=== PATIENT | female | born 1980 | race Two or more races ===

== ENCOUNTER 2017-07-02 20:14 | Emergency (ER) | payer MEDICARE, OTHER ==
[~2017-07-02] VITALS: Ht 157.5 cm; Wt 100.0 kg
[~2017-07-02 20:14] MED LIST: ALBU8.5H8 INH; ALPR1TAB7 PO; ASPI-1265 PO; DOCU100C40 PO; DULO60CA64 PO; FERR325T39 PO; FURO40TA4 PO; GABA-338 PO; HYDR200T PO; IPRA3AMP9 NEB; LIDO700A32 TOP; ONDA4TAB9 SL; OXYC-150 PO; PANT40TA4 PO; POLY17PO2 PO; TEMA15CA5 PO; VALP250C44 PO
[2017-07-02 21:41] VITALS: BP 165/102
== END 2017-07-02 21:43 | disposition home or self-care (01) ==
LOC: ER 20:15
DX: G89.29 Other chronic pain (principal); M06.9 Rheumatoid arthritis, unspecified; M81.0 Age-related osteoporosis without current pathological fracture; I13.0 Hypertensive heart and chronic kidney disease with heart failure and stage 1 through stage 4 chronic kidney disease, or unspecified chronic kidney disease; N18.9 Chronic kidney disease, unspecified; I50.9 Heart failure, unspecified; E78.00 Pure hypercholesterolemia, unspecified; F12.10 Cannabis abuse, uncomplicated; Z86.711 Personal history of pulmonary embolism; Z86.718 Personal history of other venous thrombosis and embolism; Z95.1 Presence of aortocoronary bypass graft; Z79.82 Long term (current) use of aspirin; Z79.899 Other long term (current) drug therapy; Z88.1 Allergy status to other antibiotic agents
CPT/HCPCS: 99284

== ENCOUNTER 2017-08-27 21:44 | Emergency (ER) | payer MEDICARE, MEDICAID ==
[~2017-08-27] VITALS: Ht 157.5 cm; Wt 100.0 kg
[2017-08-28] MEDS ORDERED: aspirin 81mg tab.chew PO ONE (02:35)
[2017-08-28 02:54] LABS: BASOPHILS # (AUTO) 0.1 X10'3 (0-0.2); BASOPHILS % (AUTO) 0.7 % (0-1); EOSINOPHILS # (AUTO) 0.4 X10'3 (0-0.9); EOSINOPHILS % (AUTO) 3.2 % (0-6); HEMATOCRIT 41.9 % (35.0-45.0); HEMOGLOBIN 14.1 g/dl (12.0-16.0); LYMPHOCYTES # (AUTO) 3.2 X10'3 (1.1-4.8); LYMPHOCYTES % (AUTO) 26.9 % (21-51); MEAN CORPUSCULAR HEMOGLOBIN 30.3 PG (27.0-31.0); MEAN CORPUSCULAR HGB CONC 33.7 % (33.0-36.5); MEAN PLATELET VOLUME 8.1 FL (7.4-10.4); MONOCYTES % (AUTO) 8.5 % (2-12); NEUTROPHILS # (AUTO) 7.3 X10'3 (1.8-7.7); NEUTROPHILS % (AUTO) 60.7 % (42-75); PLATELET COUNT 264 X10'3 (140-440); RED BLOOD COUNT 4.65 X10'6 (4.20-5.60); WHITE BLOOD COUNT 12.1 X10'3 (4.5-11.0)
[2017-08-28 03:07] LABS: ALANINE AMINOTRANSFERASE 21 U/L (12-78); ALBUMIN 3.1 G/DL (3.4-5.0); ALBUMIN/GLOBULIN RATIO 0.7 (1.1-1.5); ALKALINE PHOSPHATASE 80 IU/L (46-116); ANION GAP 10 (8-16); BILIRUBIN,TOTAL 0.4 MG/DL (0.1-1.0); BLOOD UREA NITROGEN 39 MG/DL (7-18); BUN/CREATININE RATIO 12.2 (6.6-38.0); CHLORIDE 102 MMOL/L (99-107); CREATININE 3.19 MG/DL (0.40-0.90); GLUCOSE 84 MG/DL (70-104); MAGNESIUM 2.1 MG/DL (1.5-2.4); SODIUM 141 MMOL/L (135-145); TOTAL CARBON DIOXIDE 28.9 MMOL/L (24-32); TOTAL PROTEIN 7.4 G/DL (6.4-8.2); eGFR 16 ML/MIN
[2017-08-28 03:08] LABS: POTASSIUM 4.6 MMOL/L (3.5-5.1)
[2017-08-28 03:22] LABS: ASPARTATE AMINO TRANSFERASE 30 U/L (10-37)
[2017-08-28] MEDS ORDERED: acetaminophen 325mg tablet PO STA (03:28)
[2017-08-28 04:36] VITALS: BP 118/57
== END 2017-08-28 04:39 | disposition home or self-care (01) ==
LOC: ER 21:45
DX: R07.89 Other chest pain (principal); I13.2 Hypertensive heart and chronic kidney disease with heart failure and with stage 5 chronic kidney disease, or end stage renal disease; I50.9 Heart failure, unspecified; N18.6 End stage renal disease; F12.10 Cannabis abuse, uncomplicated; G89.29 Other chronic pain; E78.00 Pure hypercholesterolemia, unspecified; M06.9 Rheumatoid arthritis, unspecified; M81.0 Age-related osteoporosis without current pathological fracture; Z86.711 Personal history of pulmonary embolism; Z86.718 Personal history of other venous thrombosis and embolism; Z95.1 Presence of aortocoronary bypass graft; Z88.1 Allergy status to other antibiotic agents; Z79.82 Long term (current) use of aspirin; Z79.899 Other long term (current) drug therapy; Z56.0 Unemployment, unspecified; Z99.2 Dependence on renal dialysis
CPT/HCPCS: 36415; 71046; 80053; 83735; 84484; 85025; 93005; 99285

== ENCOUNTER 2017-11-03 12:21 | Emergency (ER) | payer MEDICARE, MEDICAID ==
[~2017-11-03] VITALS: Ht 157.5 cm; Wt 95.5 kg
[~2017-11-03 12:21] MED LIST changes: +DIPH1TAB PO; -HYDR200T PO; +HYDR200T80 PO
[2017-11-03] MEDS ORDERED: normal saline 1000ML IV soln IVB ONE (12:40)
[2017-11-03] MEDS ORDERED: ondansetron/PF 4mg/2ml inj IV ONE (12:40)
[2017-11-03 13:30] LABS: BASOPHILS % (AUTO) 0.2 % (0-1); EOSINOPHILS % (AUTO) 0 % (0-6); HEMATOCRIT 46.7 % (35.0-45.0); HEMOGLOBIN 15.5 g/dl (12.0-16.0); LYMPHOCYTES # (AUTO) 1.9 X10'3 (1.1-4.8); LYMPHOCYTES % (AUTO) 12.5 % (21-51); MEAN CORPUSCULAR HEMOGLOBIN 29.7 PG (27.0-31.0); MEAN CORPUSCULAR HGB CONC 33.1 % (33.0-36.5); MEAN CORPUSCULAR VOLUME 89.6 FL (78-98); MEAN PLATELET VOLUME 8.5 FL (7.4-10.4); MONOCYTES # (AUTO) 1.3 X10'3 (0-0.9); MONOCYTES % (AUTO) 8.3 % (2-12); NEUTROPHILS # (AUTO) 12.3 X10'3 (1.8-7.7); PLATELET COUNT 263 X10'3 (140-440); RED BLOOD COUNT 5.21 X10'6 (4.20-5.60); RED CELL DISTRIBUTION WIDTH 14.8 % (11.5-14.5); WHITE BLOOD COUNT 15.5 X10'3 (4.5-11.0)
[2017-11-03 13:48] LABS: ALANINE AMINOTRANSFERASE 48 U/L (12-78); ALBUMIN/GLOBULIN RATIO 0.9 (1.1-1.5); ALKALINE PHOSPHATASE 313 IU/L (46-116); ANION GAP 13 (8-16); ASPARTATE AMINO TRANSFERASE 58 U/L (10-37); BILIRUBIN,TOTAL 0.4 MG/DL (0.1-1.0); BLOOD UREA NITROGEN 42 MG/DL (7-18); BUN/CREATININE RATIO 13.6 (6.6-38.0); CALCIUM 10.1 MG/DL (8.5-10.1); CHLORIDE 97 MMOL/L (99-107); CREATININE 3.09 MG/DL (0.40-0.90); GLUCOSE 114 MG/DL (70-104); LIPASE 108 U/L (73-393); POTASSIUM 4.2 MMOL/L (3.5-5.1); SODIUM 138 MMOL/L (135-145); TOTAL CARBON DIOXIDE 27.9 MMOL/L (24-32); TOTAL PROTEIN 8.6 G/DL (6.4-8.2); eGFR 17 ML/MIN
[2017-11-03 13:54] LABS: VALPROATE 42 UG/ML (50-100)
[2017-11-03] MEDS ORDERED: ONDA8TAB9 PO (14:46)
[2017-11-03] MEDS ORDERED: morphine 4 MG/ML inj SYRINge IV ONE (15:00)
[2017-11-03 15:01] LABS: CLARITY,URINE CLEAR (Clear); COLOR,URINE YELLOW (Yellow); GLUCOSE, URINE NEGATIVE (Neg); KETONES,URINE NEGATIVE (Neg); LEUKOCYTE ESTERASE ,URINE NEGATIVE (Neg); NITRITES, URINE NEGATIVE (Neg); OCCULT BLOOD,URINE NEGATIVE (Neg); PROTEIN,URINE 100 mg/dl (Neg); UROBILINOGEN,URINE 0.2 E.U/dL (0.2-1.0)
[2017-11-03 15:03] LABS: UA COLLECTION TYPE STRAIGHT CATH
[2017-11-03 15:08] LABS: BACTERIA,URINE NONE SEEN /HPF (Neg); HYALINE CASTS 0-3 /LPF (NEGATIVE); MUCUS STRANDS FEW /LPF (Neg); RBC,URINE 0-2 /HPF (0-2); SQUAMOUS EPITHELIAL CELL,UR FEW /LPF (FEW); TRANSITIONAL EPI CELLS,URINE FEW /HPF; WBC,URINE 0-4 /HPF (0-4)
[2017-11-03 15:32] VITALS: BP 139/106
== END 2017-11-03 15:35 | disposition home or self-care (01) ==
LOC: ER 12:22
DX: G40.909 Epilepsy, unspecified, not intractable, without status epilepticus (principal); D72.829 Elevated white blood cell count, unspecified; I13.0 Hypertensive heart and chronic kidney disease with heart failure and stage 1 through stage 4 chronic kidney disease, or unspecified chronic kidney disease; I50.9 Heart failure, unspecified; N18.9 Chronic kidney disease, unspecified; E78.00 Pure hypercholesterolemia, unspecified; M81.0 Age-related osteoporosis without current pathological fracture; M19.90 Unspecified osteoarthritis, unspecified site; F12.10 Cannabis abuse, uncomplicated; G89.29 Other chronic pain; Z56.0 Unemployment, unspecified; Z86.19 Personal history of other infectious and parasitic diseases; Z95.1 Presence of aortocoronary bypass graft; Z86.711 Personal history of pulmonary embolism; Z86.718 Personal history of other venous thrombosis and embolism; Z88.8 Allergy status to other drugs, medicaments and biological substances; Z79.899 Other long term (current) drug therapy; Z79.82 Long term (current) use of aspirin
CPT/HCPCS: 36415; 71045; 80053; 80164; 81001; 83690; 85025; 96361; 96374; 96375; 99285; J2270; J2405; J7030

== ENCOUNTER 2018-02-11 10:40 | Inpatient (IN) | payer MEDICARE, MEDICAID ==
[~2018-02-11] VITALS: Ht 157.5 cm; Wt 86.4 kg
[~2018-02-11 10:40] MED LIST changes: +ONDA8TAB9 PO
[2018-02-11] MEDS ORDERED: ondansetron/PF 4mg/2ml inj IV ONE (12:10)
[2018-02-11] MEDS ORDERED: cloNIDine 0.1 mg tablet PO ONE (12:10)
[2018-02-11] MEDS ORDERED: normal saline 1000ML IV soln IV ONE (12:10)
[2018-02-11 12:35] LABS: BASOPHILS # (AUTO) 0.1 X10'3 (0-0.2); EOSINOPHILS # (AUTO) 0.2 X10'3 (0-0.9); EOSINOPHILS % (AUTO) 1.3 % (0-6); HEMATOCRIT 47.4 % (35.0-45.0); HEMOGLOBIN 14.9 g/dl (12.0-16.0); LYMPHOCYTES # (AUTO) 2.8 X10'3 (1.1-4.8); LYMPHOCYTES % (AUTO) 20.9 % (21-51); MEAN CORPUSCULAR HEMOGLOBIN 29.3 PG (27.0-31.0); MEAN CORPUSCULAR HGB CONC 31.5 % (33.0-36.5); MONOCYTES % (AUTO) 7.3 % (2-12); NEUTROPHILS # (AUTO) 9.1 X10'3 (1.8-7.7); NEUTROPHILS % (AUTO) 69.5 % (42-75); PLATELET COUNT 326 X10'3 (140-440); WHITE BLOOD COUNT 13.2 X10'3 (4.5-11.0)
[2018-02-11] MEDS ORDERED: normal saline 1000ml 1,000 ML IV ONE (12:35)
[2018-02-11] MEDS ORDERED: diphenhydrAMINE 25mg capsule PO ONE (12:45)
[2018-02-11] MEDS ORDERED: proCHLORperazine 10 MG/2 ml inj IM ONE (12:45)
[2018-02-11] MEDS ORDERED: ketorolac trometh inj. 60 MG/2 ML VIAL IM ONE (12:45)
[2018-02-11 12:50] LABS: ALANINE AMINOTRANSFERASE 18 U/L (12-78); ALBUMIN 3.3 G/DL (3.4-5.0); ALBUMIN/GLOBULIN RATIO 0.8 (1.1-1.5); ALKALINE PHOSPHATASE 85 IU/L (46-116); ANION GAP 6 (8-16); ASPARTATE AMINO TRANSFERASE 14 U/L (10-37); BILIRUBIN,TOTAL 0.3 MG/DL (0.1-1.0); BLOOD UREA NITROGEN 43 MG/DL (7-18); BUN/CREATININE RATIO 20.5 (6.6-38.0); CALCIUM 9.9 MG/DL (8.5-10.1); CHLORIDE 106 MMOL/L (99-107); GLUCOSE 85 MG/DL (70-104); MAGNESIUM 2.1 MG/DL (1.5-2.4); SODIUM 138 MMOL/L (135-145); TOTAL CARBON DIOXIDE 26.3 MMOL/L (24-32); TOTAL PROTEIN 7.6 G/DL (6.4-8.2); eGFR 26 ML/MIN
[2018-02-11 12:51] LABS: INR 0.9 INR; PARTIAL THROMBOPLASTIN TIME 27 SECONDS (22-32); PROTHROMBIN TIME 9.8 SECONDS (9.0-12.0)
[2018-02-11 12:54] LABS: POTASSIUM 6.4 MMOL/L (3.5-5.1)
[2018-02-11] MEDS ORDERED: calcium chloride 100 MG/1 ML inj IV ONE (13:05)
[2018-02-11] MEDS ORDERED: sodium polystyrene sulfonate 15gm/60ml oral suspension PO ONE (13:05)
[2018-02-11] MEDS ORDERED: normal saline 1000ML IV soln IVB ONE (13:20)
[2018-02-11] MEDS ORDERED: FENT-93 TOP (13:32)
[2018-02-11 13:41] LABS: COLOR,URINE YELLOW (Yellow); GLUCOSE, URINE NEGATIVE (Neg); KETONES,URINE NEGATIVE (Neg); LEUKOCYTE ESTERASE ,URINE NEGATIVE (Neg); NITRITES, URINE NEGATIVE (Neg); OCCULT BLOOD,URINE NEGATIVE (Neg); PH,URINE 5.5 (4.8-8.0); PROTEIN,URINE TRACE mg/dl (Neg); UROBILINOGEN,URINE 0.2 E.U/dL (0.2-1.0)
[2018-02-11 13:42] LABS: CLARITY,URINE SLIGHTLY CLOUDY (Clear); UA COLLECTION TYPE STRAIGHT CATH
[2018-02-11 13:47] LABS: BACTERIA,URINE NONE SEEN /HPF (Neg); RBC,URINE NONE SEEN /HPF (0-2); SQUAMOUS EPITHELIAL CELL,UR MODERATE /LPF (FEW); WBC,URINE 0-4 /HPF (0-4)
[2018-02-11 13:48] LABS: MUCUS STRANDS FEW /LPF (Neg)
[2018-02-11 13:51] LABS: URINE HCG NEGATIVE (NEG)
[2018-02-11 13:57] LABS: URINE AMPHETAMINE SCREEN NEGATIVE (Neg); URINE BARBITUATE SCREEN NEGATIVE (Neg); URINE BENZODIAZEPINES SCREEN POSITIVE (Neg); URINE CANNABINOID SCREEN POSITIVE (Neg); URINE COCAINE SCREEN NEGATIVE (Neg); URINE METHADONE SCREEN NEGATIVE (Neg); URINE OPIATE SCREEN NEGATIVE (Neg); URINE PHENCYCLIDINE SCREEN NEGATIVE (Neg)
[2018-02-11] MEDS ORDERED: calcium chloride inj. 1,000 MG in normal saline 100ml IV soln 100 ML IV ONE (14:10)
[2018-02-11] MEDS ORDERED: non-formulary drug (Albuterol Sulfate (Proair Hfa) 2 PUFFS) INH SCH (14:35)
[2018-02-11] MEDS ORDERED: polyethylene glycol 3350 17gm powd pack PO PRN (14:35)
[2018-02-11] MEDS ORDERED: non-formulary drug (Fentanyl Patch 100 MCG* (Duragesic 100 MCG*) 1 PATCH) TOP SCH (14:35)
[2018-02-11] MEDS ORDERED: non-formulary drug (Alprazolam 1 TAB) PO PRN (14:35)
[2018-02-11] MEDS ORDERED: HYDROcodone/acetaminophen 10/325mg tab PO PRN (14:45)
[2018-02-11] MEDS ORDERED: acetaminophen 325mg tablet PO PRN ×2 (14:45)
[2018-02-11] MEDS ORDERED: magnesium Cl slow-release 64mg tablet PO PRN (14:45)
[2018-02-11] MEDS ORDERED: ondansetron/PF 4mg/2ml inj IV PRN (14:45)
[2018-02-11] MEDS: K and/or MAG REPLACEMENT MC SCH (14:45)
[2018-02-11] MEDS ORDERED: potassium Cl 20 mEq SR tablet PO PRN ×2 (14:45)
[2018-02-11] MEDS ORDERED: magnesium hydroxide 30ml (MOM) UD suspension PO PRN (14:45)
[2018-02-11] MEDS ORDERED: HYDROmorphone 1 mg/ml syringe IV PRN ×2 (14:45)
[2018-02-11] MEDS ORDERED: diphenhydrAMINE 25mg capsule PO PRN (14:45)
[2018-02-11] MEDS ORDERED: bisacodyl 10mg suppository rectal RC PRN (14:45)
[2018-02-11] MEDS ORDERED: potassium Cl 40MEQ/NS 500ml 500 ML IV PRN ×2 (14:45)
[2018-02-11] MEDS ORDERED: magnesium 4gm in 100ml NS 100 ML IV PRN (14:45)
[2018-02-11] MEDS ORDERED: morphine 4 MG/ML inj SYRINge IV PRN (14:45)
[2018-02-11] MEDS ORDERED: magnesium 1gm/100ml D5W IVPB 100 ML IV PRN (14:45)
[2018-02-11] MEDS ORDERED: HYDROcodone/acetaminophen 5mg/325mg tablet PO PRN (14:45)
[2018-02-11] MEDS ORDERED: mag hydrox/Alum hydrox/simeth 30ml oral suspension PO PRN (14:45)
[2018-02-11] MEDS: fentaNYL 100MCG/hour patch.TD72 TD SCH (15:52)
[2018-02-11] MEDS: diphenoxylate/atropine tablet (Lomotil) PO SCH (16:00)
[2018-02-11] MEDS ORDERED: non-formulary drug (Ondansetron (Zofran Odt) 1 TAB) PO SCH (16:00)
[2018-02-11] MEDS: morphine 4 MG/ML inj SYRINge IV PRN ×2 (16:19→22:04)
[2018-02-11] MEDS ORDERED: diphenhydrAMINE 50 mg/ml inj IV PRN (16:34)
[2018-02-11 17:30] VITALS: BP 163/102
[2018-02-11] MEDS: normal saline 1000ml 1,000 ML IV SCH ×2 (17:49→22:45)
[2018-02-11] MEDS: oxyCODONE/APAP 10/325mg tablet PO PRN (17:55)
[2018-02-11 19:00] VITALS: BP 134/87
[2018-02-11] MEDS: ipratropium/albuterol 3ml nebule NEB PRN (19:31)
[2018-02-11] MEDS: docusate sod 100mg capsule PO SCH (20:00)
[2018-02-11] MEDS ORDERED: non-formulary drug (Duloxetine HCl 1 CAP) PO SCH (20:00)
[2018-02-11] MEDS ORDERED: temazepam 15mg capsule PO PRN (21:00)
[2018-02-11] MEDS: gabapentin 300mg capsule PO SCH (21:32)
[2018-02-11] MEDS: duloxetine 30mg CAPSULE.DR PO SCH (21:34)
[2018-02-11] MEDS: ferrous sulfate 325mg tablet PO SCH (21:34)
[2018-02-11] MEDS: heparin, porcine 5000 units/ml vial SQ SCH (21:37)
[2018-02-11] MEDS: valproic acid 250mg capsule PO SCH (21:38)
[2018-02-11] MEDS: furosemide 40mg tablet PO SCH (21:44)
[2018-02-11] MEDS: ALPRAZolam 0.5mg tablet PO PRN (22:18)
[2018-02-12] VITALS: BP 135/90
[2018-02-12] MEDS: oxyCODONE/APAP 10/325mg tablet PO PRN ×3 (00:38→19:16)
[2018-02-12] MEDS: temazepam 15mg capsule PO PRN (00:38)
[2018-02-12] MEDS: morphine 4 MG/ML inj SYRINge IV PRN ×2 (02:14→08:00)
[2018-02-12] MEDS: ipratropium/albuterol 3ml nebule NEB PRN ×3 (02:48→20:10)
[2018-02-12 05:18] LABS: BASOPHILS # (AUTO) 0.1 X10'3 (0-0.2); BASOPHILS % (AUTO) 0.8 % (0-1); EOSINOPHILS # (AUTO) 0.2 X10'3 (0-0.9); EOSINOPHILS % (AUTO) 1.3 % (0-6); HEMATOCRIT 40.4 % (35.0-45.0); HEMOGLOBIN 13.1 g/dl (12.0-16.0); LYMPHOCYTES # (AUTO) 4.9 X10'3 (1.1-4.8); LYMPHOCYTES % (AUTO) 35.5 % (21-51); MEAN CORPUSCULAR HEMOGLOBIN 30.5 PG (27.0-31.0); MEAN CORPUSCULAR HGB CONC 32.5 % (33.0-36.5); MEAN CORPUSCULAR VOLUME 93.9 FL (78-98); MEAN PLATELET VOLUME 9.3 FL (7.4-10.4); MONOCYTES # (AUTO) 0.9 X10'3 (0-0.9); MONOCYTES % (AUTO) 6.2 % (2-12); NEUTROPHILS # (AUTO) 7.7 X10'3 (1.8-7.7); NEUTROPHILS % (AUTO) 56.2 % (42-75); PLATELET COUNT 264 X10'3 (140-440); RED BLOOD COUNT 4.31 X10'6 (4.20-5.60); RED CELL DISTRIBUTION WIDTH 14.6 % (11.5-14.5); WHITE BLOOD COUNT 13.8 X10'3 (4.5-11.0)
[2018-02-12] MEDS: normal saline 1000ml 1,000 ML IV SCH ×3 (05:26→22:45)
[2018-02-12] MEDS: ALPRAZolam 0.5mg tablet PO PRN (05:31)
[2018-02-12 05:45] LABS: ALANINE AMINOTRANSFERASE 13 U/L (12-78); ALBUMIN 2.7 G/DL (3.4-5.0); ALBUMIN/GLOBULIN RATIO 0.8 (1.1-1.5); ALKALINE PHOSPHATASE 88 IU/L (46-116); ANION GAP 6 (8-16); ASPARTATE AMINO TRANSFERASE 12 U/L (10-37); BILIRUBIN,TOTAL 0.2 MG/DL (0.1-1.0); BLOOD UREA NITROGEN 42 MG/DL (7-18); BUN/CREATININE RATIO 20.3 (6.6-38.0); CHLORIDE 105 MMOL/L (99-107); CREATININE 2.07 MG/DL (0.40-0.90); GLUCOSE 113 MG/DL (70-104); MAGNESIUM 1.5 MG/DL (1.5-2.4); PHOSPHORUS 4.7 MG/DL (2.3-4.5); POTASSIUM 3.8 MMOL/L (3.5-5.1); SODIUM 137 MMOL/L (135-145); TOTAL CARBON DIOXIDE 26.5 MMOL/L (24-32); TOTAL PROTEIN 6.2 G/DL (6.4-8.2); eGFR 27 ML/MIN
[2018-02-12 07:00] VITALS: BP 101/62
[2018-02-12] MEDS: valproic acid 250mg capsule PO SCH ×2 (07:59→21:16)
[2018-02-12] MEDS: diphenoxylate/atropine tablet (Lomotil) PO SCH ×3 (07:59→16:00)
[2018-02-12] MEDS: ferrous sulfate 325mg tablet PO SCH ×3 (07:59→21:17)
[2018-02-12] MEDS: gabapentin 300mg capsule PO SCH ×3 (07:59→21:17)
[2018-02-12] MEDS: pantoprazole 40mg Tablet.DR PO SCH (07:59)
[2018-02-12] MEDS: furosemide 40mg tablet PO SCH ×2 (07:59→21:16)
[2018-02-12] MEDS: K and/or MAG REPLACEMENT MC SCH (08:00)
[2018-02-12] MEDS: aspirin 325mg tablet PO SCH (08:00)
[2018-02-12] MEDS: predniSONE 5mg tablet PO SCH (08:00)
[2018-02-12] MEDS: duloxetine 30mg CAPSULE.DR PO SCH ×2 (08:00→21:16)
[2018-02-12] MEDS: docusate sod 100mg capsule PO SCH ×2 (08:00→21:17)
[2018-02-12] MEDS: heparin, porcine 5000 units/ml vial SQ SCH ×2 (08:01→21:17)
[2018-02-12] MEDS: hydroxychloroquine 200mg tablet PO SCH (08:01)
[2018-02-12] MEDS: LIDOcaine 5% patch TP SCH (08:07)
[2018-02-12 10:27] LABS: VALPROATE 71 UG/ML (50-100)
[2018-02-12] MEDS ORDERED: morphine 4 MG/ML inj SYRINge IV PRN ×2 (10:30)
[2018-02-12 11:30] VITALS: BP 112/78
[2018-02-12] MEDS: ondansetron 4mg rapidly disintigrating tab PO PRN ×2 (13:53→21:32)
[2018-02-12 20:00] VITALS: BP 106/83
[2018-02-13] VITALS: BP 106/76
[2018-02-13] MEDS: oxyCODONE/APAP 10/325mg tablet PO PRN ×3 (03:26→17:39)
[2018-02-13] MEDS: ipratropium/albuterol 3ml nebule NEB PRN ×2 (03:43→08:10)
[2018-02-13 05:50] LABS: BASOPHILS # (AUTO) 0.1 X10'3 (0-0.2); BASOPHILS % (AUTO) 1.2 % (0-1); EOSINOPHILS # (AUTO) 0.2 X10'3 (0-0.9); EOSINOPHILS % (AUTO) 1.6 % (0-6); HEMATOCRIT 36.6 % (35.0-45.0); HEMOGLOBIN 11.9 g/dl (12.0-16.0); LYMPHOCYTES # (AUTO) 2.8 X10'3 (1.1-4.8); LYMPHOCYTES % (AUTO) 26.1 % (21-51); MEAN CORPUSCULAR HEMOGLOBIN 30.4 PG (27.0-31.0); MEAN CORPUSCULAR HGB CONC 32.4 % (33.0-36.5); MEAN PLATELET VOLUME 9.2 FL (7.4-10.4); MONOCYTES # (AUTO) 0.8 X10'3 (0-0.9); MONOCYTES % (AUTO) 7.6 % (2-12); NEUTROPHILS # (AUTO) 6.8 X10'3 (1.8-7.7); NEUTROPHILS % (AUTO) 63.5 % (42-75); PLATELET COUNT 237 X10'3 (140-440); RED CELL DISTRIBUTION WIDTH 15.7 % (11.5-14.5); WHITE BLOOD COUNT 10.6 X10'3 (4.5-11.0)
[2018-02-13 06:23] LABS: ALANINE AMINOTRANSFERASE 20 U/L (12-78); ALBUMIN 2.8 G/DL (3.4-5.0); ALBUMIN/GLOBULIN RATIO 0.9 (1.1-1.5); ALKALINE PHOSPHATASE 77 IU/L (46-116); ANION GAP 10 (8-16); ASPARTATE AMINO TRANSFERASE 15 U/L (10-37); BILIRUBIN,TOTAL 0.1 MG/DL (0.1-1.0); BLOOD UREA NITROGEN 43 MG/DL (7-18); BUN/CREATININE RATIO 16.8 (6.6-38.0); CALCIUM 7.3 MG/DL (8.5-10.1); CHLORIDE 103 MMOL/L (99-107); CREATININE 2.56 MG/DL (0.40-0.90); GLUCOSE 88 MG/DL (70-104); MAGNESIUM 1.6 MG/DL (1.5-2.4); PHOSPHORUS 4.3 MG/DL (2.3-4.5); POTASSIUM 4.3 MMOL/L (3.5-5.1); SODIUM 138 MMOL/L (135-145); TOTAL CARBON DIOXIDE 25.2 MMOL/L (24-32); eGFR 21 ML/MIN
[2018-02-13] MEDS: normal saline 1000ml 1,000 ML IV SCH ×3 (06:45→18:38)
[2018-02-13 07:31] VITALS: BP 88/44
[2018-02-13] MEDS: K and/or MAG REPLACEMENT MC SCH (07:39)
[2018-02-13] MEDS: diphenoxylate/atropine tablet (Lomotil) PO SCH ×3 (07:40→15:45)
[2018-02-13] MEDS: furosemide 40mg tablet PO SCH ×2 (07:41→19:58)
[2018-02-13] MEDS: pantoprazole 40mg Tablet.DR PO SCH (08:50)
[2018-02-13] MEDS: hydroxychloroquine 200mg tablet PO SCH (08:50)
[2018-02-13] MEDS: docusate sod 100mg capsule PO SCH ×2 (08:50→19:58)
[2018-02-13] MEDS: valproic acid 250mg capsule PO SCH ×2 (08:50→19:59)
[2018-02-13] MEDS: predniSONE 5mg tablet PO SCH (08:50)
[2018-02-13] MEDS: aspirin 325mg tablet PO SCH (08:50)
[2018-02-13] MEDS: ferrous sulfate 325mg tablet PO SCH ×3 (08:50→20:33)
[2018-02-13] MEDS: duloxetine 30mg CAPSULE.DR PO SCH ×2 (08:50→19:59)
[2018-02-13] MEDS: gabapentin 300mg capsule PO SCH ×3 (08:50→20:33)
[2018-02-13] MEDS: LIDOcaine 5% patch TP SCH (08:51)
[2018-02-13] MEDS: heparin, porcine 5000 units/ml vial SQ SCH ×2 (08:51→19:58)
[2018-02-13] MEDS ORDERED: normal saline 1000ml 1,000 ML IV ONE (09:10)
[2018-02-13 11:03] VITALS: BP 96/60
[2018-02-13 12:11] VITALS: BP 113/73
[2018-02-13 18:00] VITALS: BP 122/59
[2018-02-13] MEDS: albuterol 2.5 MG/3 ML nebule NEB PRN (19:47)
[2018-02-13] MEDS: ALPRAZolam 0.5mg tablet PO PRN (19:59)
[2018-02-14] VITALS: BP 98/60
[2018-02-14] MEDS: normal saline 1000ml 1,000 ML IV SCH ×3 (02:45→23:47)
[2018-02-14] MEDS: oxyCODONE/APAP 10/325mg tablet PO PRN ×2 (04:24→14:20)
[2018-02-14 07:30] VITALS: BP 101/42
[2018-02-14] MEDS: furosemide 40mg tablet PO SCH ×2 (08:00→19:47)
[2018-02-14] MEDS: diphenoxylate/atropine tablet (Lomotil) PO SCH ×4 (08:00→23:48)
[2018-02-14] MEDS: K and/or MAG REPLACEMENT MC SCH (08:00)
[2018-02-14] MEDS: duloxetine 30mg CAPSULE.DR PO SCH ×2 (09:17→19:48)
[2018-02-14] MEDS: LIDOcaine 5% patch TP SCH (09:17)
[2018-02-14] MEDS: heparin, porcine 5000 units/ml vial SQ SCH ×2 (09:17→19:49)
[2018-02-14] MEDS: docusate sod 100mg capsule PO SCH ×2 (09:18→19:47)
[2018-02-14] MEDS: pantoprazole 40mg Tablet.DR PO SCH (09:18)
[2018-02-14] MEDS: valproic acid 250mg capsule PO SCH ×2 (09:18→19:48)
[2018-02-14] MEDS: gabapentin 300mg capsule PO SCH ×3 (09:18→19:47)
[2018-02-14] MEDS: aspirin 325mg tablet PO SCH (09:18)
[2018-02-14] MEDS: predniSONE 5mg tablet PO SCH (09:18)
[2018-02-14] MEDS: ferrous sulfate 325mg tablet PO SCH ×3 (09:18→20:58)
[2018-02-14] MEDS: hydroxychloroquine 200mg tablet PO SCH (09:19)
[2018-02-14 11:19] VITALS: BP 100/48
[2018-02-14] MEDS: ALPRAZolam 0.5mg tablet PO PRN (12:18)
[2018-02-14] MEDS: fentaNYL 100MCG/hour patch.TD72 TD SCH (16:29)
[2018-02-14 18:00] VITALS: BP 115/61
[2018-02-14] MEDS: temazepam 15mg capsule PO PRN (20:58)
[2018-02-15 00:02] VITALS: BP 128/76
[2018-02-15] MEDS: normal saline 1000ml 1,000 ML IV SCH ×3 (05:11→21:09)
[2018-02-15] MEDS: albuterol 2.5 MG/3 ML nebule NEB PRN (05:15)
[2018-02-15 07:00] VITALS: BP 94/52
[2018-02-15] MEDS: diphenoxylate/atropine tablet (Lomotil) PO SCH ×3 (08:00→23:25)
[2018-02-15] MEDS: furosemide 40mg tablet PO SCH ×2 (08:00→20:07)
[2018-02-15] MEDS: K and/or MAG REPLACEMENT MC SCH (08:00)
[2018-02-15] MEDS: heparin, porcine 5000 units/ml vial SQ SCH ×2 (08:14→20:07)
[2018-02-15] MEDS: hydroxychloroquine 200mg tablet PO SCH (08:15)
[2018-02-15] MEDS: aspirin 325mg tablet PO SCH (08:15)
[2018-02-15] MEDS: duloxetine 30mg CAPSULE.DR PO SCH ×2 (08:15→20:07)
[2018-02-15] MEDS: docusate sod 100mg capsule PO SCH ×2 (08:16→20:07)
[2018-02-15] MEDS: pantoprazole 40mg Tablet.DR PO SCH (08:16)
[2018-02-15] MEDS: gabapentin 300mg capsule PO SCH ×2 (08:16→20:07)
[2018-02-15] MEDS: ferrous sulfate 325mg tablet PO SCH ×3 (08:16→20:06)
[2018-02-15] MEDS: predniSONE 5mg tablet PO SCH (08:16)
[2018-02-15] MEDS: valproic acid 250mg capsule PO SCH ×2 (08:16→20:06)
[2018-02-15] MEDS: LIDOcaine 5% patch TP SCH (08:17)
[2018-02-15 11:00] VITALS: BP 105/65
[2018-02-15 20:00] VITALS: BP 105/76
[2018-02-15] MEDS: ALPRAZolam 0.5mg tablet PO PRN (23:25)
[2018-02-16] VITALS: BP 132/78
[2018-02-16] MEDS ORDERED: bisacodyl 10mg suppository rectal RC PRN (05:35)
[2018-02-16] MEDS: normal saline 1000ml 1,000 ML IV SCH ×2 (05:46→14:34)
[2018-02-16 07:00] VITALS: BP 132/87
[2018-02-16] MEDS: hydroxychloroquine 200mg tablet PO SCH (07:51)
[2018-02-16] MEDS: LIDOcaine 5% patch TP SCH (07:51)
[2018-02-16] MEDS: heparin, porcine 5000 units/ml vial SQ SCH (07:51)
[2018-02-16] MEDS: pantoprazole 40mg Tablet.DR PO SCH (07:52)
[2018-02-16] MEDS: duloxetine 30mg CAPSULE.DR PO SCH (07:52)
[2018-02-16] MEDS: ferrous sulfate 325mg tablet PO SCH ×2 (07:52→13:20)
[2018-02-16] MEDS: gabapentin 300mg capsule PO SCH (07:52)
[2018-02-16] MEDS: furosemide 40mg tablet PO SCH (07:52)
[2018-02-16] MEDS: predniSONE 5mg tablet PO SCH (07:52)
[2018-02-16] MEDS: docusate sod 100mg capsule PO SCH (07:52)
[2018-02-16] MEDS: valproic acid 250mg capsule PO SCH (07:52)
[2018-02-16] MEDS: aspirin 325mg tablet PO SCH (07:52)
[2018-02-16] MEDS: diphenoxylate/atropine tablet (Lomotil) PO SCH ×2 (08:00→14:18)
[2018-02-16] MEDS: K and/or MAG REPLACEMENT MC SCH (08:00)
[2018-02-16 11:00] VITALS: BP 133/80
== END 2018-02-16 17:15 | DRG 641 ==
LOC: ER 10:41 → ED HOLD 14:45 → SUR 3N 17:28 → UNDODISIN 02-16 17:15
PROVIDERS: ADMIT Family Medicine; ATTEND Family Medicine
DX: E87.5 Hyperkalemia (principal); F11.20 Opioid dependence, uncomplicated; I13.0 Hypertensive heart and chronic kidney disease with heart failure and stage 1 through stage 4 chronic kidney disease, or unspecified chronic kidney disease; E86.0 Dehydration; M32.9 Systemic lupus erythematosus, unspecified; M81.0 Age-related osteoporosis without current pathological fracture; E78.00 Pure hypercholesterolemia, unspecified; E78.5 Hyperlipidemia, unspecified; F12.90 Cannabis use, unspecified, uncomplicated; G89.4 Chronic pain syndrome; N18.3 Chronic kidney disease, stage 3 (moderate); D72.829 Elevated white blood cell count, unspecified; G40.909 Epilepsy, unspecified, not intractable, without status epilepticus; I50.9 Heart failure, unspecified; M06.9 Rheumatoid arthritis, unspecified; M79.7 Fibromyalgia; Z75.1 Person awaiting admission to adequate facility elsewhere; Z95.1 Presence of aortocoronary bypass graft; Z95.2 Presence of prosthetic heart valve; Z74.01 Bed confinement status; Z88.1 Allergy status to other antibiotic agents; Z79.899 Other long term (current) drug therapy; Z79.82 Long term (current) use of aspirin; Z86.14 Personal history of Methicillin resistant Staphylococcus aureus infection; Z87.01 Personal history of pneumonia (recurrent); Z86.718 Personal history of other venous thrombosis and embolism; Z86.711 Personal history of pulmonary embolism; Z87.891 Personal history of nicotine dependence; Z82.49 Family history of ischemic heart disease and other diseases of the circulatory system
CPT/HCPCS: 36415; 71045; 80053; 80164; 80305; 81001; 81025; 82948; 83605; 83735; 84100; 84132; 85025; 85610; 85730; 87040; 87070; 93005; 94640; 94760; 96361; 96365; 96375; 97110; 97116; 97161; 97530; 99285; A4315; A6257; A6258; J1200; J1644; J2270; J2405; J7030; J7512

== ENCOUNTER 2018-04-14 13:50 | Emergency (ER) | payer MEDICARE, MEDICAID ==
[~2018-04-14] VITALS: Ht 157.5 cm; Wt 93.2 kg
[~2018-04-14 13:50] MED LIST changes: +FENT1PAT13 TOP; -ONDA4TAB9 SL
[2018-04-14] MEDS ORDERED: HYDROmorphone 1 mg/ml syringe IM ONE (14:05)
[2018-04-14] MEDS ORDERED: oxyCODONE/APAP 5-325mg tablet PO ONE (16:25)
[2018-04-14 16:35] VITALS: BP 128/67
== END 2018-04-14 16:40 | disposition home or self-care (01) ==
LOC: ER 13:51
DX: S82.851A Displaced trimalleolar fracture of right lower leg, initial encounter for closed fracture (principal); I13.0 Hypertensive heart and chronic kidney disease with heart failure and stage 1 through stage 4 chronic kidney disease, or unspecified chronic kidney disease; N18.9 Chronic kidney disease, unspecified; I50.9 Heart failure, unspecified; E78.00 Pure hypercholesterolemia, unspecified; M19.90 Unspecified osteoarthritis, unspecified site; G89.29 Other chronic pain; F12.90 Cannabis use, unspecified, uncomplicated; Z86.69 Personal history of other diseases of the nervous system and sense organs; Z86.14 Personal history of Methicillin resistant Staphylococcus aureus infection; Z95.1 Presence of aortocoronary bypass graft; Z98.890 Other specified postprocedural states; Z56.0 Unemployment, unspecified; Z86.711 Personal history of pulmonary embolism; Z86.718 Personal history of other venous thrombosis and embolism; Z88.8 Allergy status to other drugs, medicaments and biological substances; Z79.82 Long term (current) use of aspirin; Z79.899 Other long term (current) drug therapy; X37.1XXA Tornado, initial encounter; Y93.89 Activity, other specified; Y92.89 Other specified places as the place of occurrence of the external cause; Y99.8 Other external cause status
CPT/HCPCS: 29515; 73610; 96372; 99284; J1170

== ENCOUNTER → 2018-04-15 | Emergency (ER) | payer MEDICARE, MEDICAID ==
[~2018-04-15] VITALS: Ht 157.5 cm; Wt 93.2 kg
[~2018-04-15] MED LIST changes: +HYDROmorphone 1 mg/ml syringe IM ONE; +LORazepam 1 MG tablet PO ONE
[2018-04-15 20:40] VITALS: BP 161/119
== END | disposition home or self-care (01) ==
LOC: ER 20:38
DX: S82.851D Displaced trimalleolar fracture of right lower leg, subsequent encounter for closed fracture with routine healing (principal); E78.00 Pure hypercholesterolemia, unspecified; I11.0 Hypertensive heart disease with heart failure; I50.9 Heart failure, unspecified; I12.9 Hypertensive chronic kidney disease with stage 1 through stage 4 chronic kidney disease, or unspecified chronic kidney disease; N18.9 Chronic kidney disease, unspecified; M79.7 Fibromyalgia; G89.29 Other chronic pain; F12.90 Cannabis use, unspecified, uncomplicated; Z95.1 Presence of aortocoronary bypass graft; Z56.0 Unemployment, unspecified; Z86.718 Personal history of other venous thrombosis and embolism; Z86.711 Personal history of pulmonary embolism; Z99.2 Dependence on renal dialysis; Z88.8 Allergy status to other drugs, medicaments and biological substances; Z79.82 Long term (current) use of aspirin; Z79.899 Other long term (current) drug therapy; X37 Cataclysmic storm
CPT/HCPCS: 29515; 96372; 99283; J1170

== ENCOUNTER 2018-05-07 11:35 | Outpatient (CLI) | payer MEDICARE, MEDICAID ==
[2018-05-07 11:23] VITALS: BP 136/104
[~2018-05-07 11:35] MED LIST changes: -HYDROmorphone 1 mg/ml syringe IM ONE; -LORazepam 1 MG tablet PO ONE
== END 2018-05-07 12:17 | disposition home or self-care (01) ==
LOC: ORTHO 11:35
PROVIDERS: ATTEND Nurse Practitioner Family
DX: S82.851G Displaced trimalleolar fracture of right lower leg, subsequent encounter for closed fracture with delayed healing (principal); M25.471 Effusion, right ankle; E78.00 Pure hypercholesterolemia, unspecified; I13.0 Hypertensive heart and chronic kidney disease with heart failure and stage 1 through stage 4 chronic kidney disease, or unspecified chronic kidney disease; N18.9 Chronic kidney disease, unspecified; I50.9 Heart failure, unspecified; G89.29 Other chronic pain; M81.0 Age-related osteoporosis without current pathological fracture; M06.9 Rheumatoid arthritis, unspecified; Z86.718 Personal history of other venous thrombosis and embolism; Z88.1 Allergy status to other antibiotic agents; Z79.899 Other long term (current) drug therapy; Z87.891 Personal history of nicotine dependence; Z56.0 Unemployment, unspecified; W19.XXXD Unspecified fall, subsequent encounter
CPT/HCPCS: 73610; 99213; A4590

== ENCOUNTER → 2018-05-20 | Outpatient (CLI) | payer MEDICARE, MEDICAID ==
[2018-05-20 11:43] VITALS: BP 178/117
== END | disposition home or self-care (01) ==
LOC: ORTHO 11:45
PROVIDERS: ATTEND Nurse Practitioner Family
DX: S82.851G Displaced trimalleolar fracture of right lower leg, subsequent encounter for closed fracture with delayed healing (principal); E78.00 Pure hypercholesterolemia, unspecified; M81.0 Age-related osteoporosis without current pathological fracture; G40.89 Other seizures; I13.0 Hypertensive heart and chronic kidney disease with heart failure and stage 1 through stage 4 chronic kidney disease, or unspecified chronic kidney disease; N18.9 Chronic kidney disease, unspecified; I50.9 Heart failure, unspecified; M79.7 Fibromyalgia; M06.9 Rheumatoid arthritis, unspecified; Z79.899 Other long term (current) drug therapy; Z98.890 Other specified postprocedural states; Z86.718 Personal history of other venous thrombosis and embolism; Z87.891 Personal history of nicotine dependence; Z88.1 Allergy status to other antibiotic agents; Z56.0 Unemployment, unspecified; W19.XXXD Unspecified fall, subsequent encounter
CPT/HCPCS: 73610; 99213; A4590

== ENCOUNTER 2018-06-10 10:43 | Outpatient (CLI) | payer MEDICARE, MEDICAID ==
[2018-06-10 10:42] VITALS: BP 146/97
[~2018-06-10 10:43] MED LIST changes: -POLY17PO2 PO; +POLY17PO36 PO
== END 2018-06-10 11:39 | disposition home or self-care (01) ==
LOC: ORTHO 10:43
PROVIDERS: ATTEND Nurse Practitioner Family
DX: S82.841G Displaced bimalleolar fracture of right lower leg, subsequent encounter for closed fracture with delayed healing (principal); E78.00 Pure hypercholesterolemia, unspecified; M81.0 Age-related osteoporosis without current pathological fracture; G40.89 Other seizures; I13.0 Hypertensive heart and chronic kidney disease with heart failure and stage 1 through stage 4 chronic kidney disease, or unspecified chronic kidney disease; N18.9 Chronic kidney disease, unspecified; I50.9 Heart failure, unspecified; M79.7 Fibromyalgia; M06.9 Rheumatoid arthritis, unspecified; Z79.899 Other long term (current) drug therapy; Z98.890 Other specified postprocedural states; Z87.891 Personal history of nicotine dependence; Z88.1 Allergy status to other antibiotic agents; Z56.0 Unemployment, unspecified; X58.XXXD Exposure to other specified factors, subsequent encounter
CPT/HCPCS: 73610; 99213; A4590

== ENCOUNTER 2018-06-16 13:24 | Emergency (ER) | payer MEDICARE, MEDICAID ==
[~2018-06-16] VITALS: Ht 157.5 cm; Wt 100.0 kg
[2018-06-16] MEDS ORDERED: AMOX-422 PO (14:26)
[2018-06-16 14:59] VITALS: BP 134/94
== END 2018-06-16 15:03 | disposition home or self-care (01) ==
LOC: ER 13:25
DX: J32.0 Chronic maxillary sinusitis (principal); R05 Cough; I13.0 Hypertensive heart and chronic kidney disease with heart failure and stage 1 through stage 4 chronic kidney disease, or unspecified chronic kidney disease; N18.9 Chronic kidney disease, unspecified; I50.9 Heart failure, unspecified; E78.00 Pure hypercholesterolemia, unspecified; M19.90 Unspecified osteoarthritis, unspecified site; G89.29 Other chronic pain; M79.7 Fibromyalgia; M06.9 Rheumatoid arthritis, unspecified; Z86.718 Personal history of other venous thrombosis and embolism; Z86.711 Personal history of pulmonary embolism; Z56.0 Unemployment, unspecified; Z95.1 Presence of aortocoronary bypass graft; Z98.890 Other specified postprocedural states; Z88.1 Allergy status to other antibiotic agents; Z88.8 Allergy status to other drugs, medicaments and biological substances; Z79.82 Long term (current) use of aspirin; Z79.899 Other long term (current) drug therapy
CPT/HCPCS: 71046; 99283; 99284

== ENCOUNTER 2018-07-13 13:03 | Outpatient (CLI) | payer MEDICARE, MEDICAID | END 2018-07-13 14:36 | disposition home or self-care (01) | LOC: ORTHO 13:03 | PROVIDERS: ATTEND Nurse Practitioner Family | DX: S82.841K Displaced bimalleolar fracture of right lower leg, subsequent encounter for closed fracture with nonunion (principal); S82.54XK Nondisplaced fracture of medial malleolus of right tibia, subsequent encounter for closed fracture with nonunion; S82.831K Other fracture of upper and lower end of right fibula, subsequent encounter for closed fracture with nonunion; M19.071 Primary osteoarthritis, right ankle and foot; I50.9 Heart failure, unspecified; I11.0 Hypertensive heart disease with heart failure; Z88.8 Allergy status to other drugs, medicaments and biological substances; Z79.899 Other long term (current) drug therapy; Z56.0 Unemployment, unspecified; X58.XXXD Exposure to other specified factors, subsequent encounter | CPT/HCPCS: 73610; G0463 ==

== ENCOUNTER 2018-07-28 16:04 | Outpatient (CLI) | payer MEDICARE, MEDICAID ==
[2018-07-28 16:03] VITALS: BP 132/96
== END 2018-07-28 16:18 | disposition home or self-care (01) ==
LOC: ORTHO 16:04
PROVIDERS: ATTEND Nurse Practitioner Family
DX: S82.851K Displaced trimalleolar fracture of right lower leg, subsequent encounter for closed fracture with nonunion (principal); I13.0 Hypertensive heart and chronic kidney disease with heart failure and stage 1 through stage 4 chronic kidney disease, or unspecified chronic kidney disease; N18.9 Chronic kidney disease, unspecified; I50.9 Heart failure, unspecified; E78.00 Pure hypercholesterolemia, unspecified; Z79.899 Other long term (current) drug therapy; Z98.890 Other specified postprocedural states; Z88.8 Allergy status to other drugs, medicaments and biological substances; Z88.1 Allergy status to other antibiotic agents; X37 Cataclysmic storm
CPT/HCPCS: 99213; A4590

== ENCOUNTER 2018-08-10 10:16 | Emergency (ER) | payer MEDICARE, MEDICAID ==
[~2018-08-10] VITALS: Ht 157.5 cm; Wt 93.6 kg
--- NOTE | 2018-08-10 10:41 | NUR ---
Patient has pre-exsisting cast to right lower leg/foot.
[2018-08-10 10:50] LABS: BASOPHILS # (AUTO) 0.1 X10'3 (0-0.2); BASOPHILS % (AUTO) 0.9 % (0-1); EOSINOPHILS % (AUTO) 0.3 % (0-6); HEMATOCRIT 43.5 % (35.0-45.0); HEMOGLOBIN 14.6 g/dl (12.0-16.0); LYMPHOCYTES # (AUTO) 2.1 X10'3 (1.1-4.8); LYMPHOCYTES % (AUTO) 14.9 % (21-51); MEAN CORPUSCULAR HEMOGLOBIN 31.1 PG (27.0-31.0); MEAN CORPUSCULAR HGB CONC 33.6 g/dL (33.0-36.5); MEAN CORPUSCULAR VOLUME 92.6 FL (78-98); MEAN PLATELET VOLUME 8.6 FL (7.4-10.4); MONOCYTES % (AUTO) 7.4 % (2-12); NEUTROPHILS % (AUTO) 76.5 % (42-75); PLATELET COUNT 272 X10'3 (140-440); RED CELL DISTRIBUTION WIDTH 14.7 % (11.5-14.5); WHITE BLOOD COUNT 14.2 X10'3 (4.5-11.0)
[2018-08-10 11:01] LABS: ALANINE AMINOTRANSFERASE 22 U/L (12-78); ALBUMIN 3.3 G/DL (3.4-5.0); ALBUMIN/GLOBULIN RATIO 0.8 (1.1-1.5); ALKALINE PHOSPHATASE 140 IU/L (46-116); ANION GAP 12 (8-16); ASPARTATE AMINO TRANSFERASE 19 U/L (10-37); BILIRUBIN,TOTAL 0.5 MG/DL (0.1-1.0); BLOOD UREA NITROGEN 37 MG/DL (7-18); BUN/CREATININE RATIO 14.8 (6.6-38.0); CALCIUM 9.5 MG/DL (8.5-10.1); CHLORIDE 100 MMOL/L (99-107); GLUCOSE 101 MG/DL (70-104); SODIUM 136 MMOL/L (135-145); TOTAL CARBON DIOXIDE 23.8 MMOL/L (24-32); TOTAL PROTEIN 7.7 G/DL (6.4-8.2); eGFR 21 ML/MIN
[2018-08-10 11:11] LABS: ETHANOL < 0.010 GM/DL (0.0-0.010)
--- NOTE | 2018-08-10 12:01 | NUR ---
Patient lying in bed, awake and alert. Deneis any need at this time.
[2018-08-10] MEDS ORDERED: POLY17PO10 PO (12:13)
[2018-08-10] MEDS ORDERED: LIDO700A32 TOP (12:13)
[2018-08-10] MEDS ORDERED: DIPH1TAB PO (12:13)
[2018-08-10] MEDS ORDERED: VALP250C PO (12:13)
[2018-08-10] MEDS ORDERED: PANT-47 PO (12:13)
[2018-08-10] MEDS ORDERED: IPRA3AMP31 IH (12:13)
[2018-08-10] MEDS ORDERED: DOCU-20 PO (12:13)
[2018-08-10] MEDS ORDERED: ONDA8TAB6 PO (12:13)
[2018-08-10] MEDS ORDERED: FURO40TA4 PO (12:13)
--- NOTE | 2018-08-10 12:14 | NUR ---
Patient moved to room 27 from room 9. report given to BERNA Paniagua.
[2018-08-10] MEDS ORDERED: albuterol 2.5 MG/3 ML nebule NEB PRN (12:50)
[2018-08-10] MEDS: ALPRAZolam 0.5mg tablet PO PRN ×2 (13:16→20:45)
[2018-08-10] MEDS: gabapentin 300mg capsule PO SCH ×2 (13:16→21:17)
[2018-08-10] MEDS ORDERED: FENT1PAT10 TOP (13:18)
[2018-08-10] MEDS ORDERED: FENTANYL TOP SCH (13:25)
[2018-08-10] MEDS ORDERED: fentaNYL 75 MCG/hour patch.TD72 TD SCH (14:00)
[2018-08-10 14:16] LABS: URINE HCG NEGATIVE (NEG)
[2018-08-10 14:26] LABS: CLARITY,URINE SLIGHTLY CLOUDY (Clear); COLOR,URINE YELLOW (Yellow); GLUCOSE, URINE NEGATIVE (Neg); KETONES,URINE NEGATIVE (Neg); LEUKOCYTE ESTERASE ,URINE NEGATIVE (Neg); NITRITES, URINE NEGATIVE (Neg); OCCULT BLOOD,URINE NEGATIVE (Neg); PH,URINE 5.5 (4.8-8.0); PROTEIN,URINE >=300 mg/dl (Neg); UROBILINOGEN,URINE 0.2 E.U/dL (0.2-1.0)
[2018-08-10 14:30] LABS: UA COLLECTION TYPE VOIDED; URINE AMPHETAMINE SCREEN NEGATIVE (Neg); URINE BARBITUATE SCREEN NEGATIVE (Neg); URINE BENZODIAZEPINES SCREEN POSITIVE (Neg); URINE CANNABINOID SCREEN POSITIVE (Neg); URINE COCAINE SCREEN NEGATIVE (Neg); URINE METHADONE SCREEN NEGATIVE (Neg); URINE OPIATE SCREEN NEGATIVE (Neg); URINE PHENCYCLIDINE SCREEN NEGATIVE (Neg)
[2018-08-10 14:33] LABS: MUCUS STRANDS MANY /LPF (Neg); SQUAMOUS EPITHELIAL CELL,UR MANY /LPF (FEW)
[2018-08-10 14:34] LABS: BACTERIA,URINE FEW /HPF (Neg); RBC,URINE 0-2 /HPF (0-2); TRANSITIONAL EPI CELLS,URINE FEW /HPF; WBC,URINE 0-4 /HPF (0-4)
[2018-08-10] MEDS ORDERED: diphenhydrAMINE 50 mg/ml inj IM ONE (18:00)
[2018-08-10] MEDS: ferrous sulfate 325mg tablet PO SCH (18:02)
--- NOTE | 2018-08-10 18:58 | NUR ---
Ordered Renal diet @ 1759
[2018-08-10] MEDS: duloxetine 30mg CAPSULE.DR PO SCH (20:44)
[2018-08-10] MEDS: oxyCODONE/APAP 10/325mg tablet PO PRN (20:46)
[2018-08-10] MEDS: temazepam 15mg capsule PO PRN (20:47)
[2018-08-11] MEDS ORDERED: naproxen 500mg tablet PO ONE (00:20)
--- NOTE | 2018-08-11 00:22 | NUR ---
DR. MONROY REQUESTING A CURES REPORT, DOJ REPORT. CALLED HERBER IN PHARMACY AND WILL RUN REPORT.
--- NOTE | 2018-08-11 00:45 | NUR ---
pt resting comfortably on her right hip. no signs of distress noted. will continue to monitor.
--- NOTE | 2018-08-11 03:52 | NUR ---
The patient asked for a sandwich and juice (Patient is on a full renal diet). Explained she could not have the items asked for. The nurse agreed that broth and crackers were ok. Patient ate this and then went back to sleep.
[2018-08-11] MEDS: duloxetine 30mg CAPSULE.DR PO SCH ×2 (08:04→20:48)
[2018-08-11] MEDS: aspirin 325mg tablet PO SCH (08:04)
[2018-08-11] MEDS: gabapentin 300mg capsule PO SCH ×3 (08:04→20:47)
[2018-08-11] MEDS: ferrous sulfate 325mg tablet PO SCH ×3 (08:04→17:42)
[2018-08-11] MEDS: oxyCODONE/APAP 10/325mg tablet PO PRN ×3 (08:05→20:50)
[2018-08-11] MEDS: hydroxychloroquine 200mg tablet PO SCH (08:13)
[2018-08-11] MEDS: ondansetron 4mg rapidly disintigrating tab PO PRN (09:40)
[2018-08-11] MEDS: ALPRAZolam 0.5mg tablet PO PRN ×3 (09:43→20:47)
--- NOTE | 2018-08-11 10:48 | NUR ---
TALKED WITH ORTHO CLINIC RE: CAST ON RIGHT ANKLE. THEY WILL COME DOWN AND LOOK AT IT. THEY REQUEST BRING BONE STIMULATOR THAT SHE WAS USING AT HOME. PT EVAL IN PER DOCTOR, PER ORTHO CLINIC NON-WT BEARING ON RIGHT LEG.
[2018-08-11] MEDS: fentaNYL 100MCG/hour patch.TD72 TD SCH (11:28)
--- NOTE | 2018-08-11 13:40 | NUR ---
Pts R dueñas with unopened sore area from rubbing of cast. Loose Emmy drsg wrapped around sore to prevent breakdown.
--- NOTE | 2018-08-11 14:09 | NUR ---
Pt 75mcg Fentanyl patch taken off by Katelynn CORONEL at 1127. Verified disposal by 2nd RN (myself) There was not a co-sign option for medication disposial on eMAR
[2018-08-11] MEDS: divalproex sodium 500mg tablet.DR PO SCH (17:35)
[2018-08-11] MEDS: calcium carbonate 500mg tablet PO SCH (17:35)
--- NOTE | 2018-08-11 19:00 | NUR ---
PATIENT FINISHING DINNER SITTING AT BEDSIDE WITH AT SIDE. PATIENT APPEARS WITHDRAWN, "SICK OF BEING SICK". DISCUSSED THINGS SHE IS GRATEFUL FOR : HER AND CHILDREN. DISCUSSED TRYING TO LIVE IN THE MOMENT AND APPRECIATE THE SMALL THINGS IN LIFE.
--- NOTE | 2018-08-11 20:15 | NUR ---
SPOKE TO LIZZETTE AT [facility] IN [place] [phone]. REQUESTED 7 DAY SUPPLY OF FENTANYL PATCHES IF ACCEPTED; I TOLD HER THAT OUR PHARMACY IS A NON DISPENSING PHARMACY. UPDATED ON PATIENT STATUS
[2018-08-11] MEDS: polyethylene glycol 3350 17gm powd pack PO SCH (20:45)
[2018-08-11] MEDS: metoprolol tartrate 25mg tablet PO SCH (20:46)
[2018-08-11] MEDS: temazepam 15mg capsule PO PRN (20:47)
--- NOTE | 2018-08-11 21:00 | NUR ---
PATIENT TRANSFERED SELF TO WITH STANDBY ASSIST TO GO TO BATHROOM: VOIDED ON TOILET, BRUSHED OWN TEETH, WASHED OWN FACE AND HANDS, AND I DID BED BATH WITH WIPES, NO SKIN BREAKDOWN NOTED. NEW DIAPER, NEW SHIRT, NEW PANTS, NEW SOCK, DEODARANT APPLIED
--- NOTE | 2018-08-11 23:14 | NUR ---
100 MCG/HR FENTANYL PATCH ON RIGHT POSTERIOR SHOULDER: 2 SMALL TEGADERMS APPLIED OVER PATCH TO SECURE IT
--- NOTE | 2018-08-11 23:15 | NUR ---
PATIENT DENIES PAIN AT THIS TIME; SHE WAS SLEEPING, AWAKENED EASILY, PATIENT ON PULSE OX: STATED SHE HAD SLEEP APNEA AND "O2 LEVELS WENT DOWN AT NIGHT". SPO2 ABOVE 93% THRUOUT THE EVENING; PATIENT SLEEPING ON RIGHT SIDE
--- NOTE | 2018-08-12 01:15 | NUR ---
PATIENT APPEARS TO BE SLEEPING ON HER LEFT SIDE; RR EVEN UNLABORED SPO2 95%
--- NOTE | 2018-08-12 02:24 | NUR ---
Put the nerve stimulator on over her cast, gave her a sandwich.
[2018-08-12] MEDS: ALPRAZolam 0.5mg tablet PO PRN ×4 (02:29→22:29)
--- NOTE | 2018-08-12 02:29 | NUR ---
she asked for a pain med, not due yet, so then she asked for her xanax, gave her that.
--- NOTE | 2018-08-12 04:00 | NUR ---
PATIENT APPEARS TO BE SLEEPING, RR EVN UNLABORED, ON HER BACK SPO2 95
--- NOTE | 2018-08-12 06:30 | NUR ---
Asleep upon change of shift observation.
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
[2018-08-12] MEDS: metoprolol tartrate 25mg tablet PO SCH ×2 (08:35→20:23)
[2018-08-12] MEDS: ferrous sulfate 325mg tablet PO SCH ×3 (08:36→16:33)
[2018-08-12] MEDS: duloxetine 30mg CAPSULE.DR PO SCH ×2 (08:36→20:23)
[2018-08-12] MEDS: predniSONE 5mg tablet PO SCH (08:36)
[2018-08-12] MEDS: gabapentin 300mg capsule PO SCH ×3 (08:36→20:23)
[2018-08-12] MEDS: oxyCODONE/APAP 10/325mg tablet PO PRN ×2 (08:39→17:17)
[2018-08-12] MEDS: divalproex sodium 500mg tablet.DR PO SCH ×2 (08:39→16:33)
[2018-08-12] MEDS: calcium carbonate 500mg tablet PO SCH (08:39)
[2018-08-12] MEDS: hydroxychloroquine 200mg tablet PO SCH (08:39)
[2018-08-12] MEDS: aspirin 325mg tablet PO SCH (08:39)
--- NOTE | 2018-08-12 10:00 | NUR ---
Up on the commide. Stating she cannot void. Wants to be cathererized. Bladder scan performed. Patient has 176 mls in bladder. Encouraged to drink more fluids.
--- NOTE | 2018-08-12 12:30 | NUR ---
Served lunch. Ate well. Up on the commode once again. Voided large amount.
[2018-08-12] MEDS: ondansetron 4mg rapidly disintigrating tab PO PRN (13:57)
--- NOTE | 2018-08-12 14:30 | NUR ---
Awake during this time. Speaking to staff about her many somatic issues and how she is dealing with end stage renal disease. Has resigned herself to a life of suffering. States "I'm not well enough to go home. I feel like I could hang myself if you let me out of here. I'm also claustrophobic and I have social anxiety. I need my Xana to calm my nerves." Medicated with Xanax.
[2018-08-12] MEDS ORDERED: mag hydrox/Alum hydrox/simeth 30ml oral suspension PO ONE (14:55)
--- NOTE | 2018-08-12 17:23 | NUR ---
at bedside comforting patient. Patient remains in a hopeless/helpless state of mind. Asked for and received Percocet 10 for pain "all over my body."
[2018-08-12] MEDS: temazepam 15mg capsule PO PRN (20:22)
[2018-08-12] MEDS: polyethylene glycol 3350 17gm powd pack PO SCH (20:23)
[2018-08-13] MEDS: fentaNYL 100MCG/hour patch.TD72 TD SCH (00:48)
[2018-08-13] MEDS: oxyCODONE/APAP 10/325mg tablet PO PRN ×3 (01:19→17:08)
--- NOTE | 2018-08-13 06:15 | NUR ---
PT ASKING FOR HER PAIN MEDS UPON MY ARRIVAL TO THE UNIT WILL ADMINISTER WHEN PRN TIME IS AVAILABLE , PT WANTING COFFEE AND IS MILDLY ANXIOUS
[2018-08-13] MEDS: ALPRAZolam 0.5mg tablet PO PRN ×3 (07:11→20:30)
[2018-08-13] MEDS: metoprolol tartrate 25mg tablet PO SCH ×2 (07:11→20:29)
[2018-08-13] MEDS: duloxetine 30mg CAPSULE.DR PO SCH ×2 (07:11→20:35)
[2018-08-13] MEDS: gabapentin 300mg capsule PO SCH ×3 (07:11→20:29)
[2018-08-13] MEDS: calcium carbonate 500mg tablet PO SCH (07:11)
[2018-08-13] MEDS: divalproex sodium 500mg tablet.DR PO SCH ×2 (07:14→17:08)
[2018-08-13] MEDS: hydroxychloroquine 200mg tablet PO SCH (07:14)
[2018-08-13] MEDS: aspirin 325mg tablet PO SCH (07:14)
[2018-08-13] MEDS: ferrous sulfate 325mg tablet PO SCH ×3 (07:16→17:08)
[2018-08-13] MEDS: predniSONE 5mg tablet PO SCH (07:21)
--- NOTE | 2018-08-13 07:55 | NUR ---
PRN XANEX ADMINISTERED PER PT REQUEST
--- NOTE | 2018-08-13 08:30 | NUR ---
PT HAD A WHOLE BED CHANGE SHE WAS INCONTINENT X1 AND FELL ASLEEP WHILE EATING BREAKFAST AND SPILLED IT ALL OVER HER BED.
--- NOTE | 2018-08-13 09:00 | NUR ---
PT GIVEN PRN PAIN MEDS
--- NOTE | 2018-08-13 12:32 | NUR ---
pt got up to bedside commode again to pee with assistance, pt is using a walker to transfer
--- NOTE | 2018-08-13 13:27 | NUR ---
PT STAFF WILL BE DOWN SHORTLY TO [facility], BERNA AWARE
--- NOTE | 2018-08-13 13:30 | NUR ---
[facility] to work with pt order was placed two days ago
--- NOTE | 2018-08-13 13:46 | NUR ---
pt has been evaluated by [facility] and 5150 was continued, waiting for placement. Florencia, emergency medical technician/driver with the ortho clinic came to evamberly pt, said activity is nonweight bearing on rt leg, needs to use bone stimulator for 3 hours at night, pt wants a new cast, Florencia to talk with podiatrist orthopedic about placing a light cast for pt. Michael, PT, at bedside to nancy pt as well
--- NOTE | 2018-08-13 14:00 | NUR ---
Ortho came to talk with pt she expressed she wanted her cast changed they arent going to change it today ortho is aware of abrasion above the cast they were not concerned, covered with optifoam and padded other moises places where cast may rub, pt has good cap refill in R lower extremetie and no numbness or tingling
--- NOTE | 2018-08-13 14:24 | NUR ---
pts own personal shoe for physical therapy is in drawer at nurses station
--- NOTE | 2018-08-13 16:30 | NUR ---
pt drawing with colors and a coloring book at the bedside
--- NOTE | 2018-08-13 18:00 | NUR ---
Report given to BERNA Guadarrama
--- NOTE | 2018-08-13 18:23 | NUR ---
Assumed care of pt. Pt sitting up in bed eating dinner, no signs of distress. Pt has no complaints at this time. Will cont to monitor.
[2018-08-13] MEDS: polyethylene glycol 3350 17gm powd pack PO SCH (20:29)
[2018-08-13] MEDS: temazepam 15mg capsule PO PRN (20:29)
--- NOTE | 2018-08-13 20:45 | NUR ---
Pt sitting on the edge of the bed. No apparent distress, NOC meds given as ordered. Will cont to monitor.
--- NOTE | 2018-08-14 00:01 | NUR ---
Pt sleeping no apparent distress. Will cont to monitor
[2018-08-14] MEDS: oxyCODONE/APAP 10/325mg tablet PO PRN ×2 (02:03→08:24)
--- NOTE | 2018-08-14 02:18 | NUR ---
Tech helped pt to the comoade. Pt was medicated for pain as requested. Will cont to monitor.
[2018-08-14] MEDS: ALPRAZolam 0.5mg tablet PO PRN ×2 (04:02→10:29)
--- NOTE | 2018-08-14 04:11 | NUR ---
Pt resting in bed. Provided reasurance and comfort when she was speaking of her struggles. Xanax given as ordered. Will cont to monitor.
[2018-08-14] MEDS: metoprolol tartrate 25mg tablet PO SCH (08:00)
[2018-08-14] MEDS: hydroxychloroquine 200mg tablet PO SCH (08:00)
[2018-08-14 08:03] VITALS: BP 120/79
[2018-08-14] MEDS: aspirin 325mg tablet PO SCH (08:15)
[2018-08-14] MEDS: calcium carbonate 500mg tablet PO SCH (08:15)
[2018-08-14] MEDS: gabapentin 300mg capsule PO SCH ×2 (08:15→12:33)
[2018-08-14] MEDS: predniSONE 5mg tablet PO SCH (08:15)
[2018-08-14] MEDS: divalproex sodium 500mg tablet.DR PO SCH (08:15)
[2018-08-14] MEDS: duloxetine 30mg CAPSULE.DR PO SCH (08:16)
[2018-08-14] MEDS: ferrous sulfate 325mg tablet PO SCH ×2 (08:16→12:33)
--- NOTE | 2018-08-14 09:11 | NUR ---
PT SITTING UP IN BED DRINKING COFFEE. NO DISTRESS NOTED. WILL CONTINUE TO MONITOR.
--- NOTE | 2018-08-14 10:10 | NUR ---
PT AT BEDSIDE STATED HE IS 24HOUR CAREGIVER FOR PATIENT. PT STATED SHE IS NO LONGER SUICIDAL OR HOMICIDAL. HAS A PLAN TO MEET WITH PSYCOLOGIST. HOLLIE FROM [facility] NOTIFIED AND STATED WILL ASSESS PATIENT NEXT.
--- NOTE | 2018-08-14 11:31 | NUR ---
PT SITTING ON SIDE OF BED TALKING WITH . NO DISTRESS NOTED. WILL CONTINUE TO MONITOR.
--- NOTE | 2018-08-14 12:18 | NUR ---
DC ORDERS EXPLAINED TO PT. VERBALIZED UNDERSTANDING. SI HOTLINE AND MENTAL HEALTH INFORMATION GIVEN TO PT. PT VERBALIZED NOT HOMICIDAL OR SUICIDAL AND CLEARED BY HOLLIE FROM MENTAL HEALTH. PLAN TO LEAVE WITH TODAY BACK HOME TO [place]. STATED WILL CALL OWN CAB RIDE HOME.
== END 2018-08-14 13:35 | disposition home or self-care (01) ==
LOC: ER 10:16
DX: I13.0 Hypertensive heart and chronic kidney disease with heart failure and stage 1 through stage 4 chronic kidney disease, or unspecified chronic kidney disease (principal); N18.4 Chronic kidney disease, stage 4 (severe); I50.9 Heart failure, unspecified; Z99.2 Dependence on renal dialysis; R45.851 Suicidal ideations; F32.9 Major depressive disorder, single episode, unspecified; E78.00 Pure hypercholesterolemia, unspecified; Z86.718 Personal history of other venous thrombosis and embolism; G89.29 Other chronic pain; M19.90 Unspecified osteoarthritis, unspecified site; F12.90 Cannabis use, unspecified, uncomplicated; Z88.1 Allergy status to other antibiotic agents; Z79.82 Long term (current) use of aspirin; Z79.899 Other long term (current) drug therapy; Z56.0 Unemployment, unspecified
CPT/HCPCS: 36415; 80053; 80164; 80305; 80320; 81001; 81025; 84443; 85025; 94760; 96372; 99285; J1200; J7512

== ENCOUNTER 2018-08-26 09:50 | Outpatient (CLI) | payer MEDICARE, MEDICAID ==
[2018-08-26 09:50] VITALS: BP 155/88
[~2018-08-26 09:50] MED LIST changes: +DOCU-20 PO; -DOCU100C40 PO; +FENT1PAT10 TOP; -FENT1PAT13 TOP; +IPRA3AMP31 IH; -IPRA3AMP9 NEB; +ONDA8TAB6 PO; -ONDA8TAB9 PO; +PANT-47 PO; -PANT40TA4 PO; +POLY17PO10 PO; -POLY17PO36 PO; +VALP250C PO; -VALP250C44 PO
== END 2018-08-26 10:55 | disposition home or self-care (01) ==
LOC: ORTHO 09:50
PROVIDERS: ATTEND Nurse Practitioner Family
DX: S82.851G Displaced trimalleolar fracture of right lower leg, subsequent encounter for closed fracture with delayed healing (principal); I13.0 Hypertensive heart and chronic kidney disease with heart failure and stage 1 through stage 4 chronic kidney disease, or unspecified chronic kidney disease; I50.9 Heart failure, unspecified; N18.9 Chronic kidney disease, unspecified; E78.00 Pure hypercholesterolemia, unspecified; Z98.890 Other specified postprocedural states; Z88.1 Allergy status to other antibiotic agents; X50.1XXD Overexertion from prolonged static or awkward postures, subsequent encounter
CPT/HCPCS: 73610; 99213; A4590

== ENCOUNTER 2018-09-16 10:46 | Outpatient (CLI) | payer MEDICARE, MEDICAID ==
[2018-09-16 10:56] VITALS: BP 135/92
== END 2018-09-16 11:25 | disposition home or self-care (01) ==
LOC: ORTHO 10:46
PROVIDERS: ATTEND Nurse Practitioner Family
DX: S82.851G Displaced trimalleolar fracture of right lower leg, subsequent encounter for closed fracture with delayed healing (principal); I13.0 Hypertensive heart and chronic kidney disease with heart failure and stage 1 through stage 4 chronic kidney disease, or unspecified chronic kidney disease; N18.9 Chronic kidney disease, unspecified; I50.9 Heart failure, unspecified; E78.00 Pure hypercholesterolemia, unspecified; M81.0 Age-related osteoporosis without current pathological fracture; M06.9 Rheumatoid arthritis, unspecified; F14.90 Cocaine use, unspecified, uncomplicated; Z99.2 Dependence on renal dialysis; Z88.1 Allergy status to other antibiotic agents; Z98.890 Other specified postprocedural states; X50.1XXD Overexertion from prolonged static or awkward postures, subsequent encounter
CPT/HCPCS: 73610; 99213

== ENCOUNTER 2018-10-04 18:23 | Emergency (ER) | payer MEDICARE, MEDICAID ==
[~2018-10-04] VITALS: Ht 157.5 cm; Wt 93.0 kg
[2018-10-04] MEDS ORDERED: ondansetron/PF 4mg/2ml inj IV STA (18:51)
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
[2018-10-04 19:01] LABS: BASOPHILS # (AUTO) 0.1 X10'3 (0-0.2); BASOPHILS % (AUTO) 0.6 % (0-1); EOSINOPHILS # (AUTO) 0.1 X10'3 (0-0.9); EOSINOPHILS % (AUTO) 0.5 % (0-6); HEMATOCRIT 42.9 % (35.0-45.0); HEMOGLOBIN 14.3 g/dl (12.0-16.0); LYMPHOCYTES # (AUTO) 1.4 X10'3 (1.1-4.8); LYMPHOCYTES % (AUTO) 12.4 % (21-51); MEAN CORPUSCULAR HEMOGLOBIN 30.4 PG (27.0-31.0); MEAN CORPUSCULAR HGB CONC 33.3 g/dL (33.0-36.5); MEAN CORPUSCULAR VOLUME 91.2 FL (78-98); MEAN PLATELET VOLUME 8.5 FL (7.4-10.4); MONOCYTES # (AUTO) 1.1 X10'3 (0-0.9); NEUTROPHILS # (AUTO) 8.7 X10'3 (1.8-7.7); NEUTROPHILS % (AUTO) 76.5 % (42-75); PLATELET COUNT 270 X10'3 (140-440); RED BLOOD COUNT 4.71 X10'6 (4.20-5.60); RED CELL DISTRIBUTION WIDTH 13.7 % (11.5-14.5); WHITE BLOOD COUNT 11.4 X10'3 (4.5-11.0)
[2018-10-04 19:15] LABS: ANION GAP 14 (8-16); BILIRUBIN,TOTAL 0.3 MG/DL (0.1-1.0); BLOOD UREA NITROGEN 29 MG/DL (7-18); BUN/CREATININE RATIO 12.2 (6.6-38.0); CALCIUM 10.6 MG/DL (8.5-10.1); CHLORIDE 99 MMOL/L (99-107); CREATININE 2.38 MG/DL (0.40-0.90); GLUCOSE 103 MG/DL (70-104); INR 0.9 INR; POTASSIUM 4.3 MMOL/L (3.5-5.1); PROTHROMBIN TIME 9.4 SECONDS (9.0-12.0); SODIUM 138 MMOL/L (135-145); TOTAL CARBON DIOXIDE 25.5 MMOL/L (24-32); TOTAL PROTEIN 8.4 G/DL (6.4-8.2); eGFR 23 ML/MIN
[2018-10-04 19:16] LABS: ALANINE AMINOTRANSFERASE 14 U/L (12-78); ALBUMIN 3.5 G/DL (3.4-5.0); ALBUMIN/GLOBULIN RATIO 0.7 (1.1-1.5); ALKALINE PHOSPHATASE 130 IU/L (46-116); ASPARTATE AMINO TRANSFERASE 16 U/L (10-37)
[2018-10-04] MEDS ORDERED: pantoprazole 40 MG vial IV ONE (19:50)
[2018-10-04] MEDS ORDERED: proCHLORperazine 10 MG/2 ml inj IV ONE (19:50)
[2018-10-04] MEDS ORDERED: LORazepam 2 mg/ml vial IV ONE (19:50)
[2018-10-04] MEDS ORDERED: diphenhydrAMINE 50 mg/ml inj IV ONE (19:50)
[2018-10-04] MEDS ORDERED: normal saline 1000ml 1,000 ML IV ONE (19:50)
[2018-10-04] MEDS ORDERED: levetiracetam inj 1,000 MG in normal saline 100ml IV soln 90 ML IV ONE (19:55)
[2018-10-04 20:11] LABS: LIPASE 86 U/L (73-393)
[2018-10-04] MEDS ORDERED: morphine 4 MG/ML inj SYRINge IV ONE (21:35)
[2018-10-04] MEDS ORDERED: divalproex sodium 500mg tablet.DR PO ONE (21:35)
[2018-10-04] MEDS ORDERED: PHE25R PR (22:15)
[2018-10-04] MEDS ORDERED: ONDA4TAB12 PO (22:15)
--- NOTE | 2018-10-04 22:20 | NUR ---
pt says that if we cab her home her is home to get her into the house.
[2018-10-04] MEDS ORDERED: labetalol 20mg/4ml (5mg/ml) syringe IV STA (22:24)
--- NOTE | 2018-10-04 22:24 | NUR ---
MD made aware of the BP, received IV order for labetolol.
[2018-10-04 23:01] VITALS: BP 156/111
== END 2018-10-04 23:03 | disposition home or self-care (01) ==
LOC: ER 18:23
DX: R11.2 Nausea with vomiting, unspecified (principal); R10.9 Unspecified abdominal pain; I13.2 Hypertensive heart and chronic kidney disease with heart failure and with stage 5 chronic kidney disease, or end stage renal disease; N18.6 End stage renal disease; I50.9 Heart failure, unspecified; E78.00 Pure hypercholesterolemia, unspecified; Z86.718 Personal history of other venous thrombosis and embolism; M19.90 Unspecified osteoarthritis, unspecified site; M06.9 Rheumatoid arthritis, unspecified; G89.29 Other chronic pain; Z86.14 Personal history of Methicillin resistant Staphylococcus aureus infection; M81.0 Age-related osteoporosis without current pathological fracture; F12.90 Cannabis use, unspecified, uncomplicated; Z99.2 Dependence on renal dialysis; Z88.1 Allergy status to other antibiotic agents; Z79.82 Long term (current) use of aspirin; Z79.899 Other long term (current) drug therapy; Z56.0 Unemployment, unspecified
CPT/HCPCS: 36415; 80053; 83690; 85025; 85610; 96361; 96365; 96375; 99284; C9113; J0780; J1200; J1953; J2060; J2270; J2405; J7030; J3490

== ENCOUNTER 2018-10-06 17:07 | Emergency (ER) | payer MEDICARE, MEDICAID ==
[~2018-10-06] VITALS: Ht 157.5 cm; Wt 90.9 kg
[~2018-10-06 17:07] MED LIST changes: +ONDA4TAB12 PO; +PHE25R PR
[2018-10-06 17:50] LABS: BASOPHILS # (AUTO) 0.1 X10'3 (0-0.2); BASOPHILS % (AUTO) 0.9 % (0-1); EOSINOPHILS # (AUTO) 0.1 X10'3 (0-0.9); EOSINOPHILS % (AUTO) 0.6 % (0-6); HEMATOCRIT 41.2 % (35.0-45.0); HEMOGLOBIN 13.7 g/dl (12.0-16.0); LYMPHOCYTES # (AUTO) 1.8 X10'3 (1.1-4.8); LYMPHOCYTES % (AUTO) 14.8 % (21-51); MEAN CORPUSCULAR HGB CONC 33.3 g/dL (33.0-36.5); MEAN CORPUSCULAR VOLUME 93.1 FL (78-98); MEAN PLATELET VOLUME 8.4 FL (7.4-10.4); MONOCYTES # (AUTO) 0.8 X10'3 (0-0.9); NEUTROPHILS # (AUTO) 9.1 X10'3 (1.8-7.7); NEUTROPHILS % (AUTO) 76.7 % (42-75); PLATELET COUNT 284 X10'3 (140-440); RED BLOOD COUNT 4.42 X10'6 (4.20-5.60); RED CELL DISTRIBUTION WIDTH 14.1 % (11.5-14.5); WHITE BLOOD COUNT 11.9 X10'3 (4.5-11.0)
[2018-10-06 17:57] LABS: ALANINE AMINOTRANSFERASE 13 U/L (12-78); ALBUMIN 3.1 G/DL (3.4-5.0); ALBUMIN/GLOBULIN RATIO 0.7 (1.1-1.5); ALKALINE PHOSPHATASE 114 IU/L (46-116); ANION GAP 11 (8-16); ASPARTATE AMINO TRANSFERASE 12 U/L (10-37); BILIRUBIN,TOTAL 0.2 MG/DL (0.1-1.0); BLOOD UREA NITROGEN 39 MG/DL (7-18); BUN/CREATININE RATIO 14.2 (6.6-38.0); CALCIUM 8.9 MG/DL (8.5-10.1); CHLORIDE 103 MMOL/L (99-107); CREATININE 2.75 MG/DL (0.40-0.90); GLUCOSE 106 MG/DL (70-104); INR 0.9 INR; POTASSIUM 4.3 MMOL/L (3.5-5.1); PROTHROMBIN TIME 9.6 SECONDS (9.0-12.0); SODIUM 137 MMOL/L (135-145); TOTAL CARBON DIOXIDE 23.2 MMOL/L (24-32); TOTAL PROTEIN 7.5 G/DL (6.4-8.2); eGFR 19 ML/MIN
--- NOTE | 2018-10-06 21:22 | NUR ---
pt's daughter to leave her number for pt to call in the am. [phone]
--- NOTE | 2018-10-06 22:35 | NUR ---
pt brought back from ed with co nausea/ vomiting, but denial of SI. pt reports that she isn't happy with her multiple health issues and although it makes life difficult, pt denies past or current SI.
[2018-10-06 22:37] LABS: URINE HCG NEGATIVE (NEG)
[2018-10-06 22:39] LABS: CLARITY,URINE SLIGHTLY CLOUDY (Clear); COLOR,URINE STRAW (Yellow); GLUCOSE, URINE NEGATIVE (Neg); KETONES,URINE NEGATIVE (Neg); LEUKOCYTE ESTERASE ,URINE NEGATIVE (Neg); NITRITES, URINE NEGATIVE (Neg); OCCULT BLOOD,URINE TRACE-INTACT (Neg); PROTEIN,URINE 100 mg/dl (Neg); UROBILINOGEN,URINE 0.2 E.U/dL (0.2-1.0)
[2018-10-06 22:44] LABS: UA COLLECTION TYPE STRAIGHT CATH
--- NOTE | 2018-10-06 22:49 | NUR ---
pt's bp was elevated when in triage, after recheck bp is now 128/88
[2018-10-06 22:50] LABS: AMORPHOUS URATES 1+; BACTERIA,URINE FEW /HPF (Neg); RBC,URINE 0-2 /HPF (0-2); SQUAMOUS EPITHELIAL CELL,UR MANY /LPF (FEW); WBC,URINE 0-4 /HPF (0-4)
[2018-10-06 22:59] LABS: URINE AMPHETAMINE SCREEN NEGATIVE (Neg); URINE BARBITUATE SCREEN NEGATIVE (Neg); URINE BENZODIAZEPINES SCREEN POSITIVE (Neg); URINE CANNABINOID SCREEN POSITIVE (Neg); URINE COCAINE SCREEN NEGATIVE (Neg); URINE METHADONE SCREEN NEGATIVE (Neg); URINE OPIATE SCREEN NEGATIVE (Neg); URINE PHENCYCLIDINE SCREEN NEGATIVE (Neg)
--- NOTE | 2018-10-06 23:18 | NUR ---
pt has been placed in que for telepsych consult.
[2018-10-06] MEDS ORDERED: albuterol 2.5 MG/3 ML nebule NEB PRN (23:35)
[2018-10-06] MEDS ORDERED: oxyCODONE/APAP 10/325mg tablet PO PRN (23:40)
--- NOTE | 2018-10-06 23:49 | NUR ---
pharmacist called to verify dosage of fentanyl patch. pt reports that she takes 87.5 mcg of fentanyl every 48 hours. last patch ended 1600 on 10/06. pharmacy does not carry correct dosage patches, so pt will need to have her patches brought from home.
--- NOTE | 2018-10-06 23:59 | NUR ---
pt is sleeping, no s/s distress, rr wnl. will continue to monitor.
[2018-10-07] MEDS: ALPRAZolam 0.5mg tablet PO PRN ×2 (00:14→11:04)
[2018-10-07] MEDS: temazepam 15mg capsule PO PRN ×2 (00:16→22:36)
--- NOTE | 2018-10-07 00:18 | NUR ---
pt reported having pain in back and legs 7/10 and difficulty sleeping. reports that she takes restoril for sleep. pt given prn percocet and restoril.
[2018-10-07] MEDS ORDERED: oxyCODONE/APAP 10/325mg tablet PO PRN (00:30)
[2018-10-07] MEDS ORDERED: non-formulary drug (Alprazolam 1 TAB) PO PRN (00:30)
[2018-10-07] MEDS ORDERED: temazepam 15mg capsule PO PRN (00:30)
[2018-10-07] MEDS ORDERED: non-formulary drug (Albuterol Sulfate (Proair Hfa) 2 PUFFS) INH SCH (00:30)
[2018-10-07] MEDS ORDERED: FENTANYL TOP SCH (00:30)
[2018-10-07] MEDS ORDERED: ipratropium/albuterol 3ml nebule IH PRN (00:30)
--- NOTE | 2018-10-07 01:00 | NUR ---
PT DEFECATED IN BED. PT CLEANED UP BY RN AND ROBIN, APPLIED ADULT DIAPER, CHANGED LINENS. PT TOLERATED MOVEMENT WELL, NO COMPLAINTS OF PAIN.
--- NOTE | 2018-10-07 01:53 | NUR ---
pt originally said that will bring fentanyl patches in the am. pt is now saying that will not be able to bring fentanyl patches to ED. attempted to call pharmacy twice, but no answer. will try again later.
--- NOTE | 2018-10-07 02:08 | NUR ---
dr bullard and pharmacist to consult regarding proper dosage of fentanyl patch.
--- NOTE | 2018-10-07 02:26 | NUR ---
pharmacist consulting with pt regarding pain medication dosage.
[2018-10-07] MEDS ORDERED: valproic acid 250mg capsule PO ONE (02:35)
[2018-10-07] MEDS ORDERED: morphine IR (immed. release) 30mg tablet PO SCH (03:00)
[2018-10-07] MEDS: fentaNYL 100MCG/hour patch.TD72 TD SCH (03:19)
--- NOTE | 2018-10-07 04:55 | NUR ---
TELEPSYCH CONSULT RECEIVED. RECOMMENDING INPATIENT ADMISSION, 1;1 SITTER WHILE IN ED.
--- NOTE | 2018-10-07 04:58 | NUR ---
PT IS SLEEPING, NO S/S OF DISTRESS NOTED.
[2018-10-07] MEDS: aspirin 325mg tablet PO SCH (07:46)
[2018-10-07] MEDS: pantoprazole 40mg Tablet.DR PO SCH (07:46)
[2018-10-07] MEDS: hydroxychloroquine 200mg tablet PO SCH (07:47)
[2018-10-07] MEDS: valproic acid 250mg capsule PO SCH ×2 (07:47→20:20)
[2018-10-07] MEDS: duloxetine 30mg CAPSULE.DR PO SCH ×2 (07:47→20:20)
[2018-10-07] MEDS: ferrous sulfate 325mg tablet PO SCH ×3 (07:48→17:22)
[2018-10-07] MEDS: furosemide 40mg tablet PO SCH ×2 (07:48→20:20)
[2018-10-07] MEDS: gabapentin 300mg capsule PO SCH ×3 (07:49→20:20)
[2018-10-07] MEDS ORDERED: furosemide 40mg tablet PO SCH (08:00)
[2018-10-07] MEDS ORDERED: aspirin 81mg tab.chew PO SCH (08:00)
[2018-10-07] MEDS ORDERED: gabapentin 300mg capsule PO SCH (08:00)
[2018-10-07] MEDS ORDERED: hydroxychloroquine 200mg tablet PO SCH (08:00)
[2018-10-07] MEDS ORDERED: non-formulary drug (Duloxetine HCl 1 CAP) PO SCH (08:00)
[2018-10-07] MEDS ORDERED: valproic acid 250mg capsule PO SCH ×2 (08:00)
[2018-10-07] MEDS ORDERED: ferrous sulfate 325mg tablet PO SCH (08:00)
[2018-10-07] MEDS ORDERED: pantoprazole 40mg Tablet.DR PO SCH (08:00)
[2018-10-07] MEDS: oxyCODONE/APAP 10/325mg tablet PO PRN ×3 (11:06→23:37)
--- NOTE | 2018-10-07 12:38 | NUR ---
PT C/O URINARY RETENTION, NOTIFIED, ORDER TAKEN FOR PARIKH CATH TO BE PLACED. PARIKH INSERTED WITH RETURN OF APPROX 450 CC OF YELLOW SLIGHTLY CLOUDY URINE
--- NOTE | 2018-10-07 15:13 | NUR ---
pt's back at bedside
[2018-10-07] MEDS: LORazepam 1 MG tablet PO PRN ×2 (17:24→23:36)
[2018-10-07] MEDS ORDERED: succinylcholine 20mg/ml inj IV ONE (18:29)
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
--- NOTE | 2018-10-07 22:30 | NUR ---
Patient was sleeping comfortably, awoke, then requests her ativan and percocet. Patient informed it was not quite due. Patient then requests to know the exact timing of her medication. She states, "if I'm sleeping, just wake me up and give them to me." I will give the patient her meds if she is awake and in pain. I will not be waking just to her to give her pain medication.
--- NOTE | 2018-10-07 23:39 | NUR ---
Patient is awake and tearful requesting her percocet, ativan, a sandwich, juice, ice chips, and a warm blanket.
--- NOTE | 2018-10-07 23:45 | NUR ---
Patient requests that I get her fentanyl patch dose increased.
--- NOTE | 2018-10-08 01:33 | NUR ---
Patient requesting to stand up to have absorbant pads changed. Patient had originally told me she had a daniel catheter placed while here because she was, "totally immobile." Patient encouraged to have daniel catheter removed because if she can stand, she can pivot to a bedside commode. Patient agrees and daniel catheter removed. Patient was able to stand with moderate assistance.
--- NOTE | 2018-10-08 01:36 | NUR ---
Patient now complains that the tape used to keep her fentanyl patch in place has been, "hurting me all day."
[2018-10-08] MEDS: ALPRAZolam 0.5mg tablet PO PRN (01:57)
--- NOTE | 2018-10-08 03:03 | NUR ---
Patient is sleeping in a supine position.
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
--- NOTE | 2018-10-08 04:39 | NUR ---
Patient transferred self back to bed from [facility]. She required assistance standing to pull up scrub bottoms but was then able to sit back and bring her legs into bed on her own.
--- NOTE | 2018-10-08 05:45 | NUR ---
Patient is awake and requesting pain medication. She requests to know when it is due and what time it is now so she can know how long she will have to wait.
[2018-10-08] MEDS ORDERED: FENTANYL TD SCH (08:00)
[2018-10-08] MEDS: aspirin 325mg tablet PO SCH (08:38)
[2018-10-08] MEDS: ferrous sulfate 325mg tablet PO SCH ×3 (08:38→17:55)
[2018-10-08] MEDS: furosemide 40mg tablet PO SCH ×2 (08:38→20:11)
[2018-10-08] MEDS: valproic acid 250mg capsule PO SCH ×2 (08:38→20:11)
[2018-10-08] MEDS: pantoprazole 40mg Tablet.DR PO SCH (08:38)
[2018-10-08] MEDS: oxyCODONE/APAP 10/325mg tablet PO PRN ×3 (08:38→19:17)
[2018-10-08] MEDS: hydroxychloroquine 200mg tablet PO SCH (08:39)
[2018-10-08] MEDS: duloxetine 30mg CAPSULE.DR PO SCH ×2 (08:39→20:12)
[2018-10-08] MEDS: gabapentin 300mg capsule PO SCH ×3 (08:39→20:11)
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
--- NOTE | 2018-10-08 13:30 | NUR ---
had a long discussion with patient: DISCUSSED HER OVERSEDATION AT TIMES, BALANCING PAIN CONTROL AND MAINTAINING THE ABIL;ITY TO PARTICIPATE IN HER OWN CARE. THE PATIENT STATES THAT SHE IS JUST DONE WITH ALL HER ILLNESSES. SINCE SHE IS HERE, WE DISCUSSED THE FACT THAT SHE IS HERE THAT SHE IS ASKING FOR HELP. SHE AGREED. WE DISCUSSED HER ACTIVE PARTICIPATION IN CARE.
[2018-10-08] MEDS: LORazepam 1 MG tablet PO PRN ×2 (15:22→20:11)
--- NOTE | 2018-10-08 15:30 | NUR ---
DISCUSSED WITH DR VIDAL THE THREE BENZODIAZEPINES THAT THE PATIENT IS RECEIVING. ORDERS TO DC XANAX; AND CHANGE ATIVAN TO Q 8 HR
--- NOTE | 2018-10-08 16:12 | NUR ---
AND 2 DAUGHTERS 10 & 17 ALLOWED AT BEDSIDE. I EXPLAINED TO PATIENT THAT WE NORMALLY DO NOT ALLOW CHILDREN UNDER 16 AND WE ALSO DO NOT NORMALLY ALLOW MORE THAN TWO VISITORS AT A TIME
--- NOTE | 2018-10-08 16:20 | NUR ---
AT BEDSIDE, PROVIDED BATH WIPES SO HE COULD HELP BATHE HER
--- NOTE | 2018-10-08 17:31 | NUR ---
REMAINS AT BEDSIDE ASSISTING PATIENT WITH ORAL CARE AT THIS TIME
--- NOTE | 2018-10-08 18:30 | NUR ---
Assumed care of patient, pt. sitting up in bed eating dinner at this time, calm and visiting with her and daughter. brought in pt's bone stimulator for right ankle in a black backpack, along with a svp research and strategic analysis. Items labeled with pt. information, and bone stimulator being charged at this time. Pt. reports she wears bone stimulator at night.
--- NOTE | 2018-10-08 18:46 | NUR ---
OSMANI STATES THAT SHE IS NOT ALLERGIC TO MORPHINE BUT SHE GETS ITCHY WITH DILAUDID
--- NOTE | 2018-10-08 18:46 | NUR ---
PATIENT STATES THAS
[2018-10-08] MEDS: temazepam 15mg capsule PO PRN (20:12)
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
--- NOTE | 2018-10-08 22:03 | NUR ---
Pt. helped to use the commode by staff. Boot and Bone Stimulator applied to right ankle. Pt. resting comfortably, will monitor.
--- NOTE | 2018-10-08 22:31 | NUR ---
Pt. laying in bed unable to sleep at this time, asks this rfp writer what time it is and when she can get her new Fentanyl patch. Educated pt. that patch is not due until 299 inocencio, pt. voiced understanding. RR remain even and unlabored and Bone Stimulator remains in place. Addendum: 10/09/18 at 0030 by JUNIOR Current Fentanyl patch came unstuck from pt's back, replaced to upper left back and covered with Tegederm.
--- NOTE | 2018-10-09 00:29 | NUR ---
Pt. currently sleeping on her rt. side, HOB elevated, rr even and unlabored. Will continue to monitor.
[2018-10-09] MEDS: oxyCODONE/APAP 10/325mg tablet PO PRN ×4 (01:53→20:02)
--- NOTE | 2018-10-09 02:06 | NUR ---
Pt. awoke and requested PRN Perocet for chronic pain, also requesting PRN Ativan, however not due at this time. Pt. voiced understanding and returned to sleep.
--- NOTE | 2018-10-09 02:26 | NUR ---
Pt. asleep on her left side, rr even and unlabored, will continue to monitor.
[2018-10-09] MEDS: fentaNYL 100MCG/hour patch.TD72 TD SCH (03:28)
--- NOTE | 2018-10-09 03:30 | NUR ---
Pt's old Fentanyl 100mcg duragesuc patch removed from left upper back and wasted with Jordan Olson RN per pharmacist (no place to document in e-mar). New Fentanyl patch placed on rt. shoulder.
[2018-10-09] MEDS: LORazepam 1 MG tablet PO PRN ×2 (04:01→12:22)
--- NOTE | 2018-10-09 04:29 | NUR ---
Pt. sleeping on her back following administration of PRN Ativan for increased anxiety with effectiveness.
--- NOTE | 2018-10-09 05:48 | NUR ---
Pt. sleeping on rt. side at this time, appears to be resting comfortably
[2018-10-09] MEDS: pantoprazole 40mg Tablet.DR PO SCH (07:36)
[2018-10-09] MEDS: valproic acid 250mg capsule PO SCH ×2 (08:15→20:01)
[2018-10-09] MEDS: duloxetine 30mg CAPSULE.DR PO SCH ×2 (08:16→20:01)
[2018-10-09] MEDS: gabapentin 300mg capsule PO SCH ×3 (08:16→21:09)
[2018-10-09] MEDS: furosemide 40mg tablet PO SCH ×2 (08:16→20:01)
[2018-10-09] MEDS: hydroxychloroquine 200mg tablet PO SCH (08:17)
[2018-10-09] MEDS: aspirin 325mg tablet PO SCH (08:36)
[2018-10-09] MEDS: ferrous sulfate 325mg tablet PO SCH ×3 (08:37→16:26)
--- NOTE | 2018-10-09 08:52 | NUR ---
received call from and they are seeking placement for the pt but not found a place yet.
--- NOTE | 2018-10-09 09:35 | NUR ---
pt sleeping in no obvious distress.
--- NOTE | 2018-10-09 09:50 | NUR ---
pt on the phone with her
--- NOTE | 2018-10-09 10:29 | NUR ---
pt has a fistula in her left arm for dialysis when needed for emergencies. pt states she is not supposed to be putting any weight on her right foot. Aircraft Air Conditioning Mechanic from [facility] called and states they will be declining the pt because they do not have a medical hospital attached and will call [facility] back and recommend a facility that has a medical side to it.
--- NOTE | 2018-10-09 10:51 | NUR ---
Pawel aware of pt's medical condition and is going to have her paperwork sent upstairs to [facility].
[2018-10-09] MEDS ORDERED: ondansetron 4mg rapidly disintigrating tab PO ONE (13:10)
--- NOTE | 2018-10-09 14:53 | NUR ---
talked with Pawel about pt's plan of care. he states that [facility] has declined her and [facility] and have also declined her. he has her in que from [facility] but they have a long waiting list. I informed him I would pass this information on to the night nurse especially since the pt's 5150 expires in the morning tomorrow.
--- NOTE | 2018-10-09 16:30 | NUR ---
NURSING NOTE: WHEN I ADMINISTERED THE PT'S PERCOCET INITIALLY I ONLY PULLED ON DOSE OUT OF THE OMNICELL IN OVERFLOW, I RETURNED THE ONE PERCOCET SO THAT I COULD PULL OUT THE CORRECT DOSE OF 2. I THEN WENT TO THE MAIN ED OMNICELL TO PULL OUT THE CORRECT DOSE OF 2 PERCOCET.
[2018-10-09] MEDS: temazepam 15mg capsule PO PRN (20:02)
--- NOTE | 2018-10-09 21:10 | NUR ---
YARI wrap placed on pt's lower right extremity to provide skin integrity before applying boot. Boot was placed with bone stimulator placed on top as per MD orders.
--- NOTE | 2018-10-09 21:12 | NUR ---
Pt dozing after right foot boot & bone density device placed by Stacy. She did not wake when called by name for 2100 meds, but did wake with bar code scanner noise. Pt requested Ativan, becoming upset when told it was not needed at this time give she was just aroused from sleep. Explained Ativan is a PRN medication to be given as needed and not a standard give medication. Pt then requested a sandwich, which was also denied with affirmation that addition medication and food would be provided later in the shift as needed. Pt verbalized unhappiness at not getting what she requested say, "None of the other nurses had a problem giving me what I want when I want it." Again, director of safety r/t to PRN use was reiterated at which time pt agreed to allow HS medications to take effect.
[2018-10-09] MEDS: ipratropium/albuterol 3ml nebule IH PRN (21:21)
--- NOTE | 2018-10-09 21:35 | NUR ---
Pt requested she be awaken for pain medication and PRN Ativan. Reiterated PRN definition and indicated pt would not be awake for any medications as sleep in an indication the body is not in distress or overly burdened by pain. Pt verbalized disagreement and continued to insist she be waken for medications. Pt medication will be give based on actual observed symptoms (facial grimacing, guarding, increased BP & HR, increased restlessness/anxiety, etc).
[2018-10-10] MEDS: LORazepam 1 MG tablet PO PRN ×3 (00:09→22:50)
[2018-10-10] MEDS: aspirin 325mg tablet PO SCH (08:03)
[2018-10-10] MEDS: gabapentin 300mg capsule PO SCH ×3 (08:03→21:06)
[2018-10-10] MEDS: ferrous sulfate 325mg tablet PO SCH ×3 (08:03→17:29)
[2018-10-10] MEDS: furosemide 40mg tablet PO SCH ×2 (08:03→21:06)
[2018-10-10] MEDS: duloxetine 30mg CAPSULE.DR PO SCH ×2 (08:04→08:10)
[2018-10-10] MEDS: pantoprazole 40mg Tablet.DR PO SCH (08:11)
[2018-10-10] MEDS: oxyCODONE/APAP 10/325mg tablet PO PRN ×3 (08:12→21:07)
[2018-10-10] MEDS: hydroxychloroquine 200mg tablet PO SCH (08:20)
[2018-10-10] MEDS: valproic acid 250mg capsule PO SCH ×2 (08:20→21:06)
--- NOTE | 2018-10-10 09:37 | NUR ---
Nursing Note: Pt sitting up in bed, no S&S of distress, respirations even and unlabored, will continue to monitor.
--- NOTE | 2018-10-10 11:00 | NUR ---
Pt has been requesting benzo's, no S&S of anxiety. Pt. requested as soon as she woke up with her [place]. Pt. was sleeping on and off and no signs of anxiety noted.
--- NOTE | 2018-10-10 11:22 | NUR ---
Pt. sleeping, no S&S of distress noted.
--- NOTE | 2018-10-10 12:45 | NUR ---
PT FELL ASLEEP HOLDING HER WATER CUP AND SPILLED IT ALL OVER HERSELF. SALES ASSISTANT INSTITUTIONAL SALES CHANGED PT BEDDING AND GAVE PT NEW GREEN'S TO CHANGE IN TO.
--- NOTE | 2018-10-10 14:46 | NUR ---
came in for visit. Pt. tearful and crying. Ativan given for anxiety.
--- NOTE | 2018-10-10 16:00 | NUR ---
Pt. requested Percocet for 8/10 pain, administered.
--- NOTE | 2018-10-10 16:58 | NUR ---
Patient sleeping on her right side, respirations are even and unlabored.
--- NOTE | 2018-10-10 17:39 | NUR ---
Spoke with at visit. He states that patient takes two pain pills q6h, and one xanax a day. Currently she is scheduled q4h prn. Patient has been educated that when patient is barely awake, spilling drinks on herself r/t drowsiness, and there are no S&S of anxiety that it is the nurses discretion to not sedate any already sleeping/drowsy patient, patient verbalizes understanding.
--- NOTE | 2018-10-10 18:20 | NUR ---
Patient awake with light on and reclining in bed. No distress observed. Continue to monitor.
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
[2018-10-10] MEDS: ipratropium/albuterol 3ml nebule IH PRN (19:47)
--- NOTE | 2018-10-10 20:23 | NUR ---
Patient received lying in bed in no apparent distress. Respirations even and non labored, no needs identified.
[2018-10-10] MEDS: temazepam 15mg capsule PO PRN (21:06)
[2018-10-10] MEDS ORDERED: duloxetine 20mg capsule.DR PO ONE (21:15)
[2018-10-10] MEDS ORDERED: duloxetine 30mg CAPSULE.DR PO ONE (21:30)
--- NOTE | 2018-10-10 22:23 | NUR ---
Sarbjit thomas in [facility] - 10/10/18 at 2223 by [id number] Patient making verbal threatsm to
--- NOTE | 2018-10-10 22:24 | NUR ---
Patient making verbal threats to leave after being denied a snack. Patient was standing up OOB to leave. Assisted patient back in to bed. Patient advised [address] still in [address]. Patient provided snack. Patient stated "nobody is doing anything to help me." Patient reminded [facility] still working on finding placement.
--- NOTE | 2018-10-10 22:45 | NUR ---
Patient assisted up to BSC to void and assisted back to bed.
[2018-10-11] MEDS: ipratropium/albuterol 3ml nebule IH PRN (00:54)
[2018-10-11] MEDS: fentaNYL 100MCG/hour patch.TD72 TD SCH (02:53)
--- NOTE | 2018-10-11 02:57 | NUR ---
WITNESSED YONATHAN CORONEL WASTE 100 MCG FENATYL PATCH
[2018-10-11] MEDS: oxyCODONE/APAP 10/325mg tablet PO PRN ×2 (03:00→07:01)
[2018-10-11] MEDS: LORazepam 1 MG tablet PO PRN (07:00)
[2018-10-11] MEDS: pantoprazole 40mg Tablet.DR PO SCH (07:01)
--- NOTE | 2018-10-11 08:30 | NUR ---
Patient is resting on gurney with at the bedside. Patient verbalizing desire to be discharged and states she does not feel suicidal at this time. [facility] worker will be in later this morning to assess patient. Tolerated regular diet breakfast well and retained.
[2018-10-11] MEDS: duloxetine 30mg CAPSULE.DR PO SCH (08:34)
[2018-10-11] MEDS: gabapentin 300mg capsule PO SCH (08:35)
[2018-10-11] MEDS: aspirin 325mg tablet PO SCH (08:35)
[2018-10-11] MEDS: valproic acid 250mg capsule PO SCH (08:35)
[2018-10-11] MEDS: furosemide 40mg tablet PO SCH (08:36)
[2018-10-11] MEDS: ferrous sulfate 325mg tablet PO SCH (08:36)
[2018-10-11] MEDS: hydroxychloroquine 200mg tablet PO SCH (08:37)
--- NOTE | 2018-10-11 09:20 | NUR ---
Remains on [facility] with visiting. Condition unchanged.
[2018-10-11] MEDS ORDERED: ondansetron 4mg rapidly disintigrating tab PO ONE (09:35)
--- NOTE | 2018-10-11 09:40 | NUR ---
C/O NAUSEA AND "URGENTLY NEEDS ZOFRAN [address] WHITFIELD INFORMED OF PATIENT C/O NAUSEA AND ORDER RECEIVED.
--- NOTE | 2018-10-11 12:07 | NUR ---
HAD LONG DISCUSSION WITH RULA. RULA DENIES HI/SI AT THIS TIME AND WANTS TO GO HOME. AT HOME HER IS HER 24 HOUR CAREGIVER. RULA AND HER HAVE BEEN TOGETHER 22 YEARS AND HAVE 2 DAUGHTERS: 10 AND 17. RULA STATED THAT SHE MISSED HER COUSELING APPOINTMENT WITH RON AT [facility] WHILE HERE IN THE HOSPITAL. RULA STATES THAT SHE WILL CONTINUE HER COUNSELING AND ATTEMPT TO GO MORE FREQUENTLY. HER AND HER CHILDREN ARE ACTIVE PARTICIPANTS IN HER CARE AND WHEN PRESENT HAVE POSITIVE ENGAGING INTERACTIONS WITH THE PATIENT. IS AT BEDSIDE. PRESENT AND AWARE OF PATIENT'S PLAN FOR MORE COUNSELING AND TO ADDRESS PAIN MANAGEMENT. THEY ARE WATCHING VIDEOS TOGETHER ON HIS PHONE AT THIS TIME. RULA ADMITS TO BEING FRUSTRATED AT TIMES WITH HER PAIN MANAGEMENT SHE HAS BEEN RECENTLY WEANED DOWN PREHOSPITAL TO 100MCG/HR FENTANYL PATCH FROM 150. SHE DOES RECEIVE PERCOCET FOR BREAKTHROUGH PAIN. RULA STATES THAT SHE HAS AN APPT IN OCTOBER WITH HER PMD AND WILL DISCUSS HER PAIN MANAGEMENT WITH PMD.
--- NOTE | 2018-10-11 12:49 | NUR ---
CALLED [facility] AT [phone] AND SPOKE WITH WINNIE ADVANCE AGENT. WINNIE "FINDS IT HARD TO BELIEVE THAT IN 24 HOURS SHE HAS DONE A 180" DISCUSSED PATIENTS PLAN FOR SAFETY. DISCUSSED THE FACT THAT THERE IS AN ORDER FROM THE ER MD WHITFIELD TO HAVE THE PATIENT REEVALUTED TODAY. WINNIE SAID THAT SHE WILL INFORM HER BULL CHAIN OPERATOR OCTOBER OF OUR CONVERSATION.
--- NOTE | 2018-10-11 13:53 | NUR ---
SPOKE WITH DARBY, SIGNAL OPERATOR TECHNICAL AT [facility] [phone] UPDATED ON PATIENT'S SITUATION PATIENT HAS A VERY CARING, EVEN DOTING AT TIMES, AND TWO DAUGHTERS THAT ACTIVELY PROFESS THEIR CARING FOR THEIR MOTHER. HER FAMILY INTERACTIONS ARE POSITIVE. RULA HAS ALL THE EQUIPMENT AT TO MEET HER MEDICAL NEEDS AT HOME. I HAVE CARED FOR THE PATIENT INTERMITENTLY FOR THE LAST TWO YEARS. IN ADDITION TO HER MULTIPLE ONGOING MEDICAL PROBLEMS,THE PATIENT BROKE HER RIGHT ANKLE ABOUT SIX MONTHS AGO AND IT HAS NOT HEALED PROPERLY LEADING TO HER WEARING A BOOT WHEN OOB AND USING A BONE STIMULATOR FOR AT LEAST 3 HOURS DAILY. THE PATIENT ALSO HAD HER FENTANYL REDUCED DURING THIS PERIOD OF TIME. INFORMED DARBY THAT THE PATIENT HAS A COUSELOR WITH WHOM SHE MISSED AN APPOINTMENT
--- NOTE | 2018-10-11 14:18 | NUR ---
CONTD FROM PHONE CALL WITH OCTOBER [facility] RESEARCH PHLEBOTOMIST PATIENT IS IN COUSELING AND WILL CONTINUE AND MAKE MORE FREQUENT VISITS NEEDED PATIENT WILL FOLLOW UP WITH PMD FOR PAIN MANAGEMENT: SHE HAS AN APPT WITH PMD IN OCTOBER. PATIENT HAS A SUPPORTIVE, CARING FAMILY. PATIENT HAS ACKNOWLEDGED THAT HER INCREASED PAIN AND DECREASED MOBILITY HAVE CONTRIBUTED TO HER DEPRESSION. PATIENT PLANS TO INCREASE COUNSELING FREQUENCY AND DISCUSS A PAIN MANAGEMENT WITH HER PMD AND FAMILY.
--- NOTE | 2018-10-11 14:26 | NUR ---
PER DARBY PRINT MACHINE OPERATOR AT [facility] SIAD THAT A NURSE FROM [facility] WILL REEVALUATE THE PATIENT TODAY PER DR MILLS ORDER
--- NOTE | 2018-10-11 16:58 | NUR ---
PATIENT TRANSFERED FROM BED 8 TO BED 23
--- NOTE | 2018-10-11 17:02 | NUR ---
DISCUSSED POC WITH DR HANSEN: TELEPHYSCH PATIENT
--- NOTE | 2018-10-11 17:03 | NUR ---
[facility] TELEPHYSCH CALL INITIATED
--- NOTE | 2018-10-11 17:19 | NUR ---
PATIENT SLEEPING WITH AT BEDSIDE
--- NOTE | 2018-10-11 17:19 | NUR ---
TELE [employer] MACHINE NUMBER ONE IN ROOM 23
--- NOTE | 2018-10-11 17:30 | NUR ---
BERNA MARK HANDED ME THE PATIENT'S 1300 NUERONTIN 300 MG AND IRON 325 MG THAT WERE NOT GIVEN
--- NOTE | 2018-10-11 18:55 | NUR ---
PER DR OCTAVIA MENA MD FROM [facility]: PATIENT IS OK FOR DISCHARGE HOME
--- NOTE | 2018-10-11 19:31 | NUR ---
Jv, [facility] contact ([phone]), notified of [facility] Psychiatrist recommendation to release [phone] as pt has a safe dc including family support and Clay Burner. Per Jv, he will text Stefan who will head to ED to formally release hold for dc.
--- NOTE | 2018-10-11 20:10 | NUR ---
michela perkins from [facility] spoke to dr skaggs regarding patient discharge
--- NOTE | 2018-10-11 20:35 | NUR ---
PATIENT'S NEURONTIN 300 MG AND IRON 325 MG WASTED, GIULIA RN WITNESSED PATIENT DID NOT WANT TO TAKE THE MEDICATION BECAUSE SHE WAS FEELING DROWSY
[2018-10-11 20:42] VITALS: BP 115/70
== END 2018-10-11 20:31 | disposition home or self-care (01) ==
LOC: ER 17:40
DX: R45.851 Suicidal ideations (principal); R19.7 Diarrhea, unspecified; R11.10 Vomiting, unspecified; R53.1 Weakness; I13.2 Hypertensive heart and chronic kidney disease with heart failure and with stage 5 chronic kidney disease, or end stage renal disease; N18.6 End stage renal disease; I50.9 Heart failure, unspecified; Z99.2 Dependence on renal dialysis; E78.00 Pure hypercholesterolemia, unspecified; Z86.718 Personal history of other venous thrombosis and embolism; M19.90 Unspecified osteoarthritis, unspecified site; G89.29 Other chronic pain; M06.9 Rheumatoid arthritis, unspecified; Z86.14 Personal history of Methicillin resistant Staphylococcus aureus infection; F32.9 Major depressive disorder, single episode, unspecified; F12.90 Cannabis use, unspecified, uncomplicated; Z88.1 Allergy status to other antibiotic agents; Z79.82 Long term (current) use of aspirin; Z79.899 Other long term (current) drug therapy; Z56.0 Unemployment, unspecified
CPT/HCPCS: 36415; 80053; 80305; 80320; 81001; 81025; 85025; 85610; 99285; J0330; P9612; 94640; 94760

== ENCOUNTER 2018-10-30 19:35 | Emergency (ER) | payer MEDICARE, MEDICAID ==
[~2018-10-30] VITALS: Ht 157.5 cm; Wt 95.0 kg
[~2018-10-30 19:35] MED LIST changes: -DIPH1TAB PO; -DOCU-20 PO; -LIDO700A32 TOP; -ONDA4TAB12 PO; -ONDA8TAB6 PO; -PHE25R PR; -POLY17PO10 PO; +fentaNYL 75 MCG/hour patch.TD72 TD SCH
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
[2018-10-30 21:27] LABS: CLARITY,URINE CLEAR (Clear); COLOR,URINE YELLOW (Yellow); GLUCOSE, URINE NEGATIVE (Neg); KETONES,URINE NEGATIVE (Neg); LEUKOCYTE ESTERASE ,URINE NEGATIVE (Neg); NITRITES, URINE NEGATIVE (Neg); OCCULT BLOOD,URINE NEGATIVE (Neg); PH,URINE 5.5 (4.8-8.0); PROTEIN,URINE 30 mg/dl (Neg); UROBILINOGEN,URINE 0.2 E.U/dL (0.2-1.0)
[2018-10-30 21:37] LABS: UA COLLECTION TYPE STRAIGHT CATH
[2018-10-30 21:38] LABS: BACTERIA,URINE FEW /HPF (Neg); RBC,URINE 0-2 /HPF (0-2); SQUAMOUS EPITHELIAL CELL,UR FEW /LPF (FEW); WBC,URINE NONE SEEN /HPF (0-4)
[2018-10-30 21:44] LABS: BASOPHILS % (AUTO) 0.6 % (0-1); EOSINOPHILS # (AUTO) 0.1 X10'3 (0-0.9); HEMATOCRIT 41.5 % (35.0-45.0); HEMOGLOBIN 13.7 g/dl (12.0-16.0); LYMPHOCYTES # (AUTO) 0.9 X10'3 (1.1-4.8); LYMPHOCYTES % (AUTO) 14.3 % (21-51); MEAN CORPUSCULAR HEMOGLOBIN 30.1 PG (27.0-31.0); MEAN CORPUSCULAR HGB CONC 32.9 g/dL (33.0-36.5); MEAN CORPUSCULAR VOLUME 91.5 FL (78-98); MEAN PLATELET VOLUME 8.7 FL (7.4-10.4); MONOCYTES # (AUTO) 0.9 X10'3 (0-0.9); MONOCYTES % (AUTO) 13.2 % (2-12); NEUTROPHILS # (AUTO) 4.6 X10'3 (1.8-7.7); NEUTROPHILS % (AUTO) 69.9 % (42-75); PLATELET COUNT 194 X10'3 (140-440); RED BLOOD COUNT 4.54 X10'6 (4.20-5.60); WHITE BLOOD COUNT 6.6 X10'3 (4.5-11.0)
[2018-10-30 22:05] LABS: ALANINE AMINOTRANSFERASE 17 U/L (12-78); ALBUMIN 3.2 G/DL (3.4-5.0); ALBUMIN/GLOBULIN RATIO 0.8 (1.1-1.5); ALKALINE PHOSPHATASE 80 IU/L (46-116); ANION GAP 8 (8-16); ASPARTATE AMINO TRANSFERASE 16 U/L (10-37); BILIRUBIN,TOTAL 0.2 MG/DL (0.1-1.0); BLOOD UREA NITROGEN 45 MG/DL (7-18); BUN/CREATININE RATIO 17.4 (6.6-38.0); CHLORIDE 103 MMOL/L (99-107); CREATININE 2.58 MG/DL (0.40-0.90); GLUCOSE 97 MG/DL (70-104); POTASSIUM 4.8 MMOL/L (3.5-5.1); SODIUM 136 MMOL/L (135-145); TOTAL CARBON DIOXIDE 25.1 MMOL/L (24-32); TOTAL PROTEIN 7.2 G/DL (6.4-8.2); eGFR 21 ML/MIN
[2018-10-30 22:08] LABS: ETHANOL < 0.010 GM/DL (0.0-0.010)
[2018-10-30] MEDS ORDERED: non-formulary drug (Albuterol Sulfate (Proair Hfa) 2 PUFFS) INH SCH (22:25)
[2018-10-30 22:31] LABS: URINE HCG NEGATIVE (NEG)
[2018-10-30 22:43] LABS: URINE AMPHETAMINE SCREEN NEGATIVE (Neg); URINE BARBITUATE SCREEN NEGATIVE (Neg); URINE BENZODIAZEPINES SCREEN POSITIVE (Neg); URINE CANNABINOID SCREEN POSITIVE (Neg); URINE COCAINE SCREEN NEGATIVE (Neg); URINE METHADONE SCREEN NEGATIVE (Neg); URINE OPIATE SCREEN NEGATIVE (Neg); URINE PHENCYCLIDINE SCREEN NEGATIVE (Neg)
[2018-10-30] MEDS: oxyCODONE/APAP 10/325mg tablet PO PRN (23:46)
[2018-10-30] MEDS: ALPRAZolam 0.5mg tablet PO PRN (23:46)
[2018-10-31] MEDS: ipratropium/albuterol 3ml nebule IH PRN ×3 (01:27→16:18)
--- NOTE | 2018-10-31 01:27 | NUR ---
During a respiratory treatment, pt states that she needs oxygen to sleep. SpO2 94% on room air at rest. Will continue to monitor.
--- NOTE | 2018-10-31 02:15 | NUR ---
Packet send to [facility]. Unable to confirm receipt as out of business hours.
--- NOTE | 2018-10-31 02:31 | NUR ---
pt requesting a "transdermal patch" to put over her fentyl patch. tried to get clarification regarding this, pt means a covering for her fentyl patch so it does not lift off.
--- NOTE | 2018-10-31 04:48 | NUR ---
PT respirations normal, no s/s of respiratory distress.
[2018-10-31] MEDS: oxyCODONE/APAP 10/325mg tablet PO PRN ×2 (04:54→10:47)
--- NOTE | 2018-10-31 07:07 | NUR ---
Pt is awake and asking for her xanax. She is starting to have some agitation
[2018-10-31] MEDS: duloxetine 30mg CAPSULE.DR PO SCH ×2 (07:23→20:31)
[2018-10-31] MEDS: ALPRAZolam 0.5mg tablet PO PRN ×3 (07:23→23:34)
[2018-10-31] MEDS: ferrous sulfate 325mg tablet PO SCH ×3 (07:23→20:31)
[2018-10-31] MEDS: valproic acid 250mg capsule PO SCH ×2 (07:24→20:31)
[2018-10-31] MEDS: furosemide 40mg tablet PO SCH ×2 (07:24→20:31)
[2018-10-31] MEDS: pantoprazole 40mg Tablet.DR PO SCH (07:24)
[2018-10-31] MEDS: aspirin 325mg tablet PO SCH (07:24)
[2018-10-31] MEDS: gabapentin 300mg capsule PO SCH ×3 (07:25→20:31)
--- NOTE | 2018-10-31 07:51 | NUR ---
Pt eating breakfast
--- NOTE | 2018-10-31 08:14 | NUR ---
Paged respiratory for PRN respiratory treatment as pt states she is feeling SOB. No distress observed. Continue to monitor.
[2018-10-31] MEDS: hydroxychloroquine 200mg tablet PO SCH (08:40)
--- NOTE | 2018-10-31 08:42 | NUR ---
Pt currently sleeping on her right side in no apparent distress. Her respirations are even and unlabored.
--- NOTE | 2018-10-31 09:29 | NUR ---
Pt awake and talking to provider Aubrey SLAUGHTER. Speech is clear and rapid
--- NOTE | 2018-10-31 11:11 | NUR ---
Pt up to go to the bathroom
--- NOTE | 2018-10-31 11:47 | NUR ---
Pt is asleep on her right side and in no distress. Patients respirations are even and unlabored.
--- NOTE | 2018-10-31 12:31 | NUR ---
Pt is sleeping on her back. She does not appear to be in pain. Her respirations are even and unlabored
--- NOTE | 2018-10-31 13:37 | NUR ---
Pt finished lunch and is asleep on her back. She has not stated that she is in pain. She is on her left side and her breating is unlabored and even.
--- NOTE | 2018-10-31 14:00 | NUR ---
ROSA Kessler evaluating patient.
--- NOTE | 2018-10-31 15:12 | NUR ---
Pt asleep on right side in no distress. Respirations are even and unlabored.
--- NOTE | 2018-10-31 16:46 | NUR ---
Pt asking to speak to psychiatrist to discuss her pain medication. Will let him know.
--- NOTE | 2018-10-31 17:35 | NUR ---
Pt anxious and tearful as evidenced by shaking and crying
--- NOTE | 2018-10-31 19:00 | NUR ---
The patient began asking this staff member to come and talk with her as soon as shift change occured. She immediately began reviewing all of her chronic illnesses and complaining that she was taken off her pain meds and stated, "I'm crying all day. My said that we need a second opionion and that they shouldn't have taken me off all of those medications" She was shaking her legs and talking in a pitched whiney voice. She stated that she was having pain 10/10. She was reminded that opiods cause depression and that she was getting those medications at home and she was now here in the ER. SHe was also reminded that she has a fentynl patch on and she stated "but it's only a 75 mcg" She is dramatic and clearly is trying to manipulate new staff into getting more opiod pain meds. Within a few minutes she was sound a sleep and does not appear to be in pain.
--- NOTE | 2018-10-31 20:51 | NUR ---
The patient is upset and wanting to go home. She continues to be unhappy about not getting her routine pain medications. She stated that she wanted a 2nd opinion and Dr. Henriquez was made aware of the patient request. She has a po temp of 100.7 and was asked if she would like an order for tylenol but she is declining at this time. Ej recheck temp at 2114
--- NOTE | 2018-10-31 21:48 | NUR ---
The patient's vital signs are 101.9, 98,18, 149/106. 98% on room air. Vital signs revied with Dr. Henriquez and CXR ordered and they are at the bedside currently.
--- NOTE | 2018-10-31 22:28 | NUR ---
Vital signs discussed with Dr. Feliciano and he reviewed CXR and stated the CXR appeared normal. Will recheck vital signs when patient up to the bathroom after 2-3 hours.
--- NOTE | 2018-10-31 23:20 | NUR ---
The patient is sitting up at the side of the bed.
[2018-10-31] MEDS ORDERED: acetaminophen 325mg tablet PO ONE (23:30)
--- NOTE | 2018-11-01 02:00 | NUR ---
The patient is sleeping off and on. She continues to be unhappy that she is here and is wanting to go home where she stated she has her pain medications. She stated that her is going to come in and talk with the doctor about her pain medications being reduced.
[2018-11-01] MEDS: ipratropium/albuterol 3ml nebule IH PRN ×3 (03:33→17:32)
--- NOTE | 2018-11-01 04:49 | NUR ---
The patient is resting on her bed. She is polite. She is sleeping off and on.
--- NOTE | 2018-11-01 06:30 | NUR ---
Awake upon change of shift. Moaning while sitting up in her bed. States "I'm in pain." Asking for additional pain medication. Informed she had received all the pain medication ordered for her at this time. Wearing a fentanyl patch at this time.
[2018-11-01] MEDS: aspirin 325mg tablet PO SCH (07:00)
[2018-11-01] MEDS: duloxetine 30mg CAPSULE.DR PO SCH ×2 (07:00→20:32)
[2018-11-01] MEDS: ferrous sulfate 325mg tablet PO SCH ×3 (07:00→20:32)
[2018-11-01] MEDS: furosemide 40mg tablet PO SCH ×2 (07:00→20:32)
[2018-11-01] MEDS: gabapentin 300mg capsule PO SCH ×3 (07:00→20:32)
[2018-11-01] MEDS: ALPRAZolam 0.5mg tablet PO PRN ×3 (07:00→20:32)
[2018-11-01] MEDS: pantoprazole 40mg Tablet.DR PO SCH (07:00)
[2018-11-01] MEDS: valproic acid 250mg capsule PO SCH ×2 (07:01→20:31)
[2018-11-01] MEDS: hydroxychloroquine 200mg tablet PO SCH (07:01)
--- NOTE | 2018-11-01 11:40 | NUR ---
RT AT BEDSIDE
--- NOTE | 2018-11-01 15:25 | NUR ---
Requested breathing treatment. Respiratory paged. Breathing treatment given at this time.
--- NOTE | 2018-11-01 16:00 | NUR ---
Patient asking again for Percocet. Crying while at bedside. States "I want to go home." Stefan from [facility] notified of patient's comment.
--- NOTE | 2018-11-01 16:25 | NUR ---
I just spoke to the patient and her about me speaking to Eryn, RN/Charge about asking Dr. Beard possibly adding pt's Percocet Rx back on to her med rec. Pt continued to say, "I am in constant pain, I need my meds". I said to her that Dr. Beard already explained to her what his intensions were when he decided to stop the Percocets. His reasonings for stoping the meds was due to the fact that he noticed that her PCP was titrating her doses down and he was not going to continue on with weaning her off as long as she was in the hospital/
--- NOTE | 2018-11-01 19:30 | NUR ---
Pt visiting at the bedside.
--- NOTE | 2018-11-01 22:35 | NUR ---
FENTANYL PATCH 75 MCG ON LEFT CHEST REMOVED. NEW PATCH PLACED ON BACK OF RIGHT SHOULDER.
--- NOTE | 2018-11-01 22:37 | NUR ---
WITNESSED DISPOSAL OF FENTANYL PATCH, CUT INTO 4 PIECES
[2018-11-01] MEDS ORDERED: fentaNYL 75 MCG/hour patch.TD72 TD SCH ×2 (23:00)
[2018-11-02] MEDS: ipratropium/albuterol 3ml nebule IH PRN ×2 (01:41→10:16)
--- NOTE | 2018-11-02 04:18 | NUR ---
PT STATED SHE DID NOT URINATE ALL DAY. PT HAS NOT URINATED THIS SHIFT. BLADDER SCAN REVEALS 659 ML URINE. SYSTOLIC BY 96.
--- NOTE | 2018-11-02 04:35 | NUR ---
MD AWARE OF PT LACK OF URINATION. NO NEW ORDERS AT THIS TIME
[2018-11-02] MEDS: ALPRAZolam 0.5mg tablet PO PRN ×2 (04:59→13:18)
[2018-11-02 05:30] VITALS: BP 96/81
--- NOTE | 2018-11-02 05:59 | NUR ---
Pt requested and was adminstered antianxiety medication. Pt transferred to bedside commode and voided with encouragement. 800 ml output. Pt now appears to be resting comfortably.
--- NOTE | 2018-11-02 06:28 | NUR ---
Pt given fresh grown and fresh bedlinen placed on bed.
[2018-11-02] MEDS: ferrous sulfate 325mg tablet PO SCH ×2 (08:01→13:15)
[2018-11-02] MEDS: valproic acid 250mg capsule PO SCH (08:01)
[2018-11-02] MEDS: duloxetine 30mg CAPSULE.DR PO SCH (08:01)
[2018-11-02] MEDS: aspirin 325mg tablet PO SCH (08:01)
[2018-11-02] MEDS: gabapentin 300mg capsule PO SCH ×2 (08:01→13:15)
[2018-11-02] MEDS: furosemide 40mg tablet PO SCH (08:01)
[2018-11-02] MEDS: pantoprazole 40mg Tablet.DR PO SCH (08:01)
[2018-11-02] MEDS: hydroxychloroquine 200mg tablet PO SCH (08:40)
--- NOTE | 2018-11-02 09:13 | NUR ---
Pt. woke up for breakfast and meds. Daughter called twice. currently visiting with pt. stated he wants pt. to be discharged home today. RN reassured that that is always the goal and a mental health woker will speak with pt. today.
--- NOTE | 2018-11-02 10:23 | NUR ---
RT treatment administered to pt.
--- NOTE | 2018-11-02 11:06 | NUR ---
Pt's daughter and mother at bedside. Staff asked to wait since visitors are limited to two at at time.
--- NOTE | 2018-11-02 12:09 | NUR ---
Pt. requested Xanax twice in the last 20 minutes. Pt. and pt's reminded that her Xanax can be administered at 1300.
--- NOTE | 2018-11-02 13:29 | NUR ---
Trinity from [facility] talking with patient and her .
== END 2018-11-02 13:58 | disposition home or self-care (01) ==
LOC: ER 19:36
DX: R45.851 Suicidal ideations (principal); E78.00 Pure hypercholesterolemia, unspecified; I13.2 Hypertensive heart and chronic kidney disease with heart failure and with stage 5 chronic kidney disease, or end stage renal disease; N18.6 End stage renal disease; I50.9 Heart failure, unspecified; M19.90 Unspecified osteoarthritis, unspecified site; G89.29 Other chronic pain; F32.9 Major depressive disorder, single episode, unspecified; F12.90 Cannabis use, unspecified, uncomplicated; Z86.14 Personal history of Methicillin resistant Staphylococcus aureus infection; Z98.890 Other specified postprocedural states; Z88.1 Allergy status to other antibiotic agents; Z86.718 Personal history of other venous thrombosis and embolism; Z88.6 Allergy status to analgesic agent; Z79.899 Other long term (current) drug therapy; Z99.2 Dependence on renal dialysis; Z56.0 Unemployment, unspecified
CPT/HCPCS: 36415; 80053; 80305; 80320; 81001; 81025; 85025; 94640; 94760; 99285; P9612

== ENCOUNTER 2018-12-02 21:02 | Emergency (ER) | payer MEDICARE, MEDICAID ==
[~2018-12-02] VITALS: Ht 157.5 cm; Wt 90.0 kg
[~2018-12-02 21:02] MED LIST changes: +LORazepam 2 mg/ml vial ONE; -fentaNYL 75 MCG/hour patch.TD72 TD SCH
[2018-12-02] MEDS ORDERED: LORazepam 2 mg/ml vial IV ONE ×3 (21:05→21:35)
[2018-12-02 21:21] LABS: BASOPHILS # (AUTO) 0.2 X10'3 (0-0.2); BASOPHILS % (AUTO) 0.8 % (0-1); EOSINOPHILS # (AUTO) 0.1 X10'3 (0-0.9); EOSINOPHILS % (AUTO) 0.5 % (0-6); HEMATOCRIT 43.6 % (35.0-45.0); HEMOGLOBIN 13.8 g/dl (12.0-16.0); LYMPHOCYTES # (AUTO) 5.8 X10'3 (1.1-4.8); LYMPHOCYTES % (AUTO) 32.1 % (21-51); MEAN CORPUSCULAR HEMOGLOBIN 30.7 PG (27.0-31.0); MEAN CORPUSCULAR HGB CONC 31.6 g/dL (33.0-36.5); MEAN CORPUSCULAR VOLUME 96.9 FL (78-98); MONOCYTES # (AUTO) 2.8 X10'3 (0-0.9); MONOCYTES % (AUTO) 15.7 % (2-12); NEUTROPHILS # (AUTO) 9.2 X10'3 (1.8-7.7); NEUTROPHILS % (AUTO) 50.9 % (42-75); PLATELET COUNT 320 X10'3 (140-440); RED CELL DISTRIBUTION WIDTH 16.4 % (11.5-14.5); WHITE BLOOD COUNT 18.2 X10'3 (4.5-11.0)
[2018-12-02 21:36] LABS: ALANINE AMINOTRANSFERASE 24 U/L (12-78); ALBUMIN 3.5 G/DL (3.4-5.0); ALBUMIN/GLOBULIN RATIO 0.7 (1.1-1.5); ALKALINE PHOSPHATASE 139 IU/L (46-116); ANION GAP 23 (8-16); ASPARTATE AMINO TRANSFERASE 23 U/L (10-37); BILIRUBIN,TOTAL 0.2 MG/DL (0.1-1.0); BLOOD UREA NITROGEN 51 MG/DL (7-18); BUN/CREATININE RATIO 16.2 (6.6-38.0); CALCIUM 8.9 MG/DL (8.5-10.1); CHLORIDE 101 MMOL/L (99-107); CREATININE 3.14 MG/DL (0.40-0.90); GLUCOSE 97 MG/DL (70-104); POTASSIUM 3.5 MMOL/L (3.5-5.1); SODIUM 139 MMOL/L (135-145); TOTAL CARBON DIOXIDE 15.3 MMOL/L (24-32); TOTAL PROTEIN 8.3 G/DL (6.4-8.2); eGFR 16 ML/MIN
[2018-12-02 21:41] LABS: ETHANOL < 0.010 GM/DL (0.0-0.010)
[2018-12-02 22:06] LABS: VALPROATE 43.5 UG/ML (50-100)
[2018-12-02 22:10] LABS: TOTAL CELLS COUNTED 100
[2018-12-02 22:10] LABS: URINE HCG NEGATIVE (NEG)
[2018-12-02 22:12] LABS: ANISOCYTOSIS 1+; PLATELET ESTIMATE NORMAL; POLYCHROMASIA 1+
[2018-12-02 22:20] LABS: CLARITY,URINE SLIGHTLY CLOUDY (Clear); COLOR,URINE YELLOW (Yellow); GLUCOSE, URINE NEGATIVE (Neg); KETONES,URINE NEGATIVE (Neg); LEUKOCYTE ESTERASE ,URINE NEGATIVE (Neg); NITRITES, URINE NEGATIVE (Neg); OCCULT BLOOD,URINE NEGATIVE (Neg); PROTEIN,URINE 100 mg/dl (Neg); UROBILINOGEN,URINE 0.2 E.U/dL (0.2-1.0)
[2018-12-02 22:30] LABS: URINE AMPHETAMINE SCREEN NEGATIVE (Neg); URINE BARBITUATE SCREEN NEGATIVE (Neg); URINE BENZODIAZEPINES SCREEN POSITIVE (Neg); URINE CANNABINOID SCREEN POSITIVE (Neg); URINE COCAINE SCREEN NEGATIVE (Neg); URINE METHADONE SCREEN NEGATIVE (Neg); URINE OPIATE SCREEN POSITIVE (Neg); URINE PHENCYCLIDINE SCREEN NEGATIVE (Neg)
[2018-12-02 22:31] LABS: SQUAMOUS EPITHELIAL CELL,UR FEW /LPF (FEW); UA COLLECTION TYPE STRAIGHT CATH
[2018-12-02 22:32] LABS: RBC,URINE 0-2 /HPF (0-2); WBC,URINE 0-4 /HPF (0-4)
[2018-12-02 22:33] LABS: BACTERIA,URINE NONE SEEN /HPF (Neg)
--- NOTE | 2018-12-02 23:03 | NUR ---
PT AWAKE TALKING BUT TALKING. ANSWERING QUESTIONS APPROPRIATELY. AT BEDSIDE.
[2018-12-02] MEDS ORDERED: normal saline 1000ML IV soln IVB ONE (23:10)
[2018-12-02] MEDS ORDERED: DIVA500T2 PO (23:17)
[2018-12-02] MEDS ORDERED: DULO60CA45 PO (23:17)
[2018-12-02] MEDS ORDERED: FERR-119 PO (23:24)
[2018-12-02] MEDS ORDERED: HYDR200T80 PO (23:24)
[2018-12-02] MEDS ORDERED: HYDR-4070 PO (23:29)
[2018-12-02] MEDS ORDERED: ASPI-10 PO (23:29)
[2018-12-02] MEDS ORDERED: METO-467 PO (23:29)
[2018-12-02] MEDS ORDERED: FENT1PAT13 TD (23:38)
[2018-12-02] MEDS ORDERED: ALPR1TAB2 PO (23:38)
[2018-12-02] MEDS ORDERED: OXYC-150 PO (23:38)
[2018-12-02] MEDS ORDERED: ONDA4TAB6 PO (23:40)
[2018-12-02] MEDS ORDERED: TEMA15CA5 PO (23:47)
[2018-12-02] MEDS ORDERED: GABA-532 PO (23:47)
[2018-12-03] MEDS ORDERED: divalproex sodium 250mg tablet PO ONE (00:55)
[2018-12-03] MEDS ORDERED: morphine 4 MG/ML inj SYRINge IV ONE (01:00)
[2018-12-03] MEDS ORDERED: ondansetron/PF 4mg/2ml inj IV ONE (01:15)
[2018-12-03 01:20] VITALS: BP 155/100
== END 2018-12-03 02:48 | disposition home or self-care (01) ==
LOC: MERGE 21:02 → ER 21:02
DX: R56.9 Unspecified convulsions (principal); G89.29 Other chronic pain; R41.82 Altered mental status, unspecified; Z79.82 Long term (current) use of aspirin; Z79.899 Other long term (current) drug therapy
CPT/HCPCS: 36415; 71045; 80053; 80164; 80305; 80320; 81001; 81025; 85025; 96361; 96374; 96375; 96376; 99284; J2060; J2270; J2405; J7030; P9612

== ENCOUNTER 2018-12-07 12:27 | Emergency (ER) | payer MEDICARE, MEDICAID ==
[~2018-12-07] VITALS: Ht 157.5 cm; Wt 100.0 kg
[~2018-12-07 12:27] MED LIST changes: +ALPR1TAB2 PO; +ASPI-10 PO; +DIVA500T2 PO; +DULO60CA45 PO; +FENT1PAT13 TD; +FERR-119 PO; +GABA-532 PO; +HYDR-4070 PO; -LORazepam 2 mg/ml vial ONE; +METO-467 PO; +ONDA4TAB6 PO
[2018-12-07 12:41] VITALS: BP 198/131
[2018-12-07] MEDS ORDERED: gabapentin 300mg capsule PO ONE (14:10)
--- NOTE | 2018-12-07 14:13 | NUR ---
PATIENT STATES SHE WANTS TO SEE ER MD BECAUSE SHE WOULD LIKE STRONGER MEDICATION THAN WHAT THE PA SUGGESTED TO GIVE. PATIENT STATES SHE IS GOING TO "TELL OFF THE PROVIDER".
[2018-12-07] MEDS ORDERED: gabapentin 100mg capsule PO ONE (14:15)
== END 2018-12-07 21:51 | disposition home or self-care (01) ==
LOC: MERGE 12:27 → ER 12:27
DX: M25.50 Pain in unspecified joint (principal); Z88.8 Allergy status to other drugs, medicaments and biological substances
CPT/HCPCS: 99284

== ENCOUNTER 2019-02-18 01:32 | Emergency (ER) | payer MEDICARE, MEDICAID ==
[~2019-02-18] VITALS: Ht 157.5 cm; Wt 91.8 kg
[~2019-02-18 01:32] MED LIST changes: -DULO60CA64 PO; +DULO60CA65 PO
[2019-02-18] MEDS ORDERED: ondansetron/PF 4mg/2ml inj IM ONE (02:40)
[2019-02-18] MEDS ORDERED: morphine 4 MG/ML inj SYRINge IM ONE (02:40)
[2019-02-18 03:31] VITALS: BP 104/70
== END 2019-02-18 03:33 | disposition home or self-care (01) ==
LOC: ER 01:33
DX: S81.812A Laceration without foreign body, left lower leg, initial encounter (principal); S80.12XA Contusion of left lower leg, initial encounter; I13.0 Hypertensive heart and chronic kidney disease with heart failure and stage 1 through stage 4 chronic kidney disease, or unspecified chronic kidney disease; N18.9 Chronic kidney disease, unspecified; I50.9 Heart failure, unspecified; G89.29 Other chronic pain; M79.7 Fibromyalgia; M06.9 Rheumatoid arthritis, unspecified; F12.90 Cannabis use, unspecified, uncomplicated; Z95.1 Presence of aortocoronary bypass graft; Z98.890 Other specified postprocedural states; Z56.0 Unemployment, unspecified; Z86.718 Personal history of other venous thrombosis and embolism; Z86.711 Personal history of pulmonary embolism; Z88.1 Allergy status to other antibiotic agents; Z88.5 Allergy status to narcotic agent; Z79.82 Long term (current) use of aspirin; Z79.899 Other long term (current) drug therapy; W18.49XA Other slipping, tripping and stumbling without falling, initial encounter; Y93.02 Activity, running; Y92.89 Other specified places as the place of occurrence of the external cause; Y99.9 Unspecified external cause status
CPT/HCPCS: 73590; 73610; 73630; 96372; 99284; J2270; J2405

== ENCOUNTER 2019-03-09 15:42 | Outpatient (CLI) | payer MEDICARE, MEDICAID | END 2019-03-09 16:15 | disposition home or self-care (01) | LOC: ORTHO 15:42 | PROVIDERS: ATTEND Orthopaedic Surgery | DX: S82.61XD Displaced fracture of lateral malleolus of right fibula, subsequent encounter for closed fracture with routine healing (principal) | CPT/HCPCS: 73610; G0463 ==

== ENCOUNTER 2019-03-12 12:19 | Observation (INO) | payer MEDICARE, MEDICAID ==
[~2019-03-12] VITALS: Ht 167.6 cm; Wt 90.0 kg
--- NOTE | 2019-03-12 12:41 | NUR ---
Pt. transferred to CT with RN on tele.
[2019-03-12 12:55] LABS: BASOPHILS # (AUTO) 0.1 X10'3 (0-0.2); EOSINOPHILS # (AUTO) 0.1 X10'3 (0-0.9); EOSINOPHILS % (AUTO) 1.1 % (0-6); HEMATOCRIT 38.6 % (35.0-45.0); HEMOGLOBIN 12.7 g/dl (12.0-16.0); LYMPHOCYTES # (AUTO) 2.3 X10'3 (1.1-4.8); LYMPHOCYTES % (AUTO) 23.2 % (21-51); MEAN CORPUSCULAR HEMOGLOBIN 30.6 PG (27.0-31.0); MEAN CORPUSCULAR HGB CONC 32.9 g/dL (33.0-36.5); MEAN CORPUSCULAR VOLUME 93.2 FL (78-98); MEAN PLATELET VOLUME 9.6 FL (7.4-10.4); MONOCYTES # (AUTO) 1.1 X10'3 (0-0.9); NEUTROPHILS # (AUTO) 6.2 X10'3 (1.8-7.7); NEUTROPHILS % (AUTO) 63.7 % (42-75); PLATELET COUNT 221 X10'3 (140-440); RED BLOOD COUNT 4.14 X10'6 (4.20-5.60); RED CELL DISTRIBUTION WIDTH 14.3 % (11.5-14.5); WHITE BLOOD COUNT 9.7 X10'3 (4.5-11.0)
--- NOTE | 2019-03-12 12:57 | NUR ---
Pt. returned to room 2 at this time.
[2019-03-12 13:03] LABS: PARTIAL THROMBOPLASTIN TIME 27 SECONDS (22-32)
[2019-03-12 13:06] LABS: ALANINE AMINOTRANSFERASE 11 U/L (12-78); ALBUMIN/GLOBULIN RATIO 0.7 (1.1-1.5); ALKALINE PHOSPHATASE 62 IU/L (46-116); ANION GAP 8 (8-16); ASPARTATE AMINO TRANSFERASE 13 U/L (10-37); BILIRUBIN,TOTAL 0.2 MG/DL (0.1-1.0); BLOOD UREA NITROGEN 54 MG/DL (7-18); BUN/CREATININE RATIO 18.9 (6.6-38.0); CALCIUM 8.5 MG/DL (8.5-10.1); CHLORIDE 104 MMOL/L (99-107); CREATININE 2.85 MG/DL (0.40-0.90); ETHANOL < 0.010 GM/DL (0.0-0.010); GLUCOSE 91 MG/DL (70-104); POTASSIUM 4.6 MMOL/L (3.5-5.1); SODIUM 138 MMOL/L (135-145); TOTAL CARBON DIOXIDE 25.6 MMOL/L (24-32); TOTAL PROTEIN 7.1 G/DL (6.4-8.2); eGFR 18 ML/MIN
--- NOTE | 2019-03-12 13:18 | NUR ---
stroke alert cleared by dr bullard [place] [address] scan
[2019-03-12 14:22] LABS: CLARITY,URINE SLIGHTLY CLOUDY (Clear); COLOR,URINE YELLOW (Yellow); GLUCOSE, URINE NEGATIVE (Neg); KETONES,URINE NEGATIVE (Neg); LEUKOCYTE ESTERASE ,URINE NEGATIVE (Neg); NITRITES, URINE NEGATIVE (Neg); OCCULT BLOOD,URINE NEGATIVE (Neg); PROTEIN,URINE 100 mg/dl (Neg); UROBILINOGEN,URINE 0.2 E.U/dL (0.2-1.0)
[2019-03-12 14:24] LABS: UA COLLECTION TYPE STRAIGHT CATH
[2019-03-12 14:28] LABS: URINE AMPHETAMINE SCREEN NEGATIVE (Neg); URINE BARBITUATE SCREEN NEGATIVE (Neg); URINE BENZODIAZEPINES SCREEN POSITIVE (Neg); URINE CANNABINOID SCREEN POSITIVE (Neg); URINE COCAINE SCREEN NEGATIVE (Neg); URINE METHADONE SCREEN NEGATIVE (Neg); URINE OPIATE SCREEN POSITIVE (Neg); URINE PHENCYCLIDINE SCREEN NEGATIVE (Neg)
[2019-03-12 14:37] LABS: SQUAMOUS EPITHELIAL CELL,UR MANY /LPF (FEW)
[2019-03-12 14:38] LABS: MUCUS STRANDS FEW /LPF (Neg)
[2019-03-12 14:40] LABS: RBC,URINE 0-2 /HPF (0-2)
[2019-03-12] MEDS ORDERED: lactulose 20gm/30ml cup PO ONE (14:40)
[2019-03-12 14:42] LABS: BACTERIA,URINE 1+ /HPF (Neg)
[2019-03-12] MEDS ORDERED: LACT10SO PO (14:43)
[2019-03-12 14:44] LABS: WBC CLUMPS,URINE FEW /HPF (NEGATIVE)
[2019-03-12 14:45] LABS: SPERM FEW /HPF; TRANSITIONAL EPI CELLS,URINE FEW /HPF
--- NOTE | 2019-03-12 14:51 | NUR ---
assisting RN with pt care, pt able to chelly PO med well, resting quietly on gurney, resp even and unlabored
[2019-03-12] MEDS ORDERED: ondansetron/PF 4mg/2ml inj IV PRN (15:15)
[2019-03-12] MEDS ORDERED: magnesium 2GM in 50ml NS 50 ML IV PRN (15:15)
[2019-03-12] MEDS ORDERED: acetaminophen 325mg tablet PO PRN ×2 (15:15)
[2019-03-12] MEDS ORDERED: magnesium Cl slow-release 64mg tablet PO PRN (15:15)
[2019-03-12] MEDS ORDERED: magnesium hydroxide 30ml (MOM) UD suspension PO PRN (15:15)
[2019-03-12] MEDS ORDERED: potassium Cl 20 mEq SR tablet PO PRN ×2 (15:15)
[2019-03-12] MEDS ORDERED: normal saline 1000ml 1,000 ML IV ONE (15:15)
[2019-03-12] MEDS ORDERED: potassium CL 10mEq/100ml bag 100 ML IV PRN ×2 (15:15)
[2019-03-12] MEDS ORDERED: mag hydrox/Alum hydrox/simeth 30ml oral suspension PO PRN (15:15)
[2019-03-12] MEDS ORDERED: magnesium 4gm in 100ml NS 100 ML IV PRN (15:15)
[2019-03-12] MEDS ORDERED: FURO20TA4 PO (15:28)
[2019-03-12] MEDS ORDERED: METO25TA6 PO (15:28)
[2019-03-12] MEDS ORDERED: [UNRECOGNIZED DRUG - CODE] PO (15:28)
[2019-03-12] MEDS ORDERED: [UNRECOGNIZED DRUG - CODE] TOP (15:28)
[2019-03-12] MEDS ORDERED: TRAZ150T78 PO (15:30)
[2019-03-12] MEDS ORDERED: DOCU250C86 PO (15:31)
[2019-03-12 18:00] VITALS: BP 136/73
--- NOTE | 2019-03-12 18:43 | NUR ---
Problems reprioritized. Patient report given, questions answered & plan of care reviewed with Angeli Griffith RN.
[2019-03-12] MEDS ORDERED: non-formulary drug (Ondansetron Hcl (Zofran) 1 TAB) PO PRN (18:50)
[2019-03-12] MEDS ORDERED: ALPRAZolam 0.5mg tablet PO PRN (18:50)
[2019-03-12] MEDS ORDERED: temazepam 15mg capsule PO PRN (18:50)
[2019-03-12] MEDS ORDERED: oxyCODONE/APAP 10/325mg tablet PO PRN (18:50)
[2019-03-12] MEDS ORDERED: docusate sod 250mg capsule PO PRN (18:50)
[2019-03-12] MEDS ORDERED: ipratropium/albuterol 3ml nebule IH PRN (18:50)
[2019-03-12] MEDS ORDERED: heparin, porcine 5000 units/ml vial SQ SCH (20:00)
[2019-03-12] MEDS: metoprolol tartrate 25mg tablet PO SCH ×2 (20:00→20:22)
[2019-03-12] MEDS ORDERED: duloxetine 30mg CAPSULE.DR PO SCH (20:00)
[2019-03-12] MEDS ORDERED: gabapentin 300mg capsule PO SCH (21:00)
[2019-03-12] MEDS ORDERED: ferrous sulfate 325mg tablet PO SCH (21:00)
[2019-03-12] MEDS ORDERED: divalproex sodium 250mg tablet PO SCH (21:00)
[2019-03-12] MEDS ORDERED: traZODone 150mg tablet PO SCH (21:00)
--- NOTE | 2019-03-12 21:44 | NUR ---
I called Dr. Bray to inform her that patient is wanting to leave AMA due to not getting her home night time medications. The pt's nurse Angeli RN explained risks of patient going home AMA and then taking her home medications along with the Fentanyl patch to the patient prior to me calling Dr. Bray to notify the doctor of pt's request to go AMA. As long as two nurses explain the risks to patient and that patient is alert and appropriate then patient can sign herself out AMA.
--- NOTE | 2019-03-12 21:45 | NUR ---
PATIENT UNHAPPY ABOUT MEDICATION ORDERS. SAYS SHE USUALLY TAKES 2 PERCOCET AT HOME AND WANTS HER FENTANYL PATCH. CALLED MD Hunter MAYO DC'D HOME FENTANYL ORDER. PATIENT AGAIN ASKING TO GO AMA. INFORMED/EDUCATED HER THAT HER KIDNEY FUNCTION IS NOT CLEARING THE OPIOIDS APPROPRIATELY AND THAT SHE CAN END UP IN A COMA AND POSSIBLY . ALSO EDUCATED HER THAT THE LACTULOSE IS HELPING TO CLEAR HER AMONIA LEVEL. SHE STATED THAT SHE FEELS SHE COULD GET HELPED MORE AT HOME WITH HER HOME MEDS. AGAIN INFORMED HER THAT SHE SHOULD STAY OVERNIGHT JUST TO HAVE LABS DRAWN IN THE AM TO MAKE SURE SHE IS DOING BETTER. SHE REFUSED. SHE IS ALERT AND ORIENTED X 4.
--- NOTE | 2019-03-12 22:15 | NUR ---
PATIENT OUT TO TAXI VIA WHEELCHAIR.
[2019-03-13] MEDS ORDERED: aspirin 325mg tablet PO SCH (08:00)
[2019-03-13] MEDS ORDERED: hydroxychloroquine 200mg tablet PO SCH (08:00)
[2019-03-13] MEDS ORDERED: K and/or MAG REPLACEMENT MC SCH (08:00)
[2019-03-13] MEDS ORDERED: furosemide 20MG tablet PO SCH (08:00)
[2019-03-13] MEDS ORDERED: lactulose 20gm/30ml cup PO SCH (08:00)
[2019-03-14] MEDS ORDERED: FENTANYL TOP SCH (08:00)
== END 2019-03-12 22:23 | disposition left against medical advice (07) ==
LOC: ER 12:19 → ORTHO 4S 16:49 → INTOOBSV 16:49
PROVIDERS: ADMIT Hospitalist; ATTEND Hospitalist
DX: K72.00 Acute and subacute hepatic failure without coma (principal); R41.0 Disorientation, unspecified; M32.9 Systemic lupus erythematosus, unspecified; I13.0 Hypertensive heart and chronic kidney disease with heart failure and stage 1 through stage 4 chronic kidney disease, or unspecified chronic kidney disease; N18.9 Chronic kidney disease, unspecified; I50.9 Heart failure, unspecified; E78.00 Pure hypercholesterolemia, unspecified; M06.9 Rheumatoid arthritis, unspecified; M79.7 Fibromyalgia; M81.0 Age-related osteoporosis without current pathological fracture; E66.01 Morbid (severe) obesity due to excess calories; G89.4 Chronic pain syndrome; F12.90 Cannabis use, unspecified, uncomplicated; R07.89 Other chest pain; M19.90 Unspecified osteoarthritis, unspecified site; F32.9 Major depressive disorder, single episode, unspecified; Z87.891 Personal history of nicotine dependence; Z86.711 Personal history of pulmonary embolism; Z95.1 Presence of aortocoronary bypass graft; Z79.891 Long term (current) use of opiate analgesic; Z79.51 Long term (current) use of inhaled steroids; Z79.82 Long term (current) use of aspirin; Z79.899 Other long term (current) drug therapy; Z88.8 Allergy status to other drugs, medicaments and biological substances; Z68.32 Body mass index [BMI] 32.0-32.9, adult
CPT/HCPCS: 36415; 70450; 71045; 80053; 80305; 80320; 81001; 82140; 82948; 85025; 85610; 85730; 87077; 87088; 87186; 94760; 96360; 96361; 96372; 99284; G0378; J1644; 93005; 99285

== ENCOUNTER 2019-03-13 13:01 | Emergency (ER) | payer MEDICARE, MEDICAID ==
[~2019-03-13] VITALS: Ht 157.5 cm; Wt 93.2 kg
[~2019-03-13 13:01] MED LIST changes: -ALBU8.5H8 INH; -ALPR1TAB2 PO; -ASPI-1265 PO; -DIVA500T2 PO; +DOCU250C86 PO; -DULO60CA45 PO; -FENT1PAT10 TOP; -FENT1PAT13 TD; -FERR-119 PO; +FURO20TA4 PO; -FURO40TA4 PO; -GABA-532 PO; -HYDR-4070 PO; -METO-467 PO; +METO25TA6 PO; -PANT-47 PO; +TRAZ150T78 PO; -VALP250C PO; +[UNRECOGNIZED DRUG - CODE] PO; +[UNRECOGNIZED DRUG - CODE] TOP
[2019-03-13 14:30] VITALS: BP 155/95
== END 2019-03-13 14:36 | disposition home or self-care (01) ==
LOC: ER 13:02
DX: S93.491A Sprain of other ligament of right ankle, initial encounter (principal); E78.00 Pure hypercholesterolemia, unspecified; I13.2 Hypertensive heart and chronic kidney disease with heart failure and with stage 5 chronic kidney disease, or end stage renal disease; N18.6 End stage renal disease; M19.90 Unspecified osteoarthritis, unspecified site; G89.29 Other chronic pain; M79.7 Fibromyalgia; F32.9 Major depressive disorder, single episode, unspecified; M81.0 Age-related osteoporosis without current pathological fracture; F12.90 Cannabis use, unspecified, uncomplicated; Z86.718 Personal history of other venous thrombosis and embolism; Z86.14 Personal history of Methicillin resistant Staphylococcus aureus infection; Z86.69 Personal history of other diseases of the nervous system and sense organs; Z99.2 Dependence on renal dialysis; Z86.711 Personal history of pulmonary embolism; Z95.1 Presence of aortocoronary bypass graft; Z98.890 Other specified postprocedural states; Z56.0 Unemployment, unspecified; Z88.1 Allergy status to other antibiotic agents; Z88.5 Allergy status to narcotic agent; Z88.8 Allergy status to other drugs, medicaments and biological substances; Z79.82 Long term (current) use of aspirin; Z79.899 Other long term (current) drug therapy; X50.1XXA Overexertion from prolonged static or awkward postures, initial encounter; Y93.89 Activity, other specified; Y92.89 Other specified places as the place of occurrence of the external cause; Y99.8 Other external cause status
CPT/HCPCS: 73610; 73630; 99284

== ENCOUNTER 2019-03-14 21:41 | Emergency (ER) | payer MEDICARE, MEDICAID ==
[~2019-03-14] VITALS: Ht 157.5 cm; Wt 100.0 kg
[~2019-03-14 21:41] MED LIST changes: +ALBU8.5H8 INH; +ALPR1TAB2 PO; +ASPI-1265 PO; +DIVA500T2 PO; +DULO60CA45 PO; +FENT1PAT10 TOP; +FENT1PAT13 TD; +FERR-119 PO; +FURO40TA4 PO; +GABA-532 PO; +HYDR-4070 PO; +LACT10SO PO; +METO-467 PO; +PANT-47 PO; +VALP250C PO
--- NOTE | 2019-03-14 22:18 | NUR ---
just returned from knee xray
[2019-03-14 22:35] VITALS: BP 116/86
[2019-03-14] MEDS ORDERED: traMADol 50MG tablet PO ONE (23:00)
== END 2019-03-14 23:25 | disposition home or self-care (01) ==
LOC: ER 21:46
DX: S80.01XA Contusion of right knee, initial encounter (principal); I13.2 Hypertensive heart and chronic kidney disease with heart failure and with stage 5 chronic kidney disease, or end stage renal disease; N18.6 End stage renal disease; I50.9 Heart failure, unspecified; E78.00 Pure hypercholesterolemia, unspecified; Z95.4 Presence of other heart-valve replacement; M19.90 Unspecified osteoarthritis, unspecified site; G89.29 Other chronic pain; F12.90 Cannabis use, unspecified, uncomplicated; F32.9 Major depressive disorder, single episode, unspecified; M81.0 Age-related osteoporosis without current pathological fracture; M06.9 Rheumatoid arthritis, unspecified; Z86.14 Personal history of Methicillin resistant Staphylococcus aureus infection; Z95.1 Presence of aortocoronary bypass graft; Z86.711 Personal history of pulmonary embolism; Z86.718 Personal history of other venous thrombosis and embolism; Z99.2 Dependence on renal dialysis; Z98.890 Other specified postprocedural states; Z56.0 Unemployment, unspecified; Z88.1 Allergy status to other antibiotic agents; Z88.6 Allergy status to analgesic agent; Z79.82 Long term (current) use of aspirin; Z79.899 Other long term (current) drug therapy; W18.39XA Other fall on same level, initial encounter; Y93.89 Activity, other specified; Y92.89 Other specified places as the place of occurrence of the external cause; Y99.8 Other external cause status
CPT/HCPCS: 73564; 99284

== ENCOUNTER 2019-04-30 11:43 | Emergency (ER) | payer MEDICARE, MEDICAID ==
[~2019-04-30] VITALS: Ht 157.5 cm; Wt 100.0 kg
[~2019-04-30 11:43] MED LIST changes: -ALBU8.5H8 INH; -ALPR1TAB2 PO; -ASPI-1265 PO; -DIVA500T2 PO; -DULO60CA45 PO; -FENT1PAT10 TOP; -FENT1PAT13 TD; -FERR-119 PO; -FURO40TA4 PO; -GABA-532 PO; -HYDR-4070 PO; -LACT10SO PO; -METO-467 PO; -PANT-47 PO; -VALP250C PO
[2019-04-30 12:51] LABS: BASOPHILS # (AUTO) 0.1 X10'3 (0-0.2); BASOPHILS % (AUTO) 0.8 % (0-1); EOSINOPHILS # (AUTO) 0.1 X10'3 (0-0.9); EOSINOPHILS % (AUTO) 1.6 % (0-6); HEMATOCRIT 36.7 % (35.0-45.0); HEMOGLOBIN 12.1 g/dl (12.0-16.0); LYMPHOCYTES # (AUTO) 1.7 X10'3 (1.1-4.8); MEAN CORPUSCULAR HEMOGLOBIN 30.7 PG (27.0-31.0); MEAN CORPUSCULAR VOLUME 93.1 FL (78-98); MEAN PLATELET VOLUME 8.5 FL (7.4-10.4); MONOCYTES # (AUTO) 0.8 X10'3 (0-0.9); MONOCYTES % (AUTO) 8.1 % (2-12); NEUTROPHILS # (AUTO) 6.8 X10'3 (1.8-7.7); NEUTROPHILS % (AUTO) 71.5 % (42-75); PLATELET COUNT 228 X10'3 (140-440); RED BLOOD COUNT 3.94 X10'6 (4.20-5.60); RED CELL DISTRIBUTION WIDTH 16.7 % (11.5-14.5); WHITE BLOOD COUNT 9.5 X10'3 (4.5-11.0)
[2019-04-30] MEDS ORDERED: DIVA-76 PO (12:57)
[2019-04-30] MEDS ORDERED: ALBU17AE26 (12:57)
[2019-04-30 13:03] LABS: ALANINE AMINOTRANSFERASE 14 U/L (12-78); ALBUMIN 3.1 G/DL (3.4-5.0); ALBUMIN/GLOBULIN RATIO 0.7 (1.1-1.5); ALKALINE PHOSPHATASE 122 IU/L (46-116); ANION GAP 5 (8-16); ASPARTATE AMINO TRANSFERASE 17 U/L (10-37); BILIRUBIN,TOTAL 0.3 MG/DL (0.1-1.0); BLOOD UREA NITROGEN 36 MG/DL (7-18); BUN/CREATININE RATIO 13.4 (6.6-38.0); CALCIUM 9.8 MG/DL (8.5-10.1); CHLORIDE 103 MMOL/L (99-107); CREATININE 2.69 MG/DL (0.40-0.90); GLUCOSE 95 MG/DL (70-104); POTASSIUM 3.9 MMOL/L (3.5-5.1); SODIUM 139 MMOL/L (135-145); TOTAL CARBON DIOXIDE 30.7 MMOL/L (24-32); TOTAL PROTEIN 7.4 G/DL (6.4-8.2); eGFR 20 ML/MIN
[2019-04-30 13:07] LABS: ETHANOL < 0.010 GM/DL (0.0-0.010)
--- NOTE | 2019-04-30 13:12 | NUR ---
Admission Note: Pt admitted straight back from triage. Pt came in for chronic pain and suicidal thoughts, "I'm just tired and don't want to go on anymore. . . I will jump in the river" Pt cooperative with admission assessment. Pt c/o chronic pain from Lupus, fibromyalgia and recent left LE surgery (3 weeks ago). Pt also states h/o 2 heart surgeries with valve replacement. Pt lives with who was present at admission, but went home after pt got into bed.
--- NOTE | 2019-04-30 13:16 | NUR ---
husbands phone number: Freddy: [phone]
[2019-04-30] MEDS ORDERED: POLY17PO10 PO (14:09)
[2019-04-30 14:24] LABS: URINE HCG NEGATIVE (NEG)
[2019-04-30 14:27] LABS: URINE AMPHETAMINE SCREEN NEGATIVE (Neg); URINE BARBITUATE SCREEN NEGATIVE (Neg); URINE BENZODIAZEPINES SCREEN POSITIVE (Neg); URINE CANNABINOID SCREEN POSITIVE (Neg); URINE COCAINE SCREEN NEGATIVE (Neg); URINE METHADONE SCREEN NEGATIVE (Neg); URINE OPIATE SCREEN NEGATIVE (Neg); URINE PHENCYCLIDINE SCREEN NEGATIVE (Neg)
--- NOTE | 2019-04-30 15:00 | NUR ---
Pt lying in bed without complaints. Pt used bedside commode to urinate and give UA. Pt required minimal assitance, pretty much transferring on her own with staff at her side ready to offer assistance which was not needed. Pt instructed to always call for help when needing to use commode.
[2019-04-30] MEDS ORDERED: ipratropium/albuterol 3ml nebule IH PRN (15:15)
[2019-04-30] MEDS ORDERED: temazepam 15mg capsule PO PRN (15:15)
[2019-04-30] MEDS ORDERED: docusate sod 250mg capsule PO PRN (15:15)
[2019-04-30] MEDS ORDERED: oxyCODONE/APAP 10/325mg tablet PO PRN (15:15)
--- NOTE | 2019-04-30 15:38 | NUR ---
PACKET FAXED TO [facility]
[2019-04-30] MEDS ORDERED: ondansetron 4mg rapidly disintigrating tab PO PRN (15:40)
--- NOTE | 2019-04-30 17:00 | NUR ---
Pt awake in bed. Got up x 1 to the commode. Pt had no requests or complaints.
[2019-04-30] MEDS ORDERED: cloNIDine 0.1 mg tablet PO ONE (17:45)
[2019-04-30] MEDS ORDERED: ALPRAZolam 0.5mg tablet PO PRN (18:00)
[2019-04-30] MEDS ORDERED: fentaNYL 75 MCG/hour patch.TD72 TD SCH (20:30)
[2019-04-30] MEDS ORDERED: traZODone 150mg tablet PO SCH (21:00)
[2019-04-30] MEDS: metoprolol tartrate 25mg tablet PO SCH (21:07)
[2019-04-30] MEDS: gabapentin 300mg capsule PO SCH (21:08)
[2019-04-30] MEDS: ferrous sulfate 325mg tablet PO SCH (21:08)
[2019-04-30] MEDS: divalproex sodium 500mg tablet.DR PO SCH (21:08)
--- NOTE | 2019-05-01 00:05 | NUR ---
relieving RN for lunch, pt is resting quietly on gurney, gave pt apple juice, crackers, and pitcher of ice water, chelly well, no n/v, pt is calm and cooperative
[2019-05-01 05:30] VITALS: BP_DIAS 64
--- NOTE | 2019-05-01 06:30 | NUR ---
Assumed care of client from BERNA Alanis
--- NOTE | 2019-05-01 07:05 | NUR ---
Dr solis here assessing client and medications
[2019-05-01 07:46] VITALS: BP_SYST 117
[2019-05-01] MEDS: metoprolol tartrate 25mg tablet PO SCH (07:46)
[2019-05-01] MEDS: gabapentin 300mg capsule PO SCH ×2 (07:46→13:12)
[2019-05-01] MEDS: ferrous sulfate 325mg tablet PO SCH ×2 (07:47→13:12)
[2019-05-01] MEDS: divalproex sodium 500mg tablet.DR PO SCH (07:47)
[2019-05-01] MEDS ORDERED: hydroxychloroquine 200mg tablet PO SCH (08:00)
[2019-05-01] MEDS ORDERED: divalproex sodium 250mg tablet PO SCH (08:00)
[2019-05-01] MEDS ORDERED: duloxetine 30mg CAPSULE.DR PO SCH (08:00)
[2019-05-01] MEDS ORDERED: polyethylene glycol 3350 17gm powd pack PO SCH (08:00)
[2019-05-01] MEDS ORDERED: furosemide 20MG tablet PO SCH (08:00)
--- NOTE | 2019-05-01 08:05 | NUR ---
Client is sleeping
[2019-05-01] MEDS ORDERED: aspirin 325mg tablet PO SCH (08:30)
[2019-05-01] MEDS ORDERED: ALPRAZolam 0.5mg tablet PO PRN (09:40)
--- NOTE | 2019-05-01 09:45 | NUR ---
helped pt to commode and had liquid bowel movement then put a diaper and new scrub bottoms on
--- NOTE | 2019-05-01 10:16 | NUR ---
pt is awake and laying on back
--- NOTE | 2019-05-01 10:23 | NUR ---
Client asleep on her back in no apparent distress. Respirations are even and unlabored.
--- NOTE | 2019-05-01 11:24 | NUR ---
Client asleep on her back in no apparent distress. Respirations are even and unlabored.
--- NOTE | 2019-05-01 12:26 | NUR ---
Pt's family at bedside
--- NOTE | 2019-05-01 14:01 | NUR ---
Pt speaking with [facility] revolving inventory clerk.
--- NOTE | 2019-05-01 14:29 | NUR ---
Pt calling to pick her up. Pt denies SI or HI
[2019-05-02] MEDS ORDERED: FENTANYL TRANSDERMAL TOP SCH (08:00)
== END 2019-05-01 14:45 | disposition home or self-care (01) ==
LOC: ER 11:44
DX: R45.851 Suicidal ideations (principal); F32.9 Major depressive disorder, single episode, unspecified; F12.90 Cannabis use, unspecified, uncomplicated; E78.00 Pure hypercholesterolemia, unspecified; M19.90 Unspecified osteoarthritis, unspecified site; G89.29 Other chronic pain; M79.7 Fibromyalgia; M81.0 Age-related osteoporosis without current pathological fracture; M06.9 Rheumatoid arthritis, unspecified; I13.0 Hypertensive heart and chronic kidney disease with heart failure and stage 1 through stage 4 chronic kidney disease, or unspecified chronic kidney disease; N18.9 Chronic kidney disease, unspecified; Z88.1 Allergy status to other antibiotic agents; Z88.6 Allergy status to analgesic agent; Z79.899 Other long term (current) drug therapy; Z79.82 Long term (current) use of aspirin; Z56.0 Unemployment, unspecified; Z86.718 Personal history of other venous thrombosis and embolism; Z86.14 Personal history of Methicillin resistant Staphylococcus aureus infection; Z99.2 Dependence on renal dialysis; Z98.890 Other specified postprocedural states; Z95.1 Presence of aortocoronary bypass graft
CPT/HCPCS: 36415; 80053; 80305; 80320; 81025; 85025; 94760; 99284

== ENCOUNTER 2019-06-12 10:19 | Emergency (ER) | payer MEDICARE, MEDICAID ==
[~2019-06-12] VITALS: Ht 157.5 cm; Wt 100.0 kg
[~2019-06-12 10:19] MED LIST changes: +ALBU17AE26; -ALPR1TAB7 PO; +DIVA-76 PO; -OXYC-150 PO; +POLY17PO10 PO
[2019-06-12 11:44] LABS: BASOPHILS # (AUTO) 0.1 X10'3 (0-0.2); BASOPHILS % (AUTO) 1.2 % (0-1); EOSINOPHILS # (AUTO) 0.3 X10'3 (0-0.9); EOSINOPHILS % (AUTO) 2.9 % (0-6); HEMOGLOBIN 11.8 g/dl (12.0-16.0); LYMPHOCYTES # (AUTO) 2.8 X10'3 (1.1-4.8); LYMPHOCYTES % (AUTO) 28.6 % (21-51); MEAN CORPUSCULAR HEMOGLOBIN 31.3 PG (27.0-31.0); MEAN CORPUSCULAR HGB CONC 33.8 g/dL (33.0-36.5); MEAN CORPUSCULAR VOLUME 92.5 FL (78-98); MEAN PLATELET VOLUME 8.5 FL (7.4-10.4); MONOCYTES # (AUTO) 0.8 X10'3 (0-0.9); MONOCYTES % (AUTO) 8.1 % (2-12); NEUTROPHILS # (AUTO) 5.8 X10'3 (1.8-7.7); NEUTROPHILS % (AUTO) 59.2 % (42-75); PLATELET COUNT 275 X10'3 (140-440); RED BLOOD COUNT 3.78 X10'6 (4.20-5.60); RED CELL DISTRIBUTION WIDTH 15.2 % (11.5-14.5); WHITE BLOOD COUNT 9.7 X10'3 (4.5-11.0)
[2019-06-12 11:56] LABS: ALANINE AMINOTRANSFERASE 14 U/L (12-78); ALBUMIN 2.7 G/DL (3.4-5.0); ALBUMIN/GLOBULIN RATIO 0.7 (1.1-1.5); ALKALINE PHOSPHATASE 90 IU/L (46-116); ANION GAP 6 (8-16); ASPARTATE AMINO TRANSFERASE 11 U/L (10-37); BILIRUBIN,TOTAL 0.2 MG/DL (0.1-1.0); BLOOD UREA NITROGEN 36 MG/DL (7-18); BUN/CREATININE RATIO 14.6 (6.6-38.0); CALCIUM 8.6 MG/DL (8.5-10.1); CHLORIDE 104 MMOL/L (99-107); CREATININE 2.46 MG/DL (0.40-0.90); GLUCOSE 123 MG/DL (70-104); POTASSIUM 4.3 MMOL/L (3.5-5.1); SODIUM 138 MMOL/L (135-145); TOTAL CARBON DIOXIDE 27.6 MMOL/L (24-32); TOTAL PROTEIN 6.8 G/DL (6.4-8.2); eGFR 22 ML/MIN
[2019-06-12] MEDS ORDERED: fentaNYL 50MCG/HOUR patch.TD72 TD ONE (12:22)
[2019-06-12] MEDS ORDERED: fentaNYL 25MCG/hour patch.TD72 TD ONE (12:23)
[2019-06-12] MEDS ORDERED: fentaNYL 12 MCG/hour patch.TD72 TD ONE (12:24)
[2019-06-12 12:58] VITALS: BP 116/86
--- NOTE | 2019-06-12 13:00 | NUR ---
IN TO PLACE FENTNYL PATCHES ON PT. PT WOULD NOT WAKE UP TO VOICE OR SLIGHT SHAKING. PT HAD TO AGRESSIVLY SHAKE PT AND CONTINUOUSLY SAY "BABE, BABE, HEY BABE WAKE UP" PT ROUSED VERY DISORIENTED. NOTIFIED DR PATEL OF PTS SOMULANCE. BACK IN TO SEE PT SHE IS SITTING ON THE SIDE OF THE BED BARRLY ABLE TO OPEN HER EYES ASKING "HAS THE DR EVEN BEEN IN TO SEE ME YET" EXPLAINED TO PT HE HAD SEEN HER AND HAD REVIEWED HIS PLAN WITH HER. HER STATES "BABE DONT YOU REMEMBER HE SAID HE WAS GONG TO GIVE YOU YOUR PATCH?" PT STATES I DONT REMEMBER AND I WANT TO TALK TO THE DR ABOUT PAIN MGMT" NOTIFIED DR PATEL. DR PATEL INTO SEE PT INQUIRED WHAT PT WAS ON AND WHY SO DROUSY? PT STATES SHE TOOK A XANAX PRIOR TO COMING IN. PTS EXTERNAL MED REC PULLED UP AND DR PATEL REVIEWED WITH PT AND . D/T PTS SOMULANCE DR PATEL IS NOT COMFORTABLE GIVING PT 87 MCG OF FENTANYL PATCHES AND DISCHARGING HER BEING SOMULENT SHE IS. PT AND BECAME ANGRY AND BEGAN ARGUING ABOUT THEY CANT GET THE MEDS FROM [facility]. PT STATES SHE WANTS TO BE ADMITTED FOR "A FEW DAYS" DR PATEL INFORMED PT SHE DOES NOT MEET CRITERIA FOR ADMISSION AND ALL HER TESTS CAME BACK OK, HE STATES HE WILL GIVE HER THE 12MCG PATCH AND SHE WILL NEED TO GET IN TOUCH WITH THE MD THAT IS GIVING HER THE MEDS. AGAIN BOTH THE PT AND HER BEGAN ARGUING. DR PATEL STATED I AM NOT COMFORTABLE GIVING YOU MORE THAN 12 MCG BECAUSE YOU ARE ALSO ON BENZOS AND ARE VERY DROUSY IM GOING TO DC YOU. DR PATEL LEFT THE ROOM. PT AND AGAIN STARTED ARGUING ABOUT THE MEDS. PT STATES "I WANT TO SPEAK WITH A HOSPITALIST AND GET ADMITTED." INFORMED PT SHE DID NOT MEET ADMISSION CRITERIA DR PATEL JUST STATED TO HER, THERE FORE SHE IS NOT ABLE TO SPEAK TO A HOSPITALIST. PT AND CONTINUED TO ARGUE ABOUT "ONLY GETTING 12 MCG OF FENT" "THIS IS FUCKING BS" "THIS AINT GOING TO DO SHIT FOR ME" INSTRUTED PT TO CALL HER PAIN MGMT DR AND ASK THEM TO ASSIST WITH GETTING RX TO A NEW PHARM. PT AND CONTINUED TO ARGUE ABOUT NOT GETTING THE MEDS SHE WANTS. RUTH CN AT DOOR AND INFORMED THEM THEY ARE DISCHARGED AND HAVE RECEIVED TREATMENT FOR HER PAIN. PT AND REFUSED TO SIGN DC PAPERWORK.
== END 2019-06-12 13:10 | disposition home or self-care (01) ==
LOC: ER 10:21
DX: G89.29 Other chronic pain (principal); R11.2 Nausea with vomiting, unspecified; E78.00 Pure hypercholesterolemia, unspecified; M79.7 Fibromyalgia; M06.9 Rheumatoid arthritis, unspecified; F12.90 Cannabis use, unspecified, uncomplicated; I13.0 Hypertensive heart and chronic kidney disease with heart failure and stage 1 through stage 4 chronic kidney disease, or unspecified chronic kidney disease; N18.9 Chronic kidney disease, unspecified; I50.9 Heart failure, unspecified; Z86.718 Personal history of other venous thrombosis and embolism; Z86.14 Personal history of Methicillin resistant Staphylococcus aureus infection; Z95.1 Presence of aortocoronary bypass graft; Z98.890 Other specified postprocedural states; Z56.0 Unemployment, unspecified; Z88.1 Allergy status to other antibiotic agents; Z88.5 Allergy status to narcotic agent; Z79.82 Long term (current) use of aspirin; Z79.899 Other long term (current) drug therapy
CPT/HCPCS: 36415; 71045; 80053; 84484; 85025; 93005; 99284

== ENCOUNTER 2019-06-14 08:31 | Emergency (ER) | payer MEDICARE, MEDICAID ==
[~2019-06-14] VITALS: Ht 157.5 cm; Wt 100.0 kg
[2019-06-14 09:10] LABS: BASOPHILS # (AUTO) 0.1 X10'3 (0-0.2); EOSINOPHILS # (AUTO) 0.4 X10'3 (0-0.9); EOSINOPHILS % (AUTO) 3.8 % (0-6); HEMOGLOBIN 12.4 g/dl (12.0-16.0); LYMPHOCYTES # (AUTO) 2.1 X10'3 (1.1-4.8); LYMPHOCYTES % (AUTO) 18.6 % (21-51); MEAN CORPUSCULAR HEMOGLOBIN 30.9 PG (27.0-31.0); MEAN CORPUSCULAR HGB CONC 33.6 g/dL (33.0-36.5); MEAN CORPUSCULAR VOLUME 92.1 FL (78-98); MONOCYTES % (AUTO) 8.7 % (2-12); NEUTROPHILS # (AUTO) 7.8 X10'3 (1.8-7.7); NEUTROPHILS % (AUTO) 67.9 % (42-75); PLATELET COUNT 319 X10'3 (140-440); RED BLOOD COUNT 4.02 X10'6 (4.20-5.60); RED CELL DISTRIBUTION WIDTH 15.4 % (11.5-14.5); WHITE BLOOD COUNT 11.5 X10'3 (4.5-11.0)
[2019-06-14 09:22] LABS: ALANINE AMINOTRANSFERASE 15 U/L (12-78); ALBUMIN 3.1 G/DL (3.4-5.0); ALBUMIN/GLOBULIN RATIO 0.7 (1.1-1.5); ALKALINE PHOSPHATASE 98 IU/L (46-116); ANION GAP 11 (8-16); ASPARTATE AMINO TRANSFERASE 14 U/L (10-37); BILIRUBIN,TOTAL 0.3 MG/DL (0.1-1.0); BLOOD UREA NITROGEN 39 MG/DL (7-18); BUN/CREATININE RATIO 12.6 (6.6-38.0); CHLORIDE 106 MMOL/L (99-107); GLUCOSE 80 MG/DL (70-104); POTASSIUM 4.5 MMOL/L (3.5-5.1); SODIUM 140 MMOL/L (135-145); TOTAL CARBON DIOXIDE 23.5 MMOL/L (24-32); TOTAL PROTEIN 7.5 G/DL (6.4-8.2); eGFR 17 ML/MIN
[2019-06-14 09:31] LABS: ETHANOL < 0.010 GM/DL (0.0-0.010)
[2019-06-14 10:18] LABS: URINE HCG NEGATIVE (NEG)
[2019-06-14 10:27] LABS: URINE AMPHETAMINE SCREEN NEGATIVE (Neg); URINE BARBITUATE SCREEN NEGATIVE (Neg); URINE BENZODIAZEPINES SCREEN POSITIVE (Neg); URINE CANNABINOID SCREEN POSITIVE (Neg); URINE COCAINE SCREEN NEGATIVE (Neg); URINE METHADONE SCREEN NEGATIVE (Neg); URINE OPIATE SCREEN NEGATIVE (Neg); URINE PHENCYCLIDINE SCREEN NEGATIVE (Neg)
[2019-06-14 10:37] LABS: CLARITY,URINE CLEAR (Clear); COLOR,URINE YELLOW (Yellow); GLUCOSE, URINE NEGATIVE (Neg); KETONES,URINE NEGATIVE (Neg); LEUKOCYTE ESTERASE ,URINE NEGATIVE (Neg); NITRITES, URINE NEGATIVE (Neg); OCCULT BLOOD,URINE NEGATIVE (Neg); PROTEIN,URINE TRACE mg/dl (Neg); UROBILINOGEN,URINE 0.2 E.U/dL (0.2-1.0)
[2019-06-14 10:39] LABS: UA COLLECTION TYPE STRAIGHT CATH
[2019-06-14 10:57] LABS: SQUAMOUS EPITHELIAL CELL,UR MODERATE /LPF (FEW)
[2019-06-14 10:58] LABS: HYALINE CASTS 0-3 /LPF (NEGATIVE); MUCUS STRANDS FEW /LPF (Neg)
[2019-06-14 11:00] LABS: RBC,URINE 0-2 /HPF (0-2); TRANSITIONAL EPI CELLS,URINE FEW /HPF; WBC,URINE 0-4 /HPF (0-4)
[2019-06-14 11:13] LABS: BACTERIA,URINE 1+ /HPF (Neg)
[2019-06-14] MEDS ORDERED: diphenhydrAMINE 50 mg/ml inj IM ONE (11:40)
[2019-06-14] MEDS ORDERED: haloperidol lactate 5mg/ml inj IM ONE (11:40)
[2019-06-14] MEDS ORDERED: LORazepam 2 mg/ml vial IM ONE (11:40)
--- NOTE | 2019-06-14 13:12 | NUR ---
NO FENTANYL PATCH NOTED ON BODY AFTER GOWN CHANGED
[2019-06-14] MEDS: chloestyramine/aspartame 4gm packet PO SCH ×2 (13:50→16:47)
[2019-06-14] MEDS ORDERED: HYDROcodone/acetaminophen 10/325mg tab PO ONE (14:35)
[2019-06-14] MEDS ORDERED: LORazepam 1 MG tablet PO ONE (14:35)
--- NOTE | 2019-06-14 15:04 | NUR ---
SENT PACKET [facility]
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
--- NOTE | 2019-06-14 16:53 | NUR ---
Pt's dose of Cholesteryramine given PO mixed with cranberry juice. Pt requested pain medication. Explained to the patient the provider wants to have her Mental health exam completed prior to additional mood/mind altering medication to not inhibit with the evaluation. Pt reports "I understand." Pt reports "I shit myself in my diaper." Pt informed she needs to be able to walk to the restroom to void or have bowel movements instead of laying in the bed and expecting staff to clean her up. Pt states "I am disabled and unable to walk." Explained to the patient that multiple staff members witnessed her walking without assistance and she stated "it was because I was majorly pissed off so unless you want to get me majorly pissed off again then I am not going to walk."
[2019-06-14] MEDS ORDERED: GABA-532 PO (17:20)
[2019-06-14] MEDS ORDERED: ONDA4TAB12 PO (17:20)
[2019-06-14] MEDS ORDERED: PRE5T PO (17:20)
[2019-06-14] MEDS ORDERED: CHOL400C8 PO (17:20)
[2019-06-14] MEDS ORDERED: ALPR1TAB7 PO (17:20)
[2019-06-14] MEDS ORDERED: TEMA15CA PO (17:20)
[2019-06-14] MEDS ORDERED: OXYC-511 PO (17:24)
[2019-06-14] MEDS ORDERED: ipratropium/albuterol 3ml nebule IH PRN (18:05)
[2019-06-14] MEDS ORDERED: docusate sod 250mg capsule PO PRN (18:05)
[2019-06-14] MEDS ORDERED: oxyCODONE/APAP 10/325mg tablet PO PRN (18:05)
[2019-06-14] MEDS ORDERED: ALPRAZolam 0.5mg tablet PO PRN (18:05)
[2019-06-14] MEDS ORDERED: ondansetron 4mg rapidly disintigrating tab PO PRN (18:05)
--- NOTE | 2019-06-14 18:12 | NUR ---
Pt requested assistance to clean up due to incontinence of stool. Pt given flushable wipes and a dry depends to change her diaper. Pt assisted with minimal assistance back to bed.
[2019-06-14 18:28] LABS: VALPROATE 7 UG/ML (50-100)
[2019-06-14 19:13] VITALS: BP 130/75
[2019-06-14] MEDS ORDERED: metoprolol tartrate 25mg tablet PO SCH (20:00)
[2019-06-14] MEDS ORDERED: duloxetine 30mg CAPSULE.DR PO SCH (20:00)
[2019-06-14] MEDS ORDERED: divalproex sodium 250mg tablet PO SCH (20:00)
[2019-06-14] MEDS ORDERED: divalproex sod 250mg ER (24-hour) tablet PO SCH (20:00)
[2019-06-14] MEDS ORDERED: ferrous sulfate 325mg tablet PO SCH (21:00)
[2019-06-14] MEDS ORDERED: temazepam 15mg capsule PO SCH (21:00)
[2019-06-14] MEDS ORDERED: gabapentin 300mg capsule PO SCH (21:00)
[2019-06-15] MEDS ORDERED: furosemide 20MG tablet PO SCH (08:00)
[2019-06-15] MEDS ORDERED: polyethylene glycol 3350 17gm powd pack PO SCH (08:00)
[2019-06-15] MEDS ORDERED: cholecalciferol (vitamin D) 400 unit tablet PO SCH (08:00)
[2019-06-15] MEDS ORDERED: predniSONE 5mg tablet PO SCH (08:00)
[2019-06-15] MEDS ORDERED: hydroxychloroquine 200mg tablet PO SCH (08:00)
[2019-06-15] MEDS ORDERED: aspirin 325mg tablet PO SCH (08:00)
== END 2019-06-14 19:16 | disposition home or self-care (01) ==
LOC: ER 08:32
DX: F32.9 Major depressive disorder, single episode, unspecified (principal); R45.851 Suicidal ideations; E78.00 Pure hypercholesterolemia, unspecified; M19.90 Unspecified osteoarthritis, unspecified site; G89.29 Other chronic pain; M79.7 Fibromyalgia; F12.90 Cannabis use, unspecified, uncomplicated; I13.0 Hypertensive heart and chronic kidney disease with heart failure and stage 1 through stage 4 chronic kidney disease, or unspecified chronic kidney disease; N18.9 Chronic kidney disease, unspecified; I50.9 Heart failure, unspecified; Z99.2 Dependence on renal dialysis; Z86.718 Personal history of other venous thrombosis and embolism; Z86.711 Personal history of pulmonary embolism; Z56.0 Unemployment, unspecified; Z95.1 Presence of aortocoronary bypass graft; Z98.890 Other specified postprocedural states; Z87.01 Personal history of pneumonia (recurrent); Z79.82 Long term (current) use of aspirin; Z79.899 Other long term (current) drug therapy; Z88.1 Allergy status to other antibiotic agents; Z88.5 Allergy status to narcotic agent
CPT/HCPCS: 36415; 80053; 80164; 80305; 80320; 81001; 81025; 84443; 85025; 96372; 99285; J1200; J1630; J2060; 94760

== ENCOUNTER 2019-08-04 17:52 | Emergency (ER) | payer MEDICARE, MEDICAID ==
[~2019-08-04] VITALS: Ht 157.5 cm; Wt 100.0 kg
[~2019-08-04 17:52] MED LIST changes: +ALPR1TAB7 PO; +CHOL400C8 PO; -GABA-338 PO; +GABA-532 PO; +ONDA4TAB12 PO; -ONDA4TAB6 PO; +OXYC-511 PO; +PRE5T PO; +TEMA15CA PO; -TEMA15CA5 PO
[2019-08-04] MEDS ORDERED: ondansetron 4mg/5ml UD cup PO ONE (21:00)
[2019-08-04] MEDS ORDERED: HYDROmorphone 2mg tablet PO ONE (21:00)
[2019-08-04] MEDS ORDERED: fentaNYL 12 MCG/hour patch.TD72 TD ONE (21:10)
[2019-08-04 21:54] VITALS: BP 131/86
== END 2019-08-04 21:55 | disposition home or self-care (01) ==
LOC: ER 17:54
DX: G89.29 Other chronic pain (principal); E78.00 Pure hypercholesterolemia, unspecified; M79.7 Fibromyalgia; M06.9 Rheumatoid arthritis, unspecified; F12.90 Cannabis use, unspecified, uncomplicated; I13.0 Hypertensive heart and chronic kidney disease with heart failure and stage 1 through stage 4 chronic kidney disease, or unspecified chronic kidney disease; N18.9 Chronic kidney disease, unspecified; I50.9 Heart failure, unspecified; Z56.0 Unemployment, unspecified; Z87.891 Personal history of nicotine dependence; Z95.1 Presence of aortocoronary bypass graft; Z98.890 Other specified postprocedural states; Z99.2 Dependence on renal dialysis; Z87.01 Personal history of pneumonia (recurrent); Z86.718 Personal history of other venous thrombosis and embolism; Z86.711 Personal history of pulmonary embolism; Z86.14 Personal history of Methicillin resistant Staphylococcus aureus infection
CPT/HCPCS: 99283

== ENCOUNTER 2019-08-08 03:21 | Emergency (ER) | payer MEDICARE, MEDICAID ==
[~2019-08-08] VITALS: Ht 157.5 cm; Wt 80.0 kg
[~2019-08-08 03:21] MED LIST changes: -HYDROcodone/acetaminophen 10/325mg tab PO ONE
[2019-08-08 03:23] VITALS: BP 126/80
--- NOTE | 2019-08-08 03:31 | NUR ---
DR. MONROY IN TRIAGE DOING MEDICAL ASSESSMENT/ WILL ORDER PAIN MEDICINE AND DISCHARGE PATIENT
[2019-08-08] MEDS ORDERED: acetaminophen 325mg tablet PO ONE (03:40)
== END 2019-08-08 03:51 | disposition home or self-care (01) ==
LOC: ER 03:21
DX: G89.29 Other chronic pain (principal); E78.00 Pure hypercholesterolemia, unspecified; M79.7 Fibromyalgia; M06.9 Rheumatoid arthritis, unspecified; F12.90 Cannabis use, unspecified, uncomplicated; I13.0 Hypertensive heart and chronic kidney disease with heart failure and stage 1 through stage 4 chronic kidney disease, or unspecified chronic kidney disease; N18.9 Chronic kidney disease, unspecified; I50.9 Heart failure, unspecified; Z99.2 Dependence on renal dialysis; Z56.0 Unemployment, unspecified; Z95.1 Presence of aortocoronary bypass graft; Z98.890 Other specified postprocedural states; Z86.718 Personal history of other venous thrombosis and embolism; Z87.01 Personal history of pneumonia (recurrent); Z88.1 Allergy status to other antibiotic agents; Z88.5 Allergy status to narcotic agent; Z79.899 Other long term (current) drug therapy
CPT/HCPCS: 99284

== ENCOUNTER → 2019-08-08 | Emergency (ER) | payer MEDICARE, MEDICAID ==
[~2019-08-08] VITALS: Ht 157.5 cm; Wt 100.0 kg
[~2019-08-08] MED LIST changes: +HYDROcodone/acetaminophen 10/325mg tab PO ONE
[2019-08-08 11:20] VITALS: BP 173/70
== END | disposition home or self-care (01) ==
LOC: ER 11:18
DX: G89.29 Other chronic pain (principal); R53.1 Weakness; M79.10 Myalgia, unspecified site; I50.9 Heart failure, unspecified; E78.00 Pure hypercholesterolemia, unspecified; I13.0 Hypertensive heart and chronic kidney disease with heart failure and stage 1 through stage 4 chronic kidney disease, or unspecified chronic kidney disease; N18.9 Chronic kidney disease, unspecified; M19.90 Unspecified osteoarthritis, unspecified site; M81.0 Age-related osteoporosis without current pathological fracture; M06.9 Rheumatoid arthritis, unspecified; F32.9 Major depressive disorder, single episode, unspecified; F12.90 Cannabis use, unspecified, uncomplicated; Z86.69 Personal history of other diseases of the nervous system and sense organs; Z86.718 Personal history of other venous thrombosis and embolism; Z86.14 Personal history of Methicillin resistant Staphylococcus aureus infection; Z95.1 Presence of aortocoronary bypass graft; Z98.890 Other specified postprocedural states; Z56.0 Unemployment, unspecified; Z88.5 Allergy status to narcotic agent; Z88.1 Allergy status to other antibiotic agents; Z79.82 Long term (current) use of aspirin; Z79.899 Other long term (current) drug therapy
CPT/HCPCS: 99284

== ENCOUNTER 2019-09-03 18:40 | Emergency (ER) | payer MEDICARE, MEDICAID ==
[~2019-09-03] VITALS: Ht 157.5 cm; Wt 81.8 kg
[2019-09-03 19:36] LABS: BASOPHILS # (AUTO) 0.1 X10'3 (0-0.2); EOSINOPHILS # (AUTO) 0.1 X10'3 (0-0.9); HEMATOCRIT 34.9 % (35.0-45.0); HEMOGLOBIN 11.7 g/dl (12.0-16.0); MEAN CORPUSCULAR HEMOGLOBIN 31.6 PG (27.0-31.0); MONOCYTES # (AUTO) 0.6 X10'3 (0-0.9); NEUTROPHILS # (AUTO) 6.2 X10'3 (1.8-7.7); PLATELET COUNT 218 X10'3 (140-440)
[2019-09-03 19:38] LABS: BASOPHILS % (AUTO) 1.1 % (0-1); LYMPHOCYTES # (AUTO) 1.2 X10'3 (1.1-4.8); MEAN CORPUSCULAR HGB CONC 33.4 g/dL (33.0-36.5); MEAN CORPUSCULAR VOLUME 94.6 FL (78-98); MEAN PLATELET VOLUME 8.1 FL (7.4-10.4); NEUTROPHILS % (AUTO) 75.9 % (42-75); RED BLOOD COUNT 3.69 X10'6 (4.20-5.60); WHITE BLOOD COUNT 8.1 X10'3 (4.5-11.0)
[2019-09-03 19:49] LABS: ALANINE AMINOTRANSFERASE 11 U/L (12-78); ALBUMIN 2.7 G/DL (3.4-5.0); ALBUMIN/GLOBULIN RATIO 0.7 (1.1-1.5); ALKALINE PHOSPHATASE 79 IU/L (46-116); ANION GAP 6 (8-16); ASPARTATE AMINO TRANSFERASE 14 U/L (10-37); BILIRUBIN,TOTAL 0.2 MG/DL (0.1-1.0); BLOOD UREA NITROGEN 41 MG/DL (7-18); BUN/CREATININE RATIO 16.9 (6.6-38.0); CALCIUM 8.9 MG/DL (8.5-10.1); CHLORIDE 104 MMOL/L (99-107); CREATININE 2.43 MG/DL (0.40-0.90); GLUCOSE 112 MG/DL (70-104); POTASSIUM 4.9 MMOL/L (3.5-5.1); SODIUM 138 MMOL/L (135-145); TOTAL PROTEIN 6.6 G/DL (6.4-8.2); eGFR 22 ML/MIN
[2019-09-03 22:39] VITALS: BP 160/100
== END 2019-09-03 22:44 | disposition home or self-care (01) ==
LOC: ER 18:40
DX: R53.1 Weakness (principal); G89.29 Other chronic pain; I13.2 Hypertensive heart and chronic kidney disease with heart failure and with stage 5 chronic kidney disease, or end stage renal disease; E11.22 Type 2 diabetes mellitus with diabetic chronic kidney disease; N18.6 End stage renal disease; I50.9 Heart failure, unspecified; F32.9 Major depressive disorder, single episode, unspecified; E78.00 Pure hypercholesterolemia, unspecified; M19.90 Unspecified osteoarthritis, unspecified site; M06.9 Rheumatoid arthritis, unspecified; F12.90 Cannabis use, unspecified, uncomplicated; Z99.2 Dependence on renal dialysis; Z86.69 Personal history of other diseases of the nervous system and sense organs; Z86.711 Personal history of pulmonary embolism; Z86.718 Personal history of other venous thrombosis and embolism; Z86.14 Personal history of Methicillin resistant Staphylococcus aureus infection; Z95.1 Presence of aortocoronary bypass graft; Z98.890 Other specified postprocedural states; Z56.0 Unemployment, unspecified; Z88.1 Allergy status to other antibiotic agents; Z88.5 Allergy status to narcotic agent; Z79.82 Long term (current) use of aspirin; Z79.899 Other long term (current) drug therapy
CPT/HCPCS: 36415; 71045; 80053; 84484; 85025; 93005; 99285

== ENCOUNTER 2019-10-10 21:53 | Emergency (ER) | payer MEDICARE, MEDICAID ==
[~2019-10-10] VITALS: Ht 157.5 cm; Wt 100.0 kg
--- NOTE | 2019-10-10 23:23 | NUR ---
assisted Dr Saab with rectal examine, pt chelly well
[2019-10-10] MEDS: diatr meglu/diatrizoate 30ml oral sol.-(3 dose) bottle PO SCH (23:33)
[2019-10-10] MEDS ORDERED: diatr meglu/diatrizoate 30ml oral sol.-(3 dose) bottle ONE ×2 (23:39)
[2019-10-10] MEDS ORDERED: diatrozoate meglu/diatrozoate sod (37% iodine) 120ML oral solution ONE (23:45)
[2019-10-10] MEDS ORDERED: PRED5TAB49 PO (23:48)
[2019-10-10] MEDS ORDERED: DIVA-74 PO (23:48)
[2019-10-10] MEDS ORDERED: HYDROcodone/acetaminophen 10/325mg tab PO ONE (23:55)
[2019-10-11] MEDS: diatr meglu/diatrizoate 30ml oral sol.-(3 dose) bottle PO SCH ×2 (00:05→00:50)
[2019-10-11 00:16] LABS: MEAN PLATELET VOLUME 8.8 FL (7.4-10.4); WHITE BLOOD COUNT 9.5 X10'3 (4.5-11.0)
[2019-10-11 00:18] LABS: BASOPHILS # (AUTO) 0.1 X10'3 (0-0.2); BASOPHILS % (AUTO) 1.1 % (0-1); EOSINOPHILS # (AUTO) 0.2 X10'3 (0-0.9); EOSINOPHILS % (AUTO) 2.2 % (0-6); HEMATOCRIT 40.2 % (35.0-45.0); LYMPHOCYTES # (AUTO) 2.3 X10'3 (1.1-4.8); LYMPHOCYTES % (AUTO) 24.3 % (21-51); MEAN CORPUSCULAR HEMOGLOBIN 32.1 PG (27.0-31.0); MEAN CORPUSCULAR HGB CONC 32.5 g/dL (33.0-36.5); MEAN CORPUSCULAR VOLUME 98.8 FL (78-98); MONOCYTES # (AUTO) 0.9 X10'3 (0-0.9); MONOCYTES % (AUTO) 9.9 % (2-12); NEUTROPHILS # (AUTO) 5.9 X10'3 (1.8-7.7); NEUTROPHILS % (AUTO) 62.5 % (42-75); PLATELET COUNT 224 X10'3 (140-440); RED BLOOD COUNT 4.07 X10'6 (4.20-5.60); RED CELL DISTRIBUTION WIDTH 15.7 % (11.5-14.5)
[2019-10-11 00:23] VITALS: BP 146/68
[2019-10-11 00:31] LABS: ALANINE AMINOTRANSFERASE 10 U/L (12-78); ALBUMIN 2.9 G/DL (3.4-5.0); ALBUMIN/GLOBULIN RATIO 0.7 (1.1-1.5); ALKALINE PHOSPHATASE 73 IU/L (46-116); ANION GAP 7 (8-16); ASPARTATE AMINO TRANSFERASE 11 U/L (10-37); BILIRUBIN,TOTAL 0.2 MG/DL (0.1-1.0); BLOOD UREA NITROGEN 56 MG/DL (7-18); BUN/CREATININE RATIO 20.4 (6.6-38.0); CALCIUM 9.1 MG/DL (8.5-10.1); CHLORIDE 109 MMOL/L (99-107); CREATININE 2.75 MG/DL (0.40-0.90); GLUCOSE 67 MG/DL (70-104); MAGNESIUM 2.7 MG/DL (1.5-2.4); POTASSIUM 5.3 MMOL/L (3.5-5.1); SODIUM 139 MMOL/L (135-145); TOTAL CARBON DIOXIDE 22.9 MMOL/L (24-32); TOTAL PROTEIN 6.8 G/DL (6.4-8.2); eGFR 19 ML/MIN
[2019-10-11 00:47] LABS: PARTIAL THROMBOPLASTIN TIME 31 SECONDS (22-32)
[2019-10-11] MEDS ORDERED: diatr meglu/diatrizoate 30ml oral sol.-(3 dose) bottle PO SCH (01:15)
== END 2019-10-11 02:08 | disposition home or self-care (01) ==
LOC: ER 21:54
DX: N82.3 Fistula of vagina to large intestine (principal); G89.29 Other chronic pain; R50.9 Fever, unspecified; R10.84 Generalized abdominal pain; I13.2 Hypertensive heart and chronic kidney disease with heart failure and with stage 5 chronic kidney disease, or end stage renal disease; N18.6 End stage renal disease; E78.00 Pure hypercholesterolemia, unspecified; I50.9 Heart failure, unspecified; F32.9 Major depressive disorder, single episode, unspecified; M19.90 Unspecified osteoarthritis, unspecified site; F12.90 Cannabis use, unspecified, uncomplicated; Z87.01 Personal history of pneumonia (recurrent); Z99.2 Dependence on renal dialysis; Z86.69 Personal history of other diseases of the nervous system and sense organs; Z86.711 Personal history of pulmonary embolism; Z86.14 Personal history of Methicillin resistant Staphylococcus aureus infection; Z98.890 Other specified postprocedural states; Z56.0 Unemployment, unspecified; Z88.1 Allergy status to other antibiotic agents; Z88.8 Allergy status to other drugs, medicaments and biological substances; Z79.82 Long term (current) use of aspirin; Z79.899 Other long term (current) drug therapy
CPT/HCPCS: 36415; 71045; 74176; 80053; 83605; 83735; 84145; 85025; 85610; 85730; 87040; 99285; Q9963; 99284

== ENCOUNTER 2019-10-30 17:45 | Emergency (ER) | payer MEDICARE, MEDICAID ==
[~2019-10-30] VITALS: Ht 157.5 cm; Wt 90.0 kg
[~2019-10-30 17:45] MED LIST changes: +DIVA-74 PO; -DIVA-76 PO; -PRE5T PO; +PRED5TAB49 PO; -[UNRECOGNIZED DRUG - CODE] PO
--- NOTE | 2019-10-30 18:19 | NUR ---
pt states she takes 87mcg fentanyl and 2 tabs of percocet and xanax 1mg daily for pain management for lupus. states she took both of these medications around 10am today
[2019-10-30] MEDS ORDERED: aspirin 81mg tab.chew PO ONE (18:30)
--- NOTE | 2019-10-30 19:09 | NUR ---
SPOKE WITH OPEZZO-URINE NOT NECESSARY PT WOULD NEED TO BE STRAIGHT CATHED.
[2019-10-30 19:10] LABS: BASOPHILS # (AUTO) 0.1 X10'3 (0-0.2); BASOPHILS % (AUTO) 0.8 % (0-1); EOSINOPHILS # (AUTO) 0.3 X10'3 (0-0.9); EOSINOPHILS % (AUTO) 2.7 % (0-6); HEMATOCRIT 36.3 % (35.0-45.0); HEMOGLOBIN 11.8 g/dl (12.0-16.0); LYMPHOCYTES # (AUTO) 3.5 X10'3 (1.1-4.8); MEAN CORPUSCULAR HGB CONC 32.6 g/dL (33.0-36.5); MEAN PLATELET VOLUME 7.7 FL (7.4-10.4); MONOCYTES # (AUTO) 0.7 X10'3 (0-0.9); MONOCYTES % (AUTO) 7.3 % (2-12); NEUTROPHILS # (AUTO) 5.4 X10'3 (1.8-7.7); NEUTROPHILS % (AUTO) 54.2 % (42-75); PLATELET COUNT 244 X10'3 (140-440); RED CELL DISTRIBUTION WIDTH 14.9 % (11.5-14.5)
[2019-10-30 19:24] LABS: ALANINE AMINOTRANSFERASE 6 U/L (12-78); ALBUMIN 2.8 G/DL (3.4-5.0); ALBUMIN/GLOBULIN RATIO 0.8 (1.1-1.5); ALKALINE PHOSPHATASE 70 IU/L (46-116); ANION GAP 0 (8-16); ASPARTATE AMINO TRANSFERASE 21 U/L (10-37); BILIRUBIN,TOTAL 0.2 MG/DL (0.1-1.0); BLOOD UREA NITROGEN 38 MG/DL (7-18); BUN/CREATININE RATIO 14.8 (6.6-38.0); CALCIUM 9.3 MG/DL (8.5-10.1); CHLORIDE 105 MMOL/L (99-107); CREATININE 2.57 MG/DL (0.40-0.90); GLUCOSE 76 MG/DL (70-104); MAGNESIUM 2.6 MG/DL (1.5-2.4); POTASSIUM 3.4 MMOL/L (3.5-5.1); SODIUM 136 MMOL/L (135-145); TOTAL CARBON DIOXIDE 31.3 MMOL/L (24-32); TOTAL PROTEIN 6.2 G/DL (6.4-8.2); eGFR 21 ML/MIN
[2019-10-30 20:07] VITALS: BP 119/83
== END 2019-10-30 19:40 | disposition home or self-care (01) ==
LOC: ER 17:46
DX: R07.89 Other chest pain (principal); M25.561 Pain in right knee; M25.562 Pain in left knee; M25.521 Pain in right elbow; M25.522 Pain in left elbow; M32.9 Systemic lupus erythematosus, unspecified; E78.00 Pure hypercholesterolemia, unspecified; M79.7 Fibromyalgia; M06.9 Rheumatoid arthritis, unspecified; F12.90 Cannabis use, unspecified, uncomplicated; I13.0 Hypertensive heart and chronic kidney disease with heart failure and stage 1 through stage 4 chronic kidney disease, or unspecified chronic kidney disease; N18.9 Chronic kidney disease, unspecified; I50.9 Heart failure, unspecified; Z99.2 Dependence on renal dialysis; Z56.0 Unemployment, unspecified; Z95.1 Presence of aortocoronary bypass graft; Z98.890 Other specified postprocedural states; Z86.718 Personal history of other venous thrombosis and embolism; Z86.711 Personal history of pulmonary embolism; Z87.01 Personal history of pneumonia (recurrent); Z88.1 Allergy status to other antibiotic agents; Z88.5 Allergy status to narcotic agent; Z79.82 Long term (current) use of aspirin; Z79.899 Other long term (current) drug therapy
CPT/HCPCS: 36415; 71045; 80053; 83735; 84484; 85025; 93005; 99284; 99285

== ENCOUNTER 2021-03-29 06:50 | Day surgery (SDC) | payer MEDICARE, MEDICAID ==
[~2021-03-29] VITALS: Ht 157.5 cm; Wt 52.0 kg
[~2021-03-29 06:50] MED LIST changes: +DOCU-361 PO; -DOCU250C86 PO; +LOP25T PO; -METO25TA6 PO; -OXYC-511 PO; +OXYC1TAB17 PO
[2021-03-29] MEDS ORDERED: normal saline 1000ml 1,000 ML IV SCH (07:20)
[2021-03-29] MEDS ORDERED: Fentanyl Patch (07:23)
[2021-03-29] MEDS ORDERED: BUSP10TA11 PO (07:23)
[2021-03-29 07:42] VITALS: BP 135/85
[2021-03-29] MEDS ORDERED: midazolam 1 mg/ML 2ml injection ONE (08:50)
[2021-03-29] MEDS ORDERED: heparin 1,000unit/ml 10ml vial 10 ML ONE (08:50)
[2021-03-29] MEDS ORDERED: LIDOcaine 1%/PF 5ML 10 MG/ML VIAL ONE (08:50)
[2021-03-29] MEDS ORDERED: fentaNYL/PF 50MCG/1 ML 2ML syringe ONE (08:51)
[2021-03-29 09:43] VITALS: BP 120/85
[2021-03-29 10:01] VITALS: BP 89/49
[2021-03-29 10:17] VITALS: BP 125/54
[2021-03-29 10:30] VITALS: BP 137/93
[2021-03-29 10:46] VITALS: BP 149/70
== END 2021-03-29 11:00 | disposition home or self-care (01) ==
LOC: SSTAY O 06:50
PROVIDERS: ATTEND Radiology Vascular & Interventional Radiology
DX: I13.2 Hypertensive heart and chronic kidney disease with heart failure and with stage 5 chronic kidney disease, or end stage renal disease (principal); N18.6 End stage renal disease; I50.9 Heart failure, unspecified; E78.00 Pure hypercholesterolemia, unspecified; G89.29 Other chronic pain; Z95.1 Presence of aortocoronary bypass graft; F32.9 Major depressive disorder, single episode, unspecified; Z87.01 Personal history of pneumonia (recurrent); Z86.711 Personal history of pulmonary embolism; Z86.718 Personal history of other venous thrombosis and embolism; Z86.14 Personal history of Methicillin resistant Staphylococcus aureus infection; Z87.891 Personal history of nicotine dependence; F12.90 Cannabis use, unspecified, uncomplicated; Z88.5 Allergy status to narcotic agent; Z88.8 Allergy status to other drugs, medicaments and biological substances
CPT/HCPCS: 36558; 76937; 77001; 99152; C1750; C1769; C1894; J1644; J2250; J3010; 99153; A9270

== ENCOUNTER 2022-12-13 12:00 | Day surgery (SDC) | payer MEDICARE, MEDICAID ==
[~2022-12-13] VITALS: Ht 157.5 cm; Wt 55.9 kg
[~2022-12-13 12:00] MED LIST changes: -ALBU17AE26; -ALPR1TAB7 PO; -ASPI-10 PO; +BUSP10TA11 PO; -CHOL400C8 PO; -DULO60CA65 PO; -FERR325T39 PO; +Fentanyl Patch; -GABA-532 PO; -LOP25T PO; -ONDA4TAB12 PO; -OXYC1TAB17 PO; -TEMA15CA PO; -TRAZ150T78 PO; -[UNRECOGNIZED DRUG - CODE] TOP
[2022-12-13] MEDS ORDERED: CLINDAMYCIN 600mg IN NS 50ML 50 ML IV ONE (12:25)
[2022-12-13] MEDS ORDERED: normal saline 1000ml 1,000 ML IV PRN (12:25)
[2022-12-13] MEDS ORDERED: OXYC1TAB17 (12:43)
[2022-12-13] MEDS ORDERED: METO-384 PO (12:43)
[2022-12-13] MEDS ORDERED: GABA600T13 (12:43)
[2022-12-13] MEDS ORDERED: LACO100T4 (12:43)
[2022-12-13] MEDS ORDERED: LEVO100T9 PO (12:43)
[2022-12-13] MEDS ORDERED: ONDA4TAB12 PO (12:43)
[2022-12-13] MEDS ORDERED: CLON0.1T2 PO (12:43)
[2022-12-13] MEDS ORDERED: OMEP40CA21 PO (12:43)
[2022-12-13] MEDS ORDERED: PROP10TA10 PO (12:43)
[2022-12-13] MEDS ORDERED: SODI10PO (12:43)
[2022-12-13] MEDS ORDERED: SERT-434 PO (12:43)
[2022-12-13] MEDS ORDERED: LOSA25TA41 PO (12:46)
[2022-12-13 12:54] VITALS: BP 132/83
[2022-12-13] MEDS ORDERED: heparin 1,000unit/ml 10ml vial 10 ML ONE (14:28)
[2022-12-13 14:55] VITALS: BP 155/92
[2022-12-13 15:10] VITALS: BP 179/115
[2022-12-13 15:25] VITALS: BP 176/103
== END 2022-12-13 15:50 | disposition home or self-care (01) ==
LOC: SSTAY O 12:00
PROVIDERS: ATTEND Radiology Vascular & Interventional Radiology
DX: T82.49XA Other complication of vascular dialysis catheter, initial encounter (principal); I13.2 Hypertensive heart and chronic kidney disease with heart failure and with stage 5 chronic kidney disease, or end stage renal disease; N18.5 Chronic kidney disease, stage 5; I50.9 Heart failure, unspecified; E78.00 Pure hypercholesterolemia, unspecified; M81.0 Age-related osteoporosis without current pathological fracture; F32.A Depression, unspecified; G89.29 Other chronic pain; Z88.1 Allergy status to other antibiotic agents; Z88.5 Allergy status to narcotic agent; Z79.899 Other long term (current) drug therapy; Z86.718 Personal history of other venous thrombosis and embolism; Z86.14 Personal history of Methicillin resistant Staphylococcus aureus infection; Z86.711 Personal history of pulmonary embolism; Z87.01 Personal history of pneumonia (recurrent); Z87.891 Personal history of nicotine dependence; F12.90 Cannabis use, unspecified, uncomplicated; Y83.8 Other surgical procedures as the cause of abnormal reaction of the patient, or of later complication, without mention of misadventure at the time of the procedure; Y92.89 Other specified places as the place of occurrence of the external cause
CPT/HCPCS: 36581; 77001; C1750; C1769; J1644; J7030; A4615; A4620; A9270

== ENCOUNTER 2023-01-31 16:31 | Emergency (ER) | payer MEDICARE, MEDICAID ==
[~2023-01-31] VITALS: Ht 157.5 cm; Wt 54.5 kg
[~2023-01-31 16:31] MED LIST changes: -BUSP10TA11 PO; +CLON0.1T2 PO; +DICL100G59 TOP; +GABA300C PO; +HYDR-4069 PO; +LACO100T4 PO; +LEVO100T9 PO; +LOSA25TA41 PO; +METO-384 PO; +OMEP40CA21 PO; +ONDA4TAB12 PO; +OXYC1TAB17; +SERT-434 PO; +SODI10PO
[2023-01-31 16:46] VITALS: BP 121/85; PULSE 60; RESP 15; O2SAT 99
== END 2023-01-31 19:15 | disposition home or self-care (01) ==
LOC: ER 16:32
DX: S00.11XA Contusion of right eyelid and periocular area, initial encounter (principal); H11.31 Conjunctival hemorrhage, right eye; I11.0 Hypertensive heart disease with heart failure; I50.9 Heart failure, unspecified; E78.00 Pure hypercholesterolemia, unspecified; M19.90 Unspecified osteoarthritis, unspecified site; F17.200 Nicotine dependence, unspecified, uncomplicated; F12.90 Cannabis use, unspecified, uncomplicated; Z88.1 Allergy status to other antibiotic agents; Z88.5 Allergy status to narcotic agent; Z79.1 Long term (current) use of non-steroidal anti-inflammatories (NSAID); Z79.899 Other long term (current) drug therapy; X58.XXXA Exposure to other specified factors, initial encounter; Y93.89 Activity, other specified; Y92.89 Other specified places as the place of occurrence of the external cause; Y99.8 Other external cause status
CPT/HCPCS: 99282

== ENCOUNTER 2023-03-04 20:01 | Emergency (ER) | payer MEDICARE, MEDICAID ==
[~2023-03-04] VITALS: Ht 157.5 cm; Wt 51.4 kg
[2023-03-04 20:13] VITALS: BP 147/93; PULSE 64; RESP 17; TEMP 99.2; O2SAT 99
--- NOTE | 2023-03-04 20:24 | NUR ---
pt son stated to distribution clerk that the patietn has changed her mind about being seen so he is taking her home. pt left lobby in home wheelchair with son.
== END 2023-03-04 21:03 | disposition left against medical advice (07) ==
LOC: ER 20:02
DX: H92.09 Otalgia, unspecified ear (principal); Z53.21 Procedure and treatment not carried out due to patient leaving prior to being seen by health care provider
CPT/HCPCS: 99281

== ENCOUNTER 2024-10-08 18:11 | Inpatient (IN) | payer MEDICARE, MEDICAID ==
[~2024-10-08] VITALS: Ht 157.5 cm; Wt 61.7 kg
[~2024-10-08 18:11] MED LIST changes: -HYDR-4069 PO; +HYDR25TA90 PO; +ONDA-243 PO; -ONDA4TAB12 PO
[2024-10-08 19:10] LABS: ALANINE AMINOTRANSFERASE 26 U/L (12-78); ALBUMIN 3.3 G/DL (3.4-5.0); ALBUMIN/GLOBULIN RATIO 0.9 (1.1-1.5); ALKALINE PHOSPHATASE 226 IU/L (46-116); ANION GAP 9 (8-16); ASPARTATE AMINO TRANSFERASE 22 U/L (10-37); BILIRUBIN,TOTAL 0.7 MG/DL (0.1-1.0); BLOOD UREA NITROGEN 32 MG/DL (7-18); BUN/CREATININE RATIO 8.5 (10.0-20.0); CALCIUM 7.4 MG/DL (8.5-10.1); CHLORIDE 102 MMOL/L (99-107); CREATININE 3.77 MG/DL (0.40-0.90); GLUCOSE 120 MG/DL (70-104); POTASSIUM 4.5 MMOL/L (3.5-5.1); SODIUM 138 MMOL/L (135-145); TOTAL CARBON DIOXIDE 26.9 MMOL/L (24-32); TOTAL PROTEIN 7.1 G/DL (6.4-8.2); eCRCL 15 ML/MIN; eGFR 13 ML/MIN
[2024-10-08 19:18] LABS: BASOPHILS # (AUTO) 0.1 X10'3 (0-0.2); EOSINOPHILS # (AUTO) 0.6 X10'3 (0-0.9); MONOCYTES # (AUTO) 1.2 X10'3 (0-0.9)
[2024-10-08 19:20] LABS: EOSINOPHILS % (AUTO) 4.4 % (0-6); HEMATOCRIT 31.6 % (35.0-45.0); HEMOGLOBIN 10.1 g/dl (12.0-16.0); LYMPHOCYTES # (AUTO) 1.3 X10'3 (1.1-4.8); LYMPHOCYTES % (AUTO) 8.7 % (21-51); MEAN CORPUSCULAR HEMOGLOBIN 27.7 PG (27.0-31.0); MEAN CORPUSCULAR HGB CONC 31.9 g/dL (33.0-36.5); MEAN CORPUSCULAR VOLUME 86.9 FL (78-98); MEAN PLATELET VOLUME 8.5 FL (7.4-10.4); MONOCYTES % (AUTO) 8.1 % (2-12); NEUTROPHILS # (AUTO) 11.2 X10'3 (1.8-7.7); NEUTROPHILS % (AUTO) 77.8 % (42-75); PLATELET COUNT 188 X10'3 (140-440); RED BLOOD COUNT 3.63 X10'6 (4.20-5.60); RED CELL DISTRIBUTION WIDTH 21.4 % (11.5-14.5); WHITE BLOOD COUNT 14.4 X10'3 (4.5-11.0)
[2024-10-08] MEDS: fentaNYL/PF 50MCG/1 ML 2ML syringe IV ONE (19:27)
[2024-10-08] MEDS: furosemide 40mg/4ml inj IV ONE (19:27)
[2024-10-08 19:36] LABS: ANISOCYTOSIS 2+; PLATELET ESTIMATE NORMAL
[2024-10-08 19:49] LABS: PRO BRAIN NATRIURETIC PEPTIDE > 30000 PG/ML (0-125)
[2024-10-08] MEDS ORDERED: HYDROcodone/acetaminophen 10/325mg tab PO PRN (20:50)
[2024-10-08] MEDS ORDERED: HYDROmorphone inj. 0.5 MG/0.5 ML DISP.SYRIN IV PRN (20:50)
[2024-10-08] MEDS ORDERED: magnesium sulf-water 2g/50mL 50 ML IV PRN (20:50)
[2024-10-08] MEDS ORDERED: magnesium sulf-water 4G/100mL 100 ML IV PRN (20:50)
[2024-10-08] MEDS ORDERED: potassium Cl 40MEQ/1/2NS 520ml 520 ML IV PRN (20:50)
[2024-10-08] MEDS ORDERED: ondansetron/PF 4mg/2ml inj IV PRN (20:50)
[2024-10-08] MEDS ORDERED: acetaminophen 325mg tablet PO PRN ×2 (20:50)
[2024-10-08] MEDS ORDERED: potassium Cl 20 mEq SR tablet PO PRN ×2 (20:50)
[2024-10-08] MEDS ORDERED: mag hydrox/Alum hydrox/simeth 30ml oral suspension PO PRN (20:50)
[2024-10-08] MEDS ORDERED: HYDROcodone/acetaminophen 5mg/325mg tablet PO PRN (20:50)
[2024-10-08] MEDS ORDERED: magnesium Cl slow-release 64mg tablet PO PRN (20:50)
[2024-10-08 21:18] LABS: HEMOGLOBIN A1C 5.6 % (4.5-6.2)
[2024-10-08] MEDS: furosemide 10 MG/1 ML 10ml inj IV ONE (21:31)
[2024-10-08] MEDS ORDERED: PRED20TA PO (21:54)
[2024-10-08] MEDS ORDERED: LEVE500T PO (21:55)
[2024-10-08] MEDS ORDERED: NIFE-34 PO (21:56)
[2024-10-08 22:10] VITALS: BP 92/78; PULSE 100; RESP 22; TEMP 99.5; O2SAT 96
[2024-10-08] MEDS ORDERED: ipratropium/albuterol 3ml nebule IH PRN (22:25)
[2024-10-08] MEDS ORDERED: pantoprazole 40mg Tablet.DR PO PRN (22:25)
[2024-10-08] MEDS: oxyCODONE/APAP 10/325mg tablet PO PRN (22:43)
[2024-10-08 22:44] VITALS: PULSE 97; RESP 22; O2SAT 94
[2024-10-08] MEDS ORDERED: fentaNYL 25MCG/hour patch.TD72 TD SCH ×2 (23:00)
[2024-10-08] MEDS: morphine 2 MG/ML inj. syringe IV PRN (23:50)
[2024-10-09] MEDS: fentaNYL 25MCG/hour patch.TD72 TD SCH (01:45)
[2024-10-09] MEDS ORDERED: naloxone 0.4 mg/ml inj IV PRN (01:50)
[2024-10-09 02:00] VITALS: BP 145/83; PULSE 97; RESP 20; TEMP 97.8; O2SAT 95
[2024-10-09] MEDS ORDERED: morphine 2 MG/ML inj. syringe IV PRN ×2 (03:40→08:00)
[2024-10-09] MEDS ORDERED: fentaNYL 25MCG/hour patch.TD72 TD SCH (03:46)
[2024-10-09 03:51] LABS: BASOPHILS # (AUTO) 0.1 X10'3 (0-0.2); BASOPHILS % (AUTO) 0.7 % (0-1); EOSINOPHILS # (AUTO) 0.4 X10'3 (0-0.9); EOSINOPHILS % (AUTO) 2.7 % (0-6); HEMATOCRIT 30.8 % (35.0-45.0); HEMOGLOBIN 9.8 g/dl (12.0-16.0); LYMPHOCYTES # (AUTO) 1.4 X10'3 (1.1-4.8); LYMPHOCYTES % (AUTO) 9.6 % (21-51); MEAN CORPUSCULAR HEMOGLOBIN 27.5 PG (27.0-31.0); MEAN CORPUSCULAR HGB CONC 31.7 g/dL (33.0-36.5); MEAN CORPUSCULAR VOLUME 86.8 FL (78-98); MEAN PLATELET VOLUME 8.4 FL (7.4-10.4); MONOCYTES # (AUTO) 1.3 X10'3 (0-0.9); PLATELET COUNT 198 X10'3 (140-440); RED BLOOD COUNT 3.55 X10'6 (4.20-5.60); RED CELL DISTRIBUTION WIDTH 21.3 % (11.5-14.5); WHITE BLOOD COUNT 14.2 X10'3 (4.5-11.0)
[2024-10-09] MEDS: morphine 2 MG/ML inj. syringe IV ONE (03:53)
[2024-10-09 04:02] LABS: INR 1.2 INR; PROTHROMBIN TIME 11.9 SECONDS (9.0-12.0)
[2024-10-09 04:14] LABS: ALANINE AMINOTRANSFERASE 25 U/L (12-78); ALBUMIN 3.1 G/DL (3.4-5.0); ALBUMIN/GLOBULIN RATIO 0.9 (1.1-1.5); ALKALINE PHOSPHATASE 207 IU/L (46-116); ANION GAP 10 (8-16); ASPARTATE AMINO TRANSFERASE 22 U/L (10-37); BILIRUBIN,TOTAL 0.8 MG/DL (0.1-1.0); BLOOD UREA NITROGEN 38 MG/DL (7-18); BUN/CREATININE RATIO 9.3 (10.0-20.0); CALCIUM 7.1 MG/DL (8.5-10.1); CHLORIDE 102 MMOL/L (99-107); CREATININE 4.07 MG/DL (0.40-0.90); GLUCOSE 113 MG/DL (70-104); MAGNESIUM 2.6 MG/DL (1.5-2.4); PHOSPHORUS 4.9 MG/DL (2.3-4.5); SODIUM 137 MMOL/L (135-145); TOTAL CARBON DIOXIDE 24.6 MMOL/L (24-32); TOTAL PROTEIN 6.7 G/DL (6.4-8.2); eCRCL 14 ML/MIN; eGFR 12 ML/MIN
[2024-10-09 05:30] VITALS: BP 150/83; PULSE 92; RESP 19; TEMP 97.8; O2SAT 94
[2024-10-09] MEDS ORDERED: levoTHYROXINE 100mcg tablet PO SCH (07:00)
[2024-10-09] MEDS ORDERED: normal saline 1000ml 100 ML IV PRN (07:15)
[2024-10-09] MEDS ORDERED: EPOETIN ALFA-EPBX 20,000 UNIT/ML 1 ML MDV IV ONE (07:15)
[2024-10-09] MEDS ORDERED: heparin 1,000 units/ml 10ml inj HE ONE ×2 (07:20)
[2024-10-09] MEDS ORDERED: cloNIDine 0.1 mg tablet PO SCH (08:00)
[2024-10-09] MEDS ORDERED: heparin, porcine 5000 units/ml vial SQ SCH (08:00)
[2024-10-09] MEDS ORDERED: predniSONE 20 mg tablet PO SCH (08:00)
[2024-10-09] MEDS ORDERED: gabapentin 300mg capsule PO SCH (08:00)
[2024-10-09] MEDS ORDERED: LACOSAMIDE 50 MG TABLET PO SCH (08:00)
[2024-10-09] MEDS ORDERED: NIFEdipine XL 30mg tablet PO SCH (08:00)
[2024-10-09] MEDS ORDERED: levetiracetam 250mg tablet PO SCH (08:00)
[2024-10-09] MEDS ORDERED: hydroxychloroquine 200mg tablet PO SCH (08:00)
[2024-10-09] MEDS ORDERED: K and/or MAG REPLACEMENT MC SCH (08:00)
[2024-10-09] MEDS ORDERED: sertraline 50mg tablet PO SCH (08:00)
[2024-10-10] MEDS ORDERED: FENTANYL 25 MCG SCH (08:00)
== END 2024-10-09 08:49 | disposition left against medical advice (07) | DRG 291 ==
LOC: ER 18:12 → ED HOLD 19:32 → EDBEDREQ 20:46 → PCU 3S 22:00
PROVIDERS: ADMIT Internal Medicine; ATTEND Internal Medicine
DX: I13.2 Hypertensive heart and chronic kidney disease with heart failure and with stage 5 chronic kidney disease, or end stage renal disease (principal); N18.6 End stage renal disease; E78.00 Pure hypercholesterolemia, unspecified; M06.9 Rheumatoid arthritis, unspecified; F32.A Depression, unspecified; G40.909 Epilepsy, unspecified, not intractable, without status epilepticus; Z53.21 Procedure and treatment not carried out due to patient leaving prior to being seen by health care provider; M79.7 Fibromyalgia; M32.8 Other forms of systemic lupus erythematosus; F17.210 Nicotine dependence, cigarettes, uncomplicated; N18.9 Chronic kidney disease, unspecified; D72.829 Elevated white blood cell count, unspecified; T38.0X5A Adverse effect of glucocorticoids and synthetic analogues, initial encounter; I50.9 Heart failure, unspecified; Y92.89 Other specified places as the place of occurrence of the external cause; Z88.8 Allergy status to other drugs, medicaments and biological substances; Z88.1 Allergy status to other antibiotic agents; Z86.711 Personal history of pulmonary embolism; Z79.899 Other long term (current) drug therapy; Z95.1 Presence of aortocoronary bypass graft; Z98.891 History of uterine scar from previous surgery
CPT/HCPCS: 36415; 71045; 80053; 83036; 83605; 83735; 83880; 84100; 84145; 84484; 85008; 85025; 85610; 87040; 87081; 93005; 94760; 96374; 96375; 96376; 99285; A4615; G0378; J1938; J1940; J2270; J3010

== ENCOUNTER 2024-10-31 10:43 | Emergency (ER) | payer MEDICARE, MEDICAID ==
[~2024-10-31] VITALS: Ht 157.5 cm; Wt 43.2 kg
[~2024-10-31 10:43] MED LIST changes: -DIVA-74 PO; -DOCU-361 PO; -HYDR25TA90 PO; +LEVE500T PO; -LOSA25TA41 PO; -METO-384 PO; +NIFE-34 PO; +PRED20TA PO; -PRED5TAB49 PO
[2024-10-31 10:45] VITALS: BP 189/108; PULSE 80; O2SAT 96
--- NOTE | 2024-10-31 10:54 | Physician Documentation ---
History of Present Illness ~ General Chief Complaint: Pain Stated Complaint: ALL OVER BODY PAIN Time Seen by MD: 10:54 Primary Medical Doctor: Qi Mcdonnell History of Present Illness Initial Comments This is a 44-year-old female with multiple complex chronic health conditions including systemic lupus, end-stage renal disease on thrice weekly dialysis, and chronic pain syndrome. She reports that her pain management doctor typically prescribes her oxycodone 10/325 x 105 tablets per month along with fentanyl patches 25 mics to be changed every two days. She was last filled on 10/11/2024. However, she notes that she is completely out. She contacted her doctor's office, but was unable to get any further medication. She is here tod ay requesting pain medication, and admits that she has not been attending dialysis regularly due to the severity of her pain. Medication Reconciliation Allergies: Coded Allergies: cefaclor (Verified Allergy, Severe, hives/severe swelling, 03/04/23) cefpodoxime (Verified Allergy, Severe, hives/severe swelling, 03/04/23) Scheduled Clonidine HCl (Clonidine HCl), 1 TAB PO BID, (Reported) Diclofenac Sodium (Diclofenac Sodium), 1 APPLIC TOP DAILY, (Reported) Furosemide (Furosemide), 2 TAB PO DAILY, (Reported) Gabapentin (Neurontin), 1 CAP PO DAILY, (Reported) Hydroxychloroquine Sulfate (Plaquenil), 200 MG PO DAILY, (Reported) Lacosamide (Lacosamide), 1 TAB PO BID, (Reported) Levetiracetam (Levetiracetam), 1 TAB PO BID, (Reported) Levothyroxine Sodium (Levothyroxine Sodium), 1 TAB PO DAILY, (Reported) Nifedipine ER* (Nifedipine Er*), 1 TAB PO BID, (Reported) Prednisone* (Prednisone*), 1 TAB PO DAILY, (Reported) Sertraline HCl (Sertraline HCl), 2 TAB PO DAILY, (Reported) [Fentanyl Patch], 25 MCG Q48H, (Reported) Scheduled PRN Ipratropium/Albuterol Sulfate (Duoneb 2.5-0.5 Mg/3 Ml Soln), 3 ML IH Q6H PRN for SOB or wheezing, (Reported) ONDANSETRON ODT 4mg tablet (Ondansetron Odt), 1 TAB PO Q6H PRN for nausea/vomiting, (Reported) Omeprazole (Prilosec), 1 CAP PO DAILY PRN for indigestion/dyspepsia, (Reported) Polyethylene Glycol 3350* (Miralax*), 1 PKT PO DAILY PRN for constipation, (Reported) Miscellaneous Medications Oxycodone Hcl/Acetaminophen (Oxycodone-Acetaminophen 10-325), (Reported) Sodium Zirconium Cyclosilicate (Lokelma), (Reported) Past Medical History Past Medical History: Seizures, Congestive Heart Failure, High Cholesterol, Heart Valve Disease, Hypertension, Pneumonia, Pulmonary Embolism, Chronic Kidney Disease, Dialysis, Renal Disease, *MUSCULOSKELETAL*, Arthritis, Chronic Pain, Deep Vein Thrombosis, Fibromyalgia, Osteoporosis, Rheumatoid Arthritis, MRSA Abscess, Depression Past Surgical History: coronary bypass surgery, , heart valve surgery, other Other Past Family History: NONCONTRIBUTORY Alcohol Use: None Drug Use: marijuana Lives with: Family Lives In: Home Occupation: unemployed Review of Systems ROS As stated above in the HPI, otherwise all systems are reviewed and negative. Physical Exam Physical Exam Vital Signs: Temperature: 98.4, Source: Oral, Heart Rate: 80, Respiratory Rate: 18, BP: 189/108, Pulse Oximetry: 96, Weight: 43.180 Physical Exam General: Alert, no apparent distress. Chronically ill-appearing. Neck: Full range of motion. Respiratory: Lungs clear, no respiratory distress. Chest: No accessory muscle use. Cardiovascular: Regular rate and rhythm, no murmurs. Gastrointestinal: Soft, nontender, nondistended. Bowels sounds present. Extremities: Normal range of motion, no deformity. Examined in wheelchair. Reports chronic low back pain. Neurologic: Oriented x4. Psychiatric: Normal mood and affect. Skin: Normal color, warm and dry. No edema, no ecchymosis. Progress Results/Orders Results/Orders Completed Orders - MARYAN ARIZA NP Oxycodone/Acetaminophen Tablet (Percocet (10/31/24 11:15) Fentanyl 50mcg/Hr Patch-72 Hr (Duragesic (10/31/24 11:15) Vital Signs 10/31/24 10:45 Temp 98.4 Pulse 80 Resp 18 B/P (MAP) 189/108 Pulse Ox 96 Medical Decision Making Differential Diagnosis 44-year-old female with a history of chronic pain syndrome on high-dose opioids. This case was discussed with the attending ED MD Gillespie, who recommends placing 50 mcg fentanyl patch and giving one time dose of 03/25/2025 Percocet. The patient was given these medications in the ER and then discharged. She is to f/u with pain management for further medication management. Discussed that even if I authorized early fills on her medications, pharmacy would be very unlikely to authorize. Patient and her were comfortable with this plan. Strongly encouraged to attend dialysis as recommended. Departure Time of Disposition: 11:14 Disposition: 01 HOME / SELF CARE / HOMELESS Impression: Primary Impression: Chronic pain Additional Impression Text You were given a one time dose of Percocet in the emergency department. A 50 mcg fentanyl patch was placed. This should give you some pain relief for the next 72 hours. Please call your doctor on Friday to discuss the plan going forward. Please attend dialysis as recommended. Return to the emergency department with any concerns that arise prior to your primary care follow up. Condition: Stable Discharge Instructions: Chronic Pain Management Referrals: NO PRIMARY CARE PROVIDER (PCP) Education Educated: Patient, Family Educated regarding: diagnosis, treatment, prognosis, need for follow up Signature Scribe Signature: no scribe Attestation: The note accurately reflects work and decisions made by me.Maryan Harrison NP 10/31/24 11:42 MARYAN ARIZA NP October 31, 2024 10:54
[2024-10-31 11:39] VITALS: RESP 16
[2024-10-31] MEDS: oxyCODONE/APAP 10/325mg tablet PO ONE (11:39)
[2024-10-31] MEDS: fentaNYL 50MCG/HOUR patch.TD72 TD ONE (11:40)
[2024-10-31 11:45] VITALS: TEMP 98.4
== END 2024-10-31 11:47 | disposition home or self-care (01) ==
LOC: ER 10:43
DX: R07.9 Chest pain, unspecified (principal); I13.2 Hypertensive heart and chronic kidney disease with heart failure and with stage 5 chronic kidney disease, or end stage renal disease; I50.9 Heart failure, unspecified; N18.6 End stage renal disease; E78.00 Pure hypercholesterolemia, unspecified; M06.9 Rheumatoid arthritis, unspecified; M79.7 Fibromyalgia; M81.0 Age-related osteoporosis without current pathological fracture; Z88.1 Allergy status to other antibiotic agents; Z88.8 Allergy status to other drugs, medicaments and biological substances; Z95.1 Presence of aortocoronary bypass graft; Z99.2 Dependence on renal dialysis
CPT/HCPCS: 99283

== ENCOUNTER 2024-11-07 09:44 | Emergency (ER) | payer MEDICARE, MEDICAID ==
[~2024-11-07] VITALS: Ht 157.5 cm; Wt 43.2 kg
[2024-11-07 09:48] VITALS: TEMP 98.4
[2024-11-07 10:07] LABS: BASOPHILS # (AUTO) 0.1 X10'3 (0-0.2); BASOPHILS % (AUTO) 1.2 % (0-1); EOSINOPHILS # (AUTO) 0.4 X10'3 (0-0.9); EOSINOPHILS % (AUTO) 3.5 % (0-6); HEMATOCRIT 34.9 % (35.0-45.0); HEMOGLOBIN 11.2 g/dl (12.0-16.0); LYMPHOCYTES # (AUTO) 1.2 X10'3 (1.1-4.8); LYMPHOCYTES % (AUTO) 10.9 % (21-51); MEAN CORPUSCULAR HEMOGLOBIN 29.3 PG (27.0-31.0); MEAN CORPUSCULAR HGB CONC 32.1 g/dL (33.0-36.5); MEAN CORPUSCULAR VOLUME 91.2 FL (78-98); MEAN PLATELET VOLUME 8.2 FL (7.4-10.4); MONOCYTES # (AUTO) 0.9 X10'3 (0-0.9); MONOCYTES % (AUTO) 8.6 % (2-12); NEUTROPHILS # (AUTO) 8.2 X10'3 (1.8-7.7); NEUTROPHILS % (AUTO) 75.8 % (42-75); PLATELET COUNT 174 X10'3 (140-440); RED BLOOD COUNT 3.83 X10'6 (4.20-5.60); RED CELL DISTRIBUTION WIDTH 23.8 % (11.5-14.5); WHITE BLOOD COUNT 10.8 X10'3 (4.5-11.0)
[2024-11-07 10:23] LABS: ALANINE AMINOTRANSFERASE 23 U/L (12-78); ALBUMIN 3.5 G/DL (3.4-5.0); ALKALINE PHOSPHATASE 167 IU/L (46-116); ANION GAP 11 (8-16); ASPARTATE AMINO TRANSFERASE 16 U/L (10-37); BILIRUBIN,TOTAL 0.7 MG/DL (0.1-1.0); BLOOD UREA NITROGEN 27 MG/DL (7-18); BUN/CREATININE RATIO 7.5 (10.0-20.0); CALCIUM 8.4 MG/DL (8.5-10.1); CHLORIDE 98 MMOL/L (99-107); CREATININE 3.61 MG/DL (0.40-0.90); GLUCOSE 133 MG/DL (70-104); LIPASE 9 U/L (16-77); POTASSIUM 4.7 MMOL/L (3.5-5.1); SODIUM 136 MMOL/L (135-145); TOTAL CARBON DIOXIDE 27.4 MMOL/L (24-32); eCRCL 13 ML/MIN; eGFR 14 ML/MIN
[2024-11-07 11:33] LABS: URINE HCG NEGATIVE (NEG)
[2024-11-07 11:35] LABS: BILIRUBIN,URINE NEGATIVE (Neg); CLARITY,URINE CLEAR (Clear); COLOR,URINE YELLOW (Yellow); GLUCOSE, URINE 100 mg/dl (Neg); KETONES,URINE NEGATIVE (Neg); LEUKOCYTE ESTERASE ,URINE NEGATIVE (Neg); NITRITES, URINE NEGATIVE (Neg); OCCULT BLOOD,URINE TRACE-INTACT (Neg); PH,URINE 8.5 (4.8-8.0); PROTEIN,URINE >=300 mg/dl (Neg); UROBILINOGEN,URINE 0.2 E.U/dL (0.2-1.0)
[2024-11-07 11:37] LABS: UA COLLECTION TYPE URINAL
[2024-11-07 11:43] LABS: BACTERIA,URINE 2+ /HPF (Neg); RBC,URINE 0-2 /HPF (0-2); WBC,URINE 0-4 /HPF (0-4)
[2024-11-07 11:44] LABS: MUCUS STRANDS FEW /LPF (Neg); RENAL CELLS, URINE FEW /HPF; SQUAMOUS EPITHELIAL CELL,UR MANY /LPF (FEW); TRANSITIONAL EPI CELLS,URINE MODERATE /HPF
[2024-11-07 13:20] LABS: ANISOCYTOSIS 3+; HYPOCHROMASIA 1+; PLATELET ESTIMATE NORMAL
[2024-11-07 13:21] LABS: ELLIPTOCYTES FEW
--- NOTE | 2024-11-07 14:26 | Physician Documentation ---
History of Present Illness ~ General Chief Complaint: Pain Stated Complaint: ALL OVER BODY PAIN Time Seen by MD: 14:16 Primary Medical Doctor: Qi Mcdonnell History of Present Illness Initial Comments 44-YEAR-OLD FEMALE WITH A COMPLEX MEDICAL HISTORY INCLUDING LUPUS, KIDNEY FAILURE DIALYSIS, FIBROMYALGIA AND VARIOUS OTHER COMORBIDITIES INCLUDING HEART VALVE REPLACEMENT; SINCE TODAY WITH INCREASED LEG PAIN. SHE STATES SHE WAS AT DOWN AT DIALYSIS YESTERDAY AND BEGAN TO HAVE LEG PAIN. Medication Reconciliation Allergies: Coded Allergies: cefaclor (Verified Allergy, Severe, hives/severe swelling, 03/04/23) cefpodoxime (Verified Allergy, Severe, hives/severe swelling, 03/04/23) Scheduled Clonidine HCl (Clonidine HCl), 1 TAB PO BID, (Reported) Diclofenac Sodium (Diclofenac Sodium), 1 APPLIC TOP DAILY, (Reported) Furosemide (Furosemide), 2 TAB PO DAILY, (Reported) Gabapentin (Neurontin), 1 CAP PO DAILY, (Reported) Hydroxychloroquine Sulfate (Plaquenil), 200 MG PO DAILY, (Reported) Lacosamide (Lacosamide), 1 TAB PO BID, (Reported) Levetiracetam (Levetiracetam), 1 TAB PO BID, (Reported) Levothyroxine Sodium (Levothyroxine Sodium), 1 TAB PO DAILY, (Reported) Nifedipine ER* (Nifedipine Er*), 1 TAB PO BID, (Reported) Prednisone* (Prednisone*), 1 TAB PO DAILY, (Reported) Sertraline HCl (Sertraline HCl), 2 TAB PO DAILY, (Reported) [Fentanyl Patch], 25 MCG Q48H, (Reported) Scheduled PRN Ipratropium/Albuterol Sulfate (Duoneb 2.5-0.5 Mg/3 Ml Soln), 3 ML IH Q6H PRN for SOB or wheezing, (Reported) ONDANSETRON ODT 4mg tablet (Ondansetron Odt), 1 TAB PO Q6H PRN for nausea/vomiting, (Reported) Omeprazole (Prilosec), 1 CAP PO DAILY PRN for indigestion/dyspepsia, (Reported) Polyethylene Glycol 3350* (Miralax*), 1 PKT PO DAILY PRN for constipation, (Reported) Miscellaneous Medications Oxycodone Hcl/Acetaminophen (Oxycodone-Acetaminophen 10-325), (Reported) Sodium Zirconium Cyclosilicate (Lokelma), (Reported) Past Medical History Past Medical History: Seizures, Congestive Heart Failure, High Cholesterol, Heart Valve Disease, Hypertension, Pneumonia, Pulmonary Embolism, Chronic Kidney Disease, Dialysis, Renal Disease, *MUSCULOSKELETAL*, Arthritis, Chronic Pain, Deep Vein Thrombosis, Fibromyalgia, Osteoporosis, Rheumatoid Arthritis, MRSA Abscess, Depression Past Surgical History: coronary bypass surgery, , heart valve surgery, other Other Past Family History: NONCONTRIBUTORY Alcohol Use: None Drug Use: marijuana Lives with: Family Lives In: Home Occupation: unemployed Review of Systems All Other Systems at this time: Reviewed and Negative ROS As stated above in the HPI, otherwise all systems are reviewed and negative. Physical Exam Physical Exam Vital Signs: Temperature: 98.4, Source: Temporal, Heart Rate: 77, Respiratory Rate: 15, BP: 150/107, Pulse Oximetry: 96, Weight: 43.180 Oxygen Flow Rate: 0 Physical Exam General: Alert, no apparent distress. Extremities: LOWER EXTREMITIES NOTABLE FOR WHAT APPEARS TO BE VASCULAR INSUFFICIENCY Neurologic: Oriented x4. Psychiatric: Normal mood and affect. Skin: Normal color, warm and dry. No edema, no ecchymosis. Progress Results/Orders Results/Orders Completed Orders - ONEAL AL NP Hydromorphone 1 Mg/Ml/Pf (Dilaudid Inj.) (11/07/24 14:20) Medications Received in ER Medications (Trade) Dose Ordered Sig/Michael Route PRN Reason Start Time Stop Time Status Last Admin Dose Admin (Dilaudid inj.) 1 mg ONCE ONCE IM 11/07/24 14:20 11/07/24 14:21 DC 11/07/24 14:43 1 MG Vital Signs 11/07/24 11/07/24 11/07/24 11/07/24 09:48 10:23 14:43 15:20 Temp 98.4 Pulse 79 77 74 Resp 18 15 15 15 B/P (MAP) 168/110 150/107 (121) 148/102 Pulse Ox 98 96 97 O2 Flow Rate 0 Laboratory Tests Test 11/07/24 10:01 11/07/24 11:08 White Blood Count 10.8 Red Blood Count 3.83 L Hemoglobin 11.2 L Hematocrit 34.9 L Mean Corpuscular Volume 91.2 Mean Corpuscular Hemoglobin 29.3 Mean Corpuscular Hemoglobin Concent 32.1 L Red Cell Distribution Width 23.8 H Platelet Count 174 Mean Platelet Volume 8.2 Neutrophils (%) (Auto) 75.8 H Lymphocytes (%) (Auto) 10.9 L Monocytes (%) (Auto) 8.6 Eosinophils (%) (Auto) 3.5 Basophils (%) (Auto) 1.2 H Neutrophils # (Auto) 8.2 H Lymphocytes # (Auto) 1.2 Monocytes # (Auto) 0.9 Eosinophils # (Auto) 0.4 Basophils # (Auto) 0.1 CBC Comment Platelet Estimate Normal Red Blood Cell Morphology Perf Hypochromasia 1+ Basophilic Stippling Anisocytosis 3+ Elliptocytes Few Sodium Level 136 Potassium Level 4.7 Chloride Level 98 L Carbon Dioxide Level 27.4 Anion Gap 11 Blood Urea Nitrogen 27 H Creatinine 3.61 H Estimated GFR/1.73 m2 14 BUN/Creatinine Ratio 7.5 L Glucose Level 133 H Calcium Level 8.4 L Total Bilirubin 0.7 Aspartate Amino Transf (AST/SGOT) 16 Alanine Aminotransferase (ALT/SGPT) 23 Alkaline Phosphatase 167 H Total Protein 7.0 Albumin 3.5 Globulin 3.5 Albumin/Globulin Ratio 1.0 L Lipase 9 L Chemistry Comments Urine Specimen Description Urinal Urine Color Yellow Urine Clarity Clear Urine pH 8.5 Urine Specific [place] 1.020 Urine Protein >=300 H Urine Glucose (UA) 100 H Urine Ketones Negative Urine Occult Blood Trace-intact Urine Nitrite Negative Urine Bilirubin Negative Urine Urobilinogen 0.2 Urine Leukocyte Esterase Negative Urine RBC 0-2 Urine WBC 0-4 Urine Squamous Epithelial Cells Many Urine Transitional Epithelial Cells Moderate Urine Renal Cells Few Urine Bacteria 2+ Urine Mucus Few Urine Culture Indicated Not ind Volume Urine Centrifuged 10 ml Urine HCG, Qualitative Negative Urine Comment Medical Decision Making Findings AFTER EVALUATING PATIENT IS CURRENT LABORATORY VALUES, I DO NOT SEE ANY INCREASING CONCERNS HER VALUES ARE VERY COMPARABLE TO MANY OF HER PREVIOUS PRESENTATIONS. OFFERED PAIN MANAGEMENT FOR HER LEFT KNEE PAIN. IT APPEARS SHE HAS SOME MINOR SWELLING WHICH IS LIKELY FLUID BUILDUP SECONDARY TO DIALYSIS TREATED PATIENT WILL BE DISCHARGED I EXPLAINED TO HER THAT I CAN NOT PRESCRIBE OUTPATIENT NARCOTICS FOR HER AT THIS TIME Departure Disposition: HOME / SELF CARE / HOMELESS Impression: Primary Impression: Pain Additional Impressions: Chronic pain Chronic pain disorder Condition: Stable Discharge Instructions: Chronic Pain Management Referrals: NO PRIMARY CARE PROVIDER (PCP) Education Educated: Patient Signature Scribe Signature: F Attestation: The note accurately reflects work and decisions made by me.Oneal Harrison NP 11/07/24 15:47 ONEAL AL NP November 07, 2024 14:26
[2024-11-07] MEDS: HYDROmorphone 1 mg/ml syringe IM ONE (14:43)
[2024-11-07 15:20] VITALS: BP 148/102; PULSE 74; RESP 15; O2SAT 97
== END 2024-11-07 15:23 | disposition home or self-care (01) ==
LOC: ER 09:45
DX: G89.29 Other chronic pain (principal); M79.661 Pain in right lower leg; M79.662 Pain in left lower leg; E78.00 Pure hypercholesterolemia, unspecified; I13.2 Hypertensive heart and chronic kidney disease with heart failure and with stage 5 chronic kidney disease, or end stage renal disease; I50.9 Heart failure, unspecified; N18.6 End stage renal disease; M06.9 Rheumatoid arthritis, unspecified; M79.7 Fibromyalgia; M81.0 Age-related osteoporosis without current pathological fracture; Z88.1 Allergy status to other antibiotic agents; Z88.8 Allergy status to other drugs, medicaments and biological substances; Z95.1 Presence of aortocoronary bypass graft; Z99.2 Dependence on renal dialysis
CPT/HCPCS: 36415; 80053; 81001; 81025; 83690; 85025; 96372; 99284; J1171; 85008

== ENCOUNTER 2024-11-16 06:23 | Emergency (ER) | payer MEDICARE, MEDICAID ==
[~2024-11-16] VITALS: Ht 157.5 cm; Wt 43.2 kg
[~2024-11-16 06:23] MED LIST changes: +AMOX-117 PO
[2024-11-16 06:29] VITALS: TEMP 97.8
--- NOTE | 2024-11-16 07:28 | Physician Documentation ---
History of Present Illness ~ Chief Complaint: Breast pain Stated Complaint: SWOLLEN BREAST Time Seen by MD: 06:44 Primary Medical Doctor: Qi Mcdonnell HPI 44-year-old female presenting with right breast swelling and pain that has been present for the past couple of weeks but has significantly worsened over the past five days. The patient was seen in our emergency department four days ago for the similar thing and was discharged with Augmentin. She states that they were unable to black pickler the Augmentin and does have not taken any other medication. Patient states that the breast has grown larger and more painful during this time. She states that she has had some subjective fevers but denies any chills, nausea, vomiting or any other associated symptoms. 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 Patient has also had cardiac valve surgery in the past and has a history of lupus and chronic pain. Tetanus within 5 years?: No Medication Reconciliation Allergies: Coded Allergies: cefaclor (Verified Allergy, Severe, hives/severe swelling, 03/04/23) cefpodoxime (Verified Allergy, Severe, hives/severe swelling, 03/04/23) Scheduled Amox Tr/Potassium Clavulanate (Augmentin 875-125 Tablet), 1 TAB PO Q12H Clindamycin HCl (Clindamycin HCl), 1 CAP PO Q6H Clonidine HCl (Clonidine HCl), 1 TAB PO BID, (Reported) Diclofenac Sodium (Diclofenac Sodium), 1 APPLIC TOP DAILY, (Reported) Furosemide (Furosemide), 2 TAB PO DAILY, (Reported) Gabapentin (Neurontin), 1 CAP PO DAILY, (Reported) Hydroxychloroquine Sulfate (Plaquenil), 200 MG PO DAILY, (Reported) Lacosamide (Lacosamide), 1 TAB PO BID, (Reported) Levetiracetam (Levetiracetam), 1 TAB PO BID, (Reported) Levothyroxine Sodium (Levothyroxine Sodium), 1 TAB PO DAILY, (Reported) Nifedipine ER* (Nifedipine Er*), 1 TAB PO BID, (Reported) Prednisone* (Prednisone*), 1 TAB PO DAILY, (Reported) Sertraline HCl (Sertraline HCl), 2 TAB PO DAILY, (Reported) [Fentanyl Patch], 25 MCG Q48H, (Reported) Scheduled PRN Ipratropium/Albuterol Sulfate (Duoneb 2.5-0.5 Mg/3 Ml Soln), 3 ML IH Q6H PRN for SOB or wheezing, (Reported) ONDANSETRON ODT 4mg tablet (Ondansetron Odt), 1 TAB PO Q6H PRN for nausea/vomiting, (Reported) Omeprazole (Prilosec), 1 CAP PO DAILY PRN for indigestion/dyspepsia, (Reported) Polyethylene Glycol 3350* (Miralax*), 1 PKT PO DAILY PRN for constipation, (Reported) Miscellaneous Medications Oxycodone Hcl/Acetaminophen (Oxycodone-Acetaminophen 10-325), (Reported) Sodium Zirconium Cyclosilicate (Lokelma), (Reported) Past Medical History Past Medical History: Seizures, Congestive Heart Failure, High Cholesterol, Heart Valve Disease, Hypertension, Pneumonia, Pulmonary Embolism, Chronic Kidney Disease, Dialysis, *MUSCULOSKELETAL*, Arthritis, Chronic Pain, Deep Vein Thrombosis, Fibromyalgia, Osteoporosis, Rheumatoid Arthritis, MRSA Abscess, Depression Past Surgical History: coronary bypass surgery, , heart valve surgery, other Other Past Family History: NONCONTRIBUTORY Alcohol Use: None Drug Use: marijuana Lives with: Family Lives In: Home Occupation: unemployed Review of Systems All Other Systems at this time: Reviewed and Negative Physical Exam Vital Signs: Temperature: 97.8, Source: Oral, Heart Rate: 63, Respiratory Rate: 15, BP: 116/70, Pulse Oximetry: 97, Weight: 43.180 Oxygen Flow Rate: 0 General Appearance I have reviewed the triage vitals. CONST: Well developed and well nourished. In no acute distress HENT: Head Atraumatic EYES: Pupils are equal, round and reactive to light. Normal conjunctiva NECK: Normal range of motion. Supple. CARDIO: Normal rate and regular rhythm. No murmurs, rubs, or gallops. S1, S2. PULM/CHEST: No respiratory distress. Lungs clear to auscultation. No wheeze. There is a midline sternotomy scar. Dialysis catheter in the left upper chest wall BREAST: The right breast exhibits edema, induration, erythema and tenderness to palpation specifically over the lower quadrants ABD: Soft and nontender. Nondistended. Bowel sounds normal. No guarding. : Exam deferred MSK: No edema. No deformity. NEURO: Alert and oriented to person, place and time. Moving all extremities SKIN: Warm and dry. PSYCH: Normal mood and affect. Good eye contact. Progress Results/Orders Results/Orders Orders - CONRAD AVINA MD Culture Blood (11/16/24 07:19) Chest,Single View (11/16/24 07:19) Ultrasound Breast (11/16/24 07:19) Completed Orders - CONRAD AVINA MD Electrocardiogram (11/16/24 07:19) Cbc/Diff (11/16/24 07:19) Chest,Single View (11/16/24 07:19) Clindamcin 900mg/Ns 50ml Ivpb (Clindamyc (11/16/24 07:20) CMP (11/16/24 07:19) Hs Troponin I W Calculations (11/16/24 07:19) Hs Troponin I W Calculations (11/16/24 09:19) Lacticsepsis (11/16/24 07:19) Morphine 4mg/Ml Inj. (Morphine Inj.) (11/16/24 07:20) Ondansetron Inj. (Zofran 4mg/2ml Vial) (11/16/24 07:20) Ultrasound Breast (11/16/24 07:19) Morphine 4mg/Ml Inj. (Morphine Inj.) (11/16/24 09:30) Medications Received in ER Medications (Trade) Dose Ordered Sig/Michael Route PRN Reason Start Time Stop Time Status Last Admin Dose Admin Clindamycin/ Sodium Chloride 50 ml @ 50 mls/hr ONCE ONCE IV 11/16/24 07:20 11/16/24 08:19 DC 11/16/24 08:31 50 MLS/HR (morphine inj.) 4 mg ONCE ONCE IV 11/16/24 07:20 11/16/24 07:24 DC 11/16/24 08:04 4 MG (Zofran 4mg/2ml vial) 4 mg ONCE ONCE IV 11/16/24 07:20 11/16/24 07:24 DC 11/16/24 08:04 4 MG (morphine inj.) 6 mg ONCE ONCE IV 11/16/24 09:30 11/16/24 09:33 DC 11/16/24 10:00 6 MG Vital Signs 11/16/24 11/16/24 11/16/24 11/16/24 06:29 07:09 08:04 08:40 Temp 97.8 Pulse 63 55 Resp 15 15 16 15 B/P (MAP) 116/70 119/85 (96) Pulse Ox 97 98 O2 Flow Rate 0 11/16/24 11/16/24 11/16/24 11/16/24 10:00 10:10 10:11 10:12 Pulse 58 78 Resp 15 15 15 15 B/P (MAP) 119/78 (92) 116/78 Pulse Ox 98 98 Laboratory Tests Test 11/16/24 08:05 11/16/24 08:08 11/16/24 09:32 Sodium Level 133 L Potassium Level 4.7 Chloride Level 96 L Carbon Dioxide Level 26.3 Anion Gap 11 Blood Urea Nitrogen 54 H Creatinine 6.48 H Estimated GFR/1.73 m2 7 BUN/Creatinine Ratio 8.3 L Glucose Level 119 H Lactic Acid Level 1.8 Calcium Level 8.5 Total Bilirubin 0.5 Aspartate Amino Transf (AST/SGOT) 16 Alanine Aminotransferase (ALT/SGPT) 10 L Alkaline Phosphatase 149 H Total Protein 7.0 Albumin 3.4 Globulin 3.6 Albumin/Globulin Ratio 0.9 L Chemistry Comments White Blood Count 6.6 Red Blood Count 3.95 L Hemoglobin 11.4 L Hematocrit 36.6 Mean Corpuscular Volume 92.7 Mean Corpuscular Hemoglobin 28.9 Mean Corpuscular Hemoglobin Concent 31.2 L Red Cell Distribution Width 22.9 H Platelet Count 144 Mean Platelet Volume 8.9 Neutrophils (%) (Auto) 82.6 H Lymphocytes (%) (Auto) 11.7 L Monocytes (%) (Auto) 4.7 Eosinophils (%) (Auto) 0.1 Basophils (%) (Auto) 0.9 Neutrophils # (Auto) 5.5 Lymphocytes # (Auto) 0.8 L Monocytes # (Auto) 0.3 Eosinophils # (Auto) 0.0 Basophils # (Auto) 0.1 CBC Comment Troponin I High Sensitivity 11 9 Troponin I High Sens Percent Delta 18 Troponin I Hi Sens Absolute Change -2 Microbiology Date/Time Source Procedure Growth Status 11/16/24 08:08 Blood Arm Right Blood Culture - Preliminary NEGATIVE (LESS THAN 24 HOURS) Resulted EKG/XRAY/CT/US/VASC/MRI EKG : Additional Comment EKG as interpreted by me shows mild sinus bradycardia at a rate of 56 beats per minute, no ischemia, normal axis Chest X-Ray : Additional Comments EXAM: XR Chest, 1 View CLINICAL INDICATION: chest pain TECHNIQUE: Frontal view of the chest. COMPARISON: DI CHEST,SINGLE VIEW on DOS: 10/08/24 FINDINGS: LUNGS AND PLEURAL SPACES: See below. HEART: Cardiomegaly with mild congestion. MEDIASTINUM: Unremarkable. Normal mediastinal contour. BONES/JOINTS: Unremarkable. No acute fracture. TUBES, LINES AND DEVICES: Left internal jugular central venous catheter tip in the superior vena cava. OTHER FINDINGS: . . IMPRESSION: Cardiomegaly with mild congestion. Ultrasound : Ultrasound of: breast Impression US OF THE RIGHT BREAST INDICATION: Right breast pain, possible abscess TECHNIQUE: Targeted right breast ultrasound was performed. COMPARISON: Prior exam dated: None FINDINGS: Diffuse subcutaneous edema and hyperemia with skin thickening. No organized fluid collection. No solid masses visualized. IMPRESSION: Findings suggestive of mastitis. No organized fluid collection. No sonographic evidence of malignancy. Recommend clinical management. Further evaluation with diagnostic bilateral recommended. Medical Decision Making Additional Comments 44-year-old female presenting with right breast mastitis. Her workup does not indicate any signs of systemic infection as she does have a normal white blood cell count as well as a normal lactic acid level. Furthermore her vitals are normal. I did perform a formal ultrasound of the right breast and there were no signs of any abscess or other fluid sequestration. The patient was medicated with not 100 mg of IV clindamycin in the ED. She was also given a total of 10 mg of IV morphine for pain in addition to 4 mg of IV Zofran for nausea prophylaxis. At this point in time the patient is stable and safe for discharge home. On reassessment her pain has improved. Given that she has a potential cephalosporin allergy I will prescribe her clindamycin for 10 days. I advised her the importance of taking this medication as this is the only way that her symptoms will improve. Additionally the patient already has Percocet prescribed at home for chronic pain and advised her that she can take this medication as needed for pain control. Advised to follow up closely with her primary care physician in the next 2-5 days. Return to the ED with any acutely worsening symptoms. Departure Disposition: HOME / SELF CARE / HOMELESS Impression: Primary Impression: Mastitis Condition: Improved Referrals: NO PRIMARY CARE PROVIDER (PCP) Prescriptions Clindamycin HCl (Clindamycin HCl) 300 Mg Capsule 1 CAP PO Q6H for 10 Days, #40 CAP Prov: CONRAD AVINA MD 11/16/24 Signature Scribe Signature: 1 Attestation: 1 CONRAD AVINA MD November 16, 2024 07:28
--- NOTE | 2024-11-16 07:31 | ELECTROCARDIOGRAPH REPORT ---
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
[2024-11-16] MEDS: ondansetron/PF 4mg/2ml inj IV ONE (08:04)
[2024-11-16] MEDS: morphine 4 MG/ML inj SYRINge IV ONE ×2 (08:04→10:00)
--- NOTE | 2024-11-16 08:07 | RADIOLOGY REPORT ---
EXAM: XR Chest, 1 View CLINICAL INDICATION: chest pain TECHNIQUE: Frontal view of the chest. COMPARISON: DI CHEST,SINGLE VIEW on DOS: 10/08/24 FINDINGS: LUNGS AND PLEURAL SPACES: See below. HEART: Cardiomegaly with mild congestion. MEDIASTINUM: Unremarkable. Normal mediastinal contour. BONES/JOINTS: Unremarkable. No acute fracture. TUBES, LINES AND DEVICES: Left internal jugular central venous catheter tip in the superior vena ca va. OTHER FINDINGS: . . IMPRESSION: Cardiomegaly with mild congestion.
[2024-11-16 08:21] LABS: BASOPHILS # (AUTO) 0.1 X10'3 (0-0.2); BASOPHILS % (AUTO) 0.9 % (0-1); EOSINOPHILS % (AUTO) 0.1 % (0-6); HEMATOCRIT 36.6 % (35.0-45.0); HEMOGLOBIN 11.4 g/dl (12.0-16.0); LYMPHOCYTES # (AUTO) 0.8 X10'3 (1.1-4.8); LYMPHOCYTES % (AUTO) 11.7 % (21-51); MEAN CORPUSCULAR HEMOGLOBIN 28.9 PG (27.0-31.0); MEAN CORPUSCULAR HGB CONC 31.2 g/dL (33.0-36.5); MEAN CORPUSCULAR VOLUME 92.7 FL (78-98); MEAN PLATELET VOLUME 8.9 FL (7.4-10.4); MONOCYTES # (AUTO) 0.3 X10'3 (0-0.9); MONOCYTES % (AUTO) 4.7 % (2-12); NEUTROPHILS # (AUTO) 5.5 X10'3 (1.8-7.7); NEUTROPHILS % (AUTO) 82.6 % (42-75); PLATELET COUNT 144 X10'3 (140-440); RED BLOOD COUNT 3.95 X10'6 (4.20-5.60); RED CELL DISTRIBUTION WIDTH 22.9 % (11.5-14.5); WHITE BLOOD COUNT 6.6 X10'3 (4.5-11.0)
[2024-11-16] MEDS: CLINDAmcin 900mg/NS 50ml IVPB 50 ML IV ONE (08:31)
[2024-11-16 08:35] LABS: ALANINE AMINOTRANSFERASE 10 U/L (12-78); ALBUMIN 3.4 G/DL (3.4-5.0); ALBUMIN/GLOBULIN RATIO 0.9 (1.1-1.5); ALKALINE PHOSPHATASE 149 IU/L (46-116); ANION GAP 11 (8-16); ASPARTATE AMINO TRANSFERASE 16 U/L (10-37); BILIRUBIN,TOTAL 0.5 MG/DL (0.1-1.0); BLOOD UREA NITROGEN 54 MG/DL (7-18); BUN/CREATININE RATIO 8.3 (10.0-20.0); CALCIUM 8.5 MG/DL (8.5-10.1); CHLORIDE 96 MMOL/L (99-107); CREATININE 6.48 MG/DL (0.40-0.90); GLUCOSE 119 MG/DL (70-104); POTASSIUM 4.7 MMOL/L (3.5-5.1); SODIUM 133 MMOL/L (135-145); TOTAL CARBON DIOXIDE 26.3 MMOL/L (24-32); eCRCL 7 ML/MIN; eGFR 7 ML/MIN
--- NOTE | 2024-11-16 08:37 | RADIOLOGY REPORT ---
US OF THE RIGHT BREAST INDICATION: Right breast pain, possible abscess TECHNIQUE: Targeted right breast ultrasound was performed. COMPARISON: Prior exam dated: None FINDINGS: Diffuse subcutaneous edema and hyperemia with skin thickening. No organized fluid collection. No aracelis d masses visualized. IMPRESSION: Findings suggestive of mastitis. No organized fluid collection. No sonographic evidence of malignancy . Recommend clinical management. Further evaluation with diagnostic bilateral recommended. ACR Bi Rads Category:Category 0-"INCOMPLETE" (Needs Additional Imaging Evaluation))
[2024-11-16] MEDS ORDERED: CLIN-197 PO (09:47)
[2024-11-16 10:11] VITALS: BP 116/78; PULSE 78; O2SAT 98
[2024-11-16 10:12] VITALS: RESP 15
== END 2024-11-16 10:13 | disposition home or self-care (01) ==
LOC: ER 06:23
DX: N61.0 Mastitis without abscess (principal); I13.2 Hypertensive heart and chronic kidney disease with heart failure and with stage 5 chronic kidney disease, or end stage renal disease; I50.9 Heart failure, unspecified; N18.6 End stage renal disease; M06.9 Rheumatoid arthritis, unspecified; M79.7 Fibromyalgia; M81.0 Age-related osteoporosis without current pathological fracture; E78.00 Pure hypercholesterolemia, unspecified; Z88.0 Allergy status to penicillin; Z88.1 Allergy status to other antibiotic agents; Z88.8 Allergy status to other drugs, medicaments and biological substances; Z95.1 Presence of aortocoronary bypass graft; Z99.2 Dependence on renal dialysis
CPT/HCPCS: 36415; 71045; 76881; 80053; 83605; 84484; 85025; 87040; 93005; 96365; 96375; 96376; 99285; J2270; J2405; J3490

== ENCOUNTER 2024-11-25 19:17 | Emergency (ER) | payer MEDICARE, MEDICAID ==
[~2024-11-25] VITALS: Ht 157.5 cm; Wt 44.5 kg
[~2024-11-25 19:17] MED LIST changes: -AMOX-117 PO; +CLIN-197 PO
[2024-11-25 19:22] VITALS: TEMP 98.7
[2024-11-25 20:21] VITALS: BP 159/103; PULSE 70; O2SAT 97
--- NOTE | 2024-11-25 20:23 | Physician Documentation ---
History of Present Illness ~ Chief Complaint: Breast pain Stated Complaint: SIDE PAIN Time Seen by MD: 20:18 Primary Medical Doctor: Qi LEDESMA This 44 yr old female with complex medical hx including lupus and ESRD on dialysis presents today due to right breast pain. Of note, she left this facility AMA 11/23/24 after being diagnosed with mastitis. Tetanus within 5 years?: No Medication Reconciliation Allergies: Coded Allergies: cefaclor (Verified Allergy, Severe, hives/severe swelling, 11/25/24) cefpodoxime (Verified Allergy, Severe, hives/severe swelling, 11/25/24) Scheduled Clindamycin HCl (Clindamycin HCl), 1 CAP PO Q6H Clonidine HCl (Clonidine HCl), 1 TAB PO BID, (Reported) Diclofenac Sodium (Diclofenac Sodium), 1 APPLIC TOP DAILY, (Reported) Furosemide (Furosemide), 2 TAB PO DAILY, (Reported) Gabapentin (Neurontin), 1 CAP PO DAILY, (Reported) Hydroxychloroquine Sulfate (Plaquenil), 200 MG PO DAILY, (Reported) Lacosamide (Lacosamide), 1 TAB PO BID, (Reported) Levetiracetam (Levetiracetam), 1 TAB PO BID, (Reported) Levothyroxine Sodium (Levothyroxine Sodium), 1 TAB PO DAILY, (Reported) Nifedipine ER* (Nifedipine Er*), 1 TAB PO BID, (Reported) Prednisone* (Prednisone*), 1 TAB PO DAILY, (Reported) Sertraline HCl (Sertraline HCl), 2 TAB PO DAILY, (Reported) [Fentanyl Patch], 50 MCG Q48H, (Reported) Scheduled PRN Ipratropium/Albuterol Sulfate (Duoneb 2.5-0.5 Mg/3 Ml Soln), 3 ML IH Q6H PRN for SOB or wheezing, (Reported) ONDANSETRON ODT 4mg tablet (Ondansetron Odt), 1 TAB PO Q6H PRN for nausea/vomiting, (Reported) Omeprazole (Prilosec), 1 CAP PO DAILY PRN for indigestion/dyspepsia, (Reported) Polyethylene Glycol 3350* (Miralax*), 1 PKT PO DAILY PRN for constipation, (Reported) Miscellaneous Medications Oxycodone Hcl/Acetaminophen (Oxycodone-Acetaminophen 10-325), (Reported) Sodium Zirconium Cyclosilicate (Lokelma), (Reported) Discontinued Medications Amox Tr/Potassium Clavulanate (Augmentin 875-125 Tablet), 1 TAB PO Q12H Discontinued Reason: Auto Discontinued Past Medical History Past Medical History: Seizures, Congestive Heart Failure, High Cholesterol, Heart Valve Disease, Hypertension, Pneumonia, Pulmonary Embolism, Chronic Kidney Disease, Dialysis, *MUSCULOSKELETAL*, Arthritis, Chronic Pain, Deep Vein Thrombosis, Fibromyalgia, Osteoporosis, Rheumatoid Arthritis, MRSA Abscess, Depression Past Surgical History: coronary bypass surgery, , heart valve surgery, other Other Past Family History: NONCONTRIBUTORY Alcohol Use: None Drug Use: marijuana Lives with: Family Lives In: Home Occupation: unemployed Review of Systems ROS As stated above in the HPI, otherwise all systems are reviewed and negative. Physical Exam Vital Signs: Temperature: 98.7, Source: Oral, Heart Rate: 70, Respiratory Rate: 14, BP: 159/103, Pulse Oximetry: 97, Weight: 44.550 Oxygen Flow Rate: 0 General Appearance General: Alert, no apparent distress. Neck: Full range of motion. Respiratory: Lungs clear, no respiratory distress. Chest: No accessory muscle use. Breast: Right breast is more edematous than left but there is no erythema or abscess. This appears to be more due to fluid collection as the patient is anasarcic and has a tendency to lie on her right side. Cardiovascular: Regular rate and rhythm, no murmurs. Gastrointestinal: Soft, nontender, nondistended. Bowels sounds present. Extremities: Normal range of motion, no deformity. Neurologic: Oriented x4. Psychiatric: Normal mood and affect. Skin: Normal color, warm and dry. No edema, no ecchymosis. Progress Results/Orders Results/Orders Orders - MARYAN ARIZA RN DERMATOLOGY Cbc/Diff (11/25/24 20:32) Completed Orders - MARYAN ARIZA RN DERMATOLOGY CMP (11/25/24 20:32) Oxycodone/Acetaminophen Tablet (Percocet (11/25/24 20:35) Medications Received in ER Medications (Trade) Dose Ordered Sig/Michael Route PRN Reason Start Time Stop Time Status Last Admin Dose Admin (Percocet 10-325 mg tab) 1 tab ONCE ONCE PO 11/25/24 20:35 11/25/24 20:36 DC 11/25/24 20:43 1 TAB Vital Signs 11/25/24 11/25/24 11/25/24 11/25/24 19:22 20:21 20:43 20:56 Temp 98.7 Pulse 75 70 Resp 18 14 14 13 B/P (MAP) 155/96 159/103 (121) Pulse Ox 98 97 O2 Flow Rate 0 Laboratory Tests Test 11/25/24 20:44 White Blood Count 9.6 Red Blood Count 3.35 L Hemoglobin 9.8 L Hematocrit 30.6 L Mean Corpuscular Volume 91.4 Mean Corpuscular Hemoglobin 29.3 Mean Corpuscular Hemoglobin Concent 32.1 L Red Cell Distribution Width 21.4 H Platelet Count 189 Mean Platelet Volume 7.8 Neutrophils (%) (Auto) 73.4 Lymphocytes (%) (Auto) 10.8 L Monocytes (%) (Auto) 10.3 Eosinophils (%) (Auto) 4.2 Basophils (%) (Auto) 1.3 H Neutrophils # (Auto) 7.0 Lymphocytes # (Auto) 1.0 L Monocytes # (Auto) 1.0 H Eosinophils # (Auto) 0.4 Basophils # (Auto) 0.1 CBC Comment Basophilic Stippling Sodium Level 138 Potassium Level 4.2 Chloride Level 102 Carbon Dioxide Level 25.7 Anion Gap 10 Blood Urea Nitrogen 23 H Creatinine 3.86 H Estimated GFR/1.73 m2 13 BUN/Creatinine Ratio 6.0 L Glucose Level 109 H Calcium Level 8.7 Total Bilirubin 0.4 Aspartate Amino Transf (AST/SGOT) 17 Alanine Aminotransferase (ALT/SGPT) 13 Alkaline Phosphatase 159 H Total Protein 6.2 L Albumin 2.9 L Globulin 3.3 Albumin/Globulin Ratio 0.9 L Chemistry Comments Medical Decision Making Differential Dx:Considerations: Include: Breast abscess, Breast engorgement, Breast mass, Cancer, Cellulitis, Fibrocystic disease, Lymphagitis, Mastitis Additional Comments 44 year-old female presents due to concerns for right breast pain. Against medical advice discharge from this facility two days ago. She admits that she does not regularly attend dialysis, and that when she does attend, she is often too uncomfortable to complete the full session. She has had no chills or fever. Her labs are at her baseline. Another concern that she had was that the last time she filled her fentanyl patches, they did not give her a full month supply. Discussed with the hospital pharmacist, and she is due to apply a patch today. She does not have one on her body. We will place one. We will give her a one time dose of Percocet. She will then be discharged. She is encouraged to complete dialysis as planned and return if worse. Departure Time of Disposition: 21:13 Disposition: 01 HOME / SELF CARE / HOMELESS Impression: Primary Impression: Breast tenderness Additional Impression: Chronic pain disorder Condition: Stable Discharge Instructions: Breast Tenderness Additional Instructions: Your labs are at baseline and your white blood cell count is not elevated. Continue the clindamycin. Continue your usual home pain medications. It is recommended that you attend dialysis as scheduled and complete your full session. This will help get all the fluid off that is possible. Return if worse. Referrals: NO PRIMARY CARE PROVIDER (PCP) Education Educated: Patient, Family Educated regarding: diagnosis, treatment, prognosis, need for follow up Signature Scribe Signature: no scribe Attestation: The note accurately reflects work and decisions made by me.Maryan Harrison NP 11/25/24 20:24 MARYAN ARIZA NP Nov 25, 2024 20:23
[2024-11-25] MEDS: oxyCODONE/APAP 10/325mg tablet PO ONE (20:43)
[2024-11-25 20:53] LABS: BASOPHILS # (AUTO) 0.1 X10'3 (0-0.2); BASOPHILS % (AUTO) 1.3 % (0-1); EOSINOPHILS # (AUTO) 0.4 X10'3 (0-0.9); EOSINOPHILS % (AUTO) 4.2 % (0-6); HEMATOCRIT 30.6 % (35.0-45.0); HEMOGLOBIN 9.8 g/dl (12.0-16.0); LYMPHOCYTES % (AUTO) 10.8 % (21-51); MEAN CORPUSCULAR HEMOGLOBIN 29.3 PG (27.0-31.0); MEAN CORPUSCULAR HGB CONC 32.1 g/dL (33.0-36.5); MEAN CORPUSCULAR VOLUME 91.4 FL (78-98); MEAN PLATELET VOLUME 7.8 FL (7.4-10.4); MONOCYTES % (AUTO) 10.3 % (2-12); NEUTROPHILS % (AUTO) 73.4 % (42-75); PLATELET COUNT 189 X10'3 (140-440); RED BLOOD COUNT 3.35 X10'6 (4.20-5.60); RED CELL DISTRIBUTION WIDTH 21.4 % (11.5-14.5); WHITE BLOOD COUNT 9.6 X10'3 (4.5-11.0)
[2024-11-25 20:56] VITALS: RESP 13
[2024-11-25 21:07] LABS: ALANINE AMINOTRANSFERASE 13 U/L (12-78); ALBUMIN 2.9 G/DL (3.4-5.0); ALBUMIN/GLOBULIN RATIO 0.9 (1.1-1.5); ALKALINE PHOSPHATASE 159 IU/L (46-116); ANION GAP 10 (8-16); ASPARTATE AMINO TRANSFERASE 17 U/L (10-37); BILIRUBIN,TOTAL 0.4 MG/DL (0.1-1.0); BLOOD UREA NITROGEN 23 MG/DL (7-18); CALCIUM 8.7 MG/DL (8.5-10.1); CHLORIDE 102 MMOL/L (99-107); CREATININE 3.86 MG/DL (0.40-0.90); GLUCOSE 109 MG/DL (70-104); POTASSIUM 4.2 MMOL/L (3.5-5.1); SODIUM 138 MMOL/L (135-145); TOTAL CARBON DIOXIDE 25.7 MMOL/L (24-32); TOTAL PROTEIN 6.2 G/DL (6.4-8.2); eCRCL 13 ML/MIN; eGFR 13 ML/MIN
[2024-11-25 21:29] LABS: ANISOCYTOSIS 3+; PLATELET ESTIMATE NORMAL
[2024-11-25] MEDS: fentaNYL 50MCG/HOUR patch.TD72 TD ONE (21:45)
== END 2024-11-25 22:06 | disposition home or self-care (01) ==
LOC: ER 19:18
DX: N64.4 Mastodynia (principal); E78.00 Pure hypercholesterolemia, unspecified; I13.2 Hypertensive heart and chronic kidney disease with heart failure and with stage 5 chronic kidney disease, or end stage renal disease; I50.9 Heart failure, unspecified; N18.6 End stage renal disease; M06.9 Rheumatoid arthritis, unspecified; F32.A Depression, unspecified; M79.7 Fibromyalgia; M81.0 Age-related osteoporosis without current pathological fracture; Z88.1 Allergy status to other antibiotic agents; Z88.8 Allergy status to other drugs, medicaments and biological substances; Z95.1 Presence of aortocoronary bypass graft; Z99.2 Dependence on renal dialysis
CPT/HCPCS: 36415; 80053; 85025; 99284; A6258; 85008

== ENCOUNTER 2024-11-26 21:58 | Emergency (ER) | payer MEDICARE, MEDICAID ==
[2024-11-27 00:06] LABS: BASOPHILS # (AUTO) 0.1 X10'3 (0-0.2); BASOPHILS % (AUTO) 1.2 % (0-1); EOSINOPHILS # (AUTO) 0.6 X10'3 (0-0.9); EOSINOPHILS % (AUTO) 5.6 % (0-6); HEMATOCRIT 32.2 % (35.0-45.0); HEMOGLOBIN 10.2 g/dl (12.0-16.0); LYMPHOCYTES # (AUTO) 1.3 X10'3 (1.1-4.8); MEAN CORPUSCULAR HEMOGLOBIN 29.1 PG (27.0-31.0); MEAN CORPUSCULAR HGB CONC 31.8 g/dL (33.0-36.5); MEAN CORPUSCULAR VOLUME 91.7 FL (78-98); MEAN PLATELET VOLUME 8.2 FL (7.4-10.4); MONOCYTES # (AUTO) 0.9 X10'3 (0-0.9); MONOCYTES % (AUTO) 8.1 % (2-12); NEUTROPHILS # (AUTO) 7.7 X10'3 (1.8-7.7); NEUTROPHILS % (AUTO) 73.1 % (42-75); PLATELET COUNT 190 X10'3 (140-440); RED BLOOD COUNT 3.51 X10'6 (4.20-5.60); RED CELL DISTRIBUTION WIDTH 21.9 % (11.5-14.5); WHITE BLOOD COUNT 10.6 X10'3 (4.5-11.0)
[2024-11-27 00:20] LABS: ALANINE AMINOTRANSFERASE 12 U/L (12-78); ALBUMIN 3.1 G/DL (3.4-5.0); ALBUMIN/GLOBULIN RATIO 0.9 (1.1-1.5); ALKALINE PHOSPHATASE 188 IU/L (46-116); ANION GAP 6 (8-16); ASPARTATE AMINO TRANSFERASE 14 U/L (10-37); BILIRUBIN,TOTAL 0.5 MG/DL (0.1-1.0); BLOOD UREA NITROGEN 21 MG/DL (7-18); BUN/CREATININE RATIO 5.2 (10.0-20.0); CALCIUM 8.8 MG/DL (8.5-10.1); CHLORIDE 99 MMOL/L (99-107); CREATININE 4.02 MG/DL (0.40-0.90); GLUCOSE 114 MG/DL (70-104); POTASSIUM 4.5 MMOL/L (3.5-5.1); SODIUM 135 MMOL/L (135-145); TOTAL CARBON DIOXIDE 29.6 MMOL/L (24-32); TOTAL PROTEIN 6.7 G/DL (6.4-8.2); eGFR 12 ML/MIN
--- NOTE | 2024-11-27 02:54 | Physician Documentation ---
History of Present Illness ~ Chief Complaint: Breast pain Stated Complaint: SIDE PAIN Time Seen by MD: 23:02 Primary Medical Doctor: Qi Mcdonnell Mode of Arrival: POV HPI 44 year old female with end stage renal disease, on dialysis, reports that she was recently admitted here and treated with IV antibiotics for mastitis. She left AMA after several days of IV antitbiotics. She reports continued pain. She denies fevers, nipple discharge, and is not . Tetanus within 5 years?: No Medication Reconciliation Allergies: Coded Allergies: cefaclor (Verified Allergy, Severe, hives/severe swelling, 11/26/24) cefpodoxime (Verified Allergy, Severe, hives/severe swelling, 11/26/24) Scheduled Clonidine HCl (Clonidine HCl), 1 TAB PO BID, (Reported) Diclofenac Sodium (Diclofenac Sodium), 1 APPLIC TOP DAILY, (Reported) Furosemide (Furosemide), 2 TAB PO DAILY, (Reported) Gabapentin (Neurontin), 1 CAP PO DAILY, (Reported) Hydroxychloroquine Sulfate (Plaquenil), 200 MG PO DAILY, (Reported) Lacosamide (Lacosamide), 1 TAB PO BID, (Reported) Levetiracetam (Levetiracetam), 1 TAB PO BID, (Reported) Levothyroxine Sodium (Levothyroxine Sodium), 1 TAB PO DAILY, (Reported) Nifedipine ER* (Nifedipine Er*), 1 TAB PO BID, (Reported) Prednisone* (Prednisone*), 1 TAB PO DAILY, (Reported) Sertraline HCl (Sertraline HCl), 2 TAB PO DAILY, (Reported) [Fentanyl Patch], 50 MCG Q48H, (Reported) Scheduled PRN Ipratropium/Albuterol Sulfate (Duoneb 2.5-0.5 Mg/3 Ml Soln), 3 ML IH Q6H PRN for SOB or wheezing, (Reported) ONDANSETRON ODT 4mg tablet (Ondansetron Odt), 1 TAB PO Q6H PRN for nausea/vomiting, (Reported) Omeprazole (Prilosec), 1 CAP PO DAILY PRN for indigestion/dyspepsia, (Reported) Polyethylene Glycol 3350* (Miralax*), 1 PKT PO DAILY PRN for constipation, (Reported) Miscellaneous Medications Oxycodone Hcl/Acetaminophen (Oxycodone-Acetaminophen 10-325), (Reported) Sodium Zirconium Cyclosilicate (Lokelma), (Reported) Discontinued Medications Amox Tr/Potassium Clavulanate (Augmentin 875-125 Tablet), 1 TAB PO Q12H Discontinued Reason: Auto Discontinued Clindamycin HCl (Clindamycin HCl), 1 CAP PO Q6H Discontinued Reason: Auto Discontinued Past Medical History Past Medical History: Seizures, Congestive Heart Failure, High Cholesterol, Heart Valve Disease, Hypertension, Pneumonia, Pulmonary Embolism, Chronic Kidney Disease, Dialysis, *MUSCULOSKELETAL*, Arthritis, Chronic Pain, Deep Vein Thrombosis, Fibromyalgia, Osteoporosis, Rheumatoid Arthritis, MRSA Abscess, Depression Past Surgical History: coronary bypass surgery, , heart valve surgery, other Other Past Family History: NONCONTRIBUTORY Alcohol Use: None Drug Use: marijuana Lives with: Family Lives In: Home Occupation: unemployed Review of Systems All Other Systems at this time: Reviewed and Negative Physical Exam Vital Signs: RN Vital Signs have been reviewed: Yes, Temperature: 97.6, Source: Temporal, Heart Rate: 66, Respiratory Rate: 12, BP: 167/103, Pulse Oximetry: 95 Oxygen Flow Rate: 0 General Appearance HEENT: PERRL, moist oral mucosa, EOMI Pulmonary: No respiratory distress Chest: R breast with +periareolar edema, induration, tenderness MSK: no deformity Skin: w/d/i, no rash Neuro: alert, nonfocal Psych: normal affect Progress Results/Orders Results/Orders Orders - DIANE SCHMIDT MD Hydrocodone/Apap 10/325 ([place] 10/325mg (11/27/24 03:00) Completed Orders - DIANE SCHMIDT MD Cbc/Diff (11/26/24 23:05) CMP (11/26/24 23:05) Hydrocodone/Apap 10/325 ([place] 10/325mg (11/27/24 02:50) Vital Signs 11/26/24 11/26/24 11/26/24 11/26/24 22:21 23:01 23:54 23:55 Temp 97.6 Pulse 87 70 67 Resp 15 15 16 B/P (MAP) 133/65 140/72 (94) 165/107 (126) Pulse Ox 99 94 97 O2 Flow Rate 0 11/27/24 11/27/24 00:59 02:26 Pulse 66 66 Resp 16 12 B/P (MAP) 164/104 (124) 167/103 (124) Pulse Ox 98 95 O2 Flow Rate 0 0 Laboratory Tests Test 11/26/24 23:48 White Blood Count 10.6 Red Blood Count 3.51 L Hemoglobin 10.2 L Hematocrit 32.2 L Mean Corpuscular Volume 91.7 Mean Corpuscular Hemoglobin 29.1 Mean Corpuscular Hemoglobin Concent 31.8 L Red Cell Distribution Width 21.9 H Platelet Count 190 Mean Platelet Volume 8.2 Neutrophils (%) (Auto) 73.1 Lymphocytes (%) (Auto) 12.0 L Monocytes (%) (Auto) 8.1 Eosinophils (%) (Auto) 5.6 Basophils (%) (Auto) 1.2 H Neutrophils # (Auto) 7.7 Lymphocytes # (Auto) 1.3 Monocytes # (Auto) 0.9 Eosinophils # (Auto) 0.6 Basophils # (Auto) 0.1 CBC Comment Sodium Level 135 Potassium Level 4.5 Chloride Level 99 Carbon Dioxide Level 29.6 Anion Gap 6 L Blood Urea Nitrogen 21 H Creatinine 4.02 H Estimated GFR/1.73 m2 12 BUN/Creatinine Ratio 5.2 L Glucose Level 114 H Calcium Level 8.8 Total Bilirubin 0.5 Aspartate Amino Transf (AST/SGOT) 14 Alanine Aminotransferase (ALT/SGPT) 12 Alkaline Phosphatase 188 H Total Protein 6.7 Albumin 3.1 L Globulin 3.6 Albumin/Globulin Ratio 0.9 L Chemistry Comments Medical Decision Making Findings 44 year old female with R breast inflammation, was treated with outpatient and IV antibiotics without success, and left AMA from hospital. 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 Return precautions discussed. Differential Dx:Considerations: Include: Breast abscess, Breast mass, Cancer, Cellulitis, Lymphagitis, Mastitis Departure Disposition: 01 HOME / SELF CARE / HOMELESS Impression: Primary Impression: Breast tenderness Condition: Stable Discharge Instructions: Mastitis Referrals: [facility] (Family) Education Educated: Patient Educated regarding: diagnosis, treatment, prognosis Signature Scribe Signature: . Attestation: DIANE ELIAS MD Nov 27, 2024 02:54
[2024-11-27] MEDS: HYDROcodone/acetaminophen 10/325mg tab PO ONE ×2 (02:55→03:01)
[2024-11-27 03:42] VITALS: BP 157/97; PULSE 68; RESP 16; TEMP 97.9; O2SAT 99
== END 2024-11-27 03:45 | disposition home or self-care (01) ==
LOC: ER 21:58
DX: N64.4 Mastodynia (principal); I13.2 Hypertensive heart and chronic kidney disease with heart failure and with stage 5 chronic kidney disease, or end stage renal disease; I50.9 Heart failure, unspecified; N18.6 End stage renal disease; E78.00 Pure hypercholesterolemia, unspecified; M79.7 Fibromyalgia; F12.90 Cannabis use, unspecified, uncomplicated; Z86.718 Personal history of other venous thrombosis and embolism; Z86.711 Personal history of pulmonary embolism; Z88.8 Allergy status to other drugs, medicaments and biological substances; Z95.1 Presence of aortocoronary bypass graft; Z79.899 Other long term (current) drug therapy; Z56.0 Unemployment, unspecified
CPT/HCPCS: 36415; 80053; 85025; 99285

== ENCOUNTER 2024-11-28 17:42 | Emergency (ER) | payer MEDICARE, MEDICAID ==
[~2024-11-28] VITALS: Ht 157.5 cm; Wt 59.1 kg
--- NOTE | 2024-11-28 18:11 | Physician Documentation ---
HPI ~ General Chief Complaint: Medication Request Stated Complaint: CHRONIC PAIN Time Seen by MD: 18:55 OK to notify your PCP?: Yes Primary Medical Doctor: Qi Mcdonnell Source: patient, family Mode of Arrival: POV, Wheelchair Exam Limitations: no limitations History of Present Illness HPI Comments 44-year-old female requesting refill of fentanyl patch for her chronic pain. She states that the pharmacy she normally gets a from is out of stock. Denies any other medical concerns at this time. Medication Reconciliation Allergies: Coded Allergies: cefaclor (Verified Allergy, Severe, hives/severe swelling, 11/26/24) cefpodoxime (Verified Allergy, Severe, hives/severe swelling, 11/26/24) Scheduled Clonidine HCl (Clonidine HCl), 1 TAB PO BID, (Reported) Diclofenac Sodium (Diclofenac Sodium), 1 APPLIC TOP DAILY, (Reported) Furosemide (Furosemide), 2 TAB PO DAILY, (Reported) Gabapentin (Neurontin), 1 CAP PO DAILY, (Reported) Hydroxychloroquine Sulfate (Plaquenil), 200 MG PO DAILY, (Reported) Lacosamide (Lacosamide), 1 TAB PO BID, (Reported) Levetiracetam (Levetiracetam), 1 TAB PO BID, (Reported) Levothyroxine Sodium (Levothyroxine Sodium), 1 TAB PO DAILY, (Reported) Nifedipine ER* (Nifedipine Er*), 1 TAB PO BID, (Reported) Prednisone* (Prednisone*), 1 TAB PO DAILY, (Reported) Sertraline HCl (Sertraline HCl), 2 TAB PO DAILY, (Reported) [Fentanyl Patch], 50 MCG Q48H, (Reported) Scheduled PRN Ipratropium/Albuterol Sulfate (Duoneb 2.5-0.5 Mg/3 Ml Soln), 3 ML IH Q6H PRN for SOB or wheezing, (Reported) ONDANSETRON ODT 4mg tablet (Ondansetron Odt), 1 TAB PO Q6H PRN for nausea/vomiting, (Reported) Omeprazole (Prilosec), 1 CAP PO DAILY PRN for indigestion/dyspepsia, (Reported) Polyethylene Glycol 3350* (Miralax*), 1 PKT PO DAILY PRN for constipation, (Reported) Miscellaneous Medications Oxycodone Hcl/Acetaminophen (Oxycodone-Acetaminophen 10-325), (Reported) Sodium Zirconium Cyclosilicate (Lokelma), (Reported) Discontinued Medications Amox Tr/Potassium Clavulanate (Augmentin 875-125 Tablet), 1 TAB PO Q12H Discontinued Reason: Auto Discontinued Clindamycin HCl (Clindamycin HCl), 1 CAP PO Q6H Discontinued Reason: Auto Discontinued Past Medical History Past Medical History: Seizures, Congestive Heart Failure, High Cholesterol, Heart Valve Disease, Hypertension, Pneumonia, Pulmonary Embolism, Chronic Kidney Disease, Dialysis, *MUSCULOSKELETAL*, Arthritis, Chronic Pain, Deep Vein Thrombosis, Fibromyalgia, Osteoporosis, Rheumatoid Arthritis, MRSA Abscess, Depression Past Surgical History: coronary bypass surgery, , heart valve surgery, other Other Past Family History: NONCONTRIBUTORY Alcohol Use: None Drug Use: marijuana Lives with: Family Lives In: Home Occupation: unemployed Review of Systems All Other Systems at this time: Reviewed and Negative Physical Exam Physical Exam Vital Signs: Temperature: 97.8, Source: Temporal, Heart Rate: 75, Respiratory Rate: 16, BP: 165/100, Pulse Oximetry: 98, Weight: 59.090 Oxygen Flow Rate: 0 Physical Exam General: Alert, mild distress. HEENT: No injection, moist mucous membranes. Neck: Full range of motion. Respiratory: No respiratory distress, equal chest rise and fall. Chest: No accessory muscle use. Cardiovascular: Regular rate and rhythm. Gastrointestinal: Nondistended. Extremities: Normal range of motion, no deformity. Neurologic: Oriented x4. Psychiatric: Normal mood and affect. Skin: Normal color, warm and dry. Progress Results/Orders Results/Orders Completed Orders - AINSLEY CALIX HUMIDIFIER ATTENDANT Hydromorphone 1 Mg/Ml/Pf (Dilaudid Inj.) (11/28/24 19:05) Vital Signs 11/28/24 17:49 Temp 97.8 Pulse 75 Resp 16 B/P (MAP) 165/100 Pulse Ox 98 O2 Flow Rate 0 Medical Decision Making Additional info obtained from: old records, family Findings 44-year-old female with history of chronic pain and is on dialysis. She normally has fentanyl patches but the pharmacy has ran out and is currently closed at this time. She is requesting a new fentanyl patch. I spoke with Dr. Foreman about this patient as he is very familiar with her case. Due to her having a pain contract for the fentanyl patches we are not able to send her a prescription to a different pharmacy. When consulting with the pharmacist, he reported that we cannot place a patch here in the department and discharge her with it on. She then requested to be admitted so she should wear a fentanyl patch but she has no medical complaints or need for admission at this time. We will do a 1 mg IM injection of Dilaudid and discharge. Her and her a gree to this plan. She should follow up with the pharmacy tomorrow morning to work on obtaining her prescription. She has plans for dialysis in the morning as well. She can return back here for any new or worsening symptoms Differential Dx:Considerations: Include: Adverse circumstances, Economic, Psychosocial, Medication refill, Medication non-compliance Departure Disposition: 01 HOME / SELF CARE / HOMELESS Impression: Primary Impression: Pain Condition: Stable Discharge Instructions: Medicine Refill at the Emergency Department Additional Instructions: As discussed, please contact her pharmacy in the morning regarding your fentanyl prescription. Follow up with her primary care provider as needed and return nighat k here for any new or worsening symptoms. Referrals: NO PRIMARY CARE PROVIDER (PCP) Education Educated: Patient, Family Educated regarding: diagnosis, treatment, prognosis, need for follow up Additional Comment Medical Screen Exam This patient recieved a medical screening examination. After reviewing the individual's medical complaints with presenting symptoms and performing an appropriate physical examination, it was determined that no immediate life- threatening emergency medical condition is present. This individual is also not a women having contractions. Signature Scribe Signature: . Attestation: Scribed for Ainsley Calix by Ainsley Harrison NP . 11/28/24 19:12 AINSLEY CALIX Nov 28, 2024 18:11
[2024-11-28] MEDS: HYDROmorphone 1 mg/ml syringe IM ONE (19:13)
[2024-11-28 19:18] VITALS: BP 160/98; PULSE 74; RESP 16; TEMP 98.6; O2SAT 98
== END 2024-11-28 19:20 | disposition home or self-care (01) ==
LOC: ER 17:43
DX: Z00.8 Encounter for other general examination (principal); G89.29 Other chronic pain; E78.00 Pure hypercholesterolemia, unspecified; I13.2 Hypertensive heart and chronic kidney disease with heart failure and with stage 5 chronic kidney disease, or end stage renal disease; I50.9 Heart failure, unspecified; N18.6 End stage renal disease; M06.9 Rheumatoid arthritis, unspecified; M79.7 Fibromyalgia; M81.0 Age-related osteoporosis without current pathological fracture; F12.90 Cannabis use, unspecified, uncomplicated; Z88.1 Allergy status to other antibiotic agents; Z88.8 Allergy status to other drugs, medicaments and biological substances; Z95.1 Presence of aortocoronary bypass graft; Z99.2 Dependence on renal dialysis
CPT/HCPCS: 96372; 99283; J1171

== ENCOUNTER 2024-12-05 23:34 | Emergency (ER) | payer MEDICARE, MEDICAID ==
[~2024-12-05] VITALS: Ht 157.5 cm; Wt 40.0 kg
[~2024-12-05 23:34] MED LIST changes: -CLIN-197 PO
--- NOTE | 2024-12-06 00:44 | Physician Documentation ---
History of Present Illness ~ Chief Complaint: Leg Pain Stated Complaint: LEG PAIN Time Seen by MD: 00:27 Primary Medical Doctor: Qi Mcdonnell Source: patient Mode of Arrival: POV Exam Limitations: no limitations HPI Chief Complaint: Pain all over, swelling all over Caveat: None Independent Historians: None History of Present Illness: Patient is a 44-year-old woman who appears much older than her stated age with multiple medical problems and has multiple medical complaints all of which appeared to be chronic. Patient complains of swelling from her head to her toe. Patient also complains of pain in her veins. These are chronic symptoms. Patient states that she is not getting adequate pain relief from her fentanyl patch which is a 50 mcg patch that she placed a new patch earlier today approximately 10 hours ago and is not receiving adequate pain relief. Patient states that she has been asking her pain specialist to increase the dose. Patient also complains of the infection over her right breast. She is still currently on Augmentin. Patient has had three ER visits in the last six days at [facility] for the same complaints. She was seen on November 29, December 01 and December 05 for lower extremity swelling. Review of systems: All systems were reviewed and are negative except for what is indicated in the history of present illness. Past Medical History: ESRD on dialysis M/W/F, congestive heart failure, fibromyalgia, rheumatoid arthritis, lupus, osteoporosis, GERD, HTN, neuropathic pain, history of polysubstance abuse, seizure Past Surgical History: Aortic valve replacement, av fistula, mitral valve replacement, inferior vena caval filter Social History: Tobacco use, marijuana use, denies alcohol or other drug use Medications: Reviewed as documented Nursing Notes Allergies: Reviewed as documented in Nursing Notes Tetanus witin 5 years: No Medication Reconciliation Allergies: Coded Allergies: cefaclor (Verified Allergy, Severe, hives/severe swelling, 11/26/24) cefpodoxime (Verified Allergy, Severe, hives/severe swelling, 11/26/24) Scheduled Clonidine HCl (Clonidine HCl), 1 TAB PO BID, (Reported) Diclofenac Sodium (Diclofenac Sodium), 1 APPLIC TOP DAILY, (Reported) Furosemide (Furosemide), 2 TAB PO DAILY, (Reported) Gabapentin (Neurontin), 1 CAP PO DAILY, (Reported) Hydroxychloroquine Sulfate (Plaquenil), 200 MG PO DAILY, (Reported) Lacosamide (Lacosamide), 1 TAB PO BID, (Reported) Levetiracetam (Levetiracetam), 1 TAB PO BID, (Reported) Levothyroxine Sodium (Levothyroxine Sodium), 1 TAB PO DAILY, (Reported) Nifedipine ER* (Nifedipine Er*), 1 TAB PO BID, (Reported) Prednisone* (Prednisone*), 1 TAB PO DAILY, (Reported) Sertraline HCl (Sertraline HCl), 2 TAB PO DAILY, (Reported) [Fentanyl Patch], 50 MCG Q48H, (Reported) Scheduled PRN Ipratropium/Albuterol Sulfate (Duoneb 2.5-0.5 Mg/3 Ml Soln), 3 ML IH Q6H PRN for SOB or wheezing, (Reported) ONDANSETRON ODT 4mg tablet (Ondansetron Odt), 1 TAB PO Q6H PRN for nausea/ vomiting, (Reported) Omeprazole (Prilosec), 1 CAP PO DAILY PRN for indigestion/dyspepsia, (Reported) Polyethylene Glycol 3350* (Miralax*), 1 PKT PO DAILY PRN for constipation, (Repo rted) Miscellaneous Medications Oxycodone Hcl/Acetaminophen (Oxycodone-Acetaminophen 10-325), (Reported) Sodium Zirconium Cyclosilicate (Lokelma), (Reported) Past Medical History Past Medical History: Seizures, Congestive Heart Failure, High Cholesterol, Heart Valve Disease, Hypertension, Pneumonia, Pulmonary Embolism, Chronic Kidney Disease, Dialysis, *MUSCULOSKELETAL*, Arthritis, Chronic Pain, Deep Vein Thrombosis, Fibromyalgia, Osteoporosis, Rheumatoid Arthritis, MRSA Abscess, Depression Past Surgical History: coronary bypass surgery, , heart valve surgery, other Other Past Family History: NONCONTRIBUTORY Alcohol Use: None Drug Use: marijuana Lives with: Family Lives In: Home Occupation: unemployed Review of Systems All Other Systems at this time: Reviewed and Negative ROS PATIENT DENIES ANY OTHER ACUTE SYMPTOMS OTHER THAN ABOVE. ALL OTHER SYSTEMS ARE NEGATIVE Physical Exam Vital Signs: RN Vital Signs have been reviewed: Yes, Temperature: 97.5, Source: Temporal, Heart Rate: 72, Respiratory Rate: 16, BP: 143/100, Pulse Oximetry: 98, Weight: 40.000 Oxygen Flow Rate: 0 Pulse Oximetry Reflects: adequate oxygenation Physical Exam General Appearance: No distress, chronically ill-appearing HEENT: Normal OP, moist oral mucosa, PERRL, EOMI Neck: supple, normal ROM, trachea midline Pulmonary: No respiratory distress, CTA, BS equal Cardiac: RRR, no murmur, rub or gallop, Chest: Dialysis catheter left chest, GI: nondistended, soft, nontender, normal bowel sounds, no guarding, no rebound Breasts: Left breast appears normal, right breast have some subtle erythema over the lower medial portion of the breast. There is some mild induration. The area is relatively large but there is no fluctuance. Extremities: normal ROM, 3+ pitting lower extremity edema Skin: intact, dry, warm, no rashes Neuro: AAOx3, speech is clear, no focal motor weakness Psych: normal affect, good eye contact, no apparent hallucination, normal speech Progress Results/Orders Results/Orders Completed Orders - MAYO PATEL MD Fentanyl/Pf (Fentanyl 0.05 Mg/Ml Syringe (12/06/24 00:40) Medications Received in ER Medications (Trade) Dose Ordered Sig/Michael Route PRN Reason Start Time Stop Time Status Last Admin Dose Admin (fentaNYL 0.05 MG/ML syringe) 75 mcg ONCE ONCE IM 12/06/24 00:40 12/06/24 00:41 DC 12/06/24 00:48 75 MCG Vital Signs 12/05/24 12/06/24 12/06/24 12/06/24 23:44 00:48 00:54 00:58 Temp 97.5 97.5 Pulse 72 70 Resp 16 16 16 16 B/P (MAP) 143/100 156/10 (58) Pulse Ox 98 97 O2 Flow Rate 0 0 12/06/24 01:08 Temp 97.5 Pulse 71 Resp 15 B/P (MAP) 168/98 Pulse Ox 95 Medical Decision Making Additional info obtained from: old records Findings Differential diagnosis includes but is not limited to: Chronic pain, mastitis, peripheral edema Emergency department course/medical decision-making: Patient is chronically ill with multiple chronic medical problems. Patient's complaints are also chronic. Patient has chronic lower extremity edema. Patient has mastitis over the right breast is improving and she is on Augmentin. Patient does not require any lab work or intervention or studies. Patient is given fentanyl 75 mcg IM to help her with her chronic pain. Patient is stable for discharge. She is instructed not to miss her dialysis today. This is a 4th ER visit and less than a week. Departure Time of Disposition: 00:44 Disposition: 01 HOME / SELF CARE / HOMELESS Impression: Primary Impression: Chronic pain Qualified Codes: G89.29 - Other chronic pain Additional Impression: Chronic lower extremity edema Discharge Instructions: Chronic Pain, Adult Additional Instructions: DO NOT MISS YOUR DIALYSIS TODAY FOLLOW UP WITH YOUR PAIN SPECIALIST AND YOUR OTHER PHYSICIANS. Education Educated: Patient Educated regarding: diagnosis, treatment, need for follow up Signature Scribe Signature: NO SCRIBE Attestation: NO SCRIBE MAYO PATEL MD Dec 06, 2024 00:44
[2024-12-06] MEDS: fentaNYL/PF 50MCG/1 ML 2ML syringe IM ONE (00:48)
[2024-12-06 01:08] VITALS: BP 168/98; PULSE 71; RESP 15; TEMP 97.5; O2SAT 95
== END 2024-12-06 01:10 | disposition home or self-care (01) ==
LOC: ER 23:34
DX: G89.29 Other chronic pain (principal); R60.0 Localized edema; N61.0 Mastitis without abscess; E78.00 Pure hypercholesterolemia, unspecified; F12.90 Cannabis use, unspecified, uncomplicated; F32.A Depression, unspecified; I13.2 Hypertensive heart and chronic kidney disease with heart failure and with stage 5 chronic kidney disease, or end stage renal disease; I50.9 Heart failure, unspecified; N18.6 End stage renal disease; M06.9 Rheumatoid arthritis, unspecified; M79.7 Fibromyalgia; M81.0 Age-related osteoporosis without current pathological fracture; Z86.711 Personal history of pulmonary embolism; Z86.718 Personal history of other venous thrombosis and embolism; Z88.1 Allergy status to other antibiotic agents; Z88.8 Allergy status to other drugs, medicaments and biological substances; Z95.1 Presence of aortocoronary bypass graft; Z95.2 Presence of prosthetic heart valve; Z99.2 Dependence on renal dialysis
CPT/HCPCS: 96372; 99284; J3010

== ENCOUNTER 2025-01-09 06:19 | Emergency (ER) | payer MEDICARE, MEDICAID ==
[~2025-01-09] VITALS: Ht 157.5 cm; Wt 51.0 kg
[~2025-01-09 06:19] MED LIST changes: +ASPI-1397 PO; +LOPE2CAP PO; -OMEP40CA21 PO
[2025-01-09 06:33] VITALS: TEMP 99
[2025-01-09] MEDS: ampicillin/sulbac 3gm/NS 100ml 100 ML IV ONE (07:15)
--- NOTE | 2025-01-09 07:15 | Physician Documentation ---
History of Present Illness ~ General Chief Complaint: Multiple Medical Complaints Stated Complaint: CHRONIC PAIN Time Seen by MD: 06:26 Primary Medical Doctor: Qi Mcdonnell History of Present Illness Initial Comments 44 yof h/o opioid dependence, ESRD MWF p/w bilateral ext rash. Ongoing the last week. Was placed on doxycycline but no improvement. Medication Reconciliation Allergies: Coded Allergies: cefaclor (Verified Allergy, Severe, hives/severe swelling, 12/29/24) cefpodoxime (Verified Allergy, Severe, hives/severe swelling, 12/29/24) Scheduled Aspirin (Aspirin EC), 1 TAB PO DAILY, (Reported) Clonidine HCl (Clonidine HCl), 1 TAB PO BID, (Reported) Diclofenac Sodium (Diclofenac Sodium), 1 APPLIC TOP DAILY, (Reported) Dicloxacillin Sodium* (Dynapen*), 1 CAP PO Q6H Furosemide (Furosemide), 2 TAB PO DAILY, (Reported) Gabapentin (Neurontin), 1 CAP PO DAILY, (Reported) Hydroxychloroquine Sulfate (Plaquenil), 200 MG PO DAILY, (Reported) Lacosamide (Lacosamide), 1 TAB PO BID, (Reported) Levetiracetam (Levetiracetam), 1 TAB PO BID, (Reported) Levothyroxine Sodium (Levothyroxine Sodium), 1 TAB PO DAILY, (Reported) Nifedipine ER* (Nifedipine Er*), 1 TAB PO BID, (Reported) Prednisone* (Prednisone*), 1 TAB PO DAILY, (Reported) Sertraline HCl (Sertraline HCl), 2 TAB PO DAILY, (Reported) [Fentanyl Patch], 50 MCG Q48H, (Reported) Scheduled PRN Ipratropium/Albuterol Sulfate (Duoneb 2.5-0.5 Mg/3 Ml Soln), 3 ML IH Q6H PRN for SOB or wheezing, (Reported) ONDANSETRON ODT 4mg tablet (Ondansetron Odt), 1 TAB PO Q6H PRN for nausea/vomiting, (Reported) Polyethylene Glycol 3350* (Miralax*), 1 PKT PO DAILY PRN for constipation, (Reported) Miscellaneous Medications Loperamide Hcl (Loperamide), 2 TAB PO, (Reported) Oxycodone Hcl/Acetaminophen (Oxycodone-Acetaminophen 10-325), (Reported) Sodium Zirconium Cyclosilicate (Lokelma), (Reported) Past Medical History Past Medical History: Seizures, Congestive Heart Failure, High Cholesterol, Heart Valve Disease, Hypertension, Pneumonia, Pulmonary Embolism, Chronic Kidney Disease, *MUSCULOSKELETAL*, Arthritis, Chronic Pain, Deep Vein Thrombosis, Fibromyalgia, Osteoporosis, Rheumatoid Arthritis, MRSA Abscess, Depression Past Surgical History: coronary bypass surgery, , heart valve surgery, other Patient History: Cardiomegaly MOTHER FHx: depression MOTHER FHx: diabetes mellitus MOTHER FHx: sleep apnea MOTHER Legionnaire's disease MOTHER Other Past Family History: NONCONTRIBUTORY Alcohol Use: None Drug Use: marijuana Lives with: Family Lives In: Home Occupation: unemployed Physical Exam Physical Exam Vital Signs: Temperature: 99.0, Source: Temporal, Heart Rate: 68, Respiratory Rate: 16, BP: 135/93, Pulse Oximetry: 91, Weight: 51.000 Oxygen Flow Rate: 0 Progress Results/Orders Reviewed/noted all lab results: Yes (labs unremarkable) Results/Orders Orders - PARIS MARTINEZ MD Culture Blood (01/09/25 07:05) Completed Orders - PARIS MARTINEZ MD Cbc/Diff (01/09/25 06:55) BMP (01/09/25 06:55) ESR (01/09/25 06:55) C-Reactive Protein (01/09/25 06:55) Morphine 4mg/Ml Inj. (Morphine Inj.) (01/09/25 06:55) Ampicillin/Sulbac 3gm/Ns 100ml (Unasyn 3 (01/09/25 06:55) Oxycodone Immed Release Tablet (Oxy Ir T (01/09/25 08:15) Medications Received in ER Medications (Trade) Dose Ordered Sig/Michael Route PRN Reason Start Time Stop Time Status Last Admin Dose Admin (morphine inj.) 4 mg ONCE ONCE IV 01/09/25 06:55 01/09/25 07:06 DC 01/09/25 07:20 4 MG Ampicillin Sodium/ Sulbactam Sodium 100 ml @ 200 mls/hr ONCE ONCE IV 01/09/25 06:55 01/09/25 07:24 DC 01/09/25 07:15 200 MLS/HR Vital Signs 01/09/25 06:33 Temp 99.0 Pulse 68 Resp 16 B/P (MAP) 135/93 Pulse Ox 91 O2 Flow Rate 0 Laboratory Tests Test 01/09/25 07:08 01/09/25 07:18 Sodium Level 136 Potassium Level 4.0 Chloride Level 98 L Carbon Dioxide Level 29.3 Anion Gap 9 Blood Urea Nitrogen 25 H Creatinine 5.14 H Estimated GFR/1.73 m2 9 BUN/Creatinine Ratio 4.9 L Glucose Level 147 H Calcium Level 8.1 L C-Reactive Protein 5.84 H Albumin 2.7 L Chemistry Comments White Blood Count 8.0 Red Blood Count 3.27 L Hemoglobin 9.3 L Hematocrit 29.5 L Mean Corpuscular Volume 90.2 Mean Corpuscular Hemoglobin 28.3 Mean Corpuscular Hemoglobin Concent 31.4 L Red Cell Distribution Width 21.2 H Platelet Count 157 Mean Platelet Volume 8.4 Neutrophils (%) (Auto) 68.1 Lymphocytes (%) (Auto) 12.6 L Monocytes (%) (Auto) 10.6 Eosinophils (%) (Auto) 7.4 H Basophils (%) (Auto) 1.3 H Neutrophils # (Auto) 5.5 Lymphocytes # (Auto) 1.0 L Monocytes # (Auto) 0.8 Eosinophils # (Auto) 0.6 Basophils # (Auto) 0.1 CBC Comment Platelet Estimate Normal Red Blood Cell Morphology Perf Polychromasia Few Hypochromasia 1+ Poikilocytosis Few Basophilic Stippling Anisocytosis 3+ Target Cells Few Erythrocyte Sedimentation Rate 13 Medical Decision Making Additional info obtained from: old records Findings d/c summary 01/14 Departure Disposition: HOME / SELF CARE / HOMELESS Impression: Primary Impression: Cellulitis Qualified Codes: L03.119 - Cellulitis of unspecified part of limb Additional Impression Text Patient has cellulitis, no fever reassuring labs, will need more than doxy. Adding dicloxacillin Additional Instructions: If the redness spreads any further or you develop fever please return to ED. Referrals: NO PRIMARY CARE PROVIDER (PCP) Prescriptions Dicloxacillin Sodium* (Dynapen*) 500 Mg Capsule 1 CAP PO Q6H for 7 Days, #28 CAP Prov: PARIS MARTINEZ MD 01/09/25 Signature Scribe Signature: carmeilna Attestation: PARIS Huagn MD Jan 09, 2025 07:15
[2025-01-09] MEDS: morphine 4 MG/ML inj SYRINge IV ONE (07:20)
[2025-01-09 07:32] LABS: MEAN PLATELET VOLUME 8.4 FL (7.4-10.4); RED CELL DISTRIBUTION WIDTH 21.2 % (11.5-14.5)
[2025-01-09 07:40] LABS: CREATININE 5.14 MG/DL (0.40-0.90); TOTAL CARBON DIOXIDE 29.3 MMOL/L (24-32); eCRCL 11 ML/MIN; eGFR 9 ML/MIN
[2025-01-09 07:58] LABS: PLATELET ESTIMATE NORMAL
[2025-01-09] MEDS: oxyCODONE IR 5mg (immed. release) tablet PO ONE (08:30)
[2025-01-09] MEDS ORDERED: DYN500C PO (08:30)
[2025-01-09 09:18] VITALS: BP 138/91; PULSE 71; RESP 16; O2SAT 98
== END 2025-01-09 09:20 | disposition home or self-care (01) ==
LOC: ER 06:19
DX: L03.116 Cellulitis of left lower limb (principal); L03.115 Cellulitis of right lower limb; I13.2 Hypertensive heart and chronic kidney disease with heart failure and with stage 5 chronic kidney disease, or end stage renal disease; I50.9 Heart failure, unspecified; N18.6 End stage renal disease; E78.00 Pure hypercholesterolemia, unspecified; F11.20 Opioid dependence, uncomplicated; M06.9 Rheumatoid arthritis, unspecified; M79.7 Fibromyalgia; Z86.711 Personal history of pulmonary embolism; Z86.718 Personal history of other venous thrombosis and embolism; Z88.0 Allergy status to penicillin; Z88.1 Allergy status to other antibiotic agents; Z88.5 Allergy status to narcotic agent; Z88.6 Allergy status to analgesic agent; Z88.8 Allergy status to other drugs, medicaments and biological substances
CPT/HCPCS: 36415; 80048; 85008; 85025; 85651; 86140; 87040; 96365; 96375; 99284; J0295; J2270

== ENCOUNTER 2025-01-10 15:42 | Emergency (ER) | payer MEDICARE, MEDICAID ==
[~2025-01-10] VITALS: Ht 157.5 cm; Wt 45.5 kg
[~2025-01-10 15:42] MED LIST changes: +DYN500C PO
[2025-01-10 15:45] VITALS: BP 166/108; PULSE 61; RESP 18; O2SAT 98
--- NOTE | 2025-01-10 17:24 | Physician Documentation ---
History of Present Illness ~ Chief Complaint: Leg Pain Stated Complaint: LEG AND FEET PAIN Time Seen by MD: 15:53 Primary Medical Doctor: Qi Mcdonnell HPI Patient is seen today with complaints of bilateral lower extremity pain chronic in nature. Patient states he ran out early again of her chronic pain prescription. Patient states she is prescribed fentanyl patches and Percocet 10/325 every 6 hours. Patient has no new or other concern or complaint at this time. Patient denies any significant opiate withdrawal symptoms currently. Tetanus witin 5 years: Yes Medication Reconciliation Allergies: Coded Allergies: cefaclor (Verified Allergy, Severe, hives/severe swelling, 01/10/25) cefpodoxime (Verified Allergy, Severe, hives/severe swelling, 01/10/25) Scheduled Aspirin (Aspirin EC), 1 TAB PO DAILY, (Reported) Clonidine HCl (Clonidine HCl), 1 TAB PO BID, (Reported) Diclofenac Sodium (Diclofenac Sodium), 1 APPLIC TOP DAILY, (Reported) Dicloxacillin Sodium* (Dynapen*), 1 CAP PO Q6H Furosemide (Furosemide), 2 TAB PO DAILY, (Reported) Gabapentin (Neurontin), 1 CAP PO DAILY, (Reported) Hydroxychloroquine Sulfate (Plaquenil), 200 MG PO DAILY, (Reported) Lacosamide (Lacosamide), 1 TAB PO BID, (Reported) Levetiracetam (Levetiracetam), 1 TAB PO BID, (Reported) Levothyroxine Sodium (Levothyroxine Sodium), 1 TAB PO DAILY, (Reported) Nifedipine ER* (Nifedipine Er*), 1 TAB PO BID, (Reported) Prednisone* (Prednisone*), 1 TAB PO DAILY, (Reported) Sertraline HCl (Sertraline HCl), 2 TAB PO DAILY, (Reported) [Fentanyl Patch], 50 MCG Q48H, (Reported) Scheduled PRN Ipratropium/Albuterol Sulfate (Duoneb 2.5-0.5 Mg/3 Ml Soln), 3 ML IH Q6H PRN for SOB or wheezing, (Reported) ONDANSETRON ODT 4mg tablet (Ondansetron Odt), 1 TAB PO Q6H PRN for nausea/vomiting, (Reported) Polyethylene Glycol 3350* (Miralax*), 1 PKT PO DAILY PRN for constipation, (Reported) Miscellaneous Medications Loperamide Hcl (Loperamide), 2 TAB PO, (Reported) Oxycodone Hcl/Acetaminophen (Oxycodone-Acetaminophen 10-325), (Reported) Sodium Zirconium Cyclosilicate (Lokelma), (Reported) Past Medical History Past Medical History: Seizures, Congestive Heart Failure, High Cholesterol, Heart Valve Disease, Hypertension, Pneumonia, Pulmonary Embolism, Chronic Kidney Disease, *MUSCULOSKELETAL*, Arthritis, Chronic Pain, Deep Vein Thrombosis, Fibromyalgia, Osteoporosis, Rheumatoid Arthritis, MRSA Abscess, Depression Past Surgical History: coronary bypass surgery, , heart valve surgery, other Patient History: Cardiomegaly MOTHER FHx: depression MOTHER FHx: diabetes mellitus MOTHER FHx: sleep apnea MOTHER Legionnaire's disease MOTHER Other Past Family History: NONCONTRIBUTORY Smoking Status: Current some day smoker Alcohol Use: None Drug Use: marijuana Lives with: Family Lives In: Home Occupation: unemployed Review of Systems Constitutional: Denies: chills, fever, weakness Eyes: Denies: pain, blurred vision ENT: Denies: ear pain, nose pain, throat pain, mouth pain Respiratory: Denies: cough, shortness of breath Cardiovascular: Denies: chest pain, palpitations Gastrointestinal: Denies: abdominal pain, nausea, vomiting Genitourinary: Denies: burning, dysuria Female Genitalia: Denies: vaginal discharge, pelvic pain Neurological: Denies: headache, dizziness Musculoskeletal: Denies: pain, swelling Integumentary: Denies: rash, lesions Allergic/Immunologic: Denies: hives, itching Hematologic/Lymphatic: Denies: no symptoms reported Psychiatric: Denies: depression, anxiety Physical Exam Vital Signs: Temperature: 97.5, Source: Temporal, Heart Rate: 61, Respiratory Rate: 18, BP: 166/108, Pulse Oximetry: 98, Weight: 45.450 Oxygen Flow Rate: 0 Physical Exam General: Awake and Alert, no acute distress. HEENT: Conjunctiva pink, Sclera clear, Mucus Membranes moist. Neck: Supple without masses and tenderness. Resp: Unlabored. Lungs clear to auscultation bilaterally. Heart: Regular Rate and rhythm, normal S1 and S2 without murmur, rub or gallop. Extremities: No cyanosis,clubbing patient on exam does have 2+ pitting edema of the bilateral lower extremities. I do not appreciate any warmth or erythema or sign of cellulitis. Skin: Warm and Dry. Progress Results/Orders Results/Orders Vital Signs 01/10/25 15:45 Temp 97.5 Pulse 61 Resp 18 B/P (MAP) 166/108 Pulse Ox 98 O2 Flow Rate 0 Medical Decision Making Findings Patient is seen today with complaints of bilateral lower extremity pain chronic in nature. Patient states he ran out early again of her chronic pain prescription. Patient states she is prescribed fentanyl patches and Percocet 10/325 every 6 hours. Patient has no new or other concern or complaint at this time. Patient denies any significant opiate withdrawal symptoms currently. Patient and I had a long conversation about chronic pain management and opiate use and opioid use disorder and I explained to patient that she needs to follow up with her primary care provider and discuss possibly switching to Suboxone or buprenorphine for pain management since patient states she has been running out early of her opiate pain medications for years now. Patient will return to ED with any worsening, concerning or changing symptoms. Patient declined any comfort meds for opiate withdrawal. Departure Disposition: HOME / SELF CARE / HOMELESS Impression: Primary Impression: Chronic pain disorder Condition: Stable Additional Instructions: Patient and I had a long conversation about chronic pain management and opiate use and opioid use disorder and I explained to patient that she needs to follow up with her primary care provider and discuss possibly switching to Suboxone or buprenorphine for pain management since patient states she has been running out early of her opiate pain medications for years now. Patient will return to ED with any worsening, concerning or changing symptoms. Patient declined any comfort meds for opiate withdrawal. Referrals: NO PRIMARY CARE PROVIDER (PCP) Signature Scribe Signature: No scribe Attestation: No scribe CYRIL FREEDMAN PAC Jan 10, 2025 17:24
[2025-01-10 17:40] VITALS: TEMP 97.5
== END 2025-01-10 17:41 | disposition home or self-care (01) ==
LOC: ER 15:43
DX: G89.29 Other chronic pain (principal); M79.661 Pain in right lower leg; M79.662 Pain in left lower leg; I13.0 Hypertensive heart and chronic kidney disease with heart failure and stage 1 through stage 4 chronic kidney disease, or unspecified chronic kidney disease; I50.9 Heart failure, unspecified; N18.9 Chronic kidney disease, unspecified; M19.90 Unspecified osteoarthritis, unspecified site; M79.7 Fibromyalgia; F17.200 Nicotine dependence, unspecified, uncomplicated; F12.90 Cannabis use, unspecified, uncomplicated; E78.00 Pure hypercholesterolemia, unspecified; F32.A Depression, unspecified; Z86.711 Personal history of pulmonary embolism; Z86.718 Personal history of other venous thrombosis and embolism; Z88.1 Allergy status to other antibiotic agents; Z95.1 Presence of aortocoronary bypass graft; Z79.82 Long term (current) use of aspirin; Z79.899 Other long term (current) drug therapy; Z56.0 Unemployment, unspecified
CPT/HCPCS: 99282

== ENCOUNTER 2025-01-13 18:15 | Emergency (ER) | payer MEDICARE, MEDICAID ==
[~2025-01-13] VITALS: Ht 157.5 cm; Wt 45.0 kg
--- NOTE | 2025-01-13 18:38 | Physician Documentation ---
History of Present Illness ~ General Chief Complaint: Pain Stated Complaint: PAIN Time Seen by MD: 18:32 OK to notify your PCP?: Yes Primary Medical Doctor: Qi Mcdonnell Source: patient, RN/, RN notes reviewed, old records Mode of Arrival: EMS Exam Limitations: no limitations History of Present Illness Initial Comments 44 year old female with history of long who receives hemodyalisis every Friday, Friday, and Friday seen in bed 02 of the emergency department presents due to pain that has present for the past week. She states that one week ago she had a new port put in at [facility] and since then she has been having pain in her heart as well as her abdomen complaining of distension. Patient describes this pain as a burning feeling. She also complains of a fever as well as a warm sensation in her new port. Additionally she complains of diarrhea and describes it as clear and gummy. 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 She has been on fentanyl and various other narcotics for years and according to Dr Zuñiga she has been incorrectly managing her use of them taking more than recommended. Of note she states that she has been having cellulits to her left leg for a week and has been taking doxycycline for it. Medication Reconciliation Allergies: Coded Allergies: cefaclor (Verified Allergy, Severe, hives/severe swelling, 01/13/25) cefpodoxime (Verified Allergy, Severe, hives/severe swelling, 01/13/25) Scheduled Aspirin (Aspirin EC), 1 TAB PO DAILY, (Reported) Clonidine HCl (Clonidine HCl), 1 TAB PO BID, (Reported) Diclofenac Sodium (Diclofenac Sodium), 1 APPLIC TOP DAILY, (Reported) Dicloxacillin Sodium* (Dynapen*), 1 CAP PO Q6H Furosemide (Furosemide), 2 TAB PO DAILY, (Reported) Gabapentin (Neurontin), 1 CAP PO DAILY, (Reported) Hydroxychloroquine Sulfate (Plaquenil), 200 MG PO DAILY, (Reported) Lacosamide (Lacosamide), 1 TAB PO BID, (Reported) Levetiracetam (Levetiracetam), 1 TAB PO BID, (Reported) Levothyroxine Sodium (Levothyroxine Sodium), 1 TAB PO DAILY, (Reported) Nifedipine ER* (Nifedipine Er*), 1 TAB PO BID, (Reported) Prednisone* (Prednisone*), 1 TAB PO DAILY, (Reported) Sertraline HCl (Sertraline HCl), 2 TAB PO DAILY, (Reported) [Fentanyl Patch], 50 MCG Q48H, (Reported) Scheduled PRN Ipratropium/Albuterol Sulfate (Duoneb 2.5-0.5 Mg/3 Ml Soln), 3 ML IH Q6H PRN for SOB or wheezing, (Reported) ONDANSETRON ODT 4mg tablet (Ondansetron Odt), 1 TAB PO Q6H PRN for nausea/vomiting, (Reported) Polyethylene Glycol 3350* (Miralax*), 1 PKT PO DAILY PRN for constipation, (Reported) Miscellaneous Medications Loperamide Hcl (Loperamide), 2 TAB PO, (Reported) Oxycodone Hcl/Acetaminophen (Oxycodone-Acetaminophen 10-325), (Reported) Sodium Zirconium Cyclosilicate (Lokelma), (Reported) Past Medical History Past Medical History: Seizures, Congestive Heart Failure, High Cholesterol, Heart Valve Disease, Hypertension, Pneumonia, Pulmonary Embolism, Chronic Kidney Disease, *MUSCULOSKELETAL*, Arthritis, Chronic Pain, Deep Vein Thrombosis, Fibromyalgia, Osteoporosis, Rheumatoid Arthritis, MRSA Abscess, Depression Past Surgical History: coronary bypass surgery, , heart valve surgery, other Patient History: Cardiomegaly MOTHER FHx: depression MOTHER FHx: diabetes mellitus MOTHER FHx: sleep apnea MOTHER Legionnaire's disease MOTHER Other Past Family History: NONCONTRIBUTORY Alcohol Use: None Drug Use: marijuana Lives with: Family Lives In: Home Occupation: unemployed Review of Systems All Other Systems at this time: Reviewed and Negative ROS As stated above in the HPI, otherwise all systems are reviewed and negative. Physical Exam Physical Exam Vital Signs: RN Vital Signs have been reviewed: Yes, Temperature: 97.7, Source: Temporal, Heart Rate: 69, Respiratory Rate: 20, BP: 167/107, Pulse Oximetry: 97, Weight: 45.000 Oxygen Flow Rate: 0 Pulse Oximetry Reflects: adequate oxygenation Physical Exam General: Hemodyalisis port in place. Thin, frail and dry skin. The patient is nontoxic appearing and is in no acute distress. Skin: [place], warm and dry with no rashes. HEENT: Head was normocephalic and atraumatic. Eyes - pupils equal, round, reactive to light and accommodation. Extraocular movements were intact. Conjunctivae were nonicteric. Ears - bilateral tympanic membranes were normal. The mouth and oropharynx were clear with moist mucous membranes. There were no pharyngeal exudates or erythema. Neck: Supple and nontender. There was no jugular venous distention, lymph adenopathy, thyromegaly or masses. Chest: Clear to auscultation bilaterally without wheezes, rales or rhonchi. No accessory muscle use. No dullness to percussion. Heart: 4/6 systolic ejection murmur. Rate regular and rhythmic. S1, S2. Palpation of the chest wall was normal. No rubs or thrills. Abdomen: Soft, nontender and nondistended. Positive bowel sounds. No guarding or rebound. No hepatosplenomegaly or palpable masses. Extremities: Patient has no cellulitis to left leg. No cyanosis, clubbing or edema. The patient moves all extremities. Pulses were equal and symmetric. Neurologic: Cranial nerves II-XII were intact. Sensation was intact to light touch throughout. Motor strength was 5/5 in all four extremities. Deep tendon reflexes were intact in both upper and lower extremities. Psychologic: The patient was oriented to person, place and time. The patient demonstrated appropriate judgement and insight. Progress Progress Note 1912: Dr. Zuñiga was contacted at this time regarding the patient and was informed she was in the ED for pain management. 2321" Ascites has been unchanged from 12/30/2024 Results/Orders Reviewed/noted all lab results: Yes Results/Orders Orders - DAVIE SAAB MD Culture Blood (01/13/25 19:07) Electrocardiogram (01/13/25 19:07) Drug Screen, Urine (01/13/25 19:07) Ct Abdomen Pelvis (01/13/25 19:11) Completed Orders - DAVIE SAAB MD Cbc/Diff (01/13/25 19:07) MG (01/13/25 19:07) Electrocardiogram (01/13/25 19:07) BMP (01/13/25 19:07) Liver Panel (01/13/25 19:07) Lacticsepsis (01/13/25 19:07) Procalcitonin (01/13/25 19:11) Ct Abdomen Pelvis (01/13/25 19:11) Hcg Serum Ql (01/13/25 21:20) Vital Signs 01/13/25 01/13/25 01/13/25 01/13/25 18:21 18:46 18:55 20:10 Temp 97.7 97.7 97.7 Pulse 69 65 Resp 20 18 18 16 B/P (MAP) 167/107 168/102 (124) 147/97 (114) Pulse Ox 97 100 98 O2 Flow Rate 0 0 0 01/13/25 01/13/25 01/13/25 01/14/25 21:00 22:00 23:00 00:00 Pulse 62 65 66 66 Resp 16 16 16 16 B/P (MAP) 160/101 (120) 150/97 (114) 157/99 (118) 166/101 (122) Pulse Ox 98 99 99 99 01/14/25 00:27 Pulse 66 Resp 16 B/P (MAP) 166/101 Pulse Ox 98 Laboratory Tests Test 01/13/25 19:27 01/13/25 21:33 White Blood Count 7.5 Red Blood Count 3.56 L Hemoglobin 10.0 L Hematocrit 31.9 L Mean Corpuscular Volume 89.6 Mean Corpuscular Hemoglobin 28.1 Mean Corpuscular Hemoglobin Concent 31.4 L Red Cell Distribution Width 20.7 H Platelet Count 192 Mean Platelet Volume 8.5 Neutrophils (%) (Auto) 67.9 Lymphocytes (%) (Auto) 15.4 L Monocytes (%) (Auto) 9.6 Eosinophils (%) (Auto) 6.2 H Basophils (%) (Auto) 0.9 Neutrophils # (Auto) 5.1 Lymphocytes # (Auto) 1.2 Monocytes # (Auto) 0.7 Eosinophils # (Auto) 0.5 Basophils # (Auto) 0.1 CBC Comment Sodium Level 135 Potassium Level 4.3 Chloride Level 100 Carbon Dioxide Level 26.3 Anion Gap 9 Blood Urea Nitrogen 36 H Creatinine 5.38 H Estimated GFR/1.73 m2 9 BUN/Creatinine Ratio 6.7 L Glucose Level 96 Lactic Acid Level 1.1 Calcium Level 8.2 L Magnesium Level 2.1 Total Bilirubin 0.5 Direct Bilirubin 0.2 Aspartate Amino Transf (AST/SGOT) 16 Alanine Aminotransferase (ALT/SGPT) 9 L Alkaline Phosphatase 184 H Total Protein 6.7 Albumin 2.7 L Globulin 4.0 Albumin/Globulin Ratio 0.7 L Procalcitonin 0.47 Chemistry Comments Human Chorionic Gonadotropin, Qual Negative Microbiology Date/Time Source Procedure Growth Status 01/13/25 19:50 Blood Hand Right Blood Culture - Preliminary NEGATIVE (LESS THAN 24 HOURS) Resulted Re-Evaluation Re-Evaluation : Re-Evaluation: Improved Progress Patient was seen and examined. Patient is given reassurance. The patient had multiple complaints which were not present. Such as cellulitis, infections, her etiology for her diseases such as why she is in kidney failure also her poor compliance was being admitted. Patient has been bouncing from hospital hospital requesting pain medications. Nevertheless and workup was started CT scan showed ascites unchanged from prior. Laboratory work was negative for any signs of infection. Patient had her chronic anemia with a hemoglobin of 10 hematocrit 31. Chemistries BUN 36 creatinine 5.38 but otherwise electrolytes potassium 4.3 within normal limits lactic acid 1.1 procalcitonin 0.47 which goes against the patient's active cellulitis which isn't the case plus she is not on any antibiotics. I contacted Nephrology who informed me that she has been bouncing from hospital hospital with chronic complaints. Patient does not have line sepsis her was some concern for mastoiditis but her breasts did not show any signs of infection. Ultimately patient's workup was at her baseline. She was demanding extra pain medications once again. I informed her that she has been using too much fentanyl and that she needs to talk to her pain management physician for any new medications or refills since she is abusing narcotics at this time. Patient was then ultimately discharged home she did not have any admittable reasons or any acute disease process. She does not need hemodialysis she can have that on the outpatient basis. Continuous monitoring and evaluation advisor interpretation shows normal sinus rhythm heart rate 70s, no ectopy, normal, my interpretation. Pulse oximetry monitor interpretation shows normal oxygenation at 98% room air, normal, my interpretation. 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 Davie Saab Measurements Intervals [place] Rate: 63 P: -74 VA: 206 QRS: 103 QRSD: 109 T: 49 QT: 482 QTc: 494 Interpretive Statements Sinus or ectopic atrial rhythm Borderline prolonged [place] interval Right axis deviation Low voltage, extremity leads Nonspecific T abnormalities, anterior leads Borderline prolonged QT interval Electronically Signed On 01-13-2025 21:06:[address] Davie Saab Please click the below link to view image of tracing. EKG Date and Time:01/13/251919 Electronically Signed by: DAVIE SAAB MD Date and Time: 01/13/252105 CT : Impression COMPUTERIZED TOMOGRAPHY ABDOMEN AND PELVIS WITHOUT CONTRAST REASON FOR EXAM: ABD PAIN COMPARISON: CT CT ABDOMEN PELVIS on DOS: 12/30/24 TECHNIQUE: Spiral scans were acquired from the diaphragm to the symphysis pubis without intravenous contrast administration. 2-D coronal and sagittal reformatted images were provided. Radiation optimization: All CT scans at this facility use at least one of these dose optimization techniques: Automated exposure control mA and/or kV adjustment per patient size (includes targeted exams where dose is matched to clinical indication) or iterative reconstruction. RADIATION DOSE: CTDI: 12 mGy DLP: 579 mGy-cm FINDINGS: There is mild linear atelectasis versus scarring at both lung bases. The heart is enlarged. There is no significant pleural effusion. The spleen is not enlarged. The liver is within normal limits for size. Evaluation of the abdominal organs is suboptimal in the absence of intravenous contrast. No calcified gallstone is identified. The pancreas is atrophic and contains numerous calcifications consistent with chronic pancreatitis. The adrenal glands are normal. The kidneys are atrophic. There is no hydronephrosis of either kidney. No renal, ureteral, or bladder calculus is identified. The urinary bladder is decompressed and is not well evaluated. The uterus and ovaries are within normal limits. There is circumferential thickening of the rectal wall. The colonic stool burden is small. The appendix is normal. There is no pathologic distention of the small bowel to suggest bowel obstruction. There is moderate ascites. There is no abdominal aortic aneurysm. No pathologic lymphadenopathy is identified within the limitations of this noncontrast study. There is diffuse anasarca. There is severe age-indeterminate compression deformity of the body of L2 with 4 mm bony retropulsion, unchanged from the pr ior study. There is no significant spinal canal narrowing. IMPRESSION: Moderate ascites. Diffuse anasarca. Rectal mural thickening versus nondistention. Evaluation is suboptimal in the absence of intravenous contrast. Correlate clinically for possible proctitis. Severe compression deformity of the body of L2 with 4 mm bony retropulsion. This is unchanged from the prior study. Electronically Signed by:STONEY ARAGON MD Date & Time: 01/13/25 2172 Medical Decision Making Additional info obtained from: old records Departure Time of Disposition: : Disposition: 01 HOME / SELF CARE / HOMELESS Impression: Primary Impression: Chronic pain Qualified Codes: G89.4 - Chronic pain syndrome Additional Impressions: Chronic renal insufficiency Qualified Codes: N18.5 - Chronic kidney disease, stage 5 Ascites Qualified Codes: R18.8 - Other ascites Condition: Stable Discharge Instructions: Chronic Pain Management Additional Instructions: Follow up with your specialists for chronic pain and hemodialysis. Referrals: NO PRIMARY CARE PROVIDER (PCP) Education Educated: Patient, Family Educated regarding: diagnosis, treatment, prognosis, need for follow up Signature Scribe Signature: Scribed for Davie Saab MD by Herb Milan . 01/13/25 19:15 Attestation: The note accurately reflects work and decisions made by me.Davie Saab MD 01/14/25 06:15 DAVIE SAAB MD Jan 13, 2025 18:38 HERB PRYOR Jan 13, 2025 19:15
--- NOTE | 2025-01-13 19:23 | ELECTROCARDIOGRAPH REPORT ---
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 Giacomo Monroy Measurements Intervals [place] Rate: 63 P: -74 FL: 206 QRS: 103 QRSD: 109 T: 49 QT: 482 QTc: 494 Interpretive Statements Sinus or ectopic atrial rhythm Borderline prolonged [place] interval Right axis deviation Low voltage, extremity leads Nonspecific T abnormalities, anterior leads Borderline prolonged QT interval Electronically Signed On 01-13-2025 21:06:[address] Giacomo Monroy Please click the below link to view image of tracing.
[2025-01-13 19:39] LABS: MEAN PLATELET VOLUME 8.5 FL (7.4-10.4); RED CELL DISTRIBUTION WIDTH 20.7 % (11.5-14.5)
[2025-01-13 19:57] LABS: CREATININE 5.38 MG/DL (0.40-0.90); TOTAL CARBON DIOXIDE 26.3 MMOL/L (24-32); eCRCL 9 ML/MIN; eGFR 9 ML/MIN
[2025-01-13 20:10] VITALS: TEMP 97.7
[2025-01-13 21:54] LABS: HCG SERUM QL NEGATIVE
--- NOTE | 2025-01-13 23:05 | RADIOLOGY REPORT ---
COMPUTERIZED TOMOGRAPHY ABDOMEN AND PELVIS WITHOUT CONTRAST REASON FOR EXAM: ABD PAIN COMPARISON: CT CT ABDOMEN PELVIS on DOS: 12/30/24 TECHNIQUE: Spiral scans were acquired from the diaphragm to the symphysis pubis without intravenous c ontrast administration. 2-D coronal and sagittal reformatted images were provided. Radiation optimiza tion: All CT scans at this facility use at least one of these dose optimization techniques: Automated exposure control mA and/or kV adjustment per patient size (includes targeted exams where dose is mat ched to clinical indication) or iterative reconstruction. RADIATION DOSE: CTDI: 12 mGy DLP: 579 mGy-cm FINDINGS: There is mild linear atelectasis versus scarring at both lung bases. The heart is enlarged. There is no significant pleural effusion. The spleen is not enlarged. The liver is within normal limits for size. Evaluation of the abdominal o rgans is suboptimal in the absence of intravenous contrast. No calcified gallstone is identified. The pancreas is atrophic and contains numerous calcifications consistent with chronic pancreatitis. The adrenal glands are normal. The kidneys are atrophic. There is no hydronephrosis of either kidney. No renal, ureteral, or bladder calculus is identified. The urinary bladder is decompressed and is not well evaluated. The uterus and ovaries are within normal limits. There is circumferential thickening of the rectal wall. The colonic stool burden is small. The appendix is normal. There is no pathologic distention of the small bowel to suggest bowel obstruction. There is moderate ascites. There is no a bdominal aortic aneurysm. No pathologic lymphadenopathy is identified within the limitations of this noncontrast study. There is diffuse anasarca. There is severe age-indeterminate compression deformity of the body of L2 with 4 mm bony retropulsion, unchanged from the prior study. There is no significa nt spinal canal narrowing. IMPRESSION: Moderate ascites. Diffuse anasarca. Rectal mural thickening versus nondistention. Evaluation is suboptimal in the absence of intravenous contrast. Correlate clinically for possible proctitis. Severe compression deformity of the body of L2 with 4 mm bony retropulsion. This is unchanged from t he prior study.
[2025-01-14 00:27] VITALS: BP 166/101; PULSE 66; RESP 16; O2SAT 98
== END 2025-01-14 00:29 | disposition home or self-care (01) ==
LOC: ER 18:16
DX: R18.8 Other ascites (principal); G89.4 Chronic pain syndrome; I13.2 Hypertensive heart and chronic kidney disease with heart failure and with stage 5 chronic kidney disease, or end stage renal disease; I50.9 Heart failure, unspecified; N18.5 Chronic kidney disease, stage 5; E78.00 Pure hypercholesterolemia, unspecified; M06.9 Rheumatoid arthritis, unspecified; M79.7 Fibromyalgia; F12.90 Cannabis use, unspecified, uncomplicated; Z79.2 Long term (current) use of antibiotics; Z86.711 Personal history of pulmonary embolism; Z86.718 Personal history of other venous thrombosis and embolism; Z88.1 Allergy status to other antibiotic agents; Z88.8 Allergy status to other drugs, medicaments and biological substances
CPT/HCPCS: 36415; 74176; 80048; 80076; 83605; 83735; 84145; 84703; 85025; 87040; 93005; 99285

== ENCOUNTER 2025-01-17 02:22 | Emergency (ER) | payer MEDICARE, MEDICAID ==
[~2025-01-17] VITALS: Ht 157.5 cm; Wt 41.8 kg
--- NOTE | 2025-01-17 02:26 | Physician Documentation ---
History of Present Illness Stated Complaint: ALL OVER PAIN Time Seen by MD: 02:24 OK to notify your PCP?: Yes Primary Medical Doctor: Qi Mcdonnell Source: patient, RN/MD, EMS, RN notes reviewed, EMS notes reviewed, old records Mode of Arrival: EMS Exam Limitations: no limitations HPI BED 1 This patient is a 44 year old female with history of long who receives hemodyalisis every Friday, Friday, and Friday seen in the emergency department, presents due to pain that has present for the past week. She complains that this pain has been preventing her from sleep, however she is reports she recently took one of her prescribed oxygen and was able to sleep for a few hours tonight however was woken again due to the pain. Patient describes this pain as a burning feeling. 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 She has been on fentanyl and various other narcotics for years and according to Dr Zuñiga she has been incorrectly managing her use of them taking more than recommended. Patient denies any associated symptoms at this time. Patient denies any alleviating or exacerbating factors. Medication Reconciliation Allergies: Coded Allergies: cefaclor (Verified Allergy, Severe, hives/severe swelling, 01/13/25) cefpodoxime (Verified Allergy, Severe, hives/severe swelling, 01/13/25) Scheduled Aspirin (Aspirin EC), 1 TAB PO DAILY, (Reported) Clonidine HCl (Clonidine HCl), 1 TAB PO BID, (Reported) Diclofenac Sodium (Diclofenac Sodium), 1 APPLIC TOP DAILY, (Reported) Furosemide (Furosemide), 2 TAB PO DAILY, (Reported) Gabapentin (Neurontin), 1 CAP PO DAILY, (Reported) Hydroxychloroquine Sulfate (Plaquenil), 200 MG PO DAILY, (Reported) Lacosamide (Lacosamide), 1 TAB PO BID, (Reported) Levetiracetam (Levetiracetam), 1 TAB PO BID, (Reported) Levothyroxine Sodium (Levothyroxine Sodium), 1 TAB PO DAILY, (Reported) Nifedipine ER* (Nifedipine Er*), 1 TAB PO BID, (Reported) Prednisone* (Prednisone*), 1 TAB PO DAILY, (Reported) Sertraline HCl (Sertraline HCl), 2 TAB PO DAILY, (Reported) [Fentanyl Patch], 50 MCG Q48H, (Reported) Scheduled PRN Ipratropium/Albuterol Sulfate (Duoneb 2.5-0.5 Mg/3 Ml Soln), 3 ML IH Q6H PRN for SOB or wheezing, (Reported) ONDANSETRON ODT 4mg tablet (Ondansetron Odt), 1 TAB PO Q6H PRN for nausea/vomiting, (Reported) Polyethylene Glycol 3350* (Miralax*), 1 PKT PO DAILY PRN for constipation, (Reported) Miscellaneous Medications Loperamide Hcl (Loperamide), 2 TAB PO, (Reported) Oxycodone Hcl/Acetaminophen (Oxycodone-Acetaminophen 10-325), (Reported) Sodium Zirconium Cyclosilicate (Lokelma), (Reported) Discontinued Medications Dicloxacillin Sodium* (Dynapen*), 1 CAP PO Q6H Discontinued Reason: Auto Discontinued Past Medical History Past Medical History: Seizures, Congestive Heart Failure, High Cholesterol, Heart Valve Disease, Hypertension, Pneumonia, Pulmonary Embolism, Chronic Kidney Disease, *MUSCULOSKELETAL*, Arthritis, Chronic Pain, Deep Vein Thrombosis, Fibromyalgia, Osteoporosis, Rheumatoid Arthritis, MRSA Abscess, Depression Past Surgical History: coronary bypass surgery, , heart valve surgery, other Patient History: Cardiomegaly MOTHER FHx: depression MOTHER FHx: diabetes mellitus MOTHER FHx: sleep apnea MOTHER Legionnaire's disease MOTHER Other Past Family History: NONCONTRIBUTORY Smoking Status: Unknown if ever smoked Alcohol Use: None Drug Use: marijuana Lives with: Family Lives In: Home Occupation: unemployed Review of Systems All Other Systems at this time: Reviewed and Negative Physical Exam Vital Signs: RN Vital Signs have been reviewed: Yes Physical Exam General: Thin, frail and dry skin. The patient is nontoxic appearing and is in no acute distress. Skin: [place], warm and dry with no rashes. HEENT: Head was normocephalic and atraumatic. Eyes - pupils equal, round, reactive to light and accommodation. Extraocular movements were intact. Conjunctivae were nonicteric. Ears - bilateral tympanic membranes were normal. The mouth and oropharynx were clear with moist mucous membranes. There were no pharyngeal exudates or erythema. Neck: Supple and nontender. There was no jugular venous distention, lymphadenopathy, thyromegaly or masses. Chest: Clear to auscultation bilaterally without wheezes, rales or rhonchi. No accessory muscle use. No dullness to percussion. Heart: 4/6 systolic ejection murmur. Rate regular and rhythmic. S1, S2. Palpation of the chest wall was normal. No rubs or thrills. Abdomen: Soft, nontender and nondistended. Positive bowel sounds. No guarding or rebound. No hepatosplenomegaly or palpable masses. Extremities: Patient has no cellulitis to left leg. No cyanosis, clubbing or edema. The patient moves all extremities. Pulses were equal and symmetric. Neurologic: Cranial nerves II-XII were intact. Sensation was intact to light touch throughout. Motor strength was 5/5 in all four extremities. Deep tendon reflexes were intact in both upper and lower extremities. Psychologic: The patient was oriented to person, place and time. The patient demonstrated appropriate judgement and insight. Progress Progress Note RECORD REVIEW: Patient seen 4 days ago on the for similar chief complaint at which time Seen at [facility] and Dr. Zuñiga is well aware of patient as well as need for chronic pain management. Been on a Fentanyl patch for years and per Dr. Zuñiga she has been using them incorrectly. On her last visit, CT showed chornic ascites with no changes and infection was ruled out. Patient discharged in stable condition. Results/Orders Reviewed/noted all lab results: Yes Re-Evaluation Re-Evaluation : Re-Evaluation: Unchanged Progress Patient was seen and examined. Patient was given reassurance. Patient has chronic pain issues and visits the ER frequently. She is also well known to both hospitals and often is noncompliant with her hemodialysis. She has been abusing fentanyl patches and requesting additional refills. She has been told multiple times she needs to go to her chronic pain management doctor. Nevertheless she is a high-risk patient is laboratory work was obtained WBC shows a WBC of 7.4 hemoglobin hematocrit of nine and 29 without any left shift which is about the patient's baseline chemistry also shows no acute findings sodium 134 potassium 4.6 chloride 96 with a CO2 of 25 BUN 50 and creatinine 5.68 which is consistent with her laboratory work and appears stable. Patient just had a CAT scan of the other day for the same complaint and showed chronic fluids and cirrhosis. It has been unchanged from prior visits patient was not evaluated with a repeat CAT scan. X-ray was also reassuring. Weakness patient was not given any pain medications no medications was given she has hemodialysis scheduled for today she was told to be compliant and go to hemodialysis. Continuous case monitor interpretation shows normal sinus rhythm heart rate 70s, no ectopy, normal, my interpretation. Pulse oximetry monitor interpretation shows normal oxygenation at 95%, room air, normal, my interpretation. 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 Davie Saab Measurements Intervals [place] Rate: 69 P: -88 MI: 206 QRS: 111 QRSD: 106 T: 33 QT: 434 QTc: 465 Interpretive Statements Sinus or ectopic atrial rhythm Right axis deviation Low voltage, extremity leads Electronically Signed On 01-17-2025 3:54:[address] Davie Saab Please click the below link to view image of tracing. EKG Date and Time:01/17/25 0238 Electronically Signed by: DAVIE SAAB MD Date and Time: 01/17/25 0354 NO PRIMARY CARE PROVIDER~ cc: ~ Chest X-Ray : Interpreted By: both Views: 1 VIEW Additional Comments Patient: RULA ENGEL Medical Record: [id number] : 1980, Age: 44 Sex: Female Location: ER Patient Status: REG ER Service Date/Time: 01/17/25/ 0224 Ordering Physician: DAVIE SAAB MD Exam: CHEST,SINGLE VIEW CHEST RADIOGRAPH Indication: pain Technique: Single frontal view of the chest was obtained COMPARISON: DI CHEST,SINGLE VIEW on DOS: 12/25/24, DI CHEST,SINGLE VIEW on DOS: 12/19/24, DI CHEST,SINGLE VIEW on DOS: 11/16/24, DI CHEST,SINGLE VIEW on DOS: 10/08/24 FINDINGS: Lines and Tubes: Left PermCath terminates at the cavoatrial junction. Lungs: Mild diffuse increased prominence of the pulmonary interstitium without evidence of focal consolidation. Mild patchy infiltrate within the right lung base. Pleura: No effusion. No pneumothorax. Cardiomediastinal contours: Unremarkable status post median sternotomy. Bones: Unremarkable IMPRESSION: 1. Patchy right basilar infiltrate with otherwise diffuse increased prominence of the pulmonary interstitium. 2. Left PermCath. Electronically Signed by:STEVE ALICEA MD Date & Time: 01/17/25324 Dictated by: STEVE ALICEA MD Dictation date and time: 01/17/25324 Primary Care Provider: NO PRIMARY CARE PROVIDER cc: DAVIE SAAB MD ~ IMAGING REVIEWED BY EDMD DR. SAAB WHO AGREES WITH ABOVE FINDINGS. Medical Decision Making Additional info obtained from: old records Differential Dx:Considerations: Include: Appendicitis, Bowel obstruction, Cholangitis, Cholelithasis, Constipation, Esophagitis, Gastritis/PUD, Gastroenteritis, GI hemorrhage, Hernia, Hepatitis, Inflammatory BD, Ischemic bowel, Pancreatitis, PID, Urinary obstruction, Urinary tract infection, Other Departure Time of Disposition: 04:11 Disposition: 01 HOME / SELF CARE / HOMELESS Impression: Primary Impression: Chronic pain Qualified Codes: G89.29 - Other chronic pain Additional Impressions: Chronic renal insufficiency Qualified Codes: N18.9 - Chronic kidney disease, unspecified Encounter for medical screening examination Condition: Stable Discharge Instructions: Chronic Knee Pain, Adult, [id number] Additional Instructions: Please follow up with your pain management physician for further evaluation of your chronic pain. It is also important that you attend dialysis today to manage your renal failure. Your medical screening exam shows no aucte infection or disease process. Referrals: NO PRIMARY CARE PROVIDER (PCP) Education Educated: Patient Educated regarding: diagnosis, treatment, need for follow up Signature Scribe Signature: Scribed for Davie Saab MD by Desiree Mckeon 01/17/25 02:34 Attestation: The note accurately reflects work and decisions made by me.Davie Saab MD 01/17/25 02:26 The note accurately reflects work and decisions made by me.Davie Saab MD 01/17/25 02:26 DAVIE SAAB MD Jan 17, 2025 02:26
--- NOTE | 2025-01-17 02:40 | ELECTROCARDIOGRAPH REPORT ---
[facility] Test Date: 2025-01-17 Test Time: 02:38:38 Pat Name: RULA ENGEL Department: [facility]- Patient ID: 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 Reading MD: Dr. Giacomo Monroy Measurements Intervals [place] Rate: 69 P: -88 WI: 206 QRS: 111 QRSD: 106 T: 33 QT: 434 QTc: 465 Interpretive Statements Sinus or ectopic atrial rhythm Right axis deviation Low voltage, extremity leads Electronically Signed On 01-17-2025 3:54:[address] Giacomo Monroy Please click the below link to view image of tracing.
--- NOTE | 2025-01-17 03:28 | RADIOLOGY REPORT ---
CHEST RADIOGRAPH Indication: pain Technique: Single frontal view of the chest was obtained COMPARISON: DI CHEST,SINGLE VIEW on DOS: 12/25/24, DI CHEST,SINGLE VIEW on DOS: 12/19/24, DI CHEST,SINGL E VIEW on DOS: 11/16/24, DI CHEST,SINGLE VIEW on DOS: 10/08/24 FINDINGS: Lines and Tubes: Left PermCath terminates at the cavoatrial junction. Lungs: Mild diffuse increased prominence of the pulmonary interstitium without evidence of focal cons olidation. Mild patchy infiltrate within the right lung base. Pleura: No effusion. No pneumothorax. Cardiomediastinal contours: Unremarkable status post median sternotomy. Bones: Unremarkable IMPRESSION: 1. Patchy right basilar infiltrate with otherwise diffuse increased prominence of the pulmonary inter stitium. 2. Left PermCath.
[2025-01-17 03:51] LABS: MEAN PLATELET VOLUME 8.2 FL (7.4-10.4); RED CELL DISTRIBUTION WIDTH 20.7 % (11.5-14.5)
[2025-01-17 03:56] LABS: CREATININE 5.68 MG/DL (0.40-0.90); TOTAL CARBON DIOXIDE 25.1 MMOL/L (24-32); eCRCL 8 ML/MIN; eGFR 8 ML/MIN
[2025-01-17 04:09] LABS: PLATELET ESTIMATE NORMAL
[2025-01-17 06:21] VITALS: BP 136/80; PULSE 70; RESP 16; TEMP 98.4; O2SAT 99
== END 2025-01-17 06:23 | disposition home or self-care (01) ==
LOC: ER 02:23
DX: G89.29 Other chronic pain (principal); M79.10 Myalgia, unspecified site; I13.0 Hypertensive heart and chronic kidney disease with heart failure and stage 1 through stage 4 chronic kidney disease, or unspecified chronic kidney disease; I50.9 Heart failure, unspecified; N18.9 Chronic kidney disease, unspecified; E78.00 Pure hypercholesterolemia, unspecified; F12.90 Cannabis use, unspecified, uncomplicated; M06.9 Rheumatoid arthritis, unspecified; Z86.718 Personal history of other venous thrombosis and embolism; Z88.1 Allergy status to other antibiotic agents; Z88.8 Allergy status to other drugs, medicaments and biological substances
CPT/HCPCS: 71045; 80048; 85008; 85025; 93005; 99285

== ENCOUNTER 2025-01-20 21:02 | Emergency (ER) | payer MEDICARE, MEDICAID ==
[~2025-01-20] VITALS: Ht 157.5 cm; Wt 63.0 kg
[~2025-01-20 21:02] MED LIST changes: -DYN500C PO
[2025-01-20 21:17] VITALS: TEMP 97.9
[2025-01-20 22:31] LABS: MEAN PLATELET VOLUME 8.4 FL (7.4-10.4); RED CELL DISTRIBUTION WIDTH 20.0 % (11.5-14.5)
[2025-01-20 22:50] LABS: CREATININE 5.10 MG/DL (0.40-0.90); TOTAL CARBON DIOXIDE 26.7 MMOL/L (24-32); eCRCL 11 ML/MIN; eGFR 9 ML/MIN
[2025-01-21 01:27] VITALS: BP 135/74; PULSE 68; RESP 16; O2SAT 94
--- NOTE | 2025-01-21 01:36 | Physician Documentation ---
History of Present Illness Chief Complaint: Abdominal Pain Stated Complaint: ABDOMINAL PAIN Time Seen by MD: 01:23 Primary Medical Doctor: Qi Mcdonnell Mode of Arrival: POV BALTAZAR Aldana is a 44-year-old female that is very well known to this emergency department with a innumerable visits to both hospitals in town for usually being out of her pain medications and abdominal pain, comes in today for evaluation of abdominal pain, diarrhea, and being out of her narcotic pain medication. No palliating or aggravating factors. Similar to prior visits. Did not attempt to treat it. Most recent Percocet that she had was yesterday. She states that she I do not take too much, I just combined the medicines. Denies any nausea or vomiting. Denies chest pain or difficulty breathing. The patient also received a new port the other day. She was worried that the port might be infected. No concern for tobacco, alcohol or illicit substances use I Medication Reconciliation Allergies: Coded Allergies: cefaclor (Verified Allergy, Severe, hives/severe swelling, 01/20/25) cefpodoxime (Verified Allergy, Severe, hives/severe swelling, 01/20/25) Scheduled Aspirin (Aspirin EC), 1 TAB PO DAILY, (Reported) Clonidine HCl (Clonidine HCl), 1 TAB PO BID, (Reported) Diclofenac Sodium (Diclofenac Sodium), 1 APPLIC TOP DAILY, (Reported) Furosemide (Furosemide), 2 TAB PO DAILY, (Reported) Gabapentin (Neurontin), 1 CAP PO DAILY, (Reported) Hydroxychloroquine Sulfate (Plaquenil), 200 MG PO DAILY, (Reported) Lacosamide (Lacosamide), 1 TAB PO BID, (Reported) Levetiracetam (Levetiracetam), 1 TAB PO BID, (Reported) Levothyroxine Sodium (Levothyroxine Sodium), 1 TAB PO DAILY, (Reported) Nifedipine ER* (Nifedipine Er*), 1 TAB PO BID, (Reported) Prednisone* (Prednisone*), 1 TAB PO DAILY, (Reported) Sertraline HCl (Sertraline HCl), 2 TAB PO DAILY, (Reported) [Fentanyl Patch], 50 MCG Q48H, (Reported) Scheduled PRN Ipratropium/Albuterol Sulfate (Duoneb 2.5-0.5 Mg/3 Ml Soln), 3 ML IH Q6H PRN for SOB or wheezing, (Reported) ONDANSETRON ODT 4mg tablet (Ondansetron Odt), 1 TAB PO Q6H PRN for nausea/vomiting, (Reported) Polyethylene Glycol 3350* (Miralax*), 1 PKT PO DAILY PRN for constipation, (Reported) Miscellaneous Medications Loperamide Hcl (Loperamide), 2 TAB PO, (Reported) Oxycodone Hcl/Acetaminophen (Oxycodone-Acetaminophen 10-325), (Reported) Sodium Zirconium Cyclosilicate (Lokelma), (Reported) Discontinued Medications Dicloxacillin Sodium* (Dynapen*), 1 CAP PO Q6H Discontinued Reason: Auto Discontinued Past Medical History Past Medical History: Seizures, Congestive Heart Failure, High Cholesterol, Heart Valve Disease, Hypertension, Pneumonia, Pulmonary Embolism, Chronic Kidney Disease, *MUSCULOSKELETAL*, Arthritis, Chronic Pain, Deep Vein Thrombosis, Fibromyalgia, Osteoporosis, Rheumatoid Arthritis, MRSA Abscess, Depression Past Surgical History: coronary bypass surgery, , heart valve surgery, other Patient History: Cardiomegaly MOTHER FHx: depression MOTHER FHx: diabetes mellitus MOTHER FHx: sleep apnea MOTHER Legionnaire's disease MOTHER Other Past Family History: NONCONTRIBUTORY Alcohol Use: None Drug Use: marijuana Lives with: Family Lives In: Home Occupation: unemployed Review of Systems ROS 10 point review of systems was performed and unless noted above in HPI is negative for acute process/complaint. Physical Exam Vital Signs: Temperature: 97.9, Source: Temporal, Heart Rate: 68, Respiratory Rate: 16, BP: 135/74, Pulse Oximetry: 94, Weight: 63.000 Oxygen Flow Rate: 0 Physical Exam GENERAL: Awake, alert, oriented, GCS 15, no apparent distress, chronically ill appearing, answers questions, follows commands appropriately. Examined in bed 2., accompanied by her , Alejo HEENT: Atraumatic, normocephalic, pupils equal, extraocular muscles intact, sclerae anicteric, mucus membranes moist, oropharynx is clear, no stridor. NECK: supple, full active range of motion, trachea midline, no thyromegaly, no lymphadenopathy, no JVD. CARDIOVASCULAR: regular rate/rhythm, no murmurs/gallops/rubs, Pulses are 2+ in all extremities and symmetric. Capillary refill less than 2 seconds. PULMONARY: Nonlabored, good air movement ,no respiratory distress, speaking in full sentences, clear to auscultation bilaterally, no wheezing, no ronchi, no rales, no accessory muscle use. GASTROINTESTINAL: Soft, non-tender, non-distended, normal active bowel sounds, n o organomegaly, no pulsatile masses, no CVA tenderness. NEUROLOGIC: Lucid with normal mental status. Normal facial symmetry. Moves all extremities symmetrically and with purpose. No truncal ataxia. Speech is fluid without evidence of dysarthria or aphasia, no focal deficits appreciated. MUSCULOSKELETAL: There is full range of motion of all extremities. There is no joint pain or joint swelling or joint erythema. There is no muscle pain or tenderness or swelling. EXTREMITIES: warm, well-perfused, no cyanosis, no clubbing, no edema, no acute deformities. Skin: warm, dry, no rashes or lesions, no jaundice, no petechiae orpurpura. No ecchymosis. PSYCHIATRIC: Normal affect, normal insight, normal concentration. Focused exam: No guarding or rebound The new port on the left upper chest has been examined. The site is clean, dry, intact, there is no evidence of cellulitis. Progress Results/Orders Results/Orders Orders - MINA FOREMAN DO Urinalysis, Cult If Indicated (01/20/25 22:01) Completed Orders - MINA FOREMAN DO Cbc/Diff (01/20/25 22:01) Lipase (01/20/25 22:01) MG (01/20/25 22:01) Hs Troponin I W Calculations (01/20/25 22:01) CMP (01/20/25 22:01) Vital Signs 01/20/25 01/21/25 01/21/25 01/21/25 21:17 00:32 00:32 01:27 Temp 97.9 Pulse 68 68 68 Resp 16 16 16 B/P (MAP) 150/86 155/89 (111) 135/74 (94) Pulse Ox 96 95 94 O2 Flow Rate 0 Laboratory Tests Test 01/20/25 22:19 White Blood Count 7.1 Red Blood Count 3.36 L Hemoglobin 9.3 L Hematocrit 29.5 L Mean Corpuscular Volume 87.8 Mean Corpuscular Hemoglobin 27.7 Mean Corpuscular Hemoglobin Concent 31.6 L Red Cell Distribution Width 20.0 H Platelet Count 216 Mean Platelet Volume 8.4 Neutrophils (%) (Auto) 65.1 Lymphocytes (%) (Auto) 15.6 L Monocytes (%) (Auto) 10.1 Eosinophils (%) (Auto) 8.9 H Basophils (%) (Auto) 0.3 Neutrophils # (Auto) 4.6 Lymphocytes # (Auto) 1.1 Monocytes # (Auto) 0.7 Eosinophils # (Auto) 0.6 Basophils # (Auto) 0.0 CBC Comment Sodium Level 132 L Potassium Level 4.8 Chloride Level 99 Carbon Dioxide Level 26.7 Anion Gap 6 L Blood Urea Nitrogen 38 H Creatinine 5.10 H Estimated GFR/1.73 m2 9 BUN/Creatinine Ratio 7.5 L Glucose Level 102 Calcium Level 8.4 L Magnesium Level 2.1 Total Bilirubin 0.4 Aspartate Amino Transf (AST/SGOT) 16 Alanine Aminotransferase (ALT/SGPT) 11 L Alkaline Phosphatase 203 H Troponin I High Sensitivity 14 Total Protein 6.8 Albumin 2.5 L Globulin 4.3 Albumin/Globulin Ratio 0.6 L Lipase 7 L Chemistry Comments Medical Decision Making Findings Facility Status: [facility], [facility] process The plan was discussed with the patient, who demonstrates clear understanding of the plan and is in agreement with the plan unless otherwise noted in the chart. All questions have been answered, all concerns were addressed unless otherwise documented. I was available throughout their ED stay for frequent reassessment and questions. Differential Diagnoses (considered and possible or likely): [Differential diagnosis considered includes most likely representing opioid withdrawal related pain, chronic ulcerative colitis, less likely C difficile, less likely acute intra-abdominal process requiring surgical intervention such as acute appe ndicitis, acute cholecystitis, pancreatitis, gastritis, PUD, diverticulitis, mesenteric ischemia, abdominal aortic aneurysm, bowel obstruction, enteritis, colitis, fecal impaction, volvulus, IBS, inflammatory bowel disease, specific food intolerance, peritonitis, perforated viscous, malignancy, UTI, abscess, and abdominal pain NOS. Pelvic source of pain was also considered including endometritis, dysmenorrhea, ovarian cyst, ovarian torsion, PID, TOA, cervicitis, vaginitis, or uterine fibroid. History, physical exam, and workup exclude many of the more serious causes listed above. ] ??Differential Diagnoses (considered and unlikely, not requiring evaluation currently): [None] MDM Data Please see HPI for the following: Independent Historians and external Records Review. Historian: [Patient] Independent Historians: ?[Record review] Medication Management: [Reviewed medication list] Social History and determinants: [Reviewed] Please see the body of the note for the following: Any independent interpretations of ECG, imaging studies. All vitals signs/haemodynamics, ordered tests were independently reviewed and interpreted by myself. Nursing triage complaint and vitals reviewed, additional nursing notes were reviewed as available and I agree unless otherwise noted or documented in contradiction in the chart Vital Signs: Independently reviewed Labs: Independently interpreted Imaging: Independently interpreted Old Medical Records: Independently reviewed, see [facility] for relevant summary and information Pulse Oximetry: [96%] interpreted as [normal on room air] by me [Medical Laboratory Technicians: [Regular Rate, Regular rhythm, no ectopy, NSR] reviewed and interpreted by me] Additionally notably showing: [Hemodynamics reviewed. The patient isn't febrile, not tachycardic, no evidence of hypotension respiratory distress. Laboratory studies showed no leukocytosis, stable chronic anemia, normal platelets, no neutrophilic predominance. Chemistry panel was obtained and it is consistent with her end-stage renal disease. Troponin is negative. Lipase is normal.] Tests considered but not ordered include: [Imaging has been considerably does not appear to be necessary given benign labs] Social Determinants of Health Impact: Patient was evaluated in [facility], [facility] [place] to healthcare due to below par ratio of patient to medical providers. [] Comorbid Conditions Impacting Present Evaluation and Care/Treatment: [Multiple, see list including end-stage renal disease, chronic opioid dependence] Management Discussions with other Healthcare Providers: [None] Treatment and Disposition Medication Management (Given or considered): [Pain medication here]. See EMR for details Consideration for Hospitalization/Escalation/Deescalation of Care: Admission for observation has been considered, [however the patient is able to tolerate p.o., their symptoms are controlled, they are able to rely on oral medications, and their chief complaint/diagnosis can be managed on outpatient basis.] ?ED Course:?[Patient received pain medication with improvement of her symptoms. She was once again told that she will not receive prescriptions for narcotic pain medications out of the emergency department and that she must follow-up with her primary care provider. There is no evidence of new installed port infection.] ?Shared decision making:?[Patient is hemodynamically stable for discharge home with follow with their primary care provider. [ ] Specific and cautious return precautions provided and discussed with full understanding. Any incidental findings were also discussed and follow up recommendations given. [] All questions answered. Patient/family were able to verbalize back return pr ecautions. Patient/family agree to plan. Copies of imaging and laboratory studies were provided.] Code status:?FULL Please see the full Electronic Medical Record for full details of nursing documentation, medications list, other records of complete past medical history and conditions, vital signs, laboratory studies, and any radiologic study interpretations by radiologists. Portions of this note were completed using [employer] dictation software and as a result there may exist minor errors in spelling. I have reviewed elements of past family and social history and agree as included in note. Departure Disposition: HOME / SELF CARE / HOMELESS Impression: Primary Impression: Abdominal pain Additional Impressions: Opioid withdrawal Chronic diarrhea End stage renal disease on dialysis Chronic anemia Condition: Improved Discharge Instructions: Abdominal Pain (Nonspecific) Additional Instructions: Please follow-up with your regular narcotic prescriber for all of your refills for opioid medications such as Percocet and fentanyl patches. Emergency department is not a venue to receive prescription for narcotic refills. Referrals: NO PRIMARY CARE PROVIDER (PCP) Signature Scribe Signature: No scribe Attestation: This note accurately reflects clinical decisions, work performed by myself, Mina Foreman, MINA PRADO DO Jan 21, 2025 01:36
== END 2025-01-21 01:43 | disposition home or self-care (01) ==
LOC: ER 21:03
DX: K52.9 Noninfective gastroenteritis and colitis, unspecified (principal); F11.23 Opioid dependence with withdrawal; D64.9 Anemia, unspecified; E78.00 Pure hypercholesterolemia, unspecified; I13.2 Hypertensive heart and chronic kidney disease with heart failure and with stage 5 chronic kidney disease, or end stage renal disease; I50.9 Heart failure, unspecified; N18.6 End stage renal disease; M06.9 Rheumatoid arthritis, unspecified; M79.7 Fibromyalgia; F12.90 Cannabis use, unspecified, uncomplicated; Z86.711 Personal history of pulmonary embolism; Z86.718 Personal history of other venous thrombosis and embolism; Z88.1 Allergy status to other antibiotic agents; Z88.8 Allergy status to other drugs, medicaments and biological substances
CPT/HCPCS: 36415; 80053; 83690; 83735; 84484; 85025; 99283

== ENCOUNTER 2025-01-23 17:24 | Emergency (ER) | payer MEDICARE, MEDICAID ==
[~2025-01-23] VITALS: Ht 157.5 cm; Wt 54.0 kg
[2025-01-23 17:32] VITALS: TEMP 98
[2025-01-23 18:10] LABS: MEAN PLATELET VOLUME 8.3 FL (7.4-10.4); RED CELL DISTRIBUTION WIDTH 19.7 % (11.5-14.5)
[2025-01-23 18:24] LABS: CREATININE 5.06 MG/DL (0.40-0.90); TOTAL CARBON DIOXIDE 25.6 MMOL/L (24-32); eCRCL 11 ML/MIN; eGFR 9 ML/MIN
--- NOTE | 2025-01-23 21:24 | Physician Documentation ---
History of Present Illness ~ General Chief Complaint: Multiple Medical Complaints Stated Complaint: PAIN Time Seen by MD: 21:23 OK to notify your PCP?: Yes Primary Medical Doctor: Qi Mcdonnell Source: patient, RN/MD, RN notes reviewed, old records Mode of Arrival: POV Exam Limitations: no limitations History of Present Illness Initial Comments BED 14 This patient is a 44 y/o female who presents to ED for all over body pain. Patient has been seen here multiple times in the ER. She is followed by a paint roller covers supervisor for her chronic pain, and patient states she did call him today to let them know that she has run out of her regular pain medications. In addition to pain she reports that she is also having some loose stools. Patient currently on hemodialysis and states she has been attending her appointments as scheduled. Her next appointment is tomorrow at 3:30PM. Patient denies any other associated symptoms at this time. Patient denies any other alleviating or exacerbating factors. Medication Reconciliation Allergies: Coded Allergies: cefaclor (Verified Allergy, Severe, hives/severe swelling, 01/20/25) cefpodoxime (Verified Allergy, Severe, hives/severe swelling, 01/20/25) Scheduled Aspirin (Aspirin EC), 1 TAB PO DAILY, (Reported) Clonidine HCl (Clonidine HCl), 1 TAB PO BID, (Reported) Diclofenac Sodium (Diclofenac Sodium), 1 APPLIC TOP DAILY, (Reported) Furosemide (Furosemide), 2 TAB PO DAILY, (Reported) Gabapentin (Neurontin), 1 CAP PO DAILY, (Reported) Hydroxychloroquine Sulfate (Plaquenil), 200 MG PO DAILY, (Reported) Lacosamide (Lacosamide), 1 TAB PO BID, (Reported) Levetiracetam (Levetiracetam), 1 TAB PO BID, (Reported) Levothyroxine Sodium (Levothyroxine Sodium), 1 TAB PO DAILY, (Reported) Nifedipine ER* (Nifedipine Er*), 1 TAB PO BID, (Reported) Prednisone* (Prednisone*), 1 TAB PO DAILY, (Reported) Sertraline HCl (Sertraline HCl), 2 TAB PO DAILY, (Reported) [Fentanyl Patch], 50 MCG Q48H, (Reported) Scheduled PRN Ipratropium/Albuterol Sulfate (Duoneb 2.5-0.5 Mg/3 Ml Soln), 3 ML IH Q6H PRN for SOB or wheezing, (Reported) ONDANSETRON ODT 4mg tablet (Ondansetron Odt), 1 TAB PO Q6H PRN for nausea/vo miting, (Reported) Polyethylene Glycol 3350* (Miralax*), 1 PKT PO DAILY PRN for constipation, (Reported) Miscellaneous Medications Loperamide Hcl (Loperamide), 2 TAB PO, (Reported) Oxycodone Hcl/Acetaminophen (Oxycodone-Acetaminophen 10-325), (Reported) Sodium Zirconium Cyclosilicate (Lokelma), (Reported) Discontinued Medications Dicloxacillin Sodium* (Dynapen*), 1 CAP PO Q6H Discontinued Reason: Auto Discontinued Past Medical History Past Medical History: Seizures, Congestive Heart Failure, High Cholesterol, Heart Valve Disease, Hypertension, Pneumonia, Pulmonary Embolism, Chronic Kidney Disease, *MUSCULOSKELETAL*, Arthritis, Chronic Pain, Deep Vein Thrombosis, Fibromyalgia, Osteoporosis, Rheumatoid Arthritis, MRSA Abscess, Depression Past Surgical History: coronary bypass surgery, , heart valve surgery, other Patient History: Cardiomegaly MOTHER FHx: depression MOTHER FHx: diabetes mellitus MOTHER FHx: sleep apnea MOTHER Legionnaire's disease MOTHER Other Past Family History: NONCONTRIBUTORY Alcohol Use: None Drug Use: marijuana Lives with: Family Lives In: Home Occupation: unemployed Review of Systems All Other Systems at this time: Reviewed and Negative Physical Exam Physical Exam Vital Signs: RN Vital Signs have been reviewed: Yes, Temperature: 98.0, Heart Rate: 66, Respiratory Rate: 16, BP: 153/103, Pulse Oximetry: 96, Weight: 54.000 Physical Exam General: Thin, frail and dry skin. The patient is nontoxic appearing and is in no acute distress. Skin: [place], warm and dry with no rashes. HEENT: Head was normocephalic and atraumatic. Eyes - pupils equal, round, reactive to light and accommodation. Extraocular movements were intact. Conjunctivae were nonicteric. Ears - bilateral tympanic membranes were normal. The mouth and oropharynx were clear with moist mucous membranes. There were no pharyngeal exudates or erythema. Neck: Supple and nontender. There was no jugular venous distention, lymphadenopathy, thyromegaly or masses. Chest: Clear to auscultation bilaterally without wheezes, rales or rhonchi. No accessory muscle use. No dullness to percussion. Heart: 4/6 systolic ejection murmur. Rate regular and rhythmic. S1, S2. Palpation of the chest wall was normal. No rubs or thrills. Abdomen: Soft, nontender and nondistended. Positive bowel sounds. No guarding or rebound. No hepatosplenomegaly or palpable masses. Extremities: Patient has no cellulitis to left leg. No cyanosis, clubbing or edema. The patient moves all extremities. Pulses were equal and symmetric. Neurologic: Cranial nerves II-XII were intact. Sensation was intact to light touch throughout. Motor strength was 5/5 in all four extremities. Deep tendon reflexes were intact in both upper and lower extremities. Psychologic: The patient was oriented to person, place and time. The patient demonstrated appropriate judgement and insight. Progress Results/Orders Reviewed/noted all lab results: Yes Results/Orders Vital Signs 01/23/25 01/23/25 01/23/25 01/23/25 17:32 21:02 21:42 21:47 Temp 98.0 Pulse 66 64 100 Resp 18 16 17 18 B/P (MAP) 153/103 163/103 (123) 167/100 Pulse Ox 96 95 96 O2 Flow Rate 0 Laboratory Tests Test 01/23/25 17:56 White Blood Count 10.7 Red Blood Count 3.25 L Hemoglobin 9.0 L Hematocrit 28.4 L Mean Corpuscular Volume 87.6 Mean Corpuscular Hemoglobin 27.7 Mean Corpuscular Hemoglobin Concent 31.7 L Red Cell Distribution Width 19.7 H Platelet Count 256 Mean Platelet Volume 8.3 Neutrophils (%) (Auto) 91.4 H Lymphocytes (%) (Auto) 4.2 L Monocytes (%) (Auto) 3.3 Eosinophils (%) (Auto) 0.4 Basophils (%) (Auto) 0.7 Neutrophils # (Auto) 9.7 H Lymphocytes # (Auto) 0.5 L Monocytes # (Auto) 0.4 Eosinophils # (Auto) 0.0 Basophils # (Auto) 0.1 CBC Comment Sodium Level 133 L Potassium Level 4.8 Chloride Level 98 L Carbon Dioxide Level 25.6 Anion Gap 9 Blood Urea Nitrogen 33 H Creatinine 5.06 H Estimated GFR/1.73 m2 9 BUN/Creatinine Ratio 6.5 L Glucose Level 121 H Calcium Level 8.5 Total Bilirubin 0.4 Aspartate Amino Transf (AST/SGOT) 21 Alanine Aminotransferase (ALT/SGPT) 12 Alkaline Phosphatase 199 H Total Protein 6.7 Albumin 2.5 L Globulin 4.2 Albumin/Globulin Ratio 0.6 L Lipase 8 L Chemistry Comments Re-Evaluation Re-Evaluation : Re-Evaluation: Unchanged Progress Patient has been seen multiple times for chronic pain use overusing her prescription medication running out coming to the ER for recurrent visits until she gets a med refill. She has been evaluated multiple times that both hospitalist she has received multiple CAT scans. Patient informs us that she receives morphine shots for which she has not. Patient was then given reassurance told to take [id number] medications and follow up with her chronic pain physician. Workup was reviewed there was no changes in her pres entation that was suggests a medical emergency. No additional studies or CAT scans Medical Decision Making Additional info obtained from: old records Departure Time of Disposition: 21:37 Disposition: HOME / SELF CARE / HOMELESS Impression: Primary Impression: Chronic pain Qualified Codes: G89.29 - Other chronic pain Additional Impression: Dependent on hemodialysis Condition: Stable Discharge Instructions: Chronic Pain, Adult Additional Instructions: Follow-up with your paint roller covers supervisor for your chronic pain. It is also very important that you attend your hemodialysis appointment tomorrow, as scheduled. Referrals: NO PRIMARY CARE PROVIDER (PCP) Education Educated: Patient Educated regarding: diagnosis, treatment, need for follow up Signature Scribe Signature: Scribed for Davie Monroy MD by Desiree Mckeon 01/23/25 21:38 Attestation: The note accurately reflects work and decisions made by me.Davie Monroy MD 01/23/25 21:24 DAVIE MONROY MD Jan 23, 2025 21:24
[2025-01-23 21:47] VITALS: BP 167/100; PULSE 100; RESP 18; O2SAT 96
== END 2025-01-23 21:50 | disposition home or self-care (01) ==
LOC: ER 17:25
DX: G89.29 Other chronic pain (principal); I13.2 Hypertensive heart and chronic kidney disease with heart failure and with stage 5 chronic kidney disease, or end stage renal disease; I50.9 Heart failure, unspecified; N18.6 End stage renal disease; M79.7 Fibromyalgia; F12.90 Cannabis use, unspecified, uncomplicated; E78.00 Pure hypercholesterolemia, unspecified; F32.A Depression, unspecified; Z88.1 Allergy status to other antibiotic agents; Z95.1 Presence of aortocoronary bypass graft; Z79.899 Other long term (current) drug therapy; Z79.82 Long term (current) use of aspirin; Z56.0 Unemployment, unspecified; Z86.711 Personal history of pulmonary embolism; Z86.718 Personal history of other venous thrombosis and embolism; Z99.2 Dependence on renal dialysis
CPT/HCPCS: 36415; 80053; 83690; 85025; 99284

== ENCOUNTER 2025-02-07 21:09 | Emergency (ER) | payer MEDICARE, MEDICAID ==
[~2025-02-07 21:09] MED LIST changes: +LACO100T14 PO; -LACO100T4 PO
== END 2025-02-07 22:30 | disposition left against medical advice (07) ==
LOC: ER 21:10
DX: M79.673 Pain in unspecified foot (principal); Z88.8 Allergy status to other drugs, medicaments and biological substances; Z53.21 Procedure and treatment not carried out due to patient leaving prior to being seen by health care provider

== ENCOUNTER 2025-02-11 03:11 | Emergency (ER) | payer MEDICARE, MEDICAID ==
[2025-02-11 03:16] VITALS: TEMP 97.4
--- NOTE | 2025-02-11 04:03 | Physician Documentation ---
History of Present Illness ~ Chief Complaint: Abdominal Pain Stated Complaint: STOMACH PAINS Time Seen by MD: 03:53 Primary Medical Doctor: Qi Mcdonnell Mode of Arrival: Wheelchair HPI Patient presents to the emergency room with chief complaint of chronic abdominal pain. She just had her pain medication refilled a few days ago but states it isn't working. She has had no other pain medicine other than her opioid pain medication. Medication Reconciliation Allergies: Coded Allergies: cefaclor (Verified Allergy, Severe, hives/severe swelling, 02/11/25) cefpodoxime (Verified Allergy, Severe, hives/severe swelling, 02/11/25) Scheduled Aspirin (Aspirin EC), 1 TAB PO DAILY, (Reported) Clonidine HCl (Clonidine HCl), 1 TAB PO BID, (Reported) Diclofenac Sodium (Diclofenac Sodium), 1 APPLIC TOP DAILY, (Reported) Furosemide (Furosemide), 2 TAB PO DAILY, (Reported) Gabapentin (Neurontin), 1 CAP PO DAILY, (Reported) Hydroxychloroquine Sulfate (Plaquenil), 200 MG PO DAILY, (Reported) Lacosamide (Lacosamide), 1 TAB PO BID, (Reported) Levetiracetam (Levetiracetam), 1 TAB PO BID, (Reported) Levothyroxine Sodium (Levothyroxine Sodium), 1 TAB PO DAILY, (Reported) Nifedipine ER* (Nifedipine Er*), 1 TAB PO BID, (Reported) Prednisone* (Prednisone*), 1 TAB PO DAILY, (Reported) Sertraline HCl (Sertraline HCl), 2 TAB PO DAILY, (Reported) [Fentanyl Patch], 50 MCG Q48H, (Reported) Scheduled PRN Ipratropium/Albuterol Sulfate (Duoneb 2.5-0.5 Mg/3 Ml Soln), 3 ML IH Q6H PRN for SOB or wheezing, (Reported) ONDANSETRON ODT 4mg tablet (Ondansetron Odt), 1 TAB PO Q6H PRN for nausea/vomiting, (Reported) Polyethylene Glycol 3350* (Miralax*), 1 PKT PO DAILY PRN for constipation, (Reported) Miscellaneous Medications Loperamide Hcl (Loperamide), 2 TAB PO, (Reported) Oxycodone Hcl/Acetaminophen (Oxycodone-Acetaminophen 10-325), (Reported) Sodium Zirconium Cyclosilicate (Lokelma), (Reported) Past Medical History Past Medical History: Seizures, Congestive Heart Failure, High Cholesterol, Heart Valve Disease, Hypertension, Pneumonia, Pulmonary Embolism, Chronic Kidney Disease, *MUSCULOSKELETAL*, Arthritis, Chronic Pain, Deep Vein Thrombosis, Fibromyalgia, Osteoporosis, Rheumatoid Arthritis, MRSA Abscess, Depression Past Surgical History: coronary bypass surgery, , heart valve surgery, other Patient History: Cardiomegaly MOTHER FHx: depression MOTHER FHx: diabetes mellitus MOTHER FHx: sleep apnea MOTHER Legionnaire's disease MOTHER Other Past Family History: NONCONTRIBUTORY Alcohol Use: None Drug Use: marijuana Lives with: Family Lives In: Home Occupation: unemployed Review of Systems ROS All review of systems negative except as per HPI Physical Exam Vital Signs: Temperature: 97.4, Source: Temporal, Heart Rate: 61, Respiratory Rate: 18, BP: 147/78, Pulse Oximetry: 99 Physical Exam General: Patient is awake, alert, oriented x4 in no acute distress and appears comfortable Head: Normocephalic and atraumatic. Eyes: Conjunctival normal. EOMI. PERRL. ENT: Mucous membranes moist. Neck: Supple, trachea is midline. Chest: Clear to auscultation bilaterally without rales, rhonchi, or wheezes. There is no accessory muscle use or retractions. Cardiac: RRR without murmurs, gallops, or rubs. Progress Results/Orders Results/Orders Vital Signs 02/11/25 02/11/25 03:16 03:26 Temp 97.4 Pulse 61 Resp 15 18 B/P (MAP) 147/78 Pulse Ox 99 Medical Decision Making Findings Patient presents to the emergency room with chronic abdominal pain. Differentials include but are not limited to infectious process, opioid abuse, small-bowel obstruction. Patient's vitals and physical exam are reassuring and he had not feel she requires emergent labs or imaging. She is well known to the emergency room and presents similarly multiple times. The need to follow up with her pain management doctor discussed. Departure Disposition: HOME / SELF CARE / HOMELESS Impression: Primary Impression: Chronic abdominal pain Condition: Stable Discharge Instructions: Abdominal Pain (Nonspecific) Additional Instructions: Follow up with your pain management doctor Referrals: NO PRIMARY CARE PROVIDER (PCP) Signature Scribe Signature: No scribe Attestation: The note accurately reflects work and decisions made by me.Isaac Feliciano MD 02/11/25 04:03 ISAAC FELIICANO MD Feb 11, 2025 04:03
[2025-02-11] MEDS: ibuprofen tablet 400 MG TABLET PO ONE (04:30)
[2025-02-11 04:31] VITALS: BP 138/64; PULSE 88; RESP 16; O2SAT 98
== END 2025-02-11 04:33 | disposition home or self-care (01) ==
LOC: ER 03:11
DX: G89.29 Other chronic pain (principal); R10.9 Unspecified abdominal pain; I13.0 Hypertensive heart and chronic kidney disease with heart failure and stage 1 through stage 4 chronic kidney disease, or unspecified chronic kidney disease; I50.9 Heart failure, unspecified; E78.00 Pure hypercholesterolemia, unspecified; N18.9 Chronic kidney disease, unspecified; M06.9 Rheumatoid arthritis, unspecified; M79.7 Fibromyalgia; M81.0 Age-related osteoporosis without current pathological fracture; F12.90 Cannabis use, unspecified, uncomplicated; Z88.1 Allergy status to other antibiotic agents; Z88.8 Allergy status to other drugs, medicaments and biological substances; Z95.1 Presence of aortocoronary bypass graft; Z79.82 Long term (current) use of aspirin
CPT/HCPCS: 99282

== ENCOUNTER 2025-02-12 04:14 | Emergency (ER) | payer MEDICARE, MEDICAID ==
[~2025-02-12] VITALS: Ht 157.5 cm; Wt 50.0 kg
[2025-02-12 04:22] VITALS: BP 153/96; PULSE 64; TEMP 99.1; O2SAT 97
[2025-02-12 07:22] VITALS: RESP 18
== END 2025-02-12 08:14 | disposition left against medical advice (07) ==
LOC: ER 04:15
DX: R10.9 Unspecified abdominal pain (principal); Z88.8 Allergy status to other drugs, medicaments and biological substances; Z53.21 Procedure and treatment not carried out due to patient leaving prior to being seen by health care provider

== ENCOUNTER 2025-02-22 17:57 | Emergency (ER) | payer MEDICARE, MEDICAID ==
[~2025-02-22] VITALS: Ht 157.5 cm; Wt 45.5 kg
--- NOTE | 2025-02-22 18:46 | RADIOLOGY REPORT ---
EXAM: DI CHEST,SINGLE VIEW Indication: CP Technique: Single frontal view of the chest was obtained Comparison: DI CHEST,SINGLE VIEW on DOS: 01/17/25, DI CHEST,SINGLE VIEW on DOS: 12/25/24, DI CHEST,SINGL E VIEW on DOS: 12/19/24, CT CT CHEST on DOS: 11/20/24, DI CHEST,SINGLE VIEW on DOS: 11/16/24 FINDINGS: Lines and Tubes: Left central venous catheter tip projects over the cavoatrial junction. Lungs: No focal consolidation. Pulmonary edema. Pleura: No effusion. No pneumothorax. Cardiomediastinal contours: Unremarkable. Valvular device projects over the mediastinum. Bones: No acute osseous abnormality. IMPRESSION: Pulmonary edema.
[2025-02-22 18:55] LABS: MEAN PLATELET VOLUME 8.6 FL (7.4-10.4); RED CELL DISTRIBUTION WIDTH 23.1 % (11.5-14.5)
[2025-02-22 19:16] LABS: CREATININE 6.60 MG/DL (0.40-0.90); TOTAL CARBON DIOXIDE 22.4 MMOL/L (24-32); eCRCL 8 ML/MIN; eGFR 7 ML/MIN
[2025-02-22 20:13] LABS: LARGE PLATELETS FEW; PLATELET ESTIMATE NORMAL
--- NOTE | 2025-02-22 20:30 | Physician Documentation ---
History of Present Illness Chief Complaint: Abdominal Pain Stated Complaint: ABD PAIN Primary Medical Doctor: Qi Mcdonnell Source: patient Mode of Arrival: POV Exam Limitations: no limitations HPI This is a 44-year-old female with a extensive past medical history including past history of C diff, patient reports abdominal pain and watery diarrhea for the past two weeks onset after a course of clindamycin. Patient reports intermittent blood in stool when wiping. BED 16 This patient is a 44 y/o female who presents to ED with chief complaint of diarrhea. Patient states that this diarrhea has been ongoing for the past two weeks, and she has been having loose, watery stools throughout the day. Patient also reports associated abdominal cramping which she states is severe. Patient does use pain medication for chronic pain, however she notes she has been out of her medications for the past 4 days. Patient with history of chronic renal failure, on hemodialysis. She is scheduled to have paracentesis tomorrow. Patient notes that since staying at the ER, she has not had any more diarrhea, however she states she did take Immodium prior to arrival. Medication Reconciliation Allergies: Coded Allergies: cefaclor (Verified Allergy, Severe, hives/severe swelling, 02/11/25) cefpodoxime (Verified Allergy, Severe, hives/severe swelling, 02/11/25) Scheduled Aspirin (Aspirin EC), 1 TAB PO DAILY, (Reported) Clonidine HCl (Clonidine HCl), 1 TAB PO BID, (Reported) Diclofenac Sodium (Diclofenac Sodium), 1 APPLIC TOP DAILY, (Reported) Furosemide (Furosemide), 2 TAB PO DAILY, (Reported) Gabapentin (Neurontin), 1 CAP PO DAILY, (Reported) Hydroxychloroquine Sulfate (Plaquenil), 200 MG PO DAILY, (Reported) Lacosamide (Lacosamide), 1 TAB PO BID, (Reported) Levetiracetam (Levetiracetam), 1 TAB PO BID, (Reported) Levothyroxine Sodium (Levothyroxine Sodium), 1 TAB PO DAILY, (Reported) Nifedipine ER* (Nifedipine Er*), 1 TAB PO BID, (Reported) Prednisone* (Prednisone*), 1 TAB PO DAILY, (Reported) Sertraline HCl (Sertraline HCl), 2 TAB PO DAILY, (Reported) [Fentanyl Patch], 50 MCG Q48H, (Reported) Scheduled PRN Ipratropium/Albuterol Sulfate (Duoneb 2.5-0.5 Mg/3 Ml Soln), 3 ML IH Q6H PRN for SOB or wheezing, (Reported) ONDANSETRON ODT 4mg tablet (Ondansetron Odt), 1 TAB PO Q6H PRN for nausea/vomiting, (Reported) Polyethylene Glycol 3350* (Miralax*), 1 PKT PO DAILY PRN for constipation, (Reported) Miscellaneous Medications Loperamide Hcl (Loperamide), 2 TAB PO, (Reported) Oxycodone Hcl/Acetaminophen (Oxycodone-Acetaminophen 10-325), (Reported) Sodium Zirconium Cyclosilicate (Lokelma), (Reported) Past Medical History Past Medical History: Seizures, Congestive Heart Failure, High Cholesterol, Heart Valve Disease, Hypertension, Pneumonia, Pulmonary Embolism, Chronic Kidney Disease, *MUSCULOSKELETAL*, Arthritis, Chronic Pain, Deep Vein Thrombosis, Fibromyalgia, Osteoporosis, Rheumatoid Arthritis, MRSA Abscess, Depression Past Surgical History: coronary bypass surgery, , heart valve surgery, other Patient History: Cardiomegaly MOTHER FHx: depression MOTHER FHx: diabetes mellitus MOTHER FHx: sleep apnea MOTHER Legionnaire's disease MOTHER Other Past Family History: NONCONTRIBUTORY Smoking Status: Unknown if ever smoked Alcohol Use: None Drug Use: marijuana Lives with: Family Lives In: Home Occupation: unemployed Review of Systems All Other Systems at this time: Reviewed and Negative ROS As stated above in the HPI, otherwise all systems are reviewed and negative. Physical Exam Vital Signs: RN Vital Signs have been reviewed: Yes, Temperature: 96.9, Source: Temporal, Heart Rate: 66, Respiratory Rate: 16, BP: 151/94, Pulse Oximetry: 99, Weight: 45.500 Physical Exam VITALS: Reviewed and as above. GENERAL: Alert, nontoxic appearing, no apparent distress. RESPIRATORY: No increased work of breathing, no respiratory distress, speaking in full clear sentences GI: Abdomen appears distended EXAM PERFORMED BY EDMD DR. SAAB: General: The patient is well developed, well nourished, nontoxic appearing and is in no acute distress. Skin: [place], warm and dry with no rashes. HEENT: Head was normocephalic and atraumatic. Eyes - pupils equal, round, reactive to light and accommodation. Extraocular movements were intact. Conjunctivae were nonicteric. The mouth and oropharynx were clear with moist mucous membranes. There were no pharyngeal exudates or erythema. Neck: Supple and nontender. There was no jugular venous distention, lymphadenopathy, thyromegaly or masses. Chest: Clear to auscultation bilaterally without wheezes, rales or rhonchi. No accessory muscle use. No dullness to percussion. Heart: Rate regular and rhythmic. S1, S2. No murmurs. Palpation of the chest wall was normal. No rubs or thrills. Abdomen: Increased bowel sounds. Slightly distended. Otherwise nontender. No guarding or rebound. No hepatosplenomegaly or palpable masses. Extremities: No cyanosis, clubbing or edema. The patient moves all extremities. Pulses were equal and symmetric. Neurologic: Motor and sensation grossly intact. A & O x4. Psychologic: The patient was oriented to person, place and time. Progress Results/Orders Reviewed/noted all lab results: Yes Results/Orders Vital Signs 02/22/25 02/22/25 18:09 19:47 Temp 96.9 96.9 Pulse 56 66 Resp 18 16 B/P (MAP) 159/99 151/94 (113) Pulse Ox 98 99 Laboratory Tests Test 02/22/25 18:40 White Blood Count 7.9 Red Blood Count 3.82 L Hemoglobin 10.6 L Hematocrit 34.4 L Mean Corpuscular Volume 89.9 Mean Corpuscular Hemoglobin 27.7 Mean Corpuscular Hemoglobin Concent 30.8 L Red Cell Distribution Width 23.1 H Platelet Count 227 Mean Platelet Volume 8.6 Neutrophils (%) (Auto) 68.8 Lymphocytes (%) (Auto) 13.8 L Monocytes (%) (Auto) 6.6 Eosinophils (%) (Auto) 7.7 H Basophils (%) (Auto) 3.1 H Neutrophils # (Auto) 5.5 Lymphocytes # (Auto) 1.1 Monocytes # (Auto) 0.5 Eosinophils # (Auto) 0.6 Basophils # (Auto) 0.2 CBC Comment Platelet Estimate Normal Large Platelets Few Red Blood Cell Morphology Perf Hypochromasia 1+ Basophilic Stippling Anisocytosis 2+ Target Cells Few Sodium Level 133 L Potassium Level 5.3 H Chloride Level 99 Carbon Dioxide Level 22.4 L Anion Gap 12 Blood Urea Nitrogen 49 H Creatinine 6.60 H Estimated GFR/1.73 m2 7 BUN/Creatinine Ratio 7.4 L Glucose Level 100 Calcium Level 8.6 Total Bilirubin 0.4 Aspartate Amino Transf (AST/SGOT) 20 Alanine Aminotransferase (ALT/SGPT) 8 L Alkaline Phosphatase 240 H Troponin I High Sensitivity 13 Total Protein 7.3 Albumin 2.9 L Globulin 4.4 H Albumin/Globulin Ratio 0.7 L Lipase 7 L Chemistry Comments Re-Evaluation Re-Evaluation : Re-Evaluation: Unchanged Progress Patient comes in with multiple complaints in his also very well known to the hospital were excessive visits to the ER for chronic pain management. Patient states she has not had any pain medications in several days she ran out of her pain medications once again in his overusing her medications. Patient is reporting diarrhea took some Imodium. However this may be due to the fact that she could be having some early withdrawal like symptoms. Patient was given a single [place] but no additional medications. She has been in the ER being observed for over 10 hours and did not have any episodes of diarrhea. Her a bdomen is slightly more distended with some hyperactive bowel sounds which is new for the patient. She is pending a paracentesis. Patient's laboratory work is unchanged she has chronic renal insufficiency on hemodialysis. Patient was then discharged home to follow up with their chronic pain management doctor and to use narcotics as prescribed and not to abuse them. 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 Pulse oximetry monitor interpretation shows normal oxygenation at 100% room air, normal, my interpretation. EKG/XRAY/CT/US/VASC/MRI EKG : Additional Comment 1909: EDMD Dr. Saab interpreted the EKG to show normal sinus rhythm at a rate of 59bpm, no significant ST changes, good R wave progression. QTc of 464ms. Chest X-Ray : Interpreted By: both Additional Comments [address], [facility] [address] DIAGNOSTIC RADIOLOGY Patient: RULA ENGEL Medical Record: [id number] [facility] : 1980, Age: 44 Sex: Female Location: ER Patient Status: [facility] ER Service Date/Time: 02/22/251818 Ordering Physician: RANJIT VIDAL MD Exam: CHEST,SINGLE VIEW EXAM: DI CHEST,SINGLE VIEW Indication: CP Technique: Single frontal view of the chest was obtained Comparison: DI CHEST,SINGLE VIEW on DOS: 01/17/25, DI CHEST,SINGLE VIEW on DOS: 12/25/24, DI CHEST,SINGLE VIEW on DOS: 12/19/24, CT CT CHEST on DOS: 11/20/24, DI CHEST,SINGLE VIEW on DOS: 11/16/24 FINDINGS: Lines and Tubes: Left central venous catheter tip projects over the cavoatrial junction. Lungs: No focal consolidation. Pulmonary edema. Pleura: No effusion. No pneumothorax. Cardiomediastinal contours: Unremarkable. Valvular device projects over the mediastinum. Bones: No acute osseous abnormality. IMPRESSION: Pulmonary edema. Electronically Signed by:CHARLES ACEVES MD Date & Time: 02/22/251842 Dictated by: CHARLES ACEVES MD Dictation date and time: 02/22/251814 Primary Care Provider: NO PRIMARY CARE PROVIDER cc: RANJIT VIDAL MD ~ EDMD Dr. Saab reviewed imaging and agrees with above findings. Medical Decision Making Additional info obtained from: old records Findings MSE performed in triage and patient returned to ED lobby by nursing staff to await available ED room Differential Dx:Considerations: Include: Appendicitis, Bowel obstruction, Cholangitis, Cholelithasis, Constipation, Diverticular disease, Esophagitis, Gastritis/PUD, Gastroenteritis, GI hemorrhage, Hernia, Hepatitis, Inflammatory BD, Ischemic bowel, Pancreatitis, Other Departure Time of Disposition: 03:03 Disposition: 01 HOME / SELF CARE / HOMELESS Impression: Primary Impression: Chronic abdominal pain Additional Impressions: Chronic renal failure Qualified Codes: N18.9 - Chronic kidney disease, unspecified Medical non-compliance Condition: Stable Discharge Instructions: Chronic Pain, Adult, Food Choices to Help Relieve Di arrhea, Adult Referrals: NO PRIMARY CARE PROVIDER (PCP) Education Educated: Patient Educated regarding: diagnosis, treatment, need for follow up Signature Scribe Signature: Scribed for Davie Saab MD by Desiree Mckeon. 02/23/25 03:04 Attestation: The note accurately reflects work and decisions made by me.Davie Saab MD 02/23/25 03:45 JUAN PABLO WILLIS Feb 22, 2025 20:30 DAVIE SAAB MD Feb 23, 2025 03:04
[2025-02-23 02:53] LABS: LEUKOCYTE ESTERASE ,URINE NEGATIVE (Neg); NITRITES, URINE NEGATIVE (Neg); OCCULT BLOOD,URINE NEGATIVE (Neg)
[2025-02-23 02:54] LABS: UA COLLECTION TYPE CLN CATCH MIDSTREAM
[2025-02-23 03:00] LABS: MUCUS STRANDS FEW /LPF (Neg); SQUAMOUS EPITHELIAL CELL,UR FEW /LPF (FEW)
[2025-02-23] MEDS: HYDROcodone/acetaminophen 10/325mg tab PO ONE (03:05)
[2025-02-23 03:21] VITALS: BP 151/102; PULSE 59; RESP 16; TEMP 96.9; O2SAT 100
--- NOTE | 2025-02-23 06:47 | ELECTROCARDIOGRAPH REPORT ---
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 Davie Saab Measurements Intervals [place] Rate: 59 P: 182 ME: 201 QRS: 114 QRSD: 99 T: 82 QT: 468 QTc: 464 Interpretive Statements Sinus or ectopic atrial bradycardia Right axis deviation Low voltage, precordial leads Borderline ST depression, anterolateral leads Baseline wander in lead(s) I,II,aVR,aVF,V3,V4,V5,V6 Electronically Signed On 02-24-2025 0:29:[address] Davie Saab Please click the below link to view image of tracing.
== END 2025-02-23 03:21 | disposition home or self-care (01) ==
LOC: ER 17:57
DX: G89.29 Other chronic pain (principal); R10.9 Unspecified abdominal pain; E78.00 Pure hypercholesterolemia, unspecified; F12.90 Cannabis use, unspecified, uncomplicated; I13.2 Hypertensive heart and chronic kidney disease with heart failure and with stage 5 chronic kidney disease, or end stage renal disease; I50.9 Heart failure, unspecified; N18.6 End stage renal disease; M06.9 Rheumatoid arthritis, unspecified; M79.7 Fibromyalgia; M81.0 Age-related osteoporosis without current pathological fracture; Z88.1 Allergy status to other antibiotic agents; Z88.5 Allergy status to narcotic agent; Z95.1 Presence of aortocoronary bypass graft; Z88.8 Allergy status to other drugs, medicaments and biological substances; Z79.82 Long term (current) use of aspirin; Z99.2 Dependence on renal dialysis
CPT/HCPCS: 36415; 71045; 80053; 81001; 83690; 84484; 85008; 85025; 93005; 99285

== ENCOUNTER 2025-03-18 02:43 | Emergency (ER) | payer MEDICARE, MEDICAID ==
--- NOTE | 2025-03-18 04:12 | Physician Documentation ---
History of Present Illness ~ Chief Complaint: Arm Pain Stated Complaint: COUGHING UP BLOOD/BODY PAIN Time Seen by MD: 03:45 Primary Medical Doctor: Qi Mcdonnell Mode of Arrival: POV, Ambulatory HPI Patient presents to the emergency room for evaluation of right arm right hip pain as well as hemoptysis since last week. She reports that she was seen at [facility] in suffered a broken hip and arm. She states she was not discharged with pain medication and they will not give her any therefore she came to our hospital. She is worried that she might also have some internal bleeding. Tetanus within 5 years: No Medication Reconciliation Allergies: Coded Allergies: cefaclor (Verified Allergy, Severe, hives/severe swelling, 03/18/25) cefpodoxime (Verified Allergy, Severe, hives/severe swelling, 03/18/25) Scheduled Aspirin (Aspirin EC), 1 TAB PO DAILY, (Reported) Clonidine HCl (Clonidine HCl), 1 TAB PO BID, (Reported) Diclofenac Sodium (Diclofenac Sodium), 1 APPLIC TOP DAILY, (Reported) Furosemide (Furosemide), 2 TAB PO DAILY, (Reported) Gabapentin (Neurontin), 1 CAP PO DAILY, (Reported) Hydroxychloroquine Sulfate (Plaquenil), 200 MG PO DAILY, (Reported) Lacosamide (Lacosamide), 1 TAB PO BID, (Reported) Levetiracetam (Levetiracetam), 1 TAB PO BID, (Reported) Levothyroxine Sodium (Levothyroxine Sodium), 1 TAB PO DAILY, (Reported) Nifedipine ER* (Nifedipine Er*), 1 TAB PO BID, (Reported) Prednisone* (Prednisone*), 1 TAB PO DAILY, (Reported) Sertraline HCl (Sertraline HCl), 2 TAB PO DAILY, (Reported) [Fentanyl Patch], 50 MCG Q48H, (Reported) Scheduled PRN Ipratropium/Albuterol Sulfate (Duoneb 2.5-0.5 Mg/3 Ml Soln), 3 ML IH Q6H PRN for SOB or wheezing, (Reported) ONDANSETRON ODT 4mg tablet (Ondansetron Odt), 1 TAB PO Q6H PRN for nausea/vomiting, (Reported) Polyethylene Glycol 3350* (Miralax*), 1 PKT PO DAILY PRN for constipation, (Reported) Miscellaneous Medications Loperamide Hcl (Loperamide), 2 TAB PO, (Reported) Oxycodone Hcl/Acetaminophen (Oxycodone-Acetaminophen 10-325), (Reported) Sodium Zirconium Cyclosilicate (Lokelma), (Reported) Past Medical History Past Medical History: Seizures, Congestive Heart Failure, High Cholesterol, Heart Valve Disease, Hypertension, Pneumonia, Pulmonary Embolism, Chronic Kidney Disease, *MUSCULOSKELETAL*, Arthritis, Chronic Pain, Deep Vein Thrombosis, Fibromyalgia, Osteoporosis, Rheumatoid Arthritis, MRSA Abscess, Depression Past Surgical History: coronary bypass surgery, , heart valve surgery, other Patient History: Cardiomegaly MOTHER FHx: depression MOTHER FHx: diabetes mellitus MOTHER FHx: sleep apnea MOTHER Legionnaire's disease MOTHER Other Past Family History: NONCONTRIBUTORY Alcohol Use: None Drug Use: marijuana Lives with: Family Lives In: Home Occupation: unemployed Review of Systems ROS All review of systems negative except as per HPI Physical Exam Vital Signs: Temperature: 98.9, Source: Temporal, Heart Rate: 80, Respiratory Rate: 16, BP: 124/80, Pulse Oximetry: 99 Oxygen Flow Rate: 0 Physical Exam General: Patient is awake, alert, oriented x4 in no acute distress Head: Normocephalic and atraumatic. Eyes: Conjunctival normal. EOMI. PERRL. ENT: Mucous membranes moist. Neck: Supple, trachea is midline. Chest: Clear to auscultation bilaterally without rales, rhonchi, or wheezes. There is no accessory muscle use or retractions. Cardiac: RRR without murmurs, gallops, or rubs. Abd: Soft, nondistended, nontender, with normoactive bowel sounds. No guarding, rebound, or rigidity. Extremities: Surgical wound noted in patient's right humerus that has well healing without signs of infection. Bandages noted in patient's right hip and distal right thigh with no signs of infection. Progress Results/Orders Results/Orders Orders - ALTON MORALES MD Chest,Single View (03/18/25 07:25) Cta Chest Pe (03/18/25 09:11) Completed Orders - ALTON MORALES MD Chest,Single View (03/18/25 07:25) Cta Chest Pe (03/18/25 09:11) Iohexol 350mg/Ml 100ml (Omnipaque 350mg/ (03/18/25 09:48) Hydromorphone 0.5 Mg/0.5 Ml/Pf (Dilaudid (03/18/25 11:00) Medications Received in ER Medications (Trade) Dose Ordered Sig/Michael Route PRN Reason Start Time Stop Time Status Last Admin Dose Admin (Dilaudid inj.) 0.5 mg ONCE ONCE IV 03/18/25 11:00 03/18/25 11:01 DC 03/18/25 11:08 0.5 MG Vital Signs 03/18/25 03/18/25 03/18/25 03/18/25 02:49 04:04 04:04 04:51 Temp 98.9 Pulse 68 80 66 Resp 15 16 16 18 B/P (MAP) 112/63 124/80 (95) 176/96 (122) Pulse Ox 100 99 99 O2 Flow Rate 0 0 03/18/25 03/18/25 03/18/25 03/18/25 05:59 06:30 07:30 08:30 Temp 98.1 Pulse 64 68 69 69 Resp 16 16 18 16 B/P (MAP) 179/95 (123) 188/98 (128) 171/95 (120) 184/105 (131) Pulse Ox 99 99 100 99 O2 Flow Rate 0 0 0 0 03/18/25 03/18/25 03/18/25 09:30 10:30 11:30 Pulse 69 71 75 Resp 16 16 18 B/P (MAP) 186/103 (130) 181/99 (126) 165/95 (118) Pulse Ox 100 99 98 O2 Flow Rate 0 0 0 Laboratory Tests Test 03/18/25 04:46 White Blood Count 8.4 Red Blood Count 2.81 L Hemoglobin 8.3 L Hematocrit 25.6 L Mean Corpuscular Volume 91.2 Mean Corpuscular Hemoglobin 29.6 Mean Corpuscular Hemoglobin Concent 32.4 L Red Cell Distribution Width 21.8 H Platelet Count 185 Mean Platelet Volume 8.4 Neutrophils (%) (Auto) 77.2 H Lymphocytes (%) (Auto) 9.0 L Monocytes (%) (Auto) 7.7 Eosinophils (%) (Auto) 5.1 Basophils (%) (Auto) 1.0 Neutrophils # (Auto) 6.5 Lymphocytes # (Auto) 0.8 L Monocytes # (Auto) 0.6 Eosinophils # (Auto) 0.4 Basophils # (Auto) 0.1 CBC Comment D-Dimer 8.66 H D-Dimer Comment Sodium Level 135 Potassium Level 4.1 Chloride Level 100 Carbon Dioxide Level 21.9 L Anion Gap 13 Blood Urea Nitrogen 75 H Creatinine 6.67 H Estimated GFR/1.73 m2 7 BUN/Creatinine Ratio 11.2 Glucose Level 109 H Calcium Level 7.4 L Troponin I High Sensitivity 16 Pro-B-Type Natriuretic Peptide > 98232 H Albumin 2.0 L Chemistry Comments Medical Decision Making Findings Patient presents emergency room requesting pain medication and also endorsing hemoptysis. She reports a history of recent surgery over at [facility] and states they have not given her any pain medicine. While here in the ED, she remained hemodynaically normal with ABC's intact and in NAD. She is afebrile and nontoxic. I due to the report of hemoptysis, a CXR was ordered and reviewed by me. I do not appreciate any radiographic evidence of an acute cardiopulmonary process. She has had no new oxygen requirement since being here in the ED. D- dimer elevated but she has chronic kidney disease and a host of other chronic diseases so unsure how reliable the test is. As she is ESRD with HD on MWF, she is scheduled for HD today at 1530 so will do the CTA Chest to further evaluate for a PE. CT was negative for an acute PE but does show pulmonary edema. She has had no hemoptysis since being here for several hours in the ED and her H/H is at baseline. With regards to not receiving pain meds at the time of discharge from [facility], she is noted to be followed by a chronic pain specialist and receives month Oxycodone prescriptions. I reviewed her CURES report and it appears she filled her monthly script for 105 tabs of Oxycodone 10 mg on Feb and this was for 30 days. She also filled her transdermal Fentanyl patch prescription on Feb for 15 patches. So she already has outpatient pain meds. As she appears to be at her baseline, she is safe for d/c home with outpatient follow-up. She was given follow-up and return instructions. She voiced understanding and agreement with d/c instructions. Departure Disposition: HOME / SELF CARE / HOMELESS Impression: Primary Impression: Arm pain Additional Impressions: Chronic pain syndrome ESRD (end stage renal disease) on dialysis Anemia Condition: Improved Discharge Instructions: Muscle Strain, [id number] Referrals: NO PRIMARY CARE PROVIDER (PCP) Education Educated: Patient, Family Educated regarding: diagnosis, treatment Additional Comment Please follow-up with your PCP and return to the Emergency Department if there are any additional concerns. Signature Scribe Signature: No scribe Attestation: The note accurately reflects work and decisions made by me.Isaac Feliciano MD 03/18/25 05:42 I assumed care of Ms. Franklin at time of signout (0600). Alton Morales M.D. 03/18/2025 07:41 ISAAC FELICIANO MD Mar 18, 2025 04:12 ALTON MORALES MD Mar 18, 2025 07:49
[2025-03-18 05:05] LABS: MEAN PLATELET VOLUME 8.4 FL (7.4-10.4); RED CELL DISTRIBUTION WIDTH 21.8 % (11.5-14.5)
[2025-03-18 05:26] LABS: CREATININE 6.67 MG/DL (0.40-0.90); TOTAL CARBON DIOXIDE 21.9 MMOL/L (24-32); eGFR 7 ML/MIN
[2025-03-18 05:59] VITALS: TEMP 98.1
[2025-03-18 06:20] LABS: PRO BRAIN NATRIURETIC PEPTIDE > 30000 PG/ML (0-125)
[2025-03-18] MEDS: HYDROmorphone inj. 0.5 MG/0.5 ML DISP.SYRIN IV ONE (11:08)
[2025-03-18 11:30] VITALS: BP 165/95; PULSE 75; RESP 18; O2SAT 98
--- NOTE | 2025-03-18 11:43 | RADIOLOGY REPORT ---
CTA Chest with intravenous contrast INDICATION: Hemoptysis COMPARISON: CT CT CHEST on DOS: 11/20/24 TECHNIQUE: Multidetector spiral CTA of the chest was performed of the chest with intravenous contrast. PULMONARY ANGIOGRAPHY PROTOCOL was utilized using a bolus- tracking technique centered on the main pulmonary artery. Axial, coronal and sagittal multiplanar and MIP reformats were performed. Radiation Dose : 1. Chest: CTDI volume is 14 mGy. Dose-length product is 515 mGy*cm The dose indicators for CT are the volume Computed Tomography (CT) Dose Index (CTDIvol) and the Dose Length Product (DLP), and are measured in units of mGy and mGy-cm, respectively. These indicators are not patient dose, but values generated from the CT scanner acquisition factors. The report includes radiation exposure data for exposures received during this examination. Findings: Pulmonary artery: No pulmonary embolism Lower neck: Normal thyroid. Lungs: Diffuse increased interstitial prominence. Mild diffuse interlobular septal thickening. Heart/Vascular Structures: Cardiomegaly. Coronary artery calcifications. Vascular calcifications of the aorta. Pulmonary artery is enlarged measuring 4.7 cm. Lymph Nodes: No adenopathy Pleura: No pleural effusion or significant pneumothorax. Musculoskeletal: No acute osseous abnormality. Median sternotomy. Soft tissues: Normal. Upper abdomen: Small volume ascites. Changes of chronic pancreatitis. IMPRESSION: No pulmonary embolism. Findings are suggestive of pulmonary edema. Cardiomegaly. Enlarged pulmonary artery suggestive of pulmonary arterial hypertension. Small volume ascites.
--- NOTE | 2025-03-18 14:08 | RADIOLOGY REPORT ---
CHEST RADIOGRAPH Indication: cough Technique: Single frontal view of the chest was obtained COMPARISON: DI CHEST,SINGLE VIEW on DOS: 02/22/25, DI CHEST,SINGLE VIEW on DOS: 01/17/25, DI CHEST,SINGLE VIEW on DOS: 12/25/24, DI CHEST,SINGLE VIEW on DOS: 12/19/24, CT CT CHEST on DOS: 11/20/24 FINDINGS: Lines and Tubes: Median sternotomy. Left tunneled central venous catheter in satisfactory position. Lungs: Congestion Pleura: No effusion. No pneumothorax. Cardiomediastinal contours: Unremarkable Bones: Unremarkable IMPRESSION: Increased interstital prominence. This may represent pulmonary vascular congestion and/or viral pneumonia. Clinical correlation advised.
== END 2025-03-18 12:19 | disposition home or self-care (01) ==
LOC: ER 02:44
DX: G89.4 Chronic pain syndrome (principal); M79.601 Pain in right arm; I13.2 Hypertensive heart and chronic kidney disease with heart failure and with stage 5 chronic kidney disease, or end stage renal disease; I50.9 Heart failure, unspecified; N18.6 End stage renal disease; E78.00 Pure hypercholesterolemia, unspecified; D64.9 Anemia, unspecified; M79.7 Fibromyalgia; F32.A Depression, unspecified; M19.90 Unspecified osteoarthritis, unspecified site; F12.90 Cannabis use, unspecified, uncomplicated; Z86.14 Personal history of Methicillin resistant Staphylococcus aureus infection; Z86.711 Personal history of pulmonary embolism; Z86.718 Personal history of other venous thrombosis and embolism; Z88.1 Allergy status to other antibiotic agents; Z95.1 Presence of aortocoronary bypass graft; Z79.82 Long term (current) use of aspirin; Z79.899 Other long term (current) drug therapy; Z56.0 Unemployment, unspecified
CPT/HCPCS: 36415; 71045; 71275; 80048; 83880; 84484; 85025; 85379; 96374; 99285; A6258; A6402; J1171; Q9967; A6449

== ENCOUNTER 2025-04-22 18:55 | Emergency (ER) | payer MEDICARE, MEDICAID ==
[~2025-04-22] VITALS: Ht 157.5 cm; Wt 45.5 kg
[2025-04-22 18:59] VITALS: BP 154/91; PULSE 72; O2SAT 94
--- NOTE | 2025-04-22 19:22 | Physician Documentation ---
History of Present Illness ~ Chief Complaint: Shoulder pain Stated Complaint: BODY PAIN Time Seen by MD: 19:15 Primary Medical Doctor: Qi LEDESMA This is a 45-year-old female with a history of end-stage renal disease on dialysis. She presents today due to intractable pain. She reports that she has run out of her oxycodone and her fentanyl patch. However review of her med fill history shows that she picked up her oxycodone for a 30 day supply on 04/01/2025 and her fentanyl patch on 03/24/2025. Once this was discussed with her, she did also report that she is here because she is having copious rectal bleeding. She notes that she is status post surgery on her right shoulder after a fall. In addition, she notes that "I hurt all over. Tetanus within 5 years?: No Medication Reconciliation Allergies: Coded Allergies: cefaclor (Verified Allergy, Severe, hives/severe swelling, 04/22/25) cefpodoxime (Verified Allergy, Severe, hives/severe swelling, 04/22/25) Scheduled Aspirin (Aspirin EC), 1 TAB PO DAILY, (Reported) Clonidine HCl (Clonidine HCl), 1 TAB PO BID, (Reported) Diclofenac Sodium (Diclofenac Sodium), 1 APPLIC TOP DAILY, (Reported) Furosemide (Furosemide), 2 TAB PO DAILY, (Reported) Gabapentin (Neurontin), 1 CAP PO DAILY, (Reported) Hydroxychloroquine Sulfate (Plaquenil), 200 MG PO DAILY, (Reported) Lacosamide (Lacosamide), 1 TAB PO BID, (Reported) Levetiracetam (Levetiracetam), 1 TAB PO BID, (Reported) Levothyroxine Sodium (Levothyroxine Sodium), 1 TAB PO DAILY, (Reported) Nifedipine ER* (Nifedipine Er*), 1 TAB PO BID, (Reported) Prednisone* (Prednisone*), 1 TAB PO DAILY, (Reported) Sertraline HCl (Sertraline HCl), 2 TAB PO DAILY, (Reported) [Fentanyl Patch], 50 MCG Q48H, (Reported) Scheduled PRN Ipratropium/Albuterol Sulfate (Duoneb 2.5-0.5 Mg/3 Ml Soln), 3 ML IH Q6H PRN for SOB or wheezing, (Reported) ONDANSETRON ODT 4mg tablet (Ondansetron Odt), 1 TAB PO Q6H PRN for nausea/vomiting, (Reported) Polyethylene Glycol 3350* (Miralax*), 1 PKT PO DAILY PRN for constipation, (Reported) Miscellaneous Medications Loperamide Hcl (Loperamide), 2 TAB PO, (Reported) Oxycodone Hcl/Acetaminophen (Oxycodone-Acetaminophen 10-325), (Reported) Sodium Zirconium Cyclosilicate (Lokelma), (Reported) Past Medical History Past Medical History: Seizures, Congestive Heart Failure, High Cholesterol, Heart Valve Disease, Hypertension, Pneumonia, Pulmonary Embolism, Chronic Kidney Disease, *MUSCULOSKELETAL*, Arthritis, Chronic Pain, Deep Vein Thrombosis, Fibromyalgia, Osteoporosis, Rheumatoid Arthritis, MRSA Abscess, Depression Past Surgical History: coronary bypass surgery, , heart valve surgery, other Patient History: Cardiomegaly MOTHER FHx: depression MOTHER FHx: diabetes mellitus MOTHER FHx: sleep apnea MOTHER Legionnaire's disease MOTHER Other Past Family History: NONCONTRIBUTORY Alcohol Use: None Drug Use: marijuana Lives with: Family Lives In: Home Occupation: unemployed Review of Systems ROS As stated above in the HPI, otherwise all systems are reviewed and negative. Physical Exam Vital Signs: Temperature: 97.6, Source: Temporal, Heart Rate: 72, Respiratory Rate: 16, BP: 154/91, Pulse Oximetry: 94, Weight: 45.500 Physical Exam General: Alert, no apparent distress. Chronically ill appearing. HEENT: PERRL, EOMI, no injection, moist mucous membranes. Neck: Full range of motion. Respiratory: Lungs clear, no respiratory distress. Chest: No accessory muscle use. Cardiovascular: Regular rate and rhythm, no murmurs. Gastrointestinal: Soft, nontender, nondistended. Bowels sounds present. Rectal: Poor tone with incontinence of stool when turning her to obtain hemocult. Yellow stool, guiac negative. Extremities: Generalized weakness, presents in wheelchair. Reduced/painful ROM to right hip and right shoulder. Neurologic: Oriented x4. Psychiatric: Normal mood and affect. Skin: Sallow/pale, warm and dry. No edema, no ecchymosis. Progress Progress Note 2005: Hemocult negative stool. Results/Orders Results/Orders Orders - MARYAN ARIZA NP Hemocult Set Up (04/22/25 ) Completed Orders - MARYAN ARIZA NP Oxycodone Immed Release Tablet (Oxy Ir T (04/22/25 19:25) Cbc/Diff (04/22/25 19:31) Renal Panel (04/22/25 19:32) Medications Received in ER Medications (Trade) Dose Ordered Sig/Michael Route PRN Reason Start Time Stop Time Status Last Admin Dose Admin (OXY IR tablet) 5 mg ONCE ONCE PO 04/22/25 19:25 04/22/25 19:29 DC 04/22/25 19:49 5 MG Vital Signs 04/22/25 04/22/25 18:59 19:49 Temp 97.6 Pulse 72 Resp 16 22 B/P (MAP) 154/91 Pulse Ox 94 Laboratory Tests Test 04/22/25 19:48 White Blood Count 8.4 Red Blood Count 2.61 L Hemoglobin 7.8 L Hematocrit 23.9 L Mean Corpuscular Volume 91.9 Mean Corpuscular Hemoglobin 30.1 Mean Corpuscular Hemoglobin Concent 32.8 L Red Cell Distribution Width 18.0 H Platelet Count 184 Mean Platelet Volume 8.5 Neutrophils (%) (Auto) 67.5 Lymphocytes (%) (Auto) 13.9 L Monocytes (%) (Auto) 9.3 Eosinophils (%) (Auto) 7.9 H Basophils (%) (Auto) 1.4 H Neutrophils # (Auto) 5.7 Lymphocytes # (Auto) 1.2 Monocytes # (Auto) 0.8 Eosinophils # (Auto) 0.7 Basophils # (Auto) 0.1 CBC Comment Sodium Level 136 Potassium Level 4.8 Chloride Level 101 Carbon Dioxide Level 26.5 Anion Gap 9 Blood Urea Nitrogen 37 H Creatinine 3.88 H Estimated GFR/1.73 m2 12 BUN/Creatinine Ratio 9.5 L Glucose Level 93 Calcium Level 7.5 L Phosphorus Level 5.2 H Albumin 2.2 L Chemistry Comments Medical Decision Making Additional information obtaine: old records Findings Frequent visits to this ER for pain-related complaints. Differential Dx:Considerations: Include: other Additional Comments Labs obtained showing chronic anemia and chronic kidney disease with no signi ficant changes. Most Likely Diagnoses: Opioid withdrawal syndrome is highly likely given abrupt cessation of both oxycodone and fentanyl, especially in a patient with chronic pain and frequent emergency visits. Withdrawal can present with diffuse pain, diaphoresis, anxiety, and gastrointestinal symptoms including diarrhea and abdominal cramping, but does not typically cause bloody stools. The clinical features and management are described in the medical literature, including the use of symptom-directed therapy and agents such as lofexidine for withdrawal mitigation.[1-2] Gastrointestinal bleeding due to uremic platelet dysfunction is common in end- stage renal disease, with spontaneous mucosal bleeding (including GI tract) resulting from impaired platelet aggregation and endothelial dysfunction.[3] This can manifest as bloody stools, and is exacerbated by comorbidities and medical interventions. Ischemic colitis is a frequent cause of lower GI bleeding in dialysis patients, presenting with abdominal pain and bloody diarrhea. The [employer] notes that dialysis, hypotension, and vascular disease are major risk factors, and symptoms often include cramping, urgency, and hematochezia.[4] Angiodysplasia or diverticular bleeding are common etiologies of painless lower GI bleeding in older adults and those with chronic kidney disease. Ang iodysplasia is associated with vascular degeneration and is frequently seen in the cecum and ascending colon, while diverticular bleeding is the most common cause of lower GI bleeding overall.[5] Most Important Not to Miss Diagnoses: Acute mesenteric ischemia must be excluded, as it presents with severe abdominal pain, bloody stools, and can rapidly progress to bowel necrosis and sepsis. Diagnosis requires urgent CT angiography, as recommended in the medical literature.[6] Massive upper GI hemorrhage (e.g., bleeding peptic ulcer) can present with hematochezia if bleeding is brisk. Early endoscopic evaluation and resuscitation are critical.[7] Severe or fulminant colitis (including Clostridioides difficile colitis) can cause bloody diarrhea and systemic compromise, especially in immunocompromised or recently hospitalized patients. Imaging and stool studies are required for diagnosis.[5][8] Departure Time of Disposition: 19:21 Disposition: 01 HOME / SELF CARE / HOMELESS Impression: Primary Impression: Chronic pain syndrome Discharge Instructions: Shoulder Pain Additional Instructions: Normal yellow stools. No blood. Your 50 mcg fentanyl patches were filled for 30 day supply on 03/24/2025. Your oxycodone prescription was filled for 30 day supply on 04/01/2025. I can not refill your chronic pain medications in the emergency department. You will need to see your primary care provider. You will be given one oxycodone today, and discharged to followup with your usual prescriber. Referrals: NO PRIMARY CARE PROVIDER (PCP) Education Educated: Patient, Family Educated regarding: diagnosis, treatment, prognosis, need for follow up Signature Scribe Signature: x Attestation: The note accurately reflects work and decisions made by me.Maryan Harrison NP 04/22/25 20:08 MARYAN ARIZA NP Apr 22, 2025 19:22
[2025-04-22 19:49] VITALS: RESP 22
[2025-04-22] MEDS: oxyCODONE IR 5mg (immed. release) tablet PO ONE (19:49)
[2025-04-22 20:01] LABS: MEAN PLATELET VOLUME 8.5 FL (7.4-10.4); RED CELL DISTRIBUTION WIDTH 18.0 % (11.5-14.5)
[2025-04-22 20:10] LABS: CREATININE 3.88 MG/DL (0.40-0.90); PHOSPHORUS 5.2 MG/DL (2.3-4.5); TOTAL CARBON DIOXIDE 26.5 MMOL/L (24-32); eCRCL 13 ML/MIN; eGFR 12 ML/MIN
[2025-04-22 20:25] VITALS: TEMP 97.6
== END 2025-04-22 20:26 | disposition home or self-care (01) ==
LOC: ER 18:56
DX: G89.4 Chronic pain syndrome (principal); I13.2 Hypertensive heart and chronic kidney disease with heart failure and with stage 5 chronic kidney disease, or end stage renal disease; N18.6 End stage renal disease; M79.7 Fibromyalgia; M19.90 Unspecified osteoarthritis, unspecified site; F32.A Depression, unspecified; E78.00 Pure hypercholesterolemia, unspecified; F12.90 Cannabis use, unspecified, uncomplicated; Z86.14 Personal history of Methicillin resistant Staphylococcus aureus infection; Z86.711 Personal history of pulmonary embolism; Z86.718 Personal history of other venous thrombosis and embolism; Z88.1 Allergy status to other antibiotic agents; Z95.1 Presence of aortocoronary bypass graft; Z79.899 Other long term (current) drug therapy; Z56.0 Unemployment, unspecified
CPT/HCPCS: 36415; 80069; 82272; 85025; 99283

== ENCOUNTER 2025-05-09 09:09 | Emergency (ER) | payer MEDICARE, MEDICAID ==
[~2025-05-09] VITALS: Ht 157.5 cm; Wt 45.5 kg
--- NOTE | 2025-05-09 10:08 | Physician Documentation ---
History of Present Illness General Chief Complaint: Pain Stated Complaint: LUPUS FLARE UP Time Seen by MD: 10:05 Primary Medical Doctor: Qi Mcdonnell History of Present Illness Initial Comments Patient is a 45-year-old female with a history of lupus and end-stage renal disease on dialysis. The patient presents with myalgias as her main complaint she states she is having a lupus flare and she is hurting everywhere. The patient also states she has had two weeks of diarrhea nausea and vomiting. The patient states she has not gone to her dialysis in the last two weeks. The patient states she has some slight shortness of breath. The patient denies any fevers or chills. Medication Reconciliation Allergies: Coded Allergies: cefaclor (Verified Allergy, Severe, hives/severe swelling, 04/22/25) cefpodoxime (Verified Allergy, Severe, hives/severe swelling, 04/22/25) Scheduled Aspirin (Aspirin EC), 1 TAB PO DAILY, (Reported) Clonidine HCl (Clonidine HCl), 1 TAB PO BID, (Reported) Diclofenac Sodium (Diclofenac Sodium), 1 APPLIC TOP DAILY, (Reported) Furosemide (Furosemide), 2 TAB PO DAILY, (Reported) Gabapentin (Neurontin), 1 CAP PO DAILY, (Reported) Hydroxychloroquine Sulfate (Plaquenil), 200 MG PO DAILY, (Reported) Lacosamide (Lacosamide), 1 TAB PO BID, (Reported) Levetiracetam (Levetiracetam), 1 TAB PO BID, (Reported) Levothyroxine Sodium (Levothyroxine Sodium), 1 TAB PO DAILY, (Reported) Nifedipine ER* (Nifedipine Er*), 1 TAB PO BID, (Reported) Prednisone* (Prednisone*), 1 TAB PO DAILY, (Reported) Sertraline HCl (Sertraline HCl), 2 TAB PO DAILY, (Reported) [Fentanyl Patch], 50 MCG Q48H, (Reported) Scheduled PRN Ipratropium/Albuterol Sulfate (Duoneb 2.5-0.5 Mg/3 Ml Soln), 3 ML IH Q6H PRN for SOB or wheezing, (Reported) ONDANSETRON ODT 4mg tablet (Ondansetron Odt), 1 TAB PO Q6H PRN for nausea/vomiting, (Reported) Polyethylene Glycol 3350* (Miralax*), 1 PKT PO DAILY PRN for constipation, (Reported) Miscellaneous Medications Loperamide Hcl (Loperamide), 2 TAB PO, (Reported) Oxycodone Hcl/Acetaminophen (Oxycodone-Acetaminophen 10-325), (Reported) Sodium Zirconium Cyclosilicate (Lokelma), (Reported) Past Medical History Past Medical History: Seizures, Congestive Heart Failure, High Cholesterol, Heart Valve Disease, Hypertension, Pneumonia, Pulmonary Embolism, Chronic Kidney Disease, *MUSCULOSKELETAL*, Arthritis, Chronic Pain, Deep Vein Thrombosis, Fibromyalgia, Osteoporosis, Rheumatoid Arthritis, MRSA Abscess, Depression Past Surgical History: coronary bypass surgery, , heart valve surgery, other Other Past Family History: NONCONTRIBUTORY Smoking: Non-Smoker Alcohol Use: None Drug Use: marijuana Lives with: Family Lives In: Home Occupation: unemployed Review of Systems All Other Systems at this time: Reviewed and Negative Physical Exam Physical Exam Vital Signs: Temperature: 97.5, Source: Oral, Heart Rate: 66, Respiratory Rate: 16, BP: 167/108, Pulse Oximetry: 99, Weight: 45.450 Oxygen Flow Rate: 0 Physical Exam VITALS: Reviewed and as above. GENERAL: Alert, mild distress secondary to pain HEENT: Normocephalic, atraumatic, PERRL, EOMI, dry mucosa, no erythema RESPIRATORY: Lungs clear, normal breath sounds, no respiratory distress. CHEST: No accessory muscle use, no retractions CV: Regular rate, rhythm, no edema, 4-6 systolic murmur as well as a 4/6 diastolic murmur systolic murmurs best heard right upper sternal borders diastolic murmurs heard left lower sternal border, No: JVD GI: Soft, non-tender, bowels sounds present, no rebound, guarding, or rigidity BACK: No CVA tenderness, or swelling MUSCULOSKELETAL: No deformities, no edema SKIN: Warm and dry, no rash NEURO: Oriented x4, No motor or sensory deficit PSYCH: Normal mood and affect, no agitation Progress Results/Orders Results/Orders Orders - OHLRANJIT AMOS MD Chest,Single View (05/09/25 11:25) Completed Orders - RANJIT DAVENPORT MD Cbc/Diff (05/09/25 10:06) BMP (05/09/25 10:06) Morphine 10mg/Ml Inj. (Morphine Inj.) (05/09/25 10:15) Ondansetron Inj. (Zofran 4mg/2ml Vial) (05/09/25 10:15) Procalcitonin (05/09/25 10:25) Chest,Single View (05/09/25 11:25) Morphine 10mg/Ml Inj. (Morphine Inj.) (05/09/25 11:25) Dexamethasone Inj (Decadron 10mg/Ml Inj) (05/09/25 11:46) Vital Signs 05/09/25 05/09/25 05/09/25 05/09/25 09:11 11:00 11:10 11:45 Temp 97.5 97.8 Pulse 66 61 61 Resp 16 22 20 20 B/P (MAP) 167/108 179/107 (131) 179/107 (131) Pulse Ox 99 99 97 O2 Flow Rate 0 0 0 05/09/25 05/09/25 11:47 11:47 Resp 20 20 Laboratory Tests Test 05/09/25 10:28 White Blood Count 6.9 Red Blood Count 3.39 L Hemoglobin 10.1 L Hematocrit 32.0 L Mean Corpuscular Volume 94.4 Mean Corpuscular Hemoglobin 29.8 Mean Corpuscular Hemoglobin Concent 31.5 L Red Cell Distribution Width 23.1 H Platelet Count 201 Mean Platelet Volume 9.4 Neutrophils (%) (Auto) 78.8 H Lymphocytes (%) (Auto) 15.0 L Monocytes (%) (Auto) 4.8 Eosinophils (%) (Auto) 0 Basophils (%) (Auto) 1.4 H Neutrophils # (Auto) 5.4 Lymphocytes # (Auto) 1.0 L Monocytes # (Auto) 0.3 Eosinophils # (Auto) 0.0 Basophils # (Auto) 0.1 CBC Comment Platelet Estimate Normal Red Blood Cell Morphology Perf Polychromasia 1+ Hypochromasia 1+ Basophilic Stippling Anisocytosis 3+ Microcytosis 1+ Sodium Level 132 L Potassium Level 5.2 H Chloride Level 98 L Carbon Dioxide Level 21.4 L Anion Gap 13 Blood Urea Nitrogen 48 H Creatinine 5.76 H Estimated GFR/1.73 m2 8 BUN/Creatinine Ratio 8.3 L Glucose Level 99 Calcium Level 7.9 L Albumin 2.6 L Procalcitonin 0.75 H Chemistry Comments EKG/XRAY/CT/US/VASC/MRI Chest X-Ray : Additional Comments Patient: RULA ENGEL [facility]: [id number] 1980, Age: 45 Sex: Female Location: ER Patient Status: [facility] ER Service Date/Time: 05/09/25/ 1125 Ordering Physician: RANJIT DAVENPORT MD Exam: CHEST,SINGLE VIEW CHEST RADIOGRAPH Indication: weakness Technique: Single frontal view of the chest was obtained Comparison: DI CHEST,SINGLE VIEW on DOS: 03/18/25, DI CHEST,SINGLE VIEW on DOS: 02/22/25, DI CHEST,SINGLE VIEW on DOS: 01/17/25, DI CHEST,SINGLE VIEW on DOS: 12/25/24, DI CHEST,SINGLE VIEW on DOS: 12/19/24, DI CHEST,SINGLE VIEW on DOS: 03/18/25 FINDINGS: Lines and Tubes: Median sternotomy. Left tunneled central venous catheter in satisfactory position. Lungs: Congestion Pleura: No effusion. No pneumothorax. Cardiomediastinal contours: Unremarkable Bones: Unremarkable IMPRESSION: 1. Increased interstital prominence. This may represent pulmonary vascular c ongestion and/or viral pneumonia. Clinical correlation advised. Electronically Signed by:MICHAEL MARIN MD Date & Time: 05/09/25 1148 Dictated by: MICHAEL MARIN MD Dictation date and time: 05/09/25 1135 Primary Care Provider: NO PRIMARY CARE PROVIDER cc: RANJIT DAVENPORT MD ~ Medical Decision Making Additional information obtaine: old records Findings The patient is a 45-year-old female with lupus and renal failure requiring dialysis, she has been noncompliant with her dialysis for the last several weeks she has multiple myalgias and arthralgias and states she is having a lupus flare. The the patient is hemodynamically stable she has no indication for emergent dialysis at this time she is not volume overloaded she is not significantly hyperkalemic, the patient was given a dose of pain medication as well as a dose of steroids for possible lupus flare. Prior hospitalizations has been reviewed. The patient's pulse oximetry was interpreted as adequate and normal. 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 The patient will be discharged she has been advised to go to dialysis and get her dialysis that she has not been receiving for the last two weeks. Differential Diagnosis Lupus flare, myalgias, fibromyalgia, neuropathy, Departure Time of Disposition: 11:33 Disposition: 01 HOME / SELF CARE / HOMELESS Impression: Primary Impression: Chronic renal failure Qualified Codes: N18.9 - Chronic kidney disease, unspecified Additional Impression: Arthralgia of multiple joints Discharge Instructions: Chronic Pain Management Referrals: NO PRIMARY CARE PROVIDER (PCP) Signature Scribe Signature: No scribe Attestation: The note accurately reflects work and decisions made by me.Ranjit Davenport MD 05/10/25 08:55 RANJIT DAVENPORT MD May 09, 2025 10:08
[2025-05-09 10:46] LABS: MEAN PLATELET VOLUME 9.4 FL (7.4-10.4); RED CELL DISTRIBUTION WIDTH 23.1 % (11.5-14.5)
[2025-05-09 10:56] LABS: CREATININE 5.76 MG/DL (0.40-0.90); TOTAL CARBON DIOXIDE 21.4 MMOL/L (24-32); eCRCL 9 ML/MIN; eGFR 8 ML/MIN
[2025-05-09] MEDS: morphine 10mg/ml inj. IV ONE ×2 (10:57→11:45)
[2025-05-09] MEDS: ondansetron/PF 4mg/2ml inj IV ONE (10:57)
[2025-05-09 11:10] VITALS: BP 179/107; PULSE 61; TEMP 97.8; O2SAT 97
[2025-05-09 11:36] LABS: PLATELET ESTIMATE NORMAL
[2025-05-09 11:47] VITALS: RESP 20
[2025-05-09] MEDS: dexamethasone sod phosphate 10mg/ml inj IV STA (11:50)
--- NOTE | 2025-05-09 11:50 | RADIOLOGY REPORT ---
CHEST RADIOGRAPH Indication: weakness Technique: Single frontal view of the chest was obtained Comparison: DI CHEST,SINGLE VIEW on DOS: 03/18/25, DI CHEST,SINGLE VIEW on DOS: 02/22/25, DI CHEST,SINGLE VIEW on DOS: 01/17/25, DI CHEST,SINGLE VIEW on DOS: 12/25/24, DI CHEST,SINGLE VIEW on DOS: 12/19/24, DI CHEST,SINGLE VIEW on DOS: 03/18/25 FINDINGS: Lines and Tubes: Median sternotomy. Left tunneled central venous catheter in satisfactory position. Lungs: Congestion Pleura: No effusion. No pneumothorax. Cardiomediastinal contours: Unremarkable Bones: Unremarkable IMPRESSION: 1. Increased interstital prominence. This may represent pulmonary vascular congestion and/or viral pneumonia. Clinical correlation advised.
== END 2025-05-09 11:57 | disposition home or self-care (01) ==
LOC: ER 09:10
DX: I13.2 Hypertensive heart and chronic kidney disease with heart failure and with stage 5 chronic kidney disease, or end stage renal disease (principal); N18.6 End stage renal disease; M79.7 Fibromyalgia; G89.29 Other chronic pain; E78.00 Pure hypercholesterolemia, unspecified; F12.90 Cannabis use, unspecified, uncomplicated; F32.A Depression, unspecified; Z86.14 Personal history of Methicillin resistant Staphylococcus aureus infection; Z86.711 Personal history of pulmonary embolism; Z86.718 Personal history of other venous thrombosis and embolism; Z88.1 Allergy status to other antibiotic agents; Z95.1 Presence of aortocoronary bypass graft; Z79.82 Long term (current) use of aspirin; Z79.899 Other long term (current) drug therapy; Z56.0 Unemployment, unspecified
CPT/HCPCS: 36415; 71045; 80048; 84145; 85008; 85025; 96374; 96375; 96376; 99284; J1100; J2270; J2405; J2274

== ENCOUNTER 2025-05-09 22:13 | Emergency (ER) | payer MEDICARE, MEDICAID ==
[~2025-05-09] VITALS: Ht 157.5 cm; Wt 50.0 kg
[2025-05-09 22:15] VITALS: BP 156/87; PULSE 66; RESP 18; TEMP 97.5; O2SAT 98
--- NOTE | 2025-05-09 22:28 | Physician Documentation ---
History of Present Illness ~ General Chief Complaint: General Stated Complaint: LUPUS FLARE Time Seen by MD: 22:23 Primary Medical Doctor: Qi Mcdonnell History of Present Illness Initial Comments Patient presents to the emergency room unusual fashion complaining of the lupus flare patient states this is the worse she has ever had. She is calmly eating c hicken nuggets in bed while stating this is the worse pain she has ever had. Medication Reconciliation Allergies: Coded Allergies: cefaclor (Verified Allergy, Severe, hives/severe swelling, 04/22/25) cefpodoxime (Verified Allergy, Severe, hives/severe swelling, 04/22/25) Scheduled Aspirin (Aspirin EC), 1 TAB PO DAILY, (Reported) Clonidine HCl (Clonidine HCl), 1 TAB PO BID, (Reported) Diclofenac Sodium (Diclofenac Sodium), 1 APPLIC TOP DAILY, (Reported) Furosemide (Furosemide), 2 TAB PO DAILY, (Reported) Gabapentin (Neurontin), 1 CAP PO DAILY, (Reported) Hydroxychloroquine Sulfate (Plaquenil), 200 MG PO DAILY, (Reported) Lacosamide (Lacosamide), 1 TAB PO BID, (Reported) Levetiracetam (Levetiracetam), 1 TAB PO BID, (Reported) Levothyroxine Sodium (Levothyroxine Sodium), 1 TAB PO DAILY, (Reported) Nifedipine ER* (Nifedipine Er*), 1 TAB PO BID, (Reported) Prednisone* (Prednisone*), 1 TAB PO DAILY, (Reported) Sertraline HCl (Sertraline HCl), 2 TAB PO DAILY, (Reported) [Fentanyl Patch], 50 MCG Q48H, (Reported) Scheduled PRN Ipratropium/Albuterol Sulfate (Duoneb 2.5-0.5 Mg/3 Ml Soln), 3 ML IH Q6H PRN for SOB or wheezing, (Reported) ONDANSETRON ODT 4mg tablet (Ondansetron Odt), 1 TAB PO Q6H PRN for nausea/vomiting, (Reported) Polyethylene Glycol 3350* (Miralax*), 1 PKT PO DAILY PRN for constipation, (Reported) Miscellaneous Medications Loperamide Hcl (Loperamide), 2 TAB PO, (Reported) Oxycodone Hcl/Acetaminophen (Oxycodone-Acetaminophen 10-325), (Reported) Sodium Zirconium Cyclosilicate (Lokelma), (Reported) Past Medical History Past Medical History: Seizures, Congestive Heart Failure, High Cholesterol, Heart Valve Disease, Hypertension, Pneumonia, Pulmonary Embolism, Chronic Kidney Disease, *MUSCULOSKELETAL*, Arthritis, Chronic Pain, Deep Vein Thrombosis, Fibromyalgia, Osteoporosis, Rheumatoid Arthritis, MRSA Abscess, Depression Past Surgical History: coronary bypass surgery, , heart valve surgery, other Patient History: Cardiomegaly MOTHER FHx: depression MOTHER FHx: diabetes mellitus MOTHER FHx: sleep apnea MOTHER Legionnaire's disease MOTHER Other Past Family History: NONCONTRIBUTORY Alcohol Use: None Drug Use: marijuana Lives with: Family Lives In: Home Occupation: unemployed Review of Systems ROS All review of systems negative except as per HPI Physical Exam Physical Exam Vital Signs: Temperature: 97.5, Source: Temporal, Heart Rate: 66, Respiratory Rate: 18, BP: 156/87, Pulse Oximetry: 98, Weight: 50.000 Oxygen Flow Rate: 0 Physical Exam General: Patient is awake, alert, oriented x4 in no acute distress. Eating chicken nuggets comfortably Head: Normocephalic and atraumatic. Eyes: Conjunctival normal. EOMI. PERRL. ENT: Mucous membranes moist. Neck: Supple, trachea is midline. Chest: Clear to auscultation bilaterally without rales, rhonchi, or wheezes. There is no accessory muscle use or retractions. Cardiac: RRR without murmurs, gallops, or rubs. Abd: Soft, nondistended, nontender, with normoactive bowel sounds. No guarding, rebound, or rigidity. Progress Results/Orders Results/Orders Vital Signs 05/09/25 22:15 Temp 97.5 Pulse 66 Resp 18 B/P (MAP) 156/87 Pulse Ox 98 O2 Flow Rate 0 Medical Decision Making Additional information obtaine: old records Findings Patient presents to the emergency room with report of lupus flare. Patient has a history of not being very forthcoming regarding her pain medications and I will not be giving her prescription. Differential Diagnosis j Departure Disposition: HOME / SELF CARE / HOMELESS Impression: Primary Impression: Chronic pain disorder Condition: Stable Referrals: NO PRIMARY CARE PROVIDER (PCP) Signature Scribe Signature: No scribe Attestation: The note accurately reflects work and decisions made by me.Isaac Feliciano MD 05/09/25 22:33 ISAAC FELICIANO MD May 09, 2025 22:28
[2025-05-09] MEDS: HYDROcodone/acetaminophen 5mg/325mg tablet PO ONE (22:47)
== END 2025-05-09 22:52 | disposition home or self-care (01) ==
LOC: ER 22:14
DX: G89.29 Other chronic pain (principal); E78.00 Pure hypercholesterolemia, unspecified; M79.7 Fibromyalgia; I13.0 Hypertensive heart and chronic kidney disease with heart failure and stage 1 through stage 4 chronic kidney disease, or unspecified chronic kidney disease; N18.9 Chronic kidney disease, unspecified; F32.A Depression, unspecified; M19.90 Unspecified osteoarthritis, unspecified site; F12.90 Cannabis use, unspecified, uncomplicated; Z86.718 Personal history of other venous thrombosis and embolism; Z86.711 Personal history of pulmonary embolism; Z86.14 Personal history of Methicillin resistant Staphylococcus aureus infection; Z95.1 Presence of aortocoronary bypass graft; Z88.1 Allergy status to other antibiotic agents; Z79.82 Long term (current) use of aspirin; Z79.899 Other long term (current) drug therapy; Z56.0 Unemployment, unspecified
CPT/HCPCS: 99283

== ENCOUNTER 2025-05-12 16:38 | Emergency (ER) | payer MEDICARE, MEDICAID ==
[~2025-05-12] VITALS: Ht 157.5 cm; Wt 52.1 kg
[2025-05-12 16:55] VITALS: TEMP 97.6
[2025-05-12 18:27] VITALS: BP 149/95; PULSE 81; RESP 15; O2SAT 99
--- NOTE | 2025-05-12 18:30 | Physician Documentation ---
HPI ~ General Chief Complaint: Medication Request Stated Complaint: ABDOMINAL PAIN Time Seen by MD: 19:51 Primary Medical Doctor: Qi Mcdonnell History of Present Illness HPI Comments A 45-year-old female presents to the ED requesting a refill of her fentanyl. States that she is unable to see her doctor Friday she is currently out. History as above. She reports that because of the she can not get her medicine. Of note that has an entire week away and today is a usual work day Without Medications Since: May 12, 2025 Medication Reconciliation Allergies: Coded Allergies: cefaclor (Verified Allergy, Severe, hives/severe swelling, 05/12/25) cefpodoxime (Verified Allergy, Severe, hives/severe swelling, 05/12/25) Scheduled Aspirin (Aspirin EC), 1 TAB PO DAILY, (Reported) Clonidine HCl (Clonidine HCl), 1 TAB PO BID, (Reported) Diclofenac Sodium (Diclofenac Sodium), 1 APPLIC TOP DAILY, (Reported) Furosemide (Furosemide), 2 TAB PO DAILY, (Reported) Gabapentin (Neurontin), 1 CAP PO DAILY, (Reported) Hydroxychloroquine Sulfate (Plaquenil), 200 MG PO DAILY, (Reported) Lacosamide (Lacosamide), 1 TAB PO BID, (Reported) Levetiracetam (Levetiracetam), 1 TAB PO BID, (Reported) Levothyroxine Sodium (Levothyroxine Sodium), 1 TAB PO DAILY, (Reported) Nifedipine ER* (Nifedipine Er*), 1 TAB PO BID, (Reported) Prednisone* (Prednisone*), 1 TAB PO DAILY, (Reported) Sertraline HCl (Sertraline HCl), 2 TAB PO DAILY, (Reported) [Fentanyl Patch], 50 MCG Q48H, (Reported) Scheduled PRN Ipratropium/Albuterol Sulfate (Duoneb 2.5-0.5 Mg/3 Ml Soln), 3 ML IH Q6H PRN for SOB or wheezing, (Reported) ONDANSETRON ODT 4mg tablet (Ondansetron Odt), 1 TAB PO Q6H PRN for nausea/vo miting, (Reported) Polyethylene Glycol 3350* (Miralax*), 1 PKT PO DAILY PRN for constipation, (Reported) Miscellaneous Medications Loperamide Hcl (Loperamide), 2 TAB PO, (Reported) Oxycodone Hcl/Acetaminophen (Oxycodone-Acetaminophen 10-325), (Reported) Sodium Zirconium Cyclosilicate (Lokelma), (Reported) Past Medical History Past Medical History: Seizures, Congestive Heart Failure, High Cholesterol, Heart Valve Disease, Hypertension, Pneumonia, Pulmonary Embolism, Chronic Kidney Disease, *MUSCULOSKELETAL*, Arthritis, Chronic Pain, Deep Vein Thrombosis, Fi bromyalgia, Osteoporosis, Rheumatoid Arthritis, MRSA Abscess, Depression Past Surgical History: coronary bypass surgery, , heart valve surgery, other Patient History: Cardiomegaly MOTHER FHx: depression MOTHER FHx: diabetes mellitus MOTHER FHx: sleep apnea MOTHER Legionnaire's disease MOTHER Other Past Family History: NONCONTRIBUTORY Alcohol Use: None Drug Use: marijuana Lives with: Family Lives In: Home Occupation: unemployed Review of Systems All Other Systems at this time: Reviewed and Negative ROS As stated above in the HPI, otherwise all systems are reviewed and negative. Physical Exam Physical Exam Vital Signs: Temperature: 97.6, Source: Oral, Heart Rate: 81, Respiratory Rate: 15, BP: 149/95, Pulse Oximetry: 99, Weight: 52.100 Oxygen Flow Rate: 0 Physical Exam General: Patient is awake, alert, oriented x4 in no acute distress. Chronically ill-appearing Head: Normocephalic and atraumatic. Eyes: Conjunctival normal. EOMI. PERRL. ENT: Mucous membranes moist. Neck: Supple, trachea is midline. Chest: Clear to auscultation bilaterally without rales, rhonchi, or wheezes. There is no accessory muscle use or retractions. Cardiac: RRR without murmurs, gallops, or rubs. Progress Results/Orders Results/Orders Vital Signs 05/12/25 05/12/25 16:55 18:27 Temp 97.6 Pulse 71 81 Resp 16 15 B/P (MAP) 189/113 149/95 (113) Pulse Ox 97 99 O2 Flow Rate 0 Medical Decision Making Additional information obtaine: old records Findings Patient presents to the emergency room with chronic pain. She used up all of her medication patches and I will not be giving her additional. Offered ibuprofen and Tylenol however she has declined Differential Dx:Considerations: Include: Adverse circumstances, Economic, Psychosocial, Medical services unavail., Medication refill, Medication non-compliance, Other Departure Disposition: HOME / SELF CARE / HOMELESS Impression: Primary Impression: General medical exam Condition: Stable Discharge Instructions: Medicine Refill at the Emergency Department Additional Instructions: I will not fill your chronic pain medication or give you additional pain medication if you run out early Referrals: NO PRIMARY CARE PROVIDER (PCP) Signature Scribe Signature: No scribe Attestation: The note accurately reflects work and decisions made by me.Isaac Feliciano MD 05/12/25 19:55 JENARO AL NP May 12, 2025 18:30 ISAAC FELICIANO MD May 12, 2025 19:56
== END 2025-05-12 20:00 | disposition home or self-care (01) ==
LOC: ER 16:39
DX: Z00.00 Encounter for general adult medical examination without abnormal findings (principal); I13.0 Hypertensive heart and chronic kidney disease with heart failure and stage 1 through stage 4 chronic kidney disease, or unspecified chronic kidney disease; N18.9 Chronic kidney disease, unspecified; E78.00 Pure hypercholesterolemia, unspecified; G89.29 Other chronic pain; M79.7 Fibromyalgia; F12.90 Cannabis use, unspecified, uncomplicated; F32.A Depression, unspecified; M19.90 Unspecified osteoarthritis, unspecified site; Z76.0 Encounter for issue of repeat prescription; Z86.14 Personal history of Methicillin resistant Staphylococcus aureus infection; Z86.711 Personal history of pulmonary embolism; Z86.718 Personal history of other venous thrombosis and embolism; Z88.1 Allergy status to other antibiotic agents; Z95.1 Presence of aortocoronary bypass graft; Z87.01 Personal history of pneumonia (recurrent); Z79.82 Long term (current) use of aspirin; Z79.899 Other long term (current) drug therapy; Z56.0 Unemployment, unspecified
CPT/HCPCS: 99282

== ENCOUNTER 2025-05-29 05:32 | Emergency (ER) | payer MEDICARE, MEDICAID ==
[~2025-05-29] VITALS: Ht 157.5 cm; Wt 56.0 kg
[2025-05-29 05:34] VITALS: BP 197/119; PULSE 82; RESP 16; TEMP 97.9; O2SAT 98
--- NOTE | 2025-05-29 06:09 | Physician Documentation ---
History of Present Illness ~ Chief Complaint: Diarrhea Stated Complaint: GI BLEED Time Seen by MD: 06:06 Primary Medical Doctor: Qi Mcdonnell Mode of Arrival: POV HPI 45-year-old female, history of end-stage renal disease on dialysis, presenting with abdominal pain rectal bleeding When I went to see this patient, she had eloped from the emergency department prior to my evaluation. I did not see this patient. Medication Reconciliation Allergies: Coded Allergies: cefaclor (Verified Allergy, Severe, hives/severe swelling, 05/12/25) cefpodoxime (Verified Allergy, Severe, hives/severe swelling, 05/12/25) Scheduled Aspirin (Aspirin EC), 1 TAB PO DAILY, (Reported) Clonidine HCl (Clonidine HCl), 1 TAB PO BID, (Reported) Diclofenac Sodium (Diclofenac Sodium), 1 APPLIC TOP DAILY, (Reported) Furosemide (Furosemide), 2 TAB PO DAILY, (Reported) Gabapentin (Neurontin), 1 CAP PO DAILY, (Reported) Hydroxychloroquine Sulfate (Plaquenil), 200 MG PO DAILY, (Reported) Lacosamide (Lacosamide), 1 TAB PO BID, (Reported) Levetiracetam (Levetiracetam), 1 TAB PO BID, (Reported) Levothyroxine Sodium (Levothyroxine Sodium), 1 TAB PO DAILY, (Reported) Nifedipine ER* (Nifedipine Er*), 1 TAB PO BID, (Reported) Prednisone* (Prednisone*), 1 TAB PO DAILY, (Reported) Sertraline HCl (Sertraline HCl), 2 TAB PO DAILY, (Reported) [Fentanyl Patch], 50 MCG Q48H, (Reported) Scheduled PRN Ipratropium/Albuterol Sulfate (Duoneb 2.5-0.5 Mg/3 Ml Soln), 3 ML IH Q6H PRN for SOB or wheezing, (Reported) ONDANSETRON ODT 4mg tablet (Ondansetron Odt), 1 TAB PO Q6H PRN for nausea/vomiting, (Reported) Polyethylene Glycol 3350* (Miralax*), 1 PKT PO DAILY PRN for constipation, (Reported) Miscellaneous Medications Loperamide Hcl (Loperamide), 2 TAB PO, (Reported) Oxycodone Hcl/Acetaminophen (Oxycodone-Acetaminophen 10-325), (Reported) Sodium Zirconium Cyclosilicate (Lokelma), (Reported) Past Medical History Past Medical History: Seizures, Congestive Heart Failure, High Cholesterol, Heart Valve Disease, Hypertension, Pneumonia, Pulmonary Embolism, Chronic Kidney Disease, *MUSCULOSKELETAL*, Arthritis, Chronic Pain, Deep Vein Thrombosis, Fibromyalgia, Osteoporosis, Rheumatoid Arthritis, MRSA Abscess, Depression Past Surgical History: coronary bypass surgery, , heart valve surgery, other Patient History: Cardiomegaly MOTHER FHx: depression MOTHER FHx: diabetes mellitus MOTHER FHx: sleep apnea MOTHER Legionnaire's disease MOTHER Other Past Family History: NONCONTRIBUTORY Alcohol Use: None Drug Use: marijuana Lives with: Family Lives In: Home Occupation: unemployed Review of Systems Unable to obtain complete ROS: other (did not assess) Physical Exam Vital Signs: Temperature: 97.9, Source: Oral, Heart Rate: 82, Respiratory Rate: 16, BP: 197/119, Pulse Oximetry: 98, Weight: 56.000 Oxygen Flow Rate: 0 Progress Results/Orders Results/Orders Vital Signs 05/29/25 05/29/25 05:34 05:47 Temp 97.9 Pulse 82 Resp 16 B/P (MAP) 197/119 Pulse Ox 98 O2 Flow Rate 0 Medical Decision Making Additional information obtaine: old records Findings I did briefly review the patient's chart for recent visits Diff Dx GI Bleed:Consideration: Unlikely: AE fistula Diff Dx Pain:Considerations: Unlikely: AAA Diff Dx N/V/D:Considerations: Unlikely: Appendicitis Diff Dx Rectal:Considerations: Unlikely: Fissure Additional Comments The patient left the emergency department before I was able to speak to her or evaluate her. Please see nursing notes. Departure Disposition: LEFT WITHOUT BEING SEEN Impression: Primary Impression: Abdominal pain Referrals: NO PRIMARY CARE PROVIDER (PCP) Signature Scribe Signature: na Attestation: CHALINO Fox MD May 29, 2025 06:09
== END 2025-05-29 07:03 | disposition left against medical advice (07) ==
LOC: ER 05:33
DX: R10.9 Unspecified abdominal pain (principal); I13.2 Hypertensive heart and chronic kidney disease with heart failure and with stage 5 chronic kidney disease, or end stage renal disease; N18.6 End stage renal disease; G89.29 Other chronic pain; E78.00 Pure hypercholesterolemia, unspecified; M79.7 Fibromyalgia; M19.90 Unspecified osteoarthritis, unspecified site; F32.A Depression, unspecified; F12.90 Cannabis use, unspecified, uncomplicated; Z86.14 Personal history of Methicillin resistant Staphylococcus aureus infection; Z86.711 Personal history of pulmonary embolism; Z86.718 Personal history of other venous thrombosis and embolism; Z88.1 Allergy status to other antibiotic agents; Z99.2 Dependence on renal dialysis; Z79.899 Other long term (current) drug therapy; Z56.0 Unemployment, unspecified; Z53.21 Procedure and treatment not carried out due to patient leaving prior to being seen by health care provider
CPT/HCPCS: 99281; 99283

== ENCOUNTER 2025-06-04 19:19 | Emergency (ER) | payer MEDICARE, MEDICAID ==
[~2025-06-04] VITALS: Ht 157.5 cm; Wt 60.0 kg
[2025-06-04 19:38] VITALS: BP 186/108; PULSE 79; RESP 16; TEMP 99; O2SAT 95
[2025-06-04 20:20] LABS: MEAN PLATELET VOLUME 9.2 FL (7.4-10.4); RED CELL DISTRIBUTION WIDTH 20.4 % (11.5-14.5)
[2025-06-04 20:32] LABS: CREATININE 4.56 MG/DL (0.40-0.90); TOTAL CARBON DIOXIDE 28.2 MMOL/L (24-32); eCRCL 12 ML/MIN; eGFR 10 ML/MIN
[2025-06-04 20:55] LABS: PLATELET ESTIMATE DECREASED
== END 2025-06-04 21:48 | disposition left against medical advice (07) ==
LOC: ER 19:20
DX: M79.601 Pain in right arm (principal); M25.551 Pain in right hip; Z53.21 Procedure and treatment not carried out due to patient leaving prior to being seen by health care provider; Z88.1 Allergy status to other antibiotic agents
CPT/HCPCS: 80053; 85008; 85025; 99281